=== PATIENT | female | born 1955 | race Caucasian/White ===

== ENCOUNTER 2019-05-30 20:52 | Inpatient (IN) ==
[2019-05-30] MEDS ORDERED: VANCOMYCIN HCL 1,750 MG in SODIUM CHLORIDE 0.9% 500 ML IV STA (21:26)
[2019-05-30] MEDS ORDERED: VANCOMYCIN CONSULT ACTIVE PRN (21:26)
[2019-05-30] MEDS ORDERED: SODIUM CHLORIDE 0.9% 500 ML IV ONE (21:26)
[2019-05-30] MEDS ORDERED: KETOROLAC 30 MG/ML VIAL IV STA (21:26)
--- NOTE | 2019-05-30 21:34 | Emergency Department Note ---
Entered by Wali Paez acting as a scribe for History of Present Illness General Chief complaint: Infection, Wound Stated complaint: SORE ON HEAD Time Seen by Provider: 05/30/19 21:11 Source: patient History of Present Illness Onset (ago): week(s) 1 Location: head (left forehead) Pain Consistency: + constant Maximum Pain Intensity: 9 Quality: + other (sore) Associated symptoms: + other (Positive for drainage, pain, and nausea.) The patient is a 63 year old female who presents to the emergency department with complaints of a constant sore on her left forehead beginning a week ago. The patient states that she also has sores on her torso, arms, and back. She notes that she has pain at these locations. She reports that the sores have been draining. The patient states that she has been taking Aleve and Excedrin with no relief of her symptoms. She also complains of nausea. She notes that she is unsure if her sores are cellulitis or diabetic sores. Home Medications Home Medications Medication Instructions Recorded Confirmed Type No Known Home Medications 05/30/19 05/30/19 History Allergies Allergy/AdvReac Type Severity Reaction Status Date / Time No Known Allergies Allergy Verified 05/30/19 22:29 Past Med/Surg History Medical History (Updated 05/30/19 @ 22:26 by Wali Paez) Diabetes Family History (Updated 05/30/19 @ 21:21 by Wali Paez) Other No significant family history Social History (Updated 05/30/19 @ 21:21 by Wali Paez) marital status: / Current Living Situation: Family Feels Safe at Home: Yes Smoking Status: Never smoker Review of Systems See HPI for pertinent positives & negatives. and A total of 10 systems reviewed and were otherwise negative Physical Exam Vital Signs Vital Signs - 24 hr 05/30/19 20:54 Temperature 36.8 C Temperature Source Oral Pulse Rate 83 Respiratory Rate 18 Respiratory Effort / Characteristics Non-Labored Spontaneous Respiratory Depth Normal Blood Pressure 157/74 H Blood Pressure Mean 101 Pulse Oximetry 98 Oxygen Delivery Method Room Air Sepsis Recent Fever Within 48 Hours No Sepsis Action Taken by Nursing No Action Required CONSTITUTIONAL/VITAL SIGNS: Reviewed / noted above. GENERAL: Non-toxic in appearance. INTEGUMENTARY: Warm, dry, and Sammy Martinez. Large erythematous region on left frontal and temporal area, partially scabbed over wound the size of a nickel, fluctuant with purulent drainage. Multiple papules and pustules on back and other areas of the body. HEAD: Normocephalic. EYES: without scleral icterus or trauma. ENT/OROPHARYNX: clear and moist. LYMPHADENOPATHY/NECK: Is supple without lymphadenopathy or meningismus. RESPIRATORY: Lungs clear and equal. CARDIOVASCULAR: Regular rate and rhythm. GI/ABDOMEN: Soft and nontender. No organomegaly or pulsatile mass. No rebound or guarding. Normal bowel sounds. EXTREMITIES: Warm and well perfused. BACK: No CVA tenderness. NEUROLOGICAL: Intact without focal deficits. PSYCHIATRIC: normal affect. MUSCULOSKELETAL: Normally developed with good muscle tone. Course Course 2114: The patient was evaluated in room A3. A complete history and physical exam was performed. 2219: Upon reevaluation, the patient is stable. I discussed the findings and the treatment plan with the patient. She expresses agreement and understanding. I spoke with Dr. Lam of the [facility]. The patient will be evaluated for further management. Consultations Consultation #1: I reviewed the patient's case with Dr. Lam - Hospitalist, [facility]. He will evaluate the patient for further management. Time: 22:20 Administered Medications Vancomycin HCl 1,750 mg/ (Sodium Chloride) 535 mls @ 200 mls/hr IV NOW STA; Protocol Stop: 05/31/19 00:06 Last Admin: 05/30/19 22:09 Dose: 200 mls/hr Documented by: [id number] Discontinued Medications Sodium Chloride (Nss) 500 mls @ 999 mls/hr IV .Q31M ONE Stop: 05/30/19 21:56 Last Admin: 05/30/19 21:45 Dose: 999 mls/hr Documented by: [id number] Ketorolac Tromethamine (Toradol) 30 mg IV NOW STA Stop: 05/30/19 21:27 Last Admin: 05/30/19 21:46 Dose: 30 mg Documented by: [id number] Medical Decision Making Differential Diagnosis Differential diagnosis includes etiologies such as cellulitis, abscess, MRSA infection, DVT, necrotizing fasciitis, dermatitis, drug eruption, as well as others were entertained. Medical Records Attestation: I reviewed the patient's medical records. Home Medications Current Medication List: was personally reviewed by me Laboratory Data Attestation: I reviewed the patient's lab results. Result diagrams: 05/30/19 21:39 05/30/19 21:39 Lab Results 05/30/19 05/30/19 Range/Units 21:39 21:39 WBC 15.43 H (4.8-10.8) K/uL RBC 4.17 L (4.2-5.4) M/uL Hgb 12.2 (12.0-16.0) g/dL Hct 36.2 L (37-47) % MCV 86.8 (80-100) fL MCH 29.3 (25-34) pg MCHC 33.7 (32-36) g/dL RDW Std Deviation 41.4 (36.4-46.3) fL RDW Coeff of Anitha 12.8 (11.5-14.5) % Plt Count 326 (130-400) K/uL MPV 10.1 (7.4-10.4) fL Immature Gran % (Auto) 0.1 % Neut % (Auto) 84.0 % Lymph % (Auto) 9.6 % [place] % (Auto) 5.4 % Eos % (Auto) 0.8 % Baso % (Auto) 0.1 % Immature Gran # (Auto) 0.02 (0.00-0.02) K/uL Neut # (Auto) 12.96 H (1.4-6.5) K/uL Lymph # (Auto) 1.48 (1.2-3.4) K/uL [place] # (Auto) 0.83 H (0.11-0.59) K/uL Eos # (Auto) 0.12 (0-0.5) K/uL Baso # (Auto) 0.02 (0-0.2) K/uL Sodium 137 (136-145) mmol/L Potassium 3.3 L (3.5-5.1) mmol/L Chloride 106 (98-107) mmol/L Carbon Dioxide 24 (21-32) mmol/L Anion Gap 8.0 (3-11) BUN 15 (7-18) mg/dl Creatinine 0.96 (0.6-1.2) mg/dl Est Cr Clr Drug Dosing 67.8 ml/min Est GFR ( Amer) 72.9 Est GFR (Non-Af Amer) 62.9 BUN/Creatinine Ratio 15.9 (10-20) Glucose 311 H* (70-99) mg/dl Calcium 8.7 (8.5-10.1) mg/dl Beta-Hydroxybutyric Acd 1.53 (0.2-2.81) mg/dl Blood Pressure Blood Pressure Findings: Elevated blood pressure Blood Pressure Disposition: elevated BP felt to be situational MDM Narrative This is a 63-year-old female who presents to the ED with a chief complaint of a wound on her left frontal/temporal region. The patient states that she has a hi story of diabetes but has not been taking medication for because she does not have insurance. She also reports that she has had an area on her forehead that has been infected recently but she has not had it checked. She developed a large abscess and decided to come to the ED tonight because it was getting worse. She states that pus intermittently has been draining out of the wound. She denies any fevers. Her physical exam reveals a partially healing wound about the size of a nickel in the left forehead. There is moderate fluctuance under the wound and a moderate amount of pus was expressed from that area after a 18-gauge needle was used to open up the previously partially healed wound. There is surrounding erythema. The patient also has multiple papules/pustules on her back and other areas of her body. Her vital signs are stable. She is mildly hypertensive. A culture of the pus was taken. The patient was given IV vancomycin and some IV Toradol. She was also given some IV fluids. Her white blood cell count is elevated at 15.43. Her glucose is 311. She will be seen by the hospitalist for further evaluation and care. Impression & Plan Cellulitis, Abscess of head Discharge Plan Visit Data Chief Complaint: Infection, Wound Stated Complaint: SORE ON HEAD ED Provider: Klever Ventura Discharge Problem: Cellulitis, Abscess of head Patient Disposition: Being Evaluated by Hospitalist Forms Stand Alone Forms: [email or web address] Prescriptions Prescriptions: No Action No Known Home Medications RF: 0 Referrals Referrals: PCP,NO [Primary Care Provider] - Discharge Problem: Cellulitis Qualifiers: Site of cellulitis: unspecified site Qualified Code(s): L03.90 - Cellulitis, unspecified The scribe's documentation has been prepared under my direction and personally reviewed by me in its entirety. I confirm that the note above accurately reflects all work, treatment, procedures, and medical decision making performed by me.
[2019-05-30 21:51] LABS: Basophils # (auto) 0.02 K/uL (0-0.2); Basophils % (auto) 0.1 %; Eosinophils # (auto) 0.12 K/uL (0-0.5); Eosinophils % (auto) 0.8 %; Hematocrit (blood only) 36.2 % (37-47); Hemoglobin 12.2 g/dL (12.0-16.0); Immature Granulocytes # (auto) 0.02 K/uL (0.00-0.02); Immature Granulocytes % (auto) 0.1 %; Lymphocytes # (auto) 1.48 K/uL (1.2-3.4); Lymphocytes % (auto) 9.6 %; Mean Corpuscular Hemoglobin 29.3 pg (25-34); Mean Corpuscular Hgb Conc 33.7 g/dL (32-36); Mean Corpuscular Volume 86.8 fL (80-100); Mean Platelet Volume 10.1 fL (7.4-10.4); Monocytes # (auto) 0.83 K/uL (0.11-0.59); Monocytes % (auto) 5.4 %; Neutrophils # (auto) 12.96 K/uL (1.4-6.5); Platelet Count 326 K/uL (130-400); RDW Coefficient of Variation 12.8 % (11.5-14.5); RDW Standard Deviation 41.4 fL (36.4-46.3); Red Blood Count 4.17 M/uL (4.2-5.4); White Blood Count 15.43 K/uL (4.8-10.8)
[2019-05-30 22:07] LABS: BUN Creatinine Ratio 15.9 (10-20); Calcium 8.7 mg/dl (8.5-10.1); Creatinine Clr Calc Pharmacy 67.8 ml/min; Est GFR (African American) 72.9; Est GFR (Non-African American) 62.9; Potassium 3.3 mmol/L (3.5-5.1)
[2019-05-30 22:26] LABS: Beta-Hydroxybutyrate 1.53 mg/dl (0.2-2.81)
[2019-05-31] MEDS ORDERED: ONDANSETRON INJ 2 MG/ML 2 ML VIAL IV PRN (00:56)
[2019-05-31] MEDS ORDERED: VANCOMYCIN HCL 1,000 MG in SODIUM CHLORIDE 0.9% 250 ML IV SCH (00:56)
[2019-05-31] MEDS ORDERED: VANCOMYCIN CONSULT ACTIVE PRN (00:56)
[2019-05-31] MEDS ORDERED: PIPERACILL/TAZOBAC CONSULT ACTIVE PRN (00:56)
[2019-05-31] MEDS ORDERED: POTASSIUM CHLORIDE 20 MEQ TABCR PO STA (00:56)
[2019-05-31] MEDS ORDERED: GLUCOSE 10 TABS/TUBE PO PRN (01:30)
[2019-05-31] MEDS ORDERED: CARBOHYDRATES FOR HYPOGLYCEMIA PO PRN (01:30)
[2019-05-31] MEDS ORDERED: GLUCAGON FOR INJ 1 MG VIAL SQ PRN (01:30)
[2019-05-31] MEDS ORDERED: PIPERACILLIN/TAZOBACTAM 4.5 GM in DEXTROSE 5% 100 ML IV SCH ×2 (01:30→06:00)
[2019-05-31] MEDS ORDERED: DEXTROSE 50% 50 ML SYRINGE IV PRN (01:30)
[2019-05-31] MEDS ORDERED: GLUCOSE 40% GEL 15 GM TUBE PO PRN (01:30)
[2019-05-31] MEDS: INSULIN GLARGINE SOLOSTAR 100 UNITS/ML 3 ML PEN SC SCH ×3 (01:42→21:08)
[2019-05-31] MEDS: SODIUM CHLORIDE 0.9% 1000ML 1,000 ML IV SCH ×3 (01:44→21:06)
--- NOTE | 2019-05-31 02:38 | History and Physical Report ---
DATE OF ADMISSION: 05/30/2019 CHIEF COMPLAINT: Left frontal draining wound and pain. HISTORY OF PRESENT ILLNESS: This is a 63-year-old female diagnosed with diabetes 4 years ago, was on metformin and glipizide, but stopped taking 2 years ago because she has no insurance. She is from [facility], but she works in [place]. Since last few days, she noticed swelling and erythema and wound on the left frontal part of the head and also has pustules in her trunk and extremities. She lives with daughter. As per daughter, since her , she is not taking care of herself. She does not check blood sugars regularly. Once in a while she checks her blood sugars and she does not remember how high they were running. Last few days ago, she fell and she has some bruises on her left lower extremity. Denies any fever, chills, but she has severe throbbing pain in her head at wound site and it was draining and the ER physician has drained the abscess , but no excision was done. Currently, after the pain medication, the pain has improved. Currently, resting comfortably and hemodynamically stable. Denies any dizziness. Once in a while, she gets blurred vision, has earache in the left ear corresponding to her head wound. Has some runny nose, no sore throat, no dysphagia, no odynophagia, no chest pain, no shortness of breath, no cough, no nausea, no vomiting, no abdominal pain, no diarrhea, no constipation, no blood in stool, no black stools. No burning micturition, no hematuria. No swelling in the legs, no rash currently. ALLERGIES: No known drug allergies. PAST MEDICAL HISTORY: As mentioned above. PAST SURGICAL HISTORY: Tonsillectomy. MEDICATIONS: None. FAMILY HISTORY: Father had hypertension and heart disease, but lived up to 104 years. Mother had dementia, but lived up to 94 years. SOCIAL HISTORY: No smoking, no alcohol. Lives with her daughter. REVIEW OF SYSTEMS: As per HPI. Rest of review of systems negative. PHYSICAL EXAMINATION: GENERAL: The patient is of moderate build, not in acute distress. VITAL SIGNS: Temperature 36.8, pulse 83, respiratory rate 18, blood pressure 157/74, oxygen 98% on room air. HEENT: The patient has a draining wound seen on the right frontal region and erythematous changes surrounding it,up to the forehead. No pallor, no icterus. Pupils equal, round, reactive to light. NECK: No carotid bruit, no neck masses. Supple. CARDIOVASCULAR: S1, S2 heard, regular rate and rhythm, no murmur, no gallop. RESPIRATORY SYSTEM: Normal AP diameter. No accessory muscle use. No wheezing, no crackles. ABDOMEN: Soft, bowel sounds present. Nontender. No distention. CENTRAL NERVOUS SYSTEM: Cranial nerves II-XII are grossly intact. Nonfocal. EXTREMITIES: No edema, no erythema. SKIN: Pustular lesions seen on the trunk and extremities. LABORATORY DATA: WBC 15, hemoglobin 12.2, hematocrit 36.2, platelets 326. Sodium 137, potassium 3.3, chloride 106, bicarb 24, BUN 15, creatinine 0.9, serum glucose 311, calcium 8.7. ASSESSMENT AND PLAN: This is a 63-year-old female who presents with left frontal facial abscess and cellulitis. 1. Left frontal facial abscess and cellulitis. The patient is diabetic, but not taking medications since last 2 years, blood sugar is 311 in the ER. It was draining at home and ER physician pressed it and drained it. Vancomycin was given in the ER. We will continue with vancomycin and Zosyn. Follow the cultures. IV fluids at 125 mL per hour. Monitor in the medical floor.ID consult. 2. Diabetes, noncompliant with medications, used to be on metformin and glipizide in the past. Diagnosed 4 years ago. Stopped taking medications 2 years ago. Sugar was 311 in the ER. We will place on Lantus 5 units b.i.d., insulin sliding scale. Follow hemoglobin A1c levels. We will consult social service to help with the medications. 3. Deep venous thrombosis prophylaxis, sequential compression devices. DISPOSITION: Admit to medical floor, observe in medical floor. Expect to discharge home and follow with family doctor. Level 1 full code. MTDD
[2019-05-31 05:23] LABS: Basophils # (auto) 0.03 K/uL (0-0.2); Basophils % (auto) 0.3 %; Eosinophils # (auto) 0.19 K/uL (0-0.5); Eosinophils % (auto) 1.7 %; Hematocrit (blood only) 33.4 % (37-47); Hemoglobin 10.8 g/dL (12.0-16.0); Immature Granulocytes # (auto) 0.02 K/uL (0.00-0.02); Immature Granulocytes % (auto) 0.2 %; Lymphocytes # (auto) 2.07 K/uL (1.2-3.4); Lymphocytes % (auto) 18.6 %; Mean Corpuscular Hemoglobin 28.8 pg (25-34); Mean Corpuscular Hgb Conc 32.3 g/dL (32-36); Mean Corpuscular Volume 89.1 fL (80-100); Mean Platelet Volume 10.6 fL (7.4-10.4); Monocytes # (auto) 0.98 K/uL (0.11-0.59); Monocytes % (auto) 8.8 %; Neutrophils # (auto) 7.85 K/uL (1.4-6.5); Neutrophils % (auto) 70.4 %; Platelet Count 258 K/uL (130-400); RDW Coefficient of Variation 12.9 % (11.5-14.5); RDW Standard Deviation 41.4 fL (36.4-46.3); Red Blood Count 3.75 M/uL (4.2-5.4); White Blood Count 11.14 K/uL (4.8-10.8)
[2019-05-31 05:52] LABS: BUN Creatinine Ratio 20.8 (10-20); Calcium 8.1 mg/dl (8.5-10.1); Creatinine Clr Calc Pharmacy 79.9 ml/min; Est GFR (African American) 88.3; Est GFR (Non-African American) 76.2; Magnesium 1.4 mg/dl (1.8-2.4); Potassium 3.7 mmol/L (3.5-5.1)
[2019-05-31] MEDS: MAGNESIUM SULFATE / D5W 1 GM/100 ML BAG IV SCH ×2 (06:42→07:45)
[2019-05-31] MEDS: VANCOMYCIN HCL 1,000 MG in SODIUM CHLORIDE 0.9% 250 ML IV SCH ×3 (08:46→23:29)
[2019-05-31] MEDS: INSULIN ASPART 100 UNITS/ML 3 ML PEN SC SCH ×4 (08:48→21:08)
--- NOTE | 2019-05-31 08:50 | Pharmacy Report ---
Pharmacy Abx Initial Consult - Date of Service May 31, 2019 - Pharmacy Dosing Scope Date of Consult: 05/30/19 Consultation requested by: Dr. Lam Pharmacy is consulted to initiate vancomycin and Zosyn IV dosing therapy, order appropriate labs and adjust drug dose/frequency. - Subjective The patient is a 63 year old F admitted on 05/30/19 23:41. - Objective Height: 5 ft 5 in Weight: 94.6 kg Vital Signs (Past 12hrs): Vital Signs Temp Pulse Pulse Resp BP BP BP 05/31/19 07:31 36.9 C 66 20 147/82 H 05/31/19 07:13 37.0 C 64 16 112/66 05/31/19 01:44 71 153/69 H 05/31/19 01:02 36.8 C 75 20 166/80 H 05/31/19 00:50 36.8 C 87 15 166/80 H 05/31/19 00:30 73 18 155/82 H 05/30/19 20:54 36.8 C 83 18 157/74 H Pulse Ox 05/31/19 07:31 97 05/31/19 07:13 96 05/31/19 01:44 05/31/19 01:02 97 05/31/19 00:50 96 05/31/19 00:30 97 05/30/19 20:54 98 Lab Results (24hrs): Laboratory Tests (24 Hours) 05/31/19 05/31/19 05/30/19 04:40 04:40 21:39 WBC 11.14 H Neut # (Auto) 7.85 H Creatinine 0.82 0.96 Est Cr Clr Drug Dosing 79.9 67.8 05/30/19 21:39 WBC 15.43 H Neut # (Auto) 12.96 H Creatinine Est Cr Clr Drug Dosing Micro Results: 05/30/19 21:28 Gram Stain - Final Head Wound Culture - Pending - Assessment & Plan Assessment 63 year old F receiving empiric vancomycin and Zosyn for treatment of a draining left frontal head wound. Additionally, patient complains of sores on torso, arms, and back. Patient has currently uncontrolled type 2 diabetes mellitus (not currently taking any medications). Culture of the head wound was obtained and is growing S.aureus. Zosyn discontinued in light of preliminary culture. Plan Vancomycin IV * Estimated PK Parameters: Vd 0.6 L/kg, Abel 0.07 hr-1, t1/2 9.9 hr * Loading dose: 1750 mg (18 mg/kg) * Maintenance dose: 1000 mg IV (10 mg/kg) every 8 hours * Patient meets criteria for vancomycin AUC dosing nomogram * AUC/ABIOLA is the preferred PK/PD target for vancomycin * Target AUC/ABIOLA = 400-600 * AUC guided dosing is effective and associated with decreased risk of nephrotoxicity * Trough levels poorly correlate with AUC/ABIOLA and trough monitoring has been associated with increased risk of nephrotoxicity Pharmacy will continue to follow and will adjust dose/frequency as necessary. Thank you.
[2019-05-31] MEDS: MAGNESIUM OXIDE 400 MG TAB PO SCH ×2 (11:19→21:06)
--- NOTE | 2019-05-31 11:36 | Hospitalist Progress Note ---
Date of Service May 31, 2019 Assessment & Plan (1) Cellulitis: Left frontal area with adjoining ileum telemetry changes involving the left face Ulcers with minimal drainage Has been getting intravenous Vanco and Zosyn Await wound culture prior to changing it to oral Augmentin Clinically better Present on Admission?: Yes (2) Diabetes: History of diabetes for many years Has not been taking medications for the last 4 years Not been following diabetic diet Does not have any insurance We will get hemoglobin A1c Has been getting insulin and sliding scale coverage DVT prophylaxis Lovenox CODE STATUS Full Social service evaluation for discharge planning Subjective 05/31/2019 Patient was seen and examined in medical floor She has diabetes and has been taking any medications Was admitted with a nonhealing wound left frontal area with adjoining inflammatory changes Feeling a lot better since admission Review of Systems Review of Systems: All systems reviewed and are unremarkable except as noted below Constitutional: + fatigue Respiratory: no dyspnea Cardiovascular: no chest pain Gastrointestinal: no bloating, no nausea and no vomiting Physical Exam Physical Exam: Lying in bed comfortably Constitutional: well developed, well nourished and + obese; no acute distress and not ill appearing Eyes: PERRL, conjunctivae normal, anicteric sclerae ENMT: external ear and nose normal, oropharynx normal Neck: trachea midline, no thyromegaly Respiratory: normal respiratory effort; no respiratory distress Auscultation: lungs clear to auscultation bilaterally Cardiovascular: Rate/Rhythm: regular rate and regular rhythm Heart Sounds: no murmur Gastrointestinal (Abdomen): Inspection/Auscultation: abdomen normal to inspection and normal bowel sounds Percussion/Palpation: abdomen soft; abdomen nontender Musculoskeletal: No acute arthritis in any joints Skin: Skin lesion involving the left frontal area with small oozing ulcer and surrounding inflammation and edema involving left side of the face Neurologic: moves all extremities; no focal motor deficits Has peripheral neuropathy from diabetes Results & Data ([facility]) Vital Signs (Past 12 Hours) Vital Signs Temp Pulse Resp BP BP Pulse Ox 05/31/19 07:31 36.9 C 66 20 147/82 H 97 05/31/19 07:13 37.0 C 64 16 112/66 96 05/31/19 01:44 71 153/69 H 05/31/19 01:02 36.8 C 75 20 166/80 H 97 05/31/19 00:50 36.8 C 87 15 166/80 H 96 05/31/19 00:30 73 18 155/82 H 97 Laboratory Results Short CBC 05/30/19 05/31/19 Range/Units 21:39 04:40 WBC 15.43 H 11.14 H (4.8-10.8) K/uL Hgb 12.2 10.8 L (12.0-16.0) g/dL Hct 36.2 L 33.4 L (37-47) % Plt Count 326 258 (130-400) K/uL BMP 05/30/19 05/31/19 21:39 04:40 Sodium 137 138 Potassium 3.3 L 3.7 Chloride 106 110 H Carbon Dioxide 24 22 BUN 15 17 Creatinine 0.96 0.82 Glucose 311 H* 226 H Calcium 8.7 8.1 L Medications Administered Current Inpatient Medications Acetaminophen (Tylenol) 650 mg PO Q4H PRN PRN Reason: pain/fever Stop: 06/30/19 00:55 Dextrose (Dextrose 50%) 25 - 50 ml IV UD PRN; Protocol PRN Reason: Hypoglycemia Protocol Stop: 06/30/19 01:29 Glucagon (Glucagen) 1 mg SQ UD PRN; Protocol PRN Reason: Hypoglycemia Protocol Stop: 06/30/19 01:29 Glucose (Glucose 40%) 15 - 30 gm PO UD PRN; Protocol PRN Reason: Hypoglycemia Protocol Stop: 06/30/19 01:29 Glucose (Dex4 Glucose) 4 - 8 tabs PO UD PRN; Protocol PRN Reason: Hypoglycemia Protocol Stop: 06/30/19 01:29 Sodium Chloride (Nss 1000ml) 1,000 mls @ 125 mls/hr IV .Q8H PAM Stop: 06/30/19 00:55 Last Admin: 05/31/19 11:19 Dose: 125 mls/hr Documented by: Piperacillin Sod/Tazobactam (Sod 4.5 gm/ Dextrose) 120 mls @ 30 mls/hr IV Q8H PAM; Protocol Stop: 06/10/19 05:59 Last Infusion: 05/31/19 09:10 Dose: Infused Documented by: Vancomycin HCl 1,000 mg/ (Sodium Chloride) 270 mls @ 125 mls/hr IV Q8H PAM; Protocol Stop: 06/10/19 07:59 Last Infusion: 05/31/19 11:22 Dose: Infused Documented by: Insulin Aspart (Novolog Flexpen) 0 units SC ACHS [facility] Stop: 06/30/19 07:29 Last Admin: 05/31/19 08:48 Dose: 6 units Documented by: Insulin Glargine (Lantus Solostar Pen) 5 units SC BID [facility] Stop: 06/30/19 00:55 Last Admin: 05/31/19 08:49 Dose: 5 units Documented by: Magnesium Oxide (Mag-Ox) 400 mg PO BID [facility] Stop: 06/30/19 09:29 Last Admin: 05/31/19 11:19 Dose: 400 mg Documented by: Miscellaneous (Carbohydrates For Hypoglycemia) 15 - 30 gm PO UD PRN PRN Reason: Hypoglycemia Treatment Stop: 06/30/19 01:29 Miscellaneous Information (Consult) 1 ea N/A UD PRN PRN Reason: Consult Stop: 06/30/19 00:55 Miscellaneous Information (Consult) 1 ea N/A UD PRN PRN Reason: Consult Stop: 06/30/19 00:55 Ondansetron HCl (Zofran) 4 mg IV Q6H PRN PRN Reason: Nausea Stop: 06/30/19 00:55 Oxycodone HCl (Roxicodone Immediate Rel) 5 mg PO Q6H PRN PRN Reason: Pain Stop: 06/14/19 00:55 (1) Cellulitis Site of cellulitis: unspecified site Qualified Code(s): L03.90 - Cellulitis, unspecified
[2019-05-31] MEDS: ACETAMINOPHEN 325 MG TAB PO PRN ×3 (15:37→23:29)
[2019-06-01] MEDS: SODIUM CHLORIDE 0.9% 1000ML 1,000 ML IV SCH ×4 (01:45→23:21)
[2019-06-01] MEDS: ACETAMINOPHEN 325 MG TAB PO PRN ×2 (04:43→12:04)
[2019-06-01 05:40] LABS: Creatinine Clr Calc Pharmacy 79.9 ml/min; Est GFR (African American) 88.3; Est GFR (Non-African American) 76.2
[2019-06-01 07:02] LABS: Estimated Average Glucose 255 mg/dl; Hemoglobin A1C 10.5 % (4.5-5.6)
[2019-06-01] MEDS ORDERED: VANCOMYCIN TROUGH ONE (07:30)
[2019-06-01] MEDS: INSULIN GLARGINE SOLOSTAR 100 UNITS/ML 3 ML PEN SC SCH ×2 (08:46→21:41)
[2019-06-01] MEDS: INSULIN ASPART 100 UNITS/ML 3 ML PEN SC SCH ×4 (08:46→21:38)
[2019-06-01] MEDS: MAGNESIUM OXIDE 400 MG TAB PO SCH ×2 (08:49→21:43)
--- NOTE | 2019-06-01 10:31 | Infectious Disease Consult ---
Date of Consultation June 01, 2019 Assessment & Plan (1) Abscess of head: can continue IV abx for now. will plan to change to po upon d/c. likely doxy 100mg po bid. will need prolonged course, 3-4 weeks. would benefit from wound care arvind ongoing wound care post d/c. will also be candidate for decolonization post treatment. (2) Cellulitis: History of Present Illness Attending Physician: Tobi Martinez MD pt admitted with facial pain, wound and drainage. also noted multiple small abscesses over back and under breast b/l. no vesicles reported. no h/o shingles. having purulent drainage from wound on head, culture done, growing CA-MRSA. currently on IV vanco, tolerating well. afebrile since admission. wbc 15 in ER, now improved. no abd pain, no n/v/d. no cp, sob, cough, no imaging to review. states pain is improving, still with drainage. also having bleeding and drainage from wounds on neck/back, states they are painful as well. Allergies Allergy/AdvReac Type Severity Reaction Status Date / Time No Known Allergies Allergy Verified 05/30/19 22:29 Home Medications Home Medications Medication Instructions Recorded Confirmed Type No Known Home Medications 05/30/19 05/30/19 History Patient History Medical History Diabetes Family History Other No significant family history Social History Preferred Language: Irish Communication Ability: Effective Beliefs That Will Affect Care: None marital status: / Current Living Situation: Family Feels Safe at Home: Yes Safety Concerns: Feels Safe At This Time Smoking Status: Never smoker Hx Alcohol Use: Yes Alcohol type: wine Hx Substance Use: No Review of Systems Review of Systems: All systems reviewed & are unremarkable except as noted in HPI & below Physical Exam Constitutional: WD/WN, vitals as above Eyes: PERRL, conjunctivae normal, anicteric sclerae ENMT: external ear and nose normal, oropharynx normal Neck: normal visual inspection Respiratory: normal respiratory effort, lungs clear to auscultation Cardiovascular: RRR, no murmur, no edema Gastrointestinal (Abdomen): normal bowel sounds, soft, nontender, no hepatosplenomegaly Musculoskeletal: no cyanosis or clubbing, extremities motor strength 5/5 Skin: + lesion, + ulcer, + wound (erythema, drainage, tender ) and + erythema multiple smaller abscess scattered over trunk, not vesicular, crossed midline, does not follow true dermatome, does not appear to be shingles. Psychiatric: A+Ox3, euthymic affect Results & Data ([facility]) Vital Signs (Past 12 Hours) Vital Signs Temp Pulse Pulse Resp BP Pulse Ox 06/01/19 07:20 36.5 C 61 10 L 152/86 H 95 05/31/19 23:25 36.7 C 64 16 152/80 H 97 Laboratory Results Microbiology 05/30/19 21:28 Head Gram Stain - Final 05/30/19 21:28 Head Wound Culture - Final Staph aureus MRSA PG Care Time/CCT Total # of Minutes Spent Total Time Spent with Patient: Total time spent is greater than 50% in coordination of care (as documented) at patient's floor/unit and/or counseling patient: Coding Level of Care Code 01378 Inpt Consult Level 4 Diagnoses Abscess of head L02.811 Cellulitis L03.90 Site of cellulitis: unspecified site (1) Cellulitis Site of cellulitis: unspecified site Qualified Code(s): L03.90 - Cellulitis, unspecified
[2019-06-01] MEDS ORDERED: CLINDAMYCIN HCL 150 MG CAP PO SCH (12:00)
[2019-06-01] MEDS: OXYCODONE HCL IR 5 MG TAB (IMMEDIATE RELEASE) PO PRN ×2 (13:19→21:34)
[2019-06-01] MEDS ORDERED: VANCOMYCIN CONSULT ACTIVE PRN (14:44)
--- NOTE | 2019-06-01 14:46 | Hospitalist Progress Note ---
Date of Service June 01, 2019 Assessment & Plan (1) Cellulitis: Left frontal area with adjoining ileum telemetry changes involving the left face Ulcers with minimal drainage Has been getting intravenous Vanco and Zosyn Cultures grew MRSA Appreciate ID input and recommendation We will continue intravenous vancomycin for now with likely conversion to oral doxycycline for 3 to 4 weeks in total Wound care follow-up (2) Diabetes: History of diabetes for many years Has not been taking medications for the last 4 years Not been following diabetic diet Does not have any insurance We will get hemoglobin A1c Has been getting insulin and sliding scale coverage DVT prophylaxis Lovenox CODE STATUS Full Social service evaluation for discharge planning Admission and Anticipated Discharge Date Admission Date: June 01, 2019 Anticipated date of discharge: 06/03/19 Subjective 05/31/2019 Patient was seen and examined in medical floor She has diabetes and has been taking any medications Was admitted with a nonhealing wound left frontal area with adjoining inflammatory changes Feeling a lot better since admission 06/01/2019 The patient was seen and examined in medical floor She complains to have multiple boils involving the back and also front of the lower chest Denies any other symptoms Review of Systems Review of Systems: All systems reviewed and are unremarkable except as noted below Constitutional: + fatigue Physical Exam Physical Exam: Lying in bed comfortably Constitutional: well developed, well nourished and + obese; no acute distress and not ill appearing Eyes: PERRL, conjunctivae normal, anicteric sclerae ENMT: external ear and nose normal, oropharynx normal Neck: trachea midline, no thyromegaly Respiratory: normal respiratory effort; no respiratory distress Auscultation: lungs clear to auscultation bilaterally Cardiovascular: Rate/Rhythm: regular rate and regular rhythm Heart Sounds: no murmur Gastrointestinal (Abdomen): Inspection/Auscultation: abdomen normal to inspection and normal bowel sounds Percussion/Palpation: abdomen soft; abdomen nontender Skin: + lesion (Multiple boils involving the back and front under the breast) Neurologic: moves all extremities; no focal motor deficits Lymphatic: no cervical or axillary lymphadenopathy Results & Data ([facility]) Vital Signs (Past 12 Hours) Vital Signs Temp Pulse Resp BP Pulse Ox 06/01/19 07:20 36.5 C 61 10 L 152/86 H 95 Laboratory Results [facility] 06/01/19 04:37 Creatinine 0.82 Medications Administered Current Inpatient Medications Acetaminophen (Tylenol) 650 mg PO Q4H PRN PRN Reason: pain/fever Stop: 06/30/19 00:55 Last Admin: 06/01/19 12:04 Dose: 650 mg Documented by: Dextrose (Dextrose 50%) 25 - 50 ml IV UD PRN; Protocol PRN Reason: Hypoglycemia Protocol Stop: 06/30/19 01:29 Glucagon (Glucagen) 1 mg SQ UD PRN; Protocol PRN Reason: Hypoglycemia Protocol Stop: 06/30/19 01:29 Glucose (Glucose 40%) 15 - 30 gm PO UD PRN; Protocol PRN Reason: Hypoglycemia Protocol Stop: 06/30/19 01:29 Glucose (Dex4 Glucose) 4 - 8 tabs PO UD PRN; Protocol PRN Reason: Hypoglycemia Protocol Stop: 06/30/19 01:29 Sodium Chloride (Nss 1000ml) 1,000 mls @ 125 mls/hr IV .Q8H PAM Stop: 06/30/19 00:55 Last Infusion: 06/01/19 14:10 Dose: 125 mls/hr Documented by: Insulin Aspart (Novolog Flexpen) 0 units SC ACHS PAM Stop: 06/30/19 07:29 Last Admin: 06/01/19 12:32 Dose: 5 units Documented by: Insulin Glargine (Lantus Solostar Pen) 5 units SC BID PAM Stop: 06/30/19 00:55 Last Admin: 06/01/19 08:46 Dose: 5 units Documented by: Magnesium Oxide (Mag-Ox) 400 mg PO BID PAM Stop: 06/30/19 09:29 Last Admin: 06/01/19 08:49 Dose: 400 mg Documented by: Miscellaneous (Carbohydrates For Hypoglycemia) 15 - 30 gm PO UD PRN PRN Reason: Hypoglycemia Treatment Stop: 06/30/19 01:29 Miscellaneous Information (Consult) 1 ea N/A UD PRN PRN Reason: Consult Stop: 07/01/19 14:43 Ondansetron HCl (Zofran) 4 mg IV Q6H PRN PRN Reason: Nausea Stop: 06/30/19 00:55 Oxycodone HCl (Roxicodone Immediate Rel) 5 mg PO Q6H PRN PRN Reason: Pain Stop: 06/14/19 00:55 Last Admin: 06/01/19 13:19 Dose: 5 mg Documented by: (1) Cellulitis Site of cellulitis: unspecified site Qualified Code(s): L03.90 - Cellulitis, unspecified
--- NOTE | 2019-06-01 14:48 | Pharmacy Report ---
Pharmacy Abx Dose Short Note - Date of Service June 01, 2019 - Assessment & Plan Assessment 63 year old F to be restarted on vancomycin for SSTI. Previously on vancomycin 1 gm IV q8H with therapeutic trough. Last dose was midnight of 06/01/2019. Plan Vancomycin * Modified load of 1500 mg IV x 1 (15 mg/kg) since only 15 hours since last dose of vancomycin (~2 half-lives) * Restart vancomycin 1 gm IV q8 hours * Goal trough for MRSA is 15-20 mcg/mL * Trough around 0800 dose on 06/03/2019 Pharmacy will continue to follow and will adjust dose/frequency as necessary. Thank you.
[2019-06-01] MEDS ORDERED: VANCOMYCIN HCL 1,500 MG in SODIUM CHLORIDE 0.9% 500 ML IV ONE (15:00)
[2019-06-01] MEDS: VANCOMYCIN HCL 1,000 MG in SODIUM CHLORIDE 0.9% 250 ML IV SCH ×2 (15:24→23:18)
[2019-06-02 05:53] LABS: Creatinine Clr Calc Pharmacy 87.3 ml/min; Est GFR (African American) 98.3; Est GFR (Non-African American) 84.8
[2019-06-02] MEDS: ACETAMINOPHEN 325 MG TAB PO PRN (07:42)
[2019-06-02] MEDS: VANCOMYCIN HCL 1,000 MG in SODIUM CHLORIDE 0.9% 250 ML IV SCH ×2 (07:43→15:29)
[2019-06-02] MEDS: MAGNESIUM OXIDE 400 MG TAB PO SCH ×2 (08:31→20:35)
[2019-06-02] MEDS: INSULIN GLARGINE SOLOSTAR 100 UNITS/ML 3 ML PEN SC SCH ×2 (08:58→21:23)
[2019-06-02] MEDS: INSULIN ASPART 100 UNITS/ML 3 ML PEN SC SCH ×4 (08:58→21:23)
[2019-06-02] MEDS: SODIUM CHLORIDE 0.9% 1000ML 1,000 ML IV SCH ×2 (11:32→21:23)
--- NOTE | 2019-06-02 14:21 | Hospitalist Progress Note ---
Date of Service June 02, 2019 Assessment & Plan (1) Cellulitis: Left frontal area with adjoining ileum telemetry changes involving the left face Ulcers with minimal drainage Has been getting intravenous Vanco and Zosyn Cultures grew MRSA Appreciate ID input and recommendation IV vancomycin was stopped and oral clindamycin was started as per sensitivity on 06/01/19 but that was changed as per ID recommendation as below We will continue intravenous vancomycin for now with likely conversion to oral doxycycline for 3 to 4 weeks in total Wound care follow-up (2) Diabetes: History of diabetes for many years Has not been taking medications for the last 4 years Not been following diabetic diet Does not have any insurance We will get hemoglobin [id number] than 10 Has been getting insulin and sliding scale coverage DVT prophylaxis Lovenox CODE STATUS Full Social service evaluation for discharge planning Admission and Anticipated Discharge Date Admission Date: June 01, 2019 Anticipated date of discharge: 06/03/19 Subjective 05/31/2019 Patient was seen and examined in medical floor She has diabetes and has been taking any medications Was admitted with a nonhealing wound left frontal area with adjoining inflammatory changes Feeling a lot better since admission 06/01/2019 The patient was seen and examined in medical floor She complains to have multiple boils involving the back and also front of the lower chest Denies any other symptoms 06/02/2019 Patient was seen and examined in medical floor She has been feeling fine and denies any complaints She is going to be seen by Dr. Miarnda from tomorrow Review of Systems Review of Systems: All systems reviewed and are unremarkable except as noted below Constitutional: + fatigue Physical Exam Physical Exam: Sitting on a chair without any acute distress Constitutional: well developed, well nourished and + obese; no acute distress and not ill appearing Eyes: PERRL, conjunctivae normal, anicteric sclerae ENMT: external ear and nose normal, oropharynx normal Neck: trachea midline, no thyromegaly Respiratory: normal respiratory effort; no respiratory distress Auscultation: lungs clear to auscultation bilaterally Cardiovascular: Rate/Rhythm: regular rate and regular rhythm Heart Sounds: no murmur Gastrointestinal (Abdomen): Inspection/Auscultation: abdomen normal to inspection and normal bowel sounds Percussion/Palpation: abdomen soft; abdomen nontender Skin: + lesion (Multiple boils involving the back and front under the breast) Very small ulcerated lesion involving the left frontal area with surrounding inflammation Neurologic: moves all extremities; no focal motor deficits Lymphatic: no cervical or axillary lymphadenopathy Results & Data ([facility]) Vital Signs (Past 12 Hours) Vital Signs Temp Pulse Resp BP Pulse Ox 06/02/19 07:50 36.7 C 67 16 166/81 H 96 (1) Cellulitis Site of cellulitis: unspecified site Qualified Code(s): L03.90 - Cellulitis, unspecified
[2019-06-02] MEDS: OXYCODONE HCL IR 5 MG TAB (IMMEDIATE RELEASE) PO PRN (21:28)
[2019-06-03] MEDS: VANCOMYCIN HCL 1,000 MG in SODIUM CHLORIDE 0.9% 250 ML IV SCH ×3 (00:23→20:13)
[2019-06-03] MEDS: OXYCODONE HCL IR 5 MG TAB (IMMEDIATE RELEASE) PO PRN ×2 (04:18→21:11)
[2019-06-03] MEDS: SODIUM CHLORIDE 0.9% 1000ML 1,000 ML IV SCH ×2 (05:38→15:39)
[2019-06-03] MEDS ORDERED: VANCOMYCIN TROUGH ONE (07:30)
[2019-06-03 08:21] LABS: Creatinine Clr Calc Pharmacy 89.7 ml/min; Est GFR (African American) 101.6; Est GFR (Non-African American) 87.7
[2019-06-03] MEDS: MAGNESIUM OXIDE 400 MG TAB PO SCH ×2 (08:26→21:11)
[2019-06-03] MEDS: INSULIN GLARGINE SOLOSTAR 100 UNITS/ML 3 ML PEN SC SCH ×2 (08:31→21:10)
[2019-06-03] MEDS: INSULIN ASPART 100 UNITS/ML 3 ML PEN SC SCH ×4 (08:31→21:09)
--- NOTE | 2019-06-03 11:32 | Pharmacy Report ---
Pharmacy Abx Dose Short Note - Date of Service June 03, 2019 - Assessment & Plan Assessment 63 year old F receiving vancomycin for ssti Day # 5 of antimicrobial therapy. Plan Vancomycin * Trough level of came back slightly supratherapeutic today at ~21 mcg/ml * Due to elevated BMI >/=35 kg/m2 anticipate accumulation with vancomycin - therefore will decrease dosing to vancomycin 1000 mg iv q 12 hrs to target a slightly lower trough * Scr remains stable - Per ID rec's plan to change to doxycycline on discharge Pharmacy will continue to follow and will adjust dose/frequency as necessary. Thank you.
--- NOTE | 2019-06-03 16:46 | Hospitalist Progress Note ---
Date of Service June 03, 2019 Assessment & Plan (1) Cellulitis: Left frontal forehead area/ boil, still quite erythematous, edematous, and tender Ulcers with minimal drainage on her back and R lateral breast Has been getting intravenous Vanco and Zosyn Cultures grew MRSA Appreciate ID input and recommendation IV vancomycin was stopped and oral clindamycin was started as per sensitivity on 06/01/19 but that was changed as per ID recommendation as below We will continue intravenous vancomycin for now with likely conversion to oral doxycycline for 3 to 4 weeks in total Will consult wound care (as also recommended per ID) Also will need Wound care follow-up as outpt (2) Diabetes: History of diabetes for many years Has not been taking medications for the last 2-4 years Not been following diabetic diet Does not have any insurance Current hemoglobin A1c 10.5% Has been getting insulin and sliding scale coverage Will involve pharmacy, and nurse informatics educator, to come up with least expensive insulin option for her as outpatient DVT prophylaxis Lovenox CODE STATUS Full Social service evaluation for discharge planning Admission and Anticipated Discharge Date Admission Date: June 01, 2019 Anticipated date of discharge: 06/03/19 Subjective 05/31/2019 She has diabetes and has been taking any medications Was admitted with a nonhealing wound left frontal area with adjoining inflammatory changes Feeling a lot better since admission 06/01/2019 She complains to have multiple boils involving the back and also front of the lower chest Denies any other symptoms 06/02/2019 Patient was seen and examined in medical floor She has been feeling fine and denies any complaints 06/03 Met with the patient for the first time, patient sitting up in the chair, in no acute distress. She has a large boil on her left forehead, tender, and erythematous. She also has several few more boils/wounds, on her back and her right lateral breast. Patient does not have a health insurance, and we discussed in detail that she will need to have antibiotics for 3 to 4 weeks, and her diabetes will need to be managed. She will also need PCP which she currently does not have. Patient agrees to involve nurse informatics educator, and pharmacy, and check prices of possible insulin for her. She says that it is all about the diaz for her, unfortunately, she does want to comply with medications. Review of Systems Review of Systems: All systems reviewed & are unremarkable except as noted in HPI & below Constitutional: no fever and no chills Respiratory: no cough, no dyspnea and no pain on inspiration Cardiovascular: no chest pain, no dyspnea on exertion, no palpitations and no edema Gastrointestinal: no abdominal pain, no nausea and no vomiting Physical Exam Physical Exam: Physical Exam: Sitting on a chair without any acute distress Constitutional: well developed, well nourished and + obese; no acute distress and not ill appearing Head: L front - large erythematous edematous wound (appears as pocket/ poss. abscess) Eyes: PERRL, conjunctivae normal, anicteric sclerae ENMT: external ear and nose normal, oropharynx normal Neck: trachea midline, no thyromegaly Respiratory: normal respiratory effort; no respiratory distress Auscultation: lungs clear to auscultation bilaterally Cardiovascular: Rate/Rhythm: regular rate and regular rhythm Heart Sounds: no murmur Gastrointestinal (Abdomen): Inspection/Auscultation: abdomen normal to inspection and normal bowel sounds Percussion/Palpation: abdomen soft; abdomen nontender Skin: + lesion (Multiple boils involving the back and front under the R breast) Very small ulcerated lesion involving the left frontal area with surrounding inflammation Neurologic: moves all extremities; no focal motor deficits Results & Data ([facility]) Vital Signs (Past 12 Hours) Vital Signs Temp Pulse Pulse Resp BP BP Pulse Ox 06/03/19 15:30 36.9 C 71 14 174/76 H 98 06/03/19 07:50 36.6 C 61 10 L 173/91 H 97 Laboratory Results 06/03/19 06/03/19 06/03/19 Range/Units 12:26 08:15 07:24 Creatinine 0.73 (0.6-1.2) mg/dl Est Cr Clr Drug Dosing 89.7 ml/min Est GFR ( Amer) 101.6 Est GFR (Non-Af Amer) 87.7 POC Glucose 192 H 164 H (70-99) mg/dl Vancomycin Trough (See Comment) mcg/ml 06/03/19 06/02/19 06/02/19 Range/Units 07:24 20:55 17:19 Creatinine (0.6-1.2) mg/dl Est Cr Clr Drug Dosing ml/min Est GFR ( Amer) Est GFR (Non-Af Amer) POC Glucose 142 H 85 (70-99) mg/dl Vancomycin Trough 21.1 (See Comment) mcg/ml Medications Administered Current Inpatient Medications Acetaminophen (Tylenol) 650 mg PO Q4H PRN PRN Reason: pain/fever Stop: 06/30/19 00:55 Last Admin: 06/02/19 07:42 Dose: 650 mg Documented by: Dextrose (Dextrose 50%) 25 - 50 ml IV UD PRN; Protocol PRN Reason: Hypoglycemia Protocol Stop: 06/30/19 01:29 Glucagon (Glucagen) 1 mg SQ UD PRN; Protocol PRN Reason: Hypoglycemia Protocol Stop: 06/30/19 01:29 Glucose (Glucose 40%) 15 - 30 gm PO UD PRN; Protocol PRN Reason: Hypoglycemia Protocol Stop: 06/30/19 01:29 Glucose (Dex4 Glucose) 4 - 8 tabs PO UD PRN; Protocol PRN Reason: Hypoglycemia Protocol Stop: 06/30/19 01:29 Vancomycin HCl 1,000 mg/ (Sodium Chloride) 270 mls @ 125 mls/hr IV Q12H PAM Stop: 06/13/19 19:59 Insulin Aspart (Novolog Flexpen) 0 units SC ACHS PAM Stop: 06/30/19 07:29 Last Admin: 06/03/19 12:52 Dose: 5 units Documented by: Insulin Glargine (Lantus Solostar Pen) 5 units SC BID PAM Stop: 06/30/19 00:55 Last Admin: 06/03/19 08:31 Dose: 5 units Documented by: Magnesium Oxide (Mag-Ox) 400 mg PO BID PAM Stop: 06/30/19 09:29 Last Admin: 06/03/19 08:26 Dose: 400 mg Documented by: Miscellaneous (Carbohydrates For Hypoglycemia) 15 - 30 gm PO UD PRN PRN Reason: Hypoglycemia Treatment Stop: 06/30/19 01:29 Miscellaneous Information (Consult) 1 ea N/A UD PRN PRN Reason: Consult Stop: 07/01/19 14:43 Ondansetron HCl (Zofran) 4 mg IV Q6H PRN PRN Reason: Nausea Stop: 06/30/19 00:55 Oxycodone HCl (Roxicodone Immediate Rel) 5 mg PO Q6H PRN PRN Reason: Pain Stop: 06/14/19 00:55 Last Admin: 06/03/19 04:18 Dose: 5 mg Documented by: (1) Cellulitis Site of cellulitis: unspecified site Qualified Code(s): L03.90 - Cellulitis, unspecified
[2019-06-03] MEDS ORDERED: PHARMACY GLYCEMIC MGMT CONSULT PRN (16:52)
--- NOTE | 2019-06-03 17:07 | Pharmacy Report ---
Pharmacy Glycemic Short Note 2 - Date of Service June 03, 2019 - Glycemic Short BSG Results (Last 24 hours): 06/02/19 06/02/19 06/03/19 17:19 20:55 08:15 POC Glucose 85 142 H 164 H 06/03/19 12:26 POC Glucose 192 H Laboratory Tests 05/31/19 04:40 Hemoglobin A1c 10.5 H OUTPATIENT ANTIDIABETIC REGIMEN: * No reported meds listed ASSESSMENT OF INPATIENT GLYCEMIC CONTROL (Pre-glycemic consult): * Basal insulin * Lantus 5 units SQ BID since admission * Bolus insulin * NovoLog per scale ACHS or Q6hrs while NPO * Goal Range: Low 120 mg/dL - High 150 mg/dL * Correction Factor: 30 mg/dL/unit * Nutritional / Prandial insulin per carb ratio of 1 unit per 10 grams CHO consumed Total Insulin 06/01/19: 26 units Total Insulin 06/02/19: 21 units ASSESSMENT OF INPATIENT GLYCEMIC CONTROL: * Basal insulin * Increase Lantus to 6 units SQ BID * Bolus insulin * NovoLog per scale ACHS or Q6hrs while NPO * Changed Goal Range: Low 120 mg/dL - High 160 mg/dL * Tightened Correction Factor: 25 mg/dL/unit * Nutritional / Prandial insulin per carb ratio of 1 unit per 10 grams CHO consumed Pharmacy will continue to follow up and make adjustments as needed.
[2019-06-04] MEDS ORDERED: lisinopriL 5 MG TAB PO ONE (00:59)
--- NOTE | 2019-06-04 01:00 | Communication Note ---
Date of Service: June 04, 2019 Made aware by RN of uncontrolled blood pressure. SBP 140-180s since admission last 05/30. Patient asymptomatic as per RN. AP Hypertensive urgency Initiate lisinopril. TTE rule out chronic BP elevation May need to be discharged on home maintenance Rx for BP pending TTE results Will relay to AM provider.
[2019-06-04 05:43] LABS: Hematocrit (blood only) 31.6 % (37-47); Hemoglobin 10.4 g/dL (12.0-16.0); Mean Corpuscular Hemoglobin 29.1 pg (25-34); Mean Corpuscular Hgb Conc 32.9 g/dL (32-36); Mean Corpuscular Volume 88.3 fL (80-100); Mean Platelet Volume 9.7 fL (7.4-10.4); Platelet Count 272 K/uL (130-400); RDW Coefficient of Variation 12.9 % (11.5-14.5); RDW Standard Deviation 41.5 fL (36.4-46.3); Red Blood Count 3.58 M/uL (4.2-5.4); White Blood Count 6.69 K/uL (4.8-10.8)
[2019-06-04 06:12] LABS: Calcium 8.4 mg/dl (8.5-10.1); Creatinine Clr Calc Pharmacy 87.3 ml/min; Est GFR (African American) 98.3; Est GFR (Non-African American) 84.8; Magnesium 1.8 mg/dl (1.8-2.4); Potassium 3.9 mmol/L (3.5-5.1)
[2019-06-04] MEDS: OXYCODONE HCL IR 5 MG TAB (IMMEDIATE RELEASE) PO PRN (07:41)
[2019-06-04] MEDS: MAGNESIUM OXIDE 400 MG TAB PO SCH ×2 (07:41→21:32)
[2019-06-04] MEDS: VANCOMYCIN HCL 1,000 MG in SODIUM CHLORIDE 0.9% 250 ML IV SCH ×2 (07:50→19:49)
[2019-06-04] MEDS: INSULIN GLARGINE SOLOSTAR 100 UNITS/ML 3 ML PEN SC SCH (08:50)
[2019-06-04] MEDS: INSULIN ASPART 100 UNITS/ML 3 ML PEN SC SCH ×4 (08:52→21:15)
--- NOTE | 2019-06-04 14:19 | Electrocardiogram Report ---
Test Reason : Blood Pressure : / mmHG Vent. Rate : 062 BPM Atrial Rate : 062 BPM P-R Int : 150 ms QRS Dur : 090 ms QT Int : 414 ms P-R-T Axes : 070 038 037 degrees QTc Int : 420 ms Normal sinus rhythm Normal ECG No previous ECGs available Confirmed by Mike Finley ([id number]) on 06/04/2019 2:19:01 PM Referred By: REFERRED SELF Confirmed By:Mike Finley
--- NOTE | 2019-06-04 14:45 | Pharmacy Report ---
Pharmacy Glycemic Short Note 2 - Date of Service June 04, 2019 - Glycemic Short BSG Results (Last 24 hours): 06/03/19 06/03/19 06/04/19 17:02 20:49 05:25 POC Glucose 128 H 169 H Fasting Glucose 229 H 06/04/19 06/04/19 08:25 12:29 POC Glucose 173 H 144 H Fasting Glucose OUTPATIENT ANTIDIABETIC REGIMEN: * No reported meds listed ASSESSMENT * Patient received total of 26 units of insulin yesterday, of which 11 were basal insulin * Fasting BSG elevated at 173 mg/dL - had just increased basal dose last evening/continue same * Spoke with DM educator and plan is for patient to go home on Novolin 70/30 insulin * Plan to transition to new insulin at dinner time today - Patient had 26 units of insulin yesterday and BSGs where still slightly elevated at [id number] - Likely need closer to 30 units of insulin a day * Plan to given Novolin 70/30 - 10 units with dinner this evening. Will keep correctional insulin order on just in case BSGs trend up. Will follow up tomorrow with BSG. Ideally would want to give 2/3 insulin with breakfast and 1/3 with dinner ASSESSMENT OF INPATIENT GLYCEMIC CONTROL: * Basal insulin * Hold Lantus * Change to Novolin 70/30 - 10 units with dinner; will reevaluate for AM dose * Bolus insulin * NovoLog per scale ACHS or Q6hrs while NPO * Changed Goal Range: Low 120 mg/dL - High 180 mg/dL * Tightened Correction Factor: 35 mg/dL/unit * Nutritional / Prandial insulin per carb ratio of 1 unit per -- grams CHO consumed Pharmacy will continue to follow up and make adjustments as needed.
--- NOTE | 2019-06-04 14:53 | Hospitalist Progress Note ---
Date of Service June 04, 2019 Assessment & Plan (1) Cellulitis: Left frontal forehead area/ boil, still quite erythematous, edematous, and tender, now draining pus Ulcers with minimal drainage on her back and R lateral breast Has been getting intravenous Vanco and Zosyn Cultures grew MRSA ID consulted, appreciate their input (IV vancomycin was stopped and oral clindamycin was started as per sensitivity on 06/01/19 but that was changed as per ID recommendation as below) We will continue intravenous vancomycin for now with likely conversion to oral doxycycline for 3 to 4 weeks in total Consulted wound care (as also recommended per ID)- evaluated the pt today (06/04) and recommend general surgery for I&D, discussed w/ Dr. Ambrose that pt will need debridement and then poss. wound vac Also will need Wound care follow-up as outpt Discussed w/ cardiology poss. upcoming surgery given new results of her abnormal echo (2) Diabetes: History of diabetes for many years Has not been taking medications for the last 2-4 years Not been following diabetic diet Does not have any insurance Current hemoglobin A1c 10.5% Has been getting insulin and sliding scale coverage Will involve pharmacy, and paraeducator, to come up with least expensive insulin option for her as outpatient Hypertension - poorly controlled -started on lisinopril -ekg and echo ordered, echo abnormal and therefore cardiology consulted -troponin negative, pt likely has hx of old NC -will cont. to closely monitor and adjust medications as needed DVT prophylaxis Lovenox CODE STATUS Full Social service evaluation for discharge planning Admission and Anticipated Discharge Date Admission Date: June 01, 2019 Anticipated date of discharge: 06/03/19 Subjective Overnight pt's BP elevated, in flight refueling craftsman notified and started pt on lisinopril given persistent hypertension. Echo and EKG also ordered to further evaluate. Pt denies any hx of chest pain, shortness of breath, nausea, diaphoresis, dizziness overnight or today. Currently feels well overall. Wound care consulted. Diabetes education and pharmacy consulted. Notified by wound care nurse that pt will need I&D by general surgery - gen surgery consulted Notified by Dr. Smith of abnormal echocardiogram. Troponin ordered. cardiology consulted. Troponin negative. Plan for surgical debridement tomorrow AM w/ Dr. Ambrose. Review of Systems Review of Systems: All systems reviewed & are unremarkable except as noted in HPI & below Constitutional: no fever and no chills Respiratory: no cough and no dyspnea Cardiovascular: no chest pain and no radiating jaw, neck or arm pain Gastrointestinal: no abdominal pain, no nausea and no vomiting Physical Exam Physical Exam: Physical Exam: Sitting on a chair without any acute distress Constitutional: well developed, well nourished and + obese; no acute distress and not ill appearing Head: Left forehead - large (2-3 inches in diam.) erythematous edematous wound (appears as pocket/ poss. abscess), now draining pus Eyes: PERRL, EOMI, conjunctivae normal, anicteric sclerae ENMT: external ear and nose normal, oropharynx normal Neck: trachea midline, no thyromegaly Respiratory: normal respiratory effort; no respiratory distress Auscultation: lungs clear to auscultation bilaterally, no wheezing, rhonchi, crackles Cardiovascular: Rate/Rhythm: regular rate and regular rhythm Heart Sounds: no murmur Gastrointestinal (Abdomen): Inspection/Auscultation: abdomen normal to inspection and normal bowel sounds Percussion/Palpation: abdomen soft; abdomen nontender Skin: + lesions (Multiple boils involving the back and front under the R breast) , L forehead large wound as above Neurologic: moves all extremities; no focal motor deficits Results & Data ([facility]) Vital Signs (Past 12 Hours) Vital Signs Temp Pulse Resp BP BP Pulse Ox 06/04/19 14:06 147/73 H 06/04/19 07:50 159/82 H 06/04/19 07:27 36.9 C 66 18 170/76 H 96 06/04/19 03:00 67 149/75 H Laboratory Results 06/04/19 06/04/19 06/04/19 Range/Units 14:23 12:29 08:25 WBC (4.8-10.8) K/uL RBC (4.2-5.4) M/uL Hgb (12.0-16.0) g/dL Hct (37-47) % MCV (80-100) fL MCH (25-34) pg MCHC (32-36) g/dL RDW Std Deviation (36.4-46.3) fL RDW Coeff of Anitha (11.5-14.5) % Plt Count (130-400) K/uL MPV (7.4-10.4) fL Sodium (136-145) mmol/L Potassium (3.5-5.1) mmol/L Chloride (98-107) mmol/L Carbon Dioxide (21-32) mmol/L Anion Gap (3-11) BUN (7-18) mg/dl Creatinine (0.6-1.2) mg/dl Est Cr Clr Drug Dosing ml/min Est GFR ( Amer) Est GFR (Non-Af Amer) POC Glucose 144 H 173 H (70-99) mg/dl Fasting Glucose (70-99) mg/dl Calcium (8.5-10.1) mg/dl Magnesium (1.8-2.4) mg/dl Troponin I < 0.015 (0-0.045) ng/ml 06/04/19 06/04/19 06/03/19 Range/Units 05:25 05:25 20:49 WBC 6.69 (4.8-10.8) K/uL RBC 3.58 L (4.2-5.4) M/uL Hgb 10.4 L (12.0-16.0) g/dL Hct 31.6 L (37-47) % MCV 88.3 (80-100) fL MCH 29.1 (25-34) pg MCHC 32.9 (32-36) g/dL RDW Std Deviation 41.5 (36.4-46.3) fL RDW Coeff of Antiha 12.9 (11.5-14.5) % Plt Count 272 (130-400) K/uL MPV 9.7 (7.4-10.4) fL Sodium 139 (136-145) mmol/L Potassium 3.9 (3.5-5.1) mmol/L Chloride 111 H (98-107) mmol/L Carbon Dioxide 24 (21-32) mmol/L Anion Gap 4.0 (3-11) BUN 16 (7-18) mg/dl Creatinine 0.75 (0.6-1.2) mg/dl Est Cr Clr Drug Dosing 87.3 ml/min Est GFR ( Amer) 98.3 Est GFR (Non-Af Amer) 84.8 POC Glucose 169 H (70-99) mg/dl Fasting Glucose 229 H (70-99) mg/dl Calcium 8.4 L (8.5-10.1) mg/dl Magnesium 1.8 (1.8-2.4) mg/dl Troponin I (0-0.045) ng/ml 06/03/19 Range/Units 17:02 WBC (4.8-10.8) K/uL RBC (4.2-5.4) M/uL Hgb (12.0-16.0) g/dL Hct (37-47) % MCV (80-100) fL MCH (25-34) pg MCHC (32-36) g/dL RDW Std Deviation (36.4-46.3) fL RDW Coeff of Anitha (11.5-14.5) % Plt Count (130-400) K/uL MPV (7.4-10.4) fL Sodium (136-145) mmol/L Potassium (3.5-5.1) mmol/L Chloride (98-107) mmol/L Carbon Dioxide (21-32) mmol/L Anion Gap (3-11) BUN (7-18) mg/dl Creatinine (0.6-1.2) mg/dl Est Cr Clr Drug Dosing ml/min Est GFR ( Amer) Est GFR (Non-Af Amer) POC Glucose 128 H (70-99) mg/dl Fasting Glucose (70-99) mg/dl Calcium (8.5-10.1) mg/dl Magnesium (1.8-2.4) mg/dl Troponin I (0-0.045) ng/ml Medications Administered Current Inpatient Medications Acetaminophen (Tylenol) 650 mg PO Q4H PRN PRN Reason: pain/fever Stop: 06/30/19 00:55 Last Admin: 06/02/19 07:42 Dose: 650 mg Documented by: Dextrose (Dextrose 50%) 25 - 50 ml IV UD PRN; Protocol PRN Reason: Hypoglycemia Protocol Stop: 06/30/19 01:29 Glucagon (Glucagen) 1 mg SQ UD PRN; Protocol PRN Reason: Hypoglycemia Protocol Stop: 06/30/19 01:29 Glucose (Glucose 40%) 15 - 30 gm PO UD PRN; Protocol PRN Reason: Hypoglycemia Protocol Stop: 06/30/19 01:29 Glucose (Dex4 Glucose) 4 - 8 tabs PO UD PRN; Protocol PRN Reason: Hypoglycemia Protocol Stop: 06/30/19 01:29 Vancomycin HCl 1,000 mg/ (Sodium Chloride) 270 mls @ 125 mls/hr IV Q12H [facility] Stop: 06/13/19 19:59 Last Infusion: 06/04/19 10:23 Dose: Infused Documented by: Insulin Aspart (Novolog Flexpen) 0 units SC ACHS [facility] Stop: 06/30/19 07:29 Last Admin: 06/04/19 13:32 Dose: 5 units Documented by: Insulin Aspart (Novolog Flexpen) 0 units SC 0000,0400 [facility] Stop: 06/05/19 04:01 Insulin Human Isoph/Insulin Regular (Novolin 70/30 Regular) 10 units SC BIDM [facility] Stop: 06/04/19 23:59 Lisinopril (Zestril) 5 mg PO QAM [facility] Stop: 07/05/19 08:59 Magnesium Oxide (Mag-Ox) 400 mg PO BID [facility] Stop: 06/30/19 09:29 Last Admin: 06/04/19 07:41 Dose: 400 mg Documented by: Miscellaneous (Carbohydrates For Hypoglycemia) 15 - 30 gm PO UD PRN PRN Reason: Hypoglycemia Treatment Stop: 06/30/19 01:29 Miscellaneous Information (Consult) 1 ea N/A UD PRN PRN Reason: Consult Stop: 07/01/19 14:43 Miscellaneous Information (Consult Glycemic Management Pharmacy) 1 ea N/A UD PRN PRN Reason: Consult Stop: 07/03/19 16:51 Ondansetron HCl (Zofran) 4 mg IV Q6H PRN PRN Reason: Nausea Stop: 06/30/19 00:55 Oxycodone HCl (Roxicodone Immediate Rel) 5 mg PO Q6H PRN PRN Reason: Pain Stop: 06/14/19 00:55 Last Admin: 06/04/19 07:41 Dose: 5 mg Documented by: (1) Cellulitis Site of cellulitis: unspecified site Qualified Code(s): L03.90 - Cellulitis, unspecified
--- NOTE | 2019-06-04 15:38 | Surgery Consultation ---
Date of Consultation June 04, 2019 Assessment & Plan (1) Abscess of head: She had lunch around noon today. Will plan for incision and drainage/debridement tomorrow in OR under general anesthesia and plan for eventual wound vac placement. History of Present Illness Attending Physician: Raul Miranda MD History of Present Illness 63 y/o diabetic female admitted 4 days ago for facial/forehead cellulitis and lump. Wound cultured MRSA, has been seen by ID. Wound care today recommended surgical consult. Allergies Allergy/AdvReac Type Severity Reaction Status Date / Time No Known Allergies Allergy Verified 05/30/19 22:29 Home Medications Home Medications Medication Instructions Recorded Confirmed Type No Known Home Medications 05/30/19 05/30/19 History Patient History Medical History Diabetes Family History Other No significant family history Social History Preferred Language: Slovak Communication Ability: Effective Beliefs That Will Affect Care: None marital status: / Current Living Situation: Family Feels Safe at Home: Yes Safety Concerns: Feels Safe At This Time Smoking Status: Never smoker Hx Alcohol Use: Yes Alcohol type: wine Hx Substance Use: No Review of Systems Integumentary: + wounds (neck, back) Physical Exam Constitutional: WD/WN, vitals as above ENMT: left forehead 4.5 cm erythematous boil with central skin necrosis and small amount of pus actively draining from the wound Respiratory: normal respiratory effort, lungs clear to auscultation normal respiratory effort Results & Data Vital Signs (Past 12 Hours) Vital Signs Temp Pulse Resp BP BP Pulse Ox 06/04/19 14:06 147/73 H 06/04/19 07:50 159/82 H 06/04/19 07:27 36.9 C 66 18 170/76 H 96 PG Care Time/CCT Total # of Minutes Spent Total Time Spent with Patient: Total time spent is greater than 50% in coordination of care (as documented) at patient's floor/unit and/or counseling patient: Coding Level of Care Code 86423 Inpt Consult Level 2 Diagnoses Abscess of head L02.811
--- NOTE | 2019-06-04 16:25 | Cardiology Consultation ---
Date of Consultation June 04, 2019 Assessment & Plan (1) History of myocardial infarction: (2) Abscess of head: (3) HTN (hypertension): (4) Preoperative cardiovascular examination: EKG, echocardiogram, and clinical presentation is suggestive of an age undetermined basal inferior/basal inferoseptal infarct, with preserved LVEF. Mild to moderate mitral regurgitation is present, with stable volume status. Blood pressure has been elevated, and lisinopril has been initiated. The patient has no symptoms suggestive of unstable angina, and based on her presentation and her negative troponin today, I would say she has likely had a silent myocardial infarction at some time in the past, time of which is unknown. Her resting heart rate is in the 60s, and therefore I do not think she has room for the addition of a beta-ruth ann. Recommend starting aspirin at some point in the future, but not tonight since she is tentatively scheduled for surgical procedure tomorrow. Wound culture was notable for MRSA, and general surgery plans incision and drainage/debridement tomorrow in OR under general anesthesia. I believe the patient is stable to proceed with this procedure with an estimated low risk of cardiac complication. I have requested a liver function laboratory study to be performed tomorrow as well as a fasting lipid panel, prior to consideration of initiation of statin therapy. History of Present Illness Attending Physician: Raul Miranda MD History of Present Illness Selina Moses is a 63 year old female seen in cardiology consultation per the request of Dr Miranda given findings of a right coronary artery territory wall motion abnormality on resting transthoracic echocardiogram performed earlier today. The patient has a longstanding history of diabetes, and has not been adherent to medications recently. She has never seen cardiology before. She was admitted on 05/31/2019 with a draining wound on her left scalp. She has received local wound care and antibiotic therapy for several days, and surgical debridement is felt to be necessary which is planned by general surgery tomorrow. She has been found to have multiple elevated blood pressure readings with systolic blood pressures in the range of 160-to 180 mmHg, and for assessment of underlying hypertension and echocardiogram have been ordered by the hospitalist team. This study was performed earlier today with findings of mild concentric left ventricular hypertrophy and a wall motion abnormality encompassing the basal portion of the inferior wall which was thin and hypokinetic to akinetic. The basal inferoseptal was also hypokinetic. The overall ejection fraction however remains normal at 55-60%. Mild to moderate mitral regurgitation was noted as well as mild aortic valve sclerosis without stenosis. An EKG was performed on 06/04/2019 at 1:03 AM revealing sinus rhythm at 62 bpm. Q waves were noted in the inferior leads II, III, and aVF, with no significant repolarization changes. On discussion with the patient, she describes no recent chest pain or shortness of breath. Her only complaint was her recent progressive scalp wound. She does have a strong family history of coronary heart disease in both of her parents as well as extended family. Allergies Allergy/AdvReac Type Severity Reaction Status Date / Time No Known Allergies Allergy Verified 05/30/19 22:29 Home Medications Home Medications Medication Instructions Recorded Confirmed Type No Known Home Medications 05/30/19 05/30/19 History Patient History Medical History Diabetes Family History (Updated 06/04/19 @ 16:18 by Jay Smith DO) Mother Coronary heart disease Father Coronary heart disease Other No significant family history Social History Preferred Language: Emirati Communication Ability: Effective Beliefs That Will Affect Care: None marital status: / Current Living Situation: Family Feels Safe at Home: Yes Safety Concerns: Feels Safe At This Time Smoking Status: Never smoker Hx Alcohol Use: Yes Alcohol type: wine Hx Substance Use: No Review of Systems Review of Systems: All systems reviewed & are unremarkable except as noted in HPI & below Physical Exam Physical Exam: Cardiac Enzymes 06/04/19 Range/Units 14:23 Troponin I < 0.015 (0-0.045) ng/ml CBC 06/04/19 Range/Units 05:25 WBC 6.69 (4.8-10.8) K/uL RBC 3.58 L (4.2-5.4) M/uL Hgb 10.4 L (12.0-16.0) g/dL Hct 31.6 L (37-47) % Plt Count 272 (130-400) K/uL Comprehensive Metabolic Panel 06/04/19 Range/Units 05:25 Sodium 139 (136-145) mmol/L Potassium 3.9 (3.5-5.1) mmol/L Chloride 111 H (98-107) mmol/L Carbon Dioxide 24 (21-32) mmol/L BUN 16 (7-18) mg/dl Creatinine 0.75 (0.6-1.2) mg/dl Calcium 8.4 L (8.5-10.1) mg/dl Intake and Output 06/04/19 06/04/19 06/04/19 06:59 14:59 22:59 Intake Total 270 / 270 Balance 270 / 270 Intake: IV 270 / 270 Vancomycin HCl 1,000 mg In Nss 270 / 270 250 ml @ 125 m ls/hr IV Q12H [facility] Rx#:[id number] Other: Weight 94.6 kg Patient Weight 06/05/19 06:59 Weight 94.6 kg Results & Data ([facility]) Vital Signs (Past 12 Hours) Vital Signs Temp Pulse Resp BP BP Pulse Ox 06/04/19 15:45 36.8 C 65 16 168/78 H 98 06/04/19 14:06 147/73 H 06/04/19 07:50 159/82 H 06/04/19 07:27 36.9 C 66 18 170/76 H 96
[2019-06-04] MEDS ORDERED: INSULIN HUMAN 70% NPH/30% REGULAR SC SCH (17:00)
--- NOTE | 2019-06-04 19:06 | Anesthesiology Consultation ---
Date of Service June 04, 2019 The patient was seen by Dr. Smith and is okay to proceed with surgery from a cardiology standpoint. Assessment & Plan (1) Encounter for pre-operative examination: Chart Review Chart Review: Acceptable Risk for Surgery (the patient is okay for surgery as per cardiology) and Patient NOT seen in Pre Admission Testing Consults Requested none cardiology is following the patient History Surgery Operation Date: 06/05/19 07:15 Proposed Procedures p Incision and Drainage Head Abscess - Farhad Ambrose MD, FACS Height/Weight Height: 5 ft 5 in Weight: 94.6 kg Allergies Allergy/AdvReac Type Severity Reaction Status Date / Time No Known Allergies Allergy Verified 05/30/19 22:29 Medications Home Medications Medication Instructions Recorded Confirmed Last Taken No Known Home Medications 05/30/19 05/30/19 Unknown Active Medications Generic Name Dose Route Start Last Admin Trade Name Freq PRN Reason Stop Dose Admin Acetaminophen 650 mg 05/31/19 00:56 06/02/19 07:42 Tylenol PO 06/30/19 00:55 650 mg Q4H PRN Administration pain/fever Vancomycin HCl 1,000 mg/ 270 mls @ 125 mls/hr 06/03/19 20:00 06/04/19 10:23 Sodium Chloride IV 06/13/19 19:59 Infused Q12H [facility] In[facility] Insulin Aspart 0 units 05/31/19 07:30 06/04/19 18:20 Novolog Flexpen SC 06/30/19 07:29 Not Given ACHS [facility] Insulin Human Isoph/Insulin Regular 10 units 06/04/19 17:00 06/04/19 18:22 Novolin 70/30 Regular SC 06/04/19 23:59 10 units BIDM [facility] Administration Magnesium Oxide 400 mg 05/31/19 09:30 06/04/19 07:41 Mag-Ox PO 06/30/19 09:29 400 mg BID [facility] Administration Oxycodone HCl 5 mg 05/31/19 00:56 06/04/19 07:41 Roxicodone Immediate Rel PO 06/14/19 00:55 5 mg Q6H PRN Administration Pain Past Medical History Medical History (Updated 06/04/19 @ 19:12 by Edouard Sharp MD) Anemia Diabetes 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 HTN (hypertension) Past Family History Family History Mother Coronary heart disease Father Coronary heart disease Other No significant family history Social History Smoking Status: Never smoker Hx Alcohol Use: Yes Alcohol type: wine alcohol intake frequency: a few times a month Hx Substance Use: No substance use type: does not use Physical Exam Vital Signs Last Vital Signs Temp 36.8 C 06/04/19 15:45 Pulse 65 06/04/19 15:45 Resp 16 06/04/19 15:45 BP 168/78 H 06/04/19 15:45 Pulse Ox 98 06/04/19 15:45 Testing Laboratory Results 06/04/19 05:25 06/04/19 05:25 Hemoglobin A1c 10.5 % (4.5-5.6) H 05/31/19 04:40 05/30/19 21:28 Gram Stain - Final Head Wound Culture - Final Staph aureus MRSA 06/04/19 06/04/19 06/04/19 17:28 12:29 08:25 POC Glucose 138 H 144 H 173 H Electrocardiogram Date: 06/04/19 Findings: + NSR @ (62) Echocardiogram Date: 06/04/19 EF: 55-60 LV Function: inferior base severely hypokinetic Valvular Disease: + MR (mild to moderate)
[2019-06-04] MEDS ORDERED: LORazepam 0.5 MG/1 ML VIAL IV PRN (20:35)
[2019-06-05] MEDS: INSULIN ASPART 100 UNITS/ML 3 ML PEN SC SCH ×5 (00:11→22:48)
[2019-06-05] MEDS ORDERED: VANCOMYCIN TROUGH ONE (07:30)
[2019-06-05 07:42] LABS: Hematocrit (blood only) 33.7 % (37-47); Mean Corpuscular Hemoglobin 29.3 pg (25-34); Mean Corpuscular Hgb Conc 32.6 g/dL (32-36); Mean Corpuscular Volume 89.9 fL (80-100); Mean Platelet Volume 10.1 fL (7.4-10.4); Platelet Count 279 K/uL (130-400); RDW Coefficient of Variation 13.1 % (11.5-14.5); RDW Standard Deviation 43.1 fL (36.4-46.3); Red Blood Count 3.75 M/uL (4.2-5.4); White Blood Count 5.65 K/uL (4.8-10.8)
[2019-06-05] MEDS: VANCOMYCIN HCL 1,000 MG in SODIUM CHLORIDE 0.9% 250 ML IV SCH ×2 (07:42→20:35)
[2019-06-05] MEDS: MAGNESIUM OXIDE 400 MG TAB PO SCH ×2 (07:43→20:30)
[2019-06-05 07:50] LABS: Prothrombin Time 10.6 Seconds (9.0-12.0)
[2019-06-05] MEDS ORDERED: INSULIN ASPART 100 UNITS/ML 3 ML PEN SC SCH ×2 (08:00→12:00)
[2019-06-05 08:13] LABS: Alanine Aminotransferase 24 U/L (12-78); Albumin Level 2.3 gm/dl (3.4-5.0); Aspartate Aminotransferase 12 U/L (15-37); Bilirubin Direct < 0.1 mg/dl (0-0.2); Cholesterol 119 mg/dl (0-200); Est GFR (African American) 93.8; Est GFR (Non-African American) 80.9; Triglycerides 154 mg/dl (0-150); VLDL Cholesterol 31 mg/dl
[2019-06-05 08:16] LABS: Alkaline Phosphatase 119 U/L (45-117); Bilirubin,Total 0.3 mg/dl (0.2-1); Chol HDL Ratio 4; HDL Cholesterol 33 mg/dl; LDL Cholesterol Calculated 55 mg/dl; Total Protein 6.7 gm/dl (6.4-8.2)
[2019-06-05] MEDS ORDERED: NovoLIN-N (NPH) PER UNIT CHARGE SQ ONE ×2 (08:30→16:30)
[2019-06-05] MEDS ORDERED: ONDANSETRON INJ 2 MG/ML 2 ML VIAL ONE (08:51)
[2019-06-05] MEDS ORDERED: LIDOCAINE HCL 2% 2 ML VIAL/AMP(20MG/ML) INFIL ONE (08:51)
[2019-06-05] MEDS ORDERED: MIDAZOLAM HCL 1 MG/ML 2ML VIAL ONE (08:51)
[2019-06-05] MEDS ORDERED: fentaNYL citrate 100 MCG/2 ML VIAL ONE (08:51)
[2019-06-05] MEDS ORDERED: DEXAMETHASONE SOD INJ 4 MG/ML VIAL ONE (08:51)
[2019-06-05] MEDS ORDERED: PROPOFOL IV EMULSION 10 MG/ML 20 ML VIAL IV ONE (08:51)
[2019-06-05] MEDS ORDERED: lisinopriL 5 MG TAB PO SCH (09:00)
--- NOTE | 2019-06-05 09:04 | History & Physical Bridge Note ---
Date of Service June 05, 2019 History & Physical Bridge Note I have examined the patient, reviewed the History & Physical and in the interval since the performance of the History & Physical I have noted the following changes of clinical significance: no changes noted
[2019-06-05] MEDS ORDERED: ATROPINE SULFATE 0.1 MG/ML 10ML SYR IV PRN (09:09)
[2019-06-05] MEDS ORDERED: LABETALOL HCL IV 5 MG/ML 20ML IV PRN (09:09)
[2019-06-05] MEDS ORDERED: ONDANSETRON INJ 2 MG/ML 2 ML VIAL IV PRN (09:09)
[2019-06-05] MEDS ORDERED: KETOROLAC TROMETHAMINE 15 MG/ML VIAL IV PRN (09:09)
--- NOTE | 2019-06-05 09:10 | Pharmacy Report ---
Pharmacy Abx Dose Short Note - Date of Service June 05, 2019 - Assessment & Plan Assessment 63 year old F receiving vancomycin for treatment of MRSA scalp wound Day # 11/18 of antimicrobial therapy. Plan Vancomycin * Trough level of 15.9 mcg/mL is therapeutic. * Continue dose of 1000 mg IV every 12 hours * Goal trough level for MRSA cellulitis : ~15 mcg/mL * Re-order trough based upon clinical picture - patient going to OR today for I&D Pharmacy will continue to follow and will adjust dose/frequency as necessary. Thank you.
[2019-06-05] MEDS ORDERED: BUPIVACAINE 0.5 % 5 MG/1 ML MPF 30ML VIAL ONE (09:42)
--- NOTE | 2019-06-05 09:59 | Post Operative Brief Note ---
PG Immediate Post Op with CF Date of Surgery June 05, 2019 Pre & Post Diagnosis Operation Date: 06/05/19 08:35 <No data on this case meets the specified criteria> scalp abscess, RUQ abscess I identified the patient and participated in the time-out.: Yes Procedure Operation Date: 06/05/19 08:35 <No data on this case meets the specified criteria> Incis/drainage RUQ abscess, incis/debridement scalp abscess Surgeon Farhad Ambrose MD, FACS [employer] Architect Andrew Romero Estimated Blood Loss 10 Findings Consistent with Post-Op Diagnosis Specimens Specimen Description: Culture #1: Left Scalp Wound Permanent: A. Left scalp wound
[2019-06-05] MEDS ORDERED: ACETAMINOPHEN 1,000 MG/100 ML VIAL IV ONE (10:04)
[2019-06-05] MEDS: fentaNYL citrate 100 MCG/2 ML VIAL IV PRN ×4 (10:25→10:40)
--- NOTE | 2019-06-05 11:00 | Anesthesiology Progress Note ---
Date of Service June 05, 2019 Anesthesia Post Procedure Vital Signs Vital Signs: Temp Pulse Pulse Pulse Resp BP BP 06/05/19 10:55 36.5 C 59 L 14 139/74 06/05/19 10:45 56 L 12 158/77 H 06/05/19 10:35 67 18 153/75 H 06/05/19 10:25 61 16 175/74 H 06/05/19 10:16 36.1 C L 60 18 172/78 H 06/05/19 08:59 37.1 C 62 18 165/87 H 06/05/19 08:08 36.9 C 63 63 17 158/77 H 06/05/19 05:14 36.7 C 73 16 145/77 H 06/04/19 22:59 37.1 C 70 16 158/76 H 06/04/19 20:13 37.2 C 66 16 147/83 H 06/04/19 15:45 36.8 C 65 16 168/78 H 06/04/19 14:06 147/73 H Pulse Ox 06/05/19 10:55 96 06/05/19 10:45 94 06/05/19 10:35 98 06/05/19 10:25 99 06/05/19 10:16 98 06/05/19 08:59 96 06/05/19 08:08 96 06/05/19 05:14 95 06/04/19 22:59 96 06/04/19 20:13 98 06/04/19 15:45 98 06/04/19 14:06 Pain Intensity Left Head: Pain Intensity: 2 Back: Pain Intensity: 2 Right Lower Breast: Pain Intensity: 1 Transfer of Care Handoff Completed per policy Notes Mental Status: alert / awake / arousable Patient Amnestic to Procedure: Yes Nausea / Vomiting: adequately controlled Pain: adequately controlled Airway Patency, RR, SpO2: stable & adequate BP & HR: stable & adequate Hydration State: stable & adequate Anesthetic Complications: no major complications apparent
[2019-06-05] MEDS ORDERED: HYDROCODONE/ACETAMOPHEN 5/325MG TAB PO PRN (11:21)
[2019-06-05] MEDS ORDERED: PROMETHAZINE HCL 12.5 MG in SODIUM CHLORIDE 0.9% 50 ML IV PRN (11:21)
--- NOTE | 2019-06-05 11:39 | Operative Report ---
DATE OF OPERATION: 06/05/2019 NAME OF OPERATION: Incision and debridement of left scalp abscess and I and D of right upper quadrant abscess. PREOPERATIVE DIAGNOSIS: Methicillin-resistant Staphylococcus aureus abscesses. POSTOPERATIVE DIAGNOSIS: Methicillin-resistant Staphylococcus aureus abscesses. STAFF SURGEON: Farhad Ambrose MD. TREE SCOUT: Irma Romero PA-C ANESTHESIA: General. DESCRIPTION OF PROCEDURE: The patient was brought in the operating room and placed on the operating table in supine position. My fast food sales assistant helped with prepping, draping, drainage and debridement of the abscesses and closure. The right upper quadrant was approached, prepped with alcohol and then incised encountering significant purulent fluid with a gauze dressing placed. The scalp was then approached. It was prepped and draped. There was an area of approximately 5-6 cm indurated, thickened, and erythematous skin with central necrosis and drainage. Incision was made, encountering significant purulence and then the necrotic skin and infected tissue debrided and sent for pathology and culture. The base was granulating. It was gently debrided with a sponge. After appropriate hemostasis, a Betadine gauze sponge placed and a Tegaderm dressing. The patient was transferred to recovery room in stable condition. I attest to the content of the Intraoperative Record and any orders documented therein. Any exception s are noted below.
--- NOTE | 2019-06-05 12:40 | Cardiology Progress Note ---
Date of Service June 05, 2019 Assessment & Plan (1) Abscess of head: (2) History of myocardial infarction: Wound of her left scalp, refractory to antibiotic and local wound care, and underwent surgical debridement earlier this morning. Postoperatively she is hypertensive, and received her lisinopril dose this morning. I discussed the patient's case with Dr. Miranda. Blood pressures have been somewhat persistently elevated, certainly above goal for a diabetic this entire hospital stay. Given her history of diabetes, I agree with lisinopril is being her first-line medication, future considerations include adding amlodipine or a thiazide diuretic. She does not have enough room for a beta-ruth ann as her heart rate is relatively slow at baseline. Liver function tests are within septal limits. Calculated LDL cholesterol is 55 mg/dL, and therefore statin therapy is not indicated at present as it is already less than 70 mg/dL. Start aspirin 81 mg daily tomorrow given findings of age-indeterminate right coronary artery territory infarct on echocardiogram. When she recovers from her infectious issues, recommend further assessment to perhaps include a combined low intensity exercise/pharmacologic nuclear stress test as an outpatient to determine her scar burden, and to assess for silent ischemia. Subjective Patient seen postoperatively in room 314. She denies any chest discomfort or shortness of breath. Preoperative blood pressure this morning was 145/77 and 158/76, systolic blood pressures have been elevated to the range of the 170s since returning from the operating room. Physical Exam Physical Exam: Temp Pulse Resp BP Pulse Ox 36.8 C 53 L 16 170/79 H 100 06/05/19 11:53 06/05/19 12:27 06/05/19 12:27 06/05/19 12:27 06/05/19 12:27 Constitutional: WD/WN, vitals as above Respiratory: normal respiratory effort, lungs clear to auscultation Cardiovascular: RRR, no murmur, no edema Gastrointestinal (Abdomen): normal bowel sounds, soft, nontender, no hepatosplenomegaly Skin: Left forehead clean dry and intact, dressed Neurologic: Mildly somnolent postoperatively from sedation, but alert enough to be conversant. No focal deficits Results & Data Vital Signs (Past 12 Hours) Vital Signs Temp Pulse Pulse Pulse Resp BP BP 06/05/19 12:27 53 L 16 170/79 H 06/05/19 11:53 36.8 C 62 16 173/79 H 02/14/20 11:24 162/79 H 06/05/19 11:19 36.5 C 54 L 12 175/77 H 06/05/19 11:05 36.5 C 54 L 14 169/73 H 06/05/19 10:55 36.5 C 59 L 14 139/74 06/05/19 10:45 56 L 12 158/77 H 06/05/19 10:35 67 18 153/75 H 06/05/19 10:25 61 16 175/74 H 06/05/19 10:16 36.1 C L 60 18 172/78 H 06/05/19 08:59 37.1 C 62 18 165/87 H 06/05/19 08:08 36.9 C 63 63 17 158/77 H 06/05/19 05:14 36.7 C 73 16 145/77 H Pulse Ox 06/05/19 12:27 100 06/05/19 11:53 99 06/05/19 11:24 06/05/19 11:19 90 06/05/19 11:05 95 06/05/19 10:55 96 06/05/19 10:45 94 06/05/19 10:35 98 06/05/19 10:25 99 06/05/19 10:16 98 06/05/19 08:59 96 06/05/19 08:08 96 06/05/19 05:14 95
[2019-06-05] MEDS ORDERED: INSULIN ASPART 100 UNITS/ML 3 ML PEN SC ONE (13:45)
--- NOTE | 2019-06-05 15:39 | Pharmacy Report ---
Glycemic Control Progress Note - Date of Service June 05, 2019 - Scope Glycemic Pharmacist consulted for glycemic control to write orders per [facility] inpatient glycemic control protocol. - Objective Accuchecks BSG(last 24 hours):: 06/04/19 06/04/19 06/04/19 17:28 21:11 23:49 POC Glucose 138 H 127 H 118 H 06/05/19 06/05/19 06/05/19 03:54 06:00 08:06 POC Glucose 176 H 222 H 184 H 06/05/19 06/05/19 06/05/19 09:06 10:28 12:32 POC Glucose 166 H 165 H 197 H HbA1c:: Hemoglobin A1c 10.5 % (4.5-5.6) H 05/31/19 04:40 - Recent Pertinent Medications The patient is currently receiving: * Basal insulin: Novolin 70/30 10 units yesterday at dinner * Correctional Insulin: Novolog Correction per scale ACHS Goal Range: Low 120 mg/dL - High 180 mg/dL Correction Factor: 35 mg/dL/unit * Prandial insulin: Per carb ratio of 1 unit per -- grams CHO consumed - Outpatient Anti-Diabetic Meds N/A - Assessment & Plan ASSESSMENT: * See progress note from 06/03/2019 for more background info, in short: * Pt receiving SQ basal bolus insulin regimen for hyperglycemia secondary to baseline DM (outpatient regimen on hold),stress/infection (on vancomycin for head wound), and received dexamethasone 4 mg IV x 1 in OR. Patient is POD 0. * Patient is currently receiving an average of 28 units of insulin per day * 13 units of basal insulin * 15 units of prandial/correctional insulin * BSGs ranging 118 - 173 mg/dl over the past 24hrs * Changes needed to insulin regimen: * AM Fasting BSG = 184 mg/dl. This is above goal range for patient based on inpatient targets and co-morbidities. Patient was switched to Novolin 70/30 yesterday evening. 10 units was not sufficient. HOWEVER, patient was NPO this morning. Novolin 70/30 contains regular insulin which covers meal time insulin requirements. Gave 10 units of NPH to continue NPH trend. Patient received dexamethasone in the OR as well. In order to continue sufficient coverage over steroid induced hyperglycemia will continue with NPH today then pick back up with Novolin 70/30 tomorrow. * Post-prandial BSGs will be higher with dexamethasone in OR. Tighten significantly then continue with Novolin 70/30 tomorrow. * Total daily dose = ~30 units. PLAN FOR INPATIENT GLYCEMIC CONTROL: * NPH 10 units BIDM today then change to Novolin 70/30 20 units in AM and 12 units in PM * TIGHTENING correction factor to 15 mg/dl/unit for today then 25 units tomorrow * TIGHTENING carb ratio to 1 unit per 5 grams CHO consumed for today then removing for tomorrow when Novolin 70/30 starts. * Continuing goal range of Low 110 mg/dL - High 140 mg/dL * Please note that the plan above was derived based on current level of insulin resistance and hospital stress. These recommendations are appropriate for inpatient admission only. Plan of care upon discharge will need to be reassessed to avoid potential outpatient hypo/hyperglycemia. Thank you.
--- NOTE | 2019-06-05 15:57 | Communication Note ---
Date of Service: June 05, 2019 Repeat BP at 15:45 =168/79 Increase lisinopril to 5 mg BID, next dose now, then in am on 06/06. Start HCTZ 25 mg PO daily in am 06/06/19.
[2019-06-05] MEDS ORDERED: lisinopriL 5 MG TAB PO ONE (16:30)
[2019-06-05] MEDS: HYDROCODONE/ACETAMOPHEN 5/325MG TAB PO PRN (18:20)
--- NOTE | 2019-06-05 19:26 | Hospitalist Progress Note ---
Date of Service June 05, 2019 Assessment & Plan (1) Cellulitis: Left forehead area/ boil, erythematous, edematous, and tender draining pus Ulcers with minimal drainage on her back and RUQ Has been getting intravenous Vanco and Zosyn Cultures grew MRSA ID consulted, appreciate their input (IV vancomycin was stopped and oral clindamycin was started as per sensitivity on 06/01/19 but that was changed as per ID recommendation as below) We will continue IV vancomycin for now wand plan conversion to oral doxycycline for 3 to 4 weeks on discharge Consulted wound care - evaluated the pt yesterday (06/04) and recommend general surgery for I&D, discussed w/ Dr. Ambrose that pt will need debridement and then poss. wound vac Also will need Wound care follow-up as outpt Pt is now s/p I&D of RUQ wound and s/p debridement of L scalp abscess (06/05/2019) by Dr. Ambrose,pt tolerated procedure well, wound vac being applied to L scalp area Discussed w/ ID today (06/05), plan for oral Abx (doxycycline) on discharge unchanged (2) Diabetes: History of diabetes for many years Has not been taking medications for the last 2-4 years Not been following diabetic diet Does not have any insurance Current hemoglobin A1c 10.5% Has been getting insulin and sliding scale coverage Will involve pharmacy, and ems educator, to come up with least expensive insulin option for her as outpatient Hypertension - poorly controlled -started on lisinopril -ekg and echo ordered, echo abnormal and therefore cardiology consulted -troponin negative, 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 to closely monitor and adjust medications as needed - given abnormal echo, and likely CAD, pt will be started on ASA - cont. lisinopril, add hctz - pt will need further cardiology eval as outpt DVT prophylaxis Lovenox CODE STATUS Full Social service evaluation for discharge planning Admission and Anticipated Discharge Date Admission Date: June 01, 2019 Anticipated date of discharge: 06/03/19 Subjective Pt seen post op today, she is sitting up in bed, in NAD. Wound vac being applied. Pt tolerated procedure well. Currently denies any fever, chills, chest pain, shortness of breath, abd. pain, nausea or vomiting. Review of Systems Review of Systems: All systems reviewed & are unremarkable except as noted in HPI & below Constitutional: no fever and no chills Respiratory: no cough and no dyspnea Cardiovascular: no chest pain, no palpitations and no edema Gastrointestinal: no abdominal pain, no nausea and no vomiting Physical Exam Physical Exam: Physical Exam: elderly female sitting up in bed, in no acute distress Constitutional: well developed, well nourished and + obese; no acute distress and not ill appearing Head: Left forehead - large (2-3 inches in diam.) wound s/p surg. debridement (wound vac being applied) Eyes: PERRL, EOMI, conjunctivae normal, anicteric sclerae ENMT: external ear and nose normal, oropharynx normal Neck: trachea midline, no thyromegaly Respiratory: normal respiratory effort; no respiratory distress Auscultation: lungs clear to auscultation bilaterally, no wheezing, rhonchi, crackles Cardiovascular: Rate/Rhythm: regular rate and regular rhythm Heart Sounds: no murmur Gastrointestinal (Abdomen): Inspection/Auscultation: abdomen normal to inspection and normal bowel sounds Percussion/Palpation: abdomen soft; abdomen nontender Skin: + lesions (Multiple small boils involving the back and one larger RUQ wound s/p I&D) , L forehead large wound as above Neurologic: moves all extremities; no focal motor deficits Results & Data ([facility]) Vital Signs (Past 12 Hours) Vital Signs Temp Pulse Pulse Pulse Resp BP BP 06/05/19 15:45 36.6 C 58 L 18 168/79 H 06/05/19 13:17 58 L 18 174/80 H 06/05/19 12:27 53 L 16 170/79 H 06/05/19 11:53 36.8 C 62 16 173/79 H 06/05/19 11:24 162/79 H 06/05/19 11:19 36.5 C 54 L 12 175/77 H 06/05/19 11:05 36.5 C 54 L 14 169/73 H 06/05/19 10:55 36.5 C 59 L 14 139/74 06/05/19 10:45 56 L 12 158/77 H 06/05/19 10:35 67 18 153/75 H 06/05/19 10:25 61 16 175/74 H 06/05/19 10:16 36.1 C L 60 18 172/78 H 06/05/19 08:59 37.1 C 62 18 165/87 H 06/05/19 08:08 36.9 C 63 63 17 158/77 H Pulse Ox 06/05/19 15:45 98 06/05/19 13:17 98 06/05/19 12:27 100 06/05/19 11:53 99 06/05/19 11:24 06/05/19 11:19 90 06/05/19 11:05 95 06/05/19 10:55 96 06/05/19 10:45 94 06/05/19 10:35 98 06/05/19 10:25 99 06/05/19 10:16 98 06/05/19 08:59 96 06/05/19 08:08 96 Laboratory Results 06/05/19 06/05/19 06/05/19 Range/Units 17:30 12:32 10:28 WBC (4.8-10.8) K/uL RBC (4.2-5.4) M/uL Hgb (12.0-16.0) g/dL Hct (37-47) % MCV (80-100) fL MCH (25-34) pg MCHC (32-36) g/dL RDW Std Deviation (36.4-46.3) fL RDW Coeff of Anitha (11.5-14.5) % Plt Count (130-400) K/uL MPV (7.4-10.4) fL PT (9.0-12.0) Seconds INR (0.9-1.1) Creatinine (0.6-1.2) mg/dl Est Cr Clr Drug Dosing ml/min Est GFR ( Amer) Est GFR (Non-Af Amer) POC Glucose 164 H 197 H 165 H (70-99) mg/dl Total Bilirubin (0.2-1) mg/dl Direct Bilirubin (0-0.2) mg/dl AST (15-37) U/L ALT (12-78) U/L Alkaline Phosphatase (45-117) U/L Total Protein (6.4-8.2) gm/dl Albumin (3.4-5.0) gm/dl Triglycerides (0-150) mg/dl Cholesterol (0-200) mg/dl LDL Cholesterol, Calc mg/dl VLDL Cholesterol, Calc mg/dl HDL Cholesterol mg/dl Cholesterol/HDL Ratio Vancomycin Trough (See Comment) mcg/ml 06/05/19 06/05/19 06/05/19 Range/Units 09:06 08:06 07:29 WBC (4.8-10.8) K/uL RBC (4.2-5.4) M/uL Hgb (12.0-16.0) g/dL Hct (37-47) % MCV (80-100) fL MCH (25-34) pg MCHC (32-36) g/dL RDW Std Deviation (36.4-46.3) fL RDW Coeff of Anitha (11.5-14.5) % Plt Count (130-400) K/uL MPV (7.4-10.4) fL PT 10.6 (9.0-12.0) Seconds INR 1.0 (0.9-1.1) Creatinine (0.6-1.2) mg/dl Est Cr Clr Drug Dosing ml/min Est GFR ( Amer) Est GFR (Non-Af Amer) POC Glucose 166 H 184 H (70-99) mg/dl Total Bilirubin (0.2-1) mg/dl Direct Bilirubin (0-0.2) mg/dl AST (15-37) U/L ALT (12-78) U/L Alkaline Phosphatase (45-117) U/L Total Protein (6.4-8.2) gm/dl Albumin (3.4-5.0) gm/dl Triglycerides (0-150) mg/dl Cholesterol (0-200) mg/dl LDL Cholesterol, Calc mg/dl VLDL Cholesterol, Calc mg/dl HDL Cholesterol mg/dl Cholesterol/HDL Ratio Vancomycin Trough (See Comment) mcg/ml 06/05/19 06/05/19 06/05/19 Range/Units 07:29 07:29 07:29 WBC 5.65 (4.8-10.8) K/uL RBC 3.75 L (4.2-5.4) M/uL Hgb 11.0 L (12.0-16.0) g/dL Hct 33.7 L (37-47) % MCV 89.9 (80-100) fL MCH 29.3 (25-34) pg MCHC 32.6 (32-36) g/dL RDW Std Deviation 43.1 (36.4-46.3) fL RDW Coeff of Anitha 13.1 (11.5-14.5) % Plt Count 279 (130-400) K/uL MPV 10.1 (7.4-10.4) fL PT (9.0-12.0) Seconds INR (0.9-1.1) Creatinine 0.78 (0.6-1.2) mg/dl Est Cr Clr Drug Dosing 84.0 ml/min Est GFR ( Amer) 93.8 Est GFR (Non-Af Amer) 80.9 POC Glucose (70-99) mg/dl Total Bilirubin 0.3 (0.2-1) mg/dl Direct Bilirubin < 0.1 (0-0.2) mg/dl AST 12 L (15-37) U/L ALT 24 (12-78) U/L Alkaline Phosphatase 119 H (45-117) U/L Total Protein 6.7 (6.4-8.2) gm/dl Albumin 2.3 L (3.4-5.0) gm/dl Triglycerides 154 H (0-150) mg/dl Cholesterol 119 (0-200) mg/dl LDL Cholesterol, Calc 55 mg/dl VLDL Cholesterol, Calc 31 mg/dl HDL Cholesterol 33 mg/dl Cholesterol/HDL Ratio 4 Vancomycin Trough 15.9 (See Comment) mcg/ml 06/05/19 06/05/19 06/04/19 Range/Units 06:00 03:54 23:49 WBC (4.8-10.8) K/uL RBC (4.2-5.4) M/uL Hgb (12.0-16.0) g/dL Hct (37-47) % MCV (80-100) fL MCH (25-34) pg MCHC (32-36) g/dL RDW Std Deviation (36.4-46.3) fL RDW Coeff of Anitha (11.5-14.5) % Plt Count (130-400) K/uL MPV (7.4-10.4) fL PT (9.0-12.0) Seconds INR (0.9-1.1) Creatinine (0.6-1.2) mg/dl Est Cr Clr Drug Dosing ml/min Est GFR ( Amer) Est GFR (Non-Af Amer) POC Glucose 222 H 176 H 118 H (70-99) mg/dl Total Bilirubin (0.2-1) mg/dl Direct Bilirubin (0-0.2) mg/dl AST (15-37) U/L ALT (12-78) U/L Alkaline Phosphatase (45-117) U/L Total Protein (6.4-8.2) gm/dl Albumin (3.4-5.0) gm/dl Triglycerides (0-150) mg/dl Cholesterol (0-200) mg/dl LDL Cholesterol, Calc mg/dl VLDL Cholesterol, Calc mg/dl HDL Cholesterol mg/dl Cholesterol/HDL Ratio Vancomycin Trough (See Comment) mcg/ml 06/04/19 Range/Units 21:11 WBC (4.8-10.8) K/uL RBC (4.2-5.4) M/uL Hgb (12.0-16.0) g/dL Hct (37-47) % MCV (80-100) fL MCH (25-34) pg MCHC (32-36) g/dL RDW Std Deviation (36.4-46.3) fL RDW Coeff of Anitha (11.5-14.5) % Plt Count (130-400) K/uL MPV (7.4-10.4) fL PT (9.0-12.0) Seconds INR (0.9-1.1) Creatinine (0.6-1.2) mg/dl Est Cr Clr Drug Dosing ml/min Est GFR ( Amer) Est GFR (Non-Af Amer) POC Glucose 127 H (70-99) mg/dl Total Bilirubin (0.2-1) mg/dl Direct Bilirubin (0-0.2) mg/dl AST (15-37) U/L ALT (12-78) U/L Alkaline Phosphatase (45-117) U/L Total Protein (6.4-8.2) gm/dl Albumin (3.4-5.0) gm/dl Triglycerides (0-150) mg/dl Cholesterol (0-200) mg/dl LDL Cholesterol, Calc mg/dl VLDL Cholesterol, Calc mg/dl HDL Cholesterol mg/dl Cholesterol/HDL Ratio Vancomycin Trough (See Comment) mcg/ml Medications Administered Current Inpatient Medications Acetaminophen (Tylenol) 650 mg PO Q4H PRN PRN Reason: pain/fever Stop: 06/30/19 00:55 Last Admin: 06/02/19 07:42 Dose: 650 mg Documented by: Hydrocodone Bitart/Acetaminophen (Viola 5/325) 1 tab PO Q4HWA PRN PRN Reason: Pain Stop: 06/19/19 11:20 Hydrocodone Bitart/Acetaminophen (Viola 5/325) 2 tab PO Q4HWA PRN PRN Reason: Pain Stop: 06/19/19 11:20 Last Admin: 06/05/19 18:20 Dose: 2 tab Documented by: Aspirin (Ecotrin Ectab) [facility] [place]: 07/06/19 08:59 Dextrose (Dextrose 50%) 25 - 50 ml IV UD PRN; Protocol PRN Reason: Hypoglycemia Protocol Stop: 06/30/19 01:29 Glucagon (Glucagen) 1 mg SQ UD PRN; Protocol PRN Reason: Hypoglycemia Protocol Stop: 06/30/19 01:29 Glucose (Glucose 40%) 15 - 30 gm PO UD PRN; Protocol PRN Reason: Hypoglycemia Protocol Stop: 06/30/19 01:29 Glucose (Dex4 Glucose) 4 - 8 tabs PO UD PRN; Protocol PRN Reason: Hypoglycemia Protocol Stop: 06/30/19 01:29 Hydrochlorothiazide (Hctz) 25 mg PO [facility] Stop: 07/06/19 08:59 Vancomycin HCl 1,000 mg/ (Sodium Chloride) 270 mls @ 125 mls/hr IV Q12H [facility] Stop: 06/13/19 19:59 Last Infusion: 06/05/19 11:26 Dose: Infused Documented by: Lorazepam (Ativan) 0.5 mg in 1 mls @ 1 mls/min IV Q4H PRN PRN Reason: Anxiety/Agitation Stop: 07/04/19 20:34 Last Admin: 06/04/19 21:32 Dose: 1 mls/min Documented by: Promethazine HCl 12.5 mg/ (Sodium Chloride) 50.5 mls @ 204 mls/hr IV Q6H PRN PRN Reason: Nausea And Vomiting Stop: 07/05/19 11:20 Insulin Aspart (Novolog Flexpen) 0 units SC ACHS [facility] Stop: 06/05/19 23:59 Last Admin: 06/05/19 18:43 Dose: 12 units Documented by: Insulin Aspart (Novolog Flexpen) 0 units SC ACHS [facility] Stop: 07/06/19 07:29 Insulin Human Isoph/Insulin Regular (Novolin 70/30 Regular) 20 units SC QDB [facility] Stop: 07/06/19 07:29 Insulin Human Isoph/Insulin Regular (Novolin 70/30 Regular) 12 units SC QDD [facility] Stop: 07/05/19 16:29 Lisinopril (Zestril) 5 mg PO BID [facility] Stop: 07/06/19 08:59 Magnesium Oxide (Mag-Ox) 400 mg PO BID [facility] Stop: 06/30/19 09:29 Last Admin: 06/05/19 07:43 Dose: 400 mg Documented by: Miscellaneous (Carbohydrates For Hypoglycemia) 15 - 30 gm PO UD PRN PRN Reason: Hypoglycemia Treatment Stop: 06/30/19 01:29 Miscellaneous Information (Consult) 1 ea N/A UD PRN PRN Reason: Consult Stop: 07/01/19 14:43 Miscellaneous Information (Consult Glycemic Management Pharmacy) 1 ea N/A UD PRN PRN Reason: Consult Stop: 07/03/19 16:51 Ondansetron HCl (Zofran) 4 mg IV Q6H PRN PRN Reason: Nausea Stop: 06/30/19 00:55 Oxycodone HCl (Roxicodone Immediate Rel) 5 mg PO Q6H PRN PRN Reason: Pain Stop: 06/14/19 00:55 Last Admin: 06/04/19 07:41 Dose: 5 mg Documented by: (1) Cellulitis Site of cellulitis: unspecified site Qualified Code(s): L03.90 - Cellulitis, unspecified
[2019-06-06] MEDS: HYDROCODONE/ACETAMOPHEN 5/325MG TAB PO PRN (00:20)
[2019-06-06] MEDS ORDERED: INSULIN ASPART 100 UNITS/ML 3 ML PEN SC SCH (02:00)
[2019-06-06 06:40] LABS: Hemoglobin 10.2 g/dL (12.0-16.0); Mean Corpuscular Hemoglobin 29.1 pg (25-34); Mean Corpuscular Hgb Conc 32.9 g/dL (32-36); Mean Corpuscular Volume 88.3 fL (80-100); Mean Platelet Volume 9.9 fL (7.4-10.4); Platelet Count 280 K/uL (130-400); RDW Coefficient of Variation 13.2 % (11.5-14.5); RDW Standard Deviation 42.4 fL (36.4-46.3); Red Blood Count 3.51 M/uL (4.2-5.4); White Blood Count 6.62 K/uL (4.8-10.8)
[2019-06-06 07:14] LABS: BUN Creatinine Ratio 25.3 (10-20); Calcium 8.6 mg/dl (8.5-10.1); Creatinine Clr Calc Pharmacy 86.2 ml/min; Est GFR (African American) 96.8; Est GFR (Non-African American) 83.5; Magnesium 1.8 mg/dl (1.8-2.4); Potassium 4.2 mmol/L (3.5-5.1)
[2019-06-06] MEDS: VANCOMYCIN HCL 1,000 MG in SODIUM CHLORIDE 0.9% 250 ML IV SCH ×2 (08:04→21:08)
--- NOTE | 2019-06-06 08:55 | Surgery Progress Note ---
Date of Service June 06, 2019 Assessment & Plan (1) Abscess of head: Doing well after I&D of abscesses Healing and wound management as per wound care team Continue antibiotics Subjective Status post I&D of abscess on scalp and right lateral inferior chest wall Wound VAC in place Pain is minimal and under control Afebrile Physical Exam Physical Exam: Wound VAC in place on scalp and dressing with minimal drainage in right lateral chest wall Results & Data Vital Signs (Past 12 Hours) Vital Signs Temp Pulse Resp BP Pulse Ox 06/06/19 07:44 36.5 C 61 16 169/80 H 97 06/06/19 04:30 36.7 C 61 14 151/76 H 96 06/05/19 22:57 36.7 C 61 16 143/74 H 97 06/05/19 21:09 36.7 C 61 18 139/67 95
[2019-06-06] MEDS: MAGNESIUM OXIDE 400 MG TAB PO SCH ×2 (08:59→21:09)
[2019-06-06] MEDS: ASPIRIN 81 MG ECTAB PO SCH (08:59)
[2019-06-06] MEDS: lisinopriL 5 MG TAB PO SCH ×2 (08:59→21:09)
[2019-06-06] MEDS: hydroCHLOROthiazide 25 MG TAB PO SCH (09:00)
[2019-06-06] MEDS: INSULIN ASPART 100 UNITS/ML 3 ML PEN SC SCH ×4 (09:01→21:44)
[2019-06-06] MEDS: INSULIN HUMAN 70% NPH/30% REGULAR SC SCH ×2 (09:02→17:45)
--- NOTE | 2019-06-06 09:22 | Hospitalist Progress Note ---
Date of Service June 06, 2019 Assessment & Plan (1) Cellulitis: Left forehead area/ boil, erythematous, edematous, and tender draining pus Ulcers with minimal drainage on her back and RUQ Has been getting intravenous Vanco and Zosyn Cultures grew MRSA ID consulted, appreciate their input (IV vancomycin was stopped and oral clindamycin was started as per sensitivity on 06/01/19 but that was changed as per ID recommendation as below) We will continue IV vancomycin for now wand plan conversion to oral doxycycline for 3 to 4 weeks on discharge Consulted wound care - evaluated the pt (06/04) and recommend general surgery for I&D, discussed w/ Dr. Ambrose that pt will need debridement and then poss. wound vac Also will need Wound care follow-up as outpt Pt is now s/p I&D of RUQ wound and s/p debridement of L scalp abscess ( 06/05/2019) by Dr. Ambrose,pt tolerated procedure well, wound vac being applied to L scalp area Discussed w/ ID (06/05), plan for oral Abx (doxycycline) on discharge unchanged (2) Diabetes: History of diabetes for many years Has not been taking medications for the last 2-4 years Not been following diabetic diet Does not have any insurance Current hemoglobin A1c 10.5% Has been getting insulin and sliding scale coverage Will involve pharmacy, and resaw tailer, to come up with least expensive insulin option for her as outpatient Hypertension - poorly controlled -started on lisinopril -ekg and echo ordered, echo abnormal and therefore cardiology consulted -troponin negative, pt likely has hx of old [place] -will cont. to closely monitor and adjust medications as needed - given abnormal echo, and likely CAD, pt will be started on ASA - cont. lisinopril, hctz - pt will need further cardiology eval as outpt (stress test) DVT prophylaxis Lovenox CODE STATUS Full Social service evaluation for discharge planning Admission and Anticipated Discharge Date Admission Date: June 01, 2019 Anticipated date of discharge: 06/03/19 Subjective Pt is sitting up in bed in NAD, Denies fever, chills, chest pain, shortness of breath, abd. pain, nausea or vomiting. Review of Systems Review of Systems: All systems reviewed & are unremarkable except as noted in HPI & below Constitutional: no fever and no chills Respiratory: no cough and no dyspnea Cardiovascular: no chest pain and no palpitations Gastrointestinal: no abdominal pain, no nausea and no vomiting Physical Exam Physical Exam: Physical Exam: elderly female sitting up in bed, in no acute distress Constitutional: well developed, well nourished and + obese; no acute distress and not ill appearing Head: Left forehead - large (2-3 inches in diam.) wound s/p surg. debridement (wound vac being applied) Eyes: PERRL, EOMI, conjunctivae normal, anicteric sclerae ENMT: external ear and nose normal, oropharynx normal Neck: trachea midline, no thyromegaly Respiratory: normal respiratory effort; no respiratory distress Auscultation: lungs clear to auscultation bilaterally, no wheezing, rhonchi, crackles Cardiovascular: Rate/Rhythm: regular rate and regular rhythm Heart Sounds: no murmur Gastrointestinal (Abdomen): Inspection/Auscultation: abdomen normal to inspection and normal bowel sounds Percussion/Palpation: abdomen soft; abdomen nontender Skin: + lesions (Multiple small boils involving the back and one larger RUQ wound s/p I&D) , L forehead large wound as above Neurologic: moves all extremities; no focal motor deficits Results & Data ([facility]) Vital Signs (Past 12 Hours) Vital Signs Temp Pulse Resp BP Pulse Ox 06/06/19 07:44 36.5 C 61 16 169/80 H 97 06/06/19 04:30 36.7 C 61 14 151/76 H 96 06/05/19 22:57 36.7 C 61 16 143/74 H 97 Laboratory Results 06/06/19 06/06/19 06/06/19 Range/Units 08:27 06:18 06:18 WBC 6.62 (4.8-10.8) K/uL RBC 3.51 L (4.2-5.4) M/uL Hgb 10.2 L (12.0-16.0) g/dL Hct 31.0 L (37-47) % MCV 88.3 (80-100) fL MCH 29.1 (25-34) pg MCHC 32.9 (32-36) g/dL RDW Std Deviation 42.4 (36.4-46.3) fL RDW Coeff of Anitha 13.2 (11.5-14.5) % Plt Count 280 (130-400) K/uL MPV 9.9 (7.4-10.4) fL Sodium 140 (136-145) mmol/L Potassium 4.2 (3.5-5.1) mmol/L Chloride 109 H (98-107) mmol/L Carbon Dioxide 27 (21-32) mmol/L Anion Gap 4.0 (3-11) BUN 19 H (7-18) mg/dl Creatinine 0.76 (0.6-1.2) mg/dl Est Cr Clr Drug Dosing 86.2 ml/min Est GFR ( Amer) 96.8 Est GFR (Non-Af Amer) 83.5 BUN/Creatinine Ratio 25.3 H (10-20) Glucose 146 H (70-99) mg/dl POC Glucose 139 H (70-99) mg/dl Calcium 8.6 (8.5-10.1) mg/dl Magnesium 1.8 (1.8-2.4) mg/dl 06/06/19 06/05/19 06/05/19 Range/Units 01:59 21:37 20:48 WBC (4.8-10.8) K/uL RBC (4.2-5.4) M/uL Hgb (12.0-16.0) g/dL Hct (37-47) % MCV (80-100) fL MCH (25-34) pg MCHC (32-36) g/dL RDW Std Deviation (36.4-46.3) fL RDW Coeff of Anitha (11.5-14.5) % Plt Count (130-400) K/uL MPV (7.4-10.4) fL Sodium (136-145) mmol/L Potassium (3.5-5.1) mmol/L Chloride (98-107) mmol/L Carbon Dioxide (21-32) mmol/L Anion Gap (3-11) BUN (7-18) mg/dl Creatinine (0.6-1.2) mg/dl Est Cr Clr Drug Dosing ml/min Est GFR ( Amer) Est GFR (Non-Af Amer) BUN/Creatinine Ratio (10-20) Glucose (70-99) mg/dl POC Glucose 98 83 68 L* (70-99) mg/dl Calcium (8.5-10.1) mg/dl Magnesium (1.8-2.4) mg/dl 06/05/19 06/05/19 06/05/19 Range/Units 20:46 17:30 12:32 WBC (4.8-10.8) K/uL RBC (4.2-5.4) M/uL Hgb (12.0-16.0) g/dL Hct (37-47) % MCV (80-100) fL MCH (25-34) pg MCHC (32-36) g/dL RDW Std Deviation (36.4-46.3) fL RDW Coeff of Anitha (11.5-14.5) % Plt Count (130-400) K/uL MPV (7.4-10.4) fL Sodium (136-145) mmol/L Potassium (3.5-5.1) mmol/L Chloride (98-107) mmol/L Carbon Dioxide (21-32) mmol/L Anion Gap (3-11) BUN (7-18) mg/dl Creatinine (0.6-1.2) mg/dl Est Cr Clr Drug Dosing ml/min Est GFR ( Amer) Est GFR (Non-Af Amer) BUN/Creatinine Ratio (10-20) Glucose (70-99) mg/dl POC Glucose 66 L* 164 H 197 H (70-99) mg/dl Calcium (8.5-10.1) mg/dl Magnesium (1.8-2.4) mg/dl 06/05/19 Range/Units 10:28 WBC (4.8-10.8) K/uL RBC (4.2-5.4) M/uL Hgb (12.0-16.0) g/dL Hct (37-47) % MCV (80-100) fL MCH (25-34) pg MCHC (32-36) g/dL RDW Std Deviation (36.4-46.3) fL RDW Coeff of Anitha (11.5-14.5) % Plt Count (130-400) K/uL MPV (7.4-10.4) fL Sodium (136-145) mmol/L Potassium (3.5-5.1) mmol/L Chloride (98-107) mmol/L Carbon Dioxide (21-32) mmol/L Anion Gap (3-11) BUN (7-18) mg/dl Creatinine (0.6-1.2) mg/dl Est Cr Clr Drug Dosing ml/min Est GFR ( Amer) Est GFR (Non-Af Amer) BUN/Creatinine Ratio (10-20) Glucose (70-99) mg/dl POC Glucose 165 H (70-99) mg/dl Calcium (8.5-10.1) mg/dl Magnesium (1.8-2.4) mg/dl Medications Administered Current Inpatient Medications Acetaminophen (Tylenol) 650 mg PO Q4H PRN PRN Reason: pain/fever Stop: 06/30/19 00:55 Last Admin: 06/02/19 07:42 Dose: 650 mg Documented by: Hydrocodone Bitart/Acetaminophen ([place] 5/325) 1 tab PO Q4HWA PRN PRN Reason: Pain Stop: 06/19/19 11:20 Hydrocodone Bitart/Acetaminophen ([place] 5/325) 2 tab PO Q4HWA PRN PRN Reason: Pain Stop: 06/19/19 11:20 Last Admin: 06/06/19 00:20 Dose: 2 tab Documented by: Aspirin (Ecotrin Ectab) [facility] [place] Stop: 07/06/19 08:59 Last Admin: 06/06/19 08:59 Dose: 81 mg Documented by: Dextrose (Dextrose 50%) 25 - 50 ml IV UD PRN; Protocol PRN Reason: Hypoglycemia Protocol Stop: 06/30/19 01:29 Glucagon (Glucagen) 1 mg SQ UD PRN; Protocol PRN Reason: Hypoglycemia Protocol Stop: 06/30/19 01:29 Glucose (Glucose 40%) 15 - 30 gm PO UD PRN; Protocol PRN Reason: Hypoglycemia Protocol Stop: 06/30/19 01:29 Glucose (Dex4 Glucose) 4 - 8 tabs PO UD PRN; Protocol PRN Reason: Hypoglycemia Protocol Stop: 06/30/19 01:29 Hydrochlorothiazide (Hctz) 25 [facility] [place] Stop: 07/06/19 08:59 Last Admin: 06/06/19 09:00 Dose: 25 mg Documented by: Vancomycin HCl 1,000 mg/ (Sodium Chloride) 270 mls @ 125 mls/hr IV Q12H [facility] Stop: 06/13/19 19:59 Last Admin: 06/06/19 08:04 Dose: 125 mls/hr Documented by: Lorazepam (Ativan) 0.5 mg in 1 mls @ 1 mls/min IV Q4H PRN PRN Reason: Anxiety/Agitation Stop: 07/04/19 20:34 Last Admin: 06/04/19 21:32 Dose: 1 mls/min Documented by: Promethazine HCl 12.5 mg/ (Sodium Chloride) 50.5 mls @ 204 mls/hr IV Q6H PRN PRN Reason: Nausea And Vomiting Stop: 07/05/19 11:20 Magnesium Sulfate/Dextrose (Magnesium Sulfate / D5w) 1 gm in 100 mls @ 100 mls/hr IV ONE ONE Stop: 06/06/19 10:19 Insulin Aspart (Novolog Flexpen) 0 units SC ACHS [facility] Stop: 07/06/19 07:29 Last Admin: 06/06/19 09:01 Dose: Not Given Documented by: Insulin Human Isoph/Insulin Regular (Novolin 70/30 Regular) 20 units SC QDB [facility] Stop: 07/06/19 07:29 Last Admin: 06/06/19 09:02 Dose: 20 units Documented by: Insulin Human Isoph/Insulin Regular (Novolin 70/30 Regular) 12 units SC QDD [facility] Stop: 07/05/19 16:29 Lisinopril (Zestril) 5 mg PO BID [facility] Stop: 07/06/19 08:59 Last Admin: 06/06/19 08:59 Dose: 5 mg Documented by: Magnesium Oxide (Mag-Ox) 400 mg PO BID [facility] Stop: 06/30/19 09:29 Last Admin: 06/06/19 08:59 Dose: 400 mg Documented by: Miscellaneous (Carbohydrates For Hypoglycemia) 15 - 30 gm PO UD PRN PRN Reason: Hypoglycemia Treatment Stop: 06/30/19 01:29 Last Admin: 06/05/19 21:13 Dose: 15 gm Documented by: Miscellaneous Information (Consult) 1 ea N/A UD PRN PRN Reason: Consult Stop: 07/01/19 14:43 Miscellaneous Information (Consult Glycemic Management Pharmacy) 1 ea N/A UD [place] N PRN Reason: Consult Stop: 07/03/19 16:51 Ondansetron HCl (Zofran) 4 mg IV Q6H PRN PRN Reason: Nausea Stop: 03/10/20 00:55 Oxycodone HCl (Roxicodone Immediate Rel) 5 mg PO Q6H PRN PRN Reason: Pain Stop: 06/14/19 00:55 Last Admin: 06/04/19 07:41 Dose: 5 mg Documented by: (1) Cellulitis Site of cellulitis: unspecified site Qualified Code(s): L03.90 - Cellulitis, unspecified
[2019-06-06] MEDS ORDERED: MAGNESIUM SULFATE / D5W 1 GM/100 ML BAG IV ONE (09:45)
--- NOTE | 2019-06-06 14:16 | Pharmacy Report ---
Pharmacy Glycemic Short Note 2 - Date of Service June 06, 2019 - Glycemic Short BSG Results (Last 24 hours): 06/05/19 06/05/19 06/05/19 17:30 20:46 20:48 Glucose POC Glucose 164 H 66 L* 68 L* 06/05/19 06/06/19 06/06/19 21:37 01:59 06:18 Glucose 146 H POC Glucose 83 98 06/06/19 06/06/19 08:27 12:20 Glucose POC Glucose 139 H 151 H OUTPATIENT ANTIDIABETIC REGIMEN: * No reported meds listed ASSESSMENT * Some hypoglycemia last night d/t NPO status and too much insulin. * Patient transitioned to 70/30 Novolin insulin today, blood sugars at goal today. ASSESSMENT OF INPATIENT GLYCEMIC CONTROL: * Basal & Bolus insulin - continue * Novolin 70/30 20 units before breakfast and 12 units before dinner DISCHARGE RECOMMENDATIONS: * Novolin 70/30 ([employer] - [facility] brand)) - 20 units before breakfast and 12 units before PM meal Pharmacy will continue to follow up and make adjustments as needed.
--- NOTE | 2019-06-06 14:53 | Cardiology Progress Note ---
Date of Service June 06, 2019 Assessment & Plan (1) History of myocardial infarction: (2) Abscess of head: Continue lisinopril and hydrochlorothiazide for blood pressure management. Sodium restriction advised. Continue low-dose aspirin, 81 mg daily. Outpatient stress testing is indicated when acute infectious issues have resolved. Subjective Patient seen and examined at the bedside. Denies chest pain or unusual shortness of breath. Wound VAC in place secondary to scalp infection status post debridement. Denies known history of myocardial infarction. Resting 2D transthoracic echocardiogram performed during hospitalization demonstrates age- indeterminate inferior infarct. Blood pressure elevated since admission. Lisinopril and hydrochlorothiazide added. Review of Systems Review of Systems: All systems reviewed & are unremarkable except as noted in HPI & below Physical Exam Constitutional: well developed and well nourished Respiratory: normal respiratory effort, lungs clear to auscultation Cardiovascular: Rate/Rhythm: regular rate and regular rhythm Heart Sounds: normal S1 and normal S2; no gallop, no murmur and no cardiac rub Gastrointestinal (Abdomen): normal bowel sounds, soft, nontender, no hepatosplenomegaly Musculoskeletal: no cyanosis or clubbing, extremities motor strength 5/5 Skin: + wound (Left frontal scalp wound with vacuum dressing in place) Neurologic: moves all extremities; no focal motor deficits Psychiatric: A+Ox3, euthymic affect Results & Data Vital Signs (Past 12 Hours) Vital Signs Temp Pulse Resp BP Pulse Ox 06/06/19 07:44 36.5 C 61 16 169/80 H 97 06/06/19 04:30 36.7 C 61 14 151/76 H 96
[2019-06-06] MEDS: ACETAMINOPHEN 325 MG TAB PO PRN (17:43)
[2019-06-06] MEDS: OXYCODONE HCL IR 5 MG TAB (IMMEDIATE RELEASE) PO PRN (21:58)
[2019-06-07] MEDS: ACETAMINOPHEN 325 MG TAB PO PRN (00:13)
[2019-06-07] MEDS: OXYCODONE HCL IR 5 MG TAB (IMMEDIATE RELEASE) PO PRN ×2 (04:40→21:19)
[2019-06-07 05:54] LABS: Hematocrit (blood only) 32.8 % (37-47); Hemoglobin 10.5 g/dL (12.0-16.0); Mean Corpuscular Hemoglobin 28.5 pg (25-34); Mean Corpuscular Volume 89.1 fL (80-100); Platelet Count 310 K/uL (130-400); RDW Coefficient of Variation 13.1 % (11.5-14.5); RDW Standard Deviation 42.7 fL (36.4-46.3); Red Blood Count 3.68 M/uL (4.2-5.4); White Blood Count 6.24 K/uL (4.8-10.8)
[2019-06-07 06:21] LABS: Calcium 8.8 mg/dl (8.5-10.1); Creatinine Clr Calc Pharmacy 89.7 ml/min; Est GFR (African American) 101.6; Est GFR (Non-African American) 87.7; Potassium 4.3 mmol/L (3.5-5.1)
[2019-06-07] MEDS: VANCOMYCIN HCL 1,000 MG in SODIUM CHLORIDE 0.9% 250 ML IV SCH ×2 (07:25→20:29)
--- NOTE | 2019-06-07 09:02 | Surgery Progress Note ---
Date of Service June 07, 2019 Assessment & Plan (1) Abscess of head: Doing well status post I&D of scalp wound Wound care as per wound care team Tolerating regular diet Continue antibiotics for MRSA Subjective Postoperative day #2 status post I&D of scalp wound with placement of wound VAC Had pain last night but has returned back to baseline now Denies nausea and vomiting Very little drainage from right chest wall I&D site Physical Exam Physical Exam: Wound VAC is intact on the scalp. Surrounding skin without erythema. Chest (Breasts): Additional Comments: Incision clean dry and intact Results & Data Vital Signs (Past 12 Hours) Vital Signs Temp Pulse Resp BP Pulse Ox 06/07/19 07:35 36.7 C 57 L 16 143/82 H 97 06/06/19 23:39 36.7 C 59 L 16 160/77 H 96
[2019-06-07] MEDS: MAGNESIUM OXIDE 400 MG TAB PO SCH ×2 (09:14→20:32)
[2019-06-07] MEDS: lisinopriL 5 MG TAB PO SCH ×2 (09:15→20:32)
[2019-06-07] MEDS: hydroCHLOROthiazide 25 MG TAB PO SCH (09:15)
[2019-06-07] MEDS: INSULIN ASPART 100 UNITS/ML 3 ML PEN SC SCH ×4 (09:16→20:36)
[2019-06-07] MEDS: INSULIN HUMAN 70% NPH/30% REGULAR SC SCH ×2 (09:16→18:06)
[2019-06-07] MEDS: ASPIRIN 81 MG ECTAB PO SCH (10:23)
[2019-06-07] MEDS: ACETAMINOPHEN 325 MG TAB PO SCH (18:07)
--- NOTE | 2019-06-07 23:09 | Hospitalist Progress Note ---
Date of Service June 07, 2019 Assessment & Plan (1) Cellulitis: Left forehead area/ boil, erythematous, edematous, and tender draining pus Ulcers with minimal drainage on her back and RUQ Has been getting intravenous Vanco and Zosyn Cultures grew MRSA ID consulted, appreciate their input We will continue IV vancomycin for now wand plan conversion to oral doxycycline for 3 to 4 weeks on discharge Consulted wound care - evaluated the pt (06/04) and recommend general surgery for I&D, discussed w/ Dr. Ambrose that pt will need debridement and then poss. wound vac Also will need Wound care follow-up as outpt Pt is now s/p I&D of RUQ wound and s/p debridement of L scalp abscess (06/05/2019) by Dr. Ambrose,pt tolerated procedure well, wound vac being applied to L scalp area Discussed w/ ID (06/05), plan for oral Abx (doxycycline) on discharge unchanged (2) Diabetes: History of diabetes for many years Has not been taking medications for the last 2-4 years Not been following diabetic diet Does not have any insurance Current hemoglobin A1c 10.5% Has been getting insulin and sliding scale coverage Consulted pharmacy, and nursing educator, to come up with least expensive insulin option for her as outpatient, recommendations provided Hypertension - poorly controlled -started on lisinopril -ekg and echo ordered, echo abnormal and therefore cardiology consulted -troponin negative, pt likely has hx of old [place] -will cont. to closely monitor and adjust medications as needed - given abnormal echo, and likely CAD, pt will be started on ASA - cont. lisinopril, hctz - pt will need further cardiology eval as outpt (stress test) DVT prophylaxis Lovenox CODE STATUS Full Social service evaluation for discharge planning Admission and Anticipated Discharge Date Admission Date: June 01, 2019 Anticipated date of discharge: 06/03/19 Subjective Patient sitting up in bed, in no acute distress, says that she has more pain at her wound vac site. Mentions that there was a clot and it was not functioning properly but it has been fixed since then. Discussed in detail possible discharge tomorrow. Currently denies any fevers, chills, chest pain, shortness of breath, dental pain, nausea or vomiting. Review of Systems Review of Systems: All systems reviewed & are unremarkable except as noted in HPI & below Constitutional: no fever and no chills Respiratory: no cough and no dyspnea Cardiovascular: no chest pain, no palpitations and no edema Gastrointestinal: no abdominal pain, no nausea and no vomiting Physical Exam Physical Exam: Physical Exam: elderly female sitting up in bed, in no acute distress Constitutional: well developed, well nourished and + obese; no acute distress and not ill appearing Head: Left forehead - large (2-3 inches in diam.) wound s/p surg. debridement (wound vac being applied) Eyes: PERRL, EOMI, conjunctivae normal, anicteric sclerae ENMT: external ear and nose normal, oropharynx normal Neck: trachea midline, no thyromegaly Respiratory: normal respiratory effort; no respiratory distress Auscultation: lungs clear to auscultation bilaterally, no wheezing, rhonchi, crackles Cardiovascular: Rate/Rhythm: regular rate and regular rhythm Heart Sounds: no murmur Gastrointestinal (Abdomen): Inspection/Auscultation: abdomen normal to inspection and normal bowel sounds Percussion/Palpation: abdomen soft; abdomen nontender Skin: + lesions (Multiple small boils involving the back and one larger RUQ wound s/p I&D) , L forehead large wound as above Neurologic: moves all extremities; no focal motor deficits Results & Data ([facility]) Vital Signs (Past 12 Hours) Vital Signs Temp Pulse Resp BP Pulse Ox 06/07/19 21:45 36.9 C 62 18 161/72 H 96 06/07/19 21:11 36.9 C 64 18 176/94 H 97 06/07/19 19:06 158/74 H 06/07/19 16:32 59 L 179/77 H 06/07/19 15:32 37.0 C 61 18 180/80 H 98 06/07/19 15:11 36.8 C 66 18 188/69 H 97 Laboratory Results 06/07/19 06/07/19 06/07/19 Range/Units 20:35 17:17 12:10 WBC (4.8-10.8) K/uL RBC (4.2-5.4) M/uL Hgb (12.0-16.0) g/dL Hct (37-47) % MCV (80-100) fL MCH (25-34) pg MCHC (32-36) g/dL RDW Std Deviation (36.4-46.3) fL RDW Coeff of Anitha (11.5-14.5) % Plt Count (130-400) K/uL MPV (7.4-10.4) fL Sodium (136-145) mmol/L Potassium (3.5-5.1) mmol/L Chloride (98-107) mmol/L Carbon Dioxide (21-32) mmol/L Anion Gap (3-11) BUN (7-18) mg/dl Creatinine (0.6-1.2) mg/dl Est Cr Clr Drug Dosing ml/min Est GFR ( Amer) Est GFR (Non-Af Amer) POC Glucose 110 H 150 H 135 H (70-99) mg/dl Fasting Glucose (70-99) mg/dl Calcium (8.5-10.1) mg/dl 06/07/19 06/07/19 06/07/19 Range/Units 08:22 05:24 05:24 WBC 6.24 (4.8-10.8) K/uL RBC 3.68 L (4.2-5.4) M/uL Hgb 10.5 L (12.0-16.0) g/dL Hct 32.8 L (37-47) % MCV 89.1 (80-100) fL MCH 28.5 (25-34) pg MCHC 32.0 (32-36) g/dL RDW Std Deviation 42.7 (36.4-46.3) fL RDW Coeff of Anitha 13.1 (11.5-14.5) % Plt Count 310 (130-400) K/uL MPV 10.0 (7.4-10.4) fL Sodium 138 (136-145) mmol/L Potassium 4.3 (3.5-5.1) mmol/L Chloride 106 (98-107) mmol/L Carbon Dioxide 27 (21-32) mmol/L Anion Gap 5.0 (3-11) BUN 19 H (7-18) mg/dl Creatinine 0.73 (0.6-1.2) mg/dl Est Cr Clr Drug Dosing 89.7 ml/min Est GFR ( Amer) 101.6 Est GFR (Non-Af Amer) 87.7 POC Glucose 117 H (70-99) mg/dl Fasting Glucose 117 H (70-99) mg/dl Calcium 8.8 (8.5-10.1) mg/dl Medications Administered Current Inpatient Medications Acetaminophen (Tylenol) 650 mg PO Q6 [facility] Stop: 07/07/19 17:59 Last Admin: 06/07/19 18:07 Dose: 650 mg Documented by: Hydrocodone Bitart/Acetaminophen ([place] 5/325) 1 tab PO Q4HWA PRN PRN Reason: Pain Stop: 06/19/19 11:20 Hydrocodone Bitart/Acetaminophen ([place] 5/325) 2 tab PO Q4HWA PRN PRN Reason: Pain Stop: 06/19/19 11:20 Last Admin: 06/06/19 00:20 Dose: 2 tab Documented by: Aspirin (Ecotrin Ectab) [facility] [place] Stop: 07/06/19 08:59 Last Admin: 06/07/19 10:23 Dose: 81 mg Documented by: Dextrose (Dextrose 50%) 25 - 50 ml IV UD PRN; Protocol PRN Reason: Hypoglycemia Protocol Stop: 06/30/19 01:29 Glucagon (Glucagen) 1 mg SQ UD PRN; Protocol PRN Reason: Hypoglycemia Protocol Stop: 06/30/19 01:29 Glucose (Glucose 40%) 15 - 30 gm PO UD PRN; Protocol PRN Reason: Hypoglycemia Protocol Stop: 06/30/19 01:29 Glucose (Dex4 Glucose) 4 - 8 tabs PO UD PRN; Protocol PRN Reason: Hypoglycemia Protocol Stop: 06/30/19 01:29 Hydrochlorothiazide (Hctz) 25 mg PO [facility] Stop: 07/06/19 08:59 Last Admin: 06/07/19 09:15 Dose: 25 mg Documented by: Vancomycin HCl 1,000 mg/ (Sodium Chloride) 270 mls @ 125 mls/hr IV Q12H [facility] Stop: 06/13/19 19:59 Last Infusion: 06/07/19 22:43 Dose: Infused Documented by: Lorazepam (Ativan) 0.5 mg in 1 mls @ 1 mls/min IV Q4H PRN PRN Reason: Anxiety/Agitation Stop: 07/04/19 20:34 Last Admin: 06/04/19 21:32 Dose: 1 mls/min Documented by: Promethazine HCl 12.5 mg/ (Sodium Chloride) 50.5 mls @ 204 mls/hr IV Q6H PRN PRN Reason: Nausea And Vomiting Stop: 07/05/19 11:20 Insulin Aspart (Novolog Flexpen) 0 units SC ACHS [facility] Stop: 07/06/19 07:29 Last Admin: 06/07/19 20:36 Dose: Not Given Documented by: Insulin Human Isoph/Insulin Regular (Novolin 70/30 Regular) 20 units SC QDB [facility] Stop: 07/06/19 07:29 Last Admin: 06/07/19 09:16 Dose: 20 units Documented by: Insulin Human Isoph/Insulin Regular (Novolin 70/30 Regular) 12 units SC QDD [facility] Stop: 07/05/19 16:29 Last Admin: 06/07/19 18:06 Dose: 12 units Documented by: Lisinopril (Zestril) 5 mg PO BID [facility] Stop: 07/06/19 08:59 Last Admin: 06/07/19 20:32 Dose: 5 mg Documented by: Magnesium Oxide (Mag-Ox) 400 mg PO BID [facility] Stop: 06/30/19 09:29 Last Admin: 06/07/19 20:32 Dose: 400 mg Documented by: Miscellaneous (Carbohydrates For Hypoglycemia) 15 - 30 gm PO UD PRN PRN Reason: Hypoglycemia Treatment Stop: 06/30/19 01:29 Last Admin: 06/05/19 21:13 Dose: 15 gm Documented by: Miscellaneous Information (Consult) 1 ea N/A UD PRN PRN Reason: Consult Stop: 07/01/19 14:43 Miscellaneous Information (Consult Glycemic Management Pharmacy) 1 ea N/A UD PRN PRN Reason: Consult Stop: 07/03/19 16:51 Ondansetron HCl (Zofran) 4 mg IV Q6H PRN PRN Reason: Nausea Stop: 06/30/19 00:55 Oxycodone HCl (Roxicodone Immediate Rel) 5 mg PO Q6H PRN PRN Reason: Pain Stop: 06/14/19 00:55 Last Admin: 06/07/19 21:19 Dose: 5 mg Documented by: (1) Cellulitis Site of cellulitis: unspecified site Qualified Code(s): L03.90 - Cellulitis, unspecified
[2019-06-08] MEDS: ACETAMINOPHEN 325 MG TAB PO SCH ×4 (00:23→17:40)
[2019-06-08] MEDS: OXYCODONE HCL IR 5 MG TAB (IMMEDIATE RELEASE) PO PRN ×2 (03:55→11:23)
[2019-06-08] MEDS ORDERED: VANCOMYCIN TROUGH ONE (07:30)
[2019-06-08 07:34] LABS: Hemoglobin 11.3 g/dL (12.0-16.0); Mean Corpuscular Hgb Conc 32.3 g/dL (32-36); Mean Corpuscular Volume 89.7 fL (80-100); Mean Platelet Volume 9.9 fL (7.4-10.4); Platelet Count 313 K/uL (130-400); RDW Coefficient of Variation 13.3 % (11.5-14.5); RDW Standard Deviation 43.4 fL (36.4-46.3); White Blood Count 6.03 K/uL (4.8-10.8)
[2019-06-08 08:07] LABS: BUN Creatinine Ratio 25.5 (10-20); Calcium 9.5 mg/dl (8.5-10.1); Creatinine Clr Calc Pharmacy 73.6 ml/min; Est GFR (African American) 79.9; Magnesium 1.9 mg/dl (1.8-2.4); Potassium 4.7 mmol/L (3.5-5.1)
--- NOTE | 2019-06-08 08:26 | Anesthesiology Progress Note ---
Date of Service June 08, 2019 Anesthesia Post Procedure Vital Signs Vital Signs: Temp Pulse Pulse Resp BP BP Pulse Ox 06/08/19 07:33 36.6 C 61 20 164/82 H 98 06/07/19 23:37 36.7 C 61 16 160/76 H 96 06/07/19 21:45 36.9 C 62 18 161/72 H 96 06/07/19 21:11 36.9 C 64 18 176/94 H 97 06/07/19 19:06 158/74 H 06/07/19 16:32 59 L 179/77 H 06/07/19 15:32 37.0 C 61 18 180/80 H 98 06/07/19 15:11 36.8 C 66 18 188/69 H 97 Pain Intensity Left Head: Pain Intensity: 0 Back: Pain Intensity: 0 Right Lower Breast: Pain Intensity: 0 Notes Mental Status: alert / awake / arousable and participated in evaluation Patient Amnestic to Procedure: Yes Nausea / Vomiting: adequately controlled Pain: adequately controlled Airway Patency, RR, SpO2: stable & adequate BP & HR: stable & adequate Hydration State: stable & adequate Anesthetic Complications: no major complications apparent and Pt Satisfied with anesthetic care
[2019-06-08] MEDS: INSULIN HUMAN 70% NPH/30% REGULAR SC SCH ×2 (08:27→17:39)
[2019-06-08] MEDS: INSULIN ASPART 100 UNITS/ML 3 ML PEN SC SCH ×4 (08:28→21:35)
[2019-06-08] MEDS: VANCOMYCIN HCL 1,000 MG in SODIUM CHLORIDE 0.9% 250 ML IV SCH (08:30)
[2019-06-08] MEDS: ASPIRIN 81 MG ECTAB PO SCH (08:34)
[2019-06-08] MEDS: hydroCHLOROthiazide 25 MG TAB PO SCH (08:34)
[2019-06-08] MEDS: lisinopriL 10 MG TAB PO SCH ×2 (08:35→21:55)
[2019-06-08] MEDS: MAGNESIUM OXIDE 400 MG TAB PO SCH ×2 (08:35→21:54)
--- NOTE | 2019-06-08 09:45 | Surgery Progress Note ---
Date of Service June 08, 2019 Assessment & Plan (1) Abscess of head: wound vac off- "clogging" will defer to wound nurses and clinic for care d/c when ok with med team Results & Data Vital Signs (Past 12 Hours) Vital Signs Temp Pulse Pulse Resp BP BP Pulse Ox 06/08/19 08:26 153/78 H 06/08/19 07:33 36.6 C 61 20 164/82 H 98 06/07/19 23:37 36.7 C 61 16 160/76 H 96 06/07/19 21:45 36.9 C 62 18 161/72 H 96 PG Care Time/CCT Total # of Minutes Spent Total Time Spent with Patient: Total time spent is greater than 50% in coordination of care (as documented) at patient's floor/unit and/or counseling patient: Coding Level of Care Code None Diagnoses Abscess of head L02.811
--- NOTE | 2019-06-08 10:20 | Pharmacy Report ---
Pharmacy Glycemic Short Note 2 - Date of Service June 08, 2019 - Glycemic Short BSG Results (Last 24 hours): 06/07/19 06/07/19 06/07/19 12:10 17:17 20:35 Glucose POC Glucose 135 H 150 H 110 H 06/08/19 06/08/19 07:21 08:06 Glucose 115 H POC Glucose 111 H OUTPATIENT ANTIDIABETIC REGIMEN: * No reported meds listed ASSESSMENT * BSGs very well-controlled yesterday - ranging 110-150 mg/dL * Fasting BSG this AM of 111 mg/dL * Will continue current regimen ASSESSMENT OF INPATIENT GLYCEMIC CONTROL: * Basal & Bolus insulin - continue * Novolin 70/30 20 units before breakfast and 12 units before dinner * Correctional Insulin: Novolog Correction per scale ACHS Goal Range: Low 110 mg/dL - High 140 mg/dL Correction Factor: 25 mg/dL/unit DISCHARGE RECOMMENDATIONS: * Novolin 70/30 (ReliOn - [employer] brand)) - 20 units before breakfast and 12 units before PM meal Pharmacy will continue to follow up and make adjustments as needed.
[2019-06-08] MEDS: HYDROCODONE/ACETAMOPHEN 5/325MG TAB PO PRN (15:22)
[2019-06-08] MEDS: DOXYCYCLINE HYCLATE 100 MG CAP PO SCH (17:40)
[2019-06-09] MEDS: ACETAMINOPHEN 325 MG TAB PO SCH ×3 (00:51→13:45)
[2019-06-09] MEDS: DOXYCYCLINE HYCLATE 100 MG CAP PO SCH (05:54)
[2019-06-09] MEDS: MAGNESIUM OXIDE 400 MG TAB PO SCH (08:39)
[2019-06-09] MEDS: ASPIRIN 81 MG ECTAB PO SCH (08:40)
[2019-06-09] MEDS: lisinopriL 10 MG TAB PO SCH (08:40)
[2019-06-09] MEDS: hydroCHLOROthiazide 25 MG TAB PO SCH (08:40)
[2019-06-09] MEDS: INSULIN ASPART 100 UNITS/ML 3 ML PEN SC SCH ×2 (08:42→13:35)
[2019-06-09] MEDS: INSULIN HUMAN 70% NPH/30% REGULAR SC SCH (08:42)
--- NOTE | 2019-06-09 09:44 | Hospitalist Progress Note ---
Date of Service June 08, 2019 Assessment & Plan (1) Cellulitis: Left forehead area/ boil, erythematous, edematous, and tender draining pus Ulcers with minimal drainage on her back and RUQ Has been getting intravenous Vanco and Zosyn Cultures grew MRSA ID consulted, appreciate their input We will continue IV vancomycin for now wand plan conversion to oral doxycycline for 3 to 4 weeks on discharge Consulted wound care - evaluated the pt (06/04) and recommend general surgery for I&D, discussed w/ Dr. Ambrose that pt will need debridement and then poss. wound vac Also will need Wound care follow-up as outpt, she has an appointment scheduled for this Saturday, in 2 days Pt is now s/p I&D of RUQ wound and s/p debridement of L scalp abscess (06/05/2019) by Dr. Ambrose,pt tolerated procedure well, wound vac being applied to L scalp area Discussed w/ ID (06/05), plan for oral Abx (doxycycline) on discharge unchanged -Notified by comp field case manager that [facility] approval is pending for patient's wound VAC, plan to D/C after approval obtained (2) Diabetes: History of diabetes for many years Has not been taking medications for the last 2-4 years Not been following diabetic diet Does not have any insurance Current hemoglobin A1c 10.5% Has been getting insulin and sliding scale coverage Consulted pharmacy, and cathead worker, to come up with least expensive insulin option for her as outpatient, recommendations provided Hypertension - poorly controlled -started on lisinopril -ekg and echo ordered, echo abnormal and therefore cardiology consulted -troponin negative, pt likely has hx of old CT -will cont. to closely monitor and adjust medications as needed - given abnormal echo, and likely CAD, pt will be started on ASA - cont. lisinopril, hctz - pt will need further cardiology eval as outpt (stress test) DVT prophylaxis Lovenox CODE STATUS Full Social service evaluation for discharge planning Admission and Anticipated Discharge Date Admission Date: June 01, 2019 Anticipated date of discharge: 06/09/19 Subjective Patient sitting up in bed, in no acute distress, says that she has more pain at her wound vac site. Mentions that there was a clot and it was not functioning properly but it has been fixed since then. Says that she has headache from the wound VAC, however she also wants to try and continue using it. Discussed in detail possible discharge tomorrow. She has wound care clinic appointment scheduled for Saturday. Currently denies any fevers, chills, chest pain, shortness of breath, dental p ain, nausea or vomiting. Review of Systems Review of Systems: All systems reviewed & are unremarkable except as noted in HPI & below All systems reviewed and are unremarkable except as noted below Constitutional: no fever and no chills Respiratory: no cough and no dyspnea Cardiovascular: no chest pain and no palpitations Gastrointestinal: no abdominal pain, no nausea and no vomiting Physical Exam Physical Exam: Physical Exam: elderly female sitting up in bed, in no acute distress Constitutional: well developed, well nourished and + obese; no acute distress and not ill appearing Head: Left forehead - large (2-3 inches in diam.) wound s/p surg. debridement (wound vac being applied) Eyes: PERRL, EOMI, conjunctivae normal, anicteric sclerae ENMT: external ear and nose normal, oropharynx normal Neck: trachea midline, no thyromegaly Respiratory: normal respiratory effort; no respiratory distress Auscultation: lungs clear to auscultation bilaterally, no wheezing, rhonchi, crackles Cardiovascular: Rate/Rhythm: regular rate and regular rhythm Heart Sounds: no murmur Gastrointestinal (Abdomen): Inspection/Auscultation: abdomen normal to inspection and normal bowel sounds Percussion/Palpation: abdomen soft; abdomen nontender Skin: + lesions (Multiple small boils involving the back and one larger RUQ wound s/p I&D) , L forehead large wound as above Neurologic: moves all extremities; no focal motor deficits Results & Data ([facility]) Vital Signs (Past 12 Hours) Vital Signs Temp Pulse Pulse Resp BP BP Pulse Ox 06/09/19 08:37 164/76 H 06/09/19 07:05 36.7 C 66 16 136/80 97 06/08/19 23:05 36.8 C 62 16 135/75 97 06/08/19 21:53 61 134/73 (1) Cellulitis Site of cellulitis: unspecified site Qualified Code(s): L03.90 - Cellulitis, unspecified
--- NOTE | 2019-06-09 12:15 | Pharmacy Report ---
Pharmacy Glycemic Short Note 2 - Date of Service June 09, 2019 - Glycemic Short BSG Results (Last 24 hours): 06/08/19 06/08/19 06/09/19 16:58 19:59 08:22 POC Glucose 102 H 86 119 H 06/09/19 12:04 POC Glucose 70 OUTPATIENT ANTIDIABETIC REGIMEN: * No reported meds listed ASSESSMENT * Two BSG's noted <90 mg/dL in last 24 hours, but no hypoglycemic events occuring at bedtime yesterday and lunch today. Patient however reported *feeling* hypoglycemic yesterday evening when BSG was 86 mg/dL * Will decrease both breakfast and dinner Novolin 70/30 ASSESSMENT OF INPATIENT GLYCEMIC CONTROL: * Basal & Bolus insulin * Novolin 70/30 16 units before breakfast and 8 units before dinner * Correctional Insulin: Novolog Correction per scale ACHS Goal Range: Low 110 mg/dL - High 140 mg/dL Correction Factor: 25 mg/dL/unit DISCHARGE RECOMMENDATIONS: * Novolin 70/30 (ReliOn - [facility] [facility] brand)) - 16 units before breakfast and 8 units before dinner. Encourage patient to also consume snack prior to bedtime. Pharmacy will continue to follow up and make adjustments as needed.
--- NOTE | 2019-06-09 13:51 | Discharge Summary ---
Date of Service June 09, 2019 Discharge Data Allergies Allergy/AdvReac Type Severity Reaction Status Date / Time No Known Allergies Allergy Verified 05/30/19 22:29 Consultations 05/30/19 22:23 ED Decision to Admit Stat 05/31/19 00:56 Consult Case Management - Discharge Planning Routine Consult Infectious Diseases Routine 06/04/19 14:09 Consult Cardiology Routine 06/04/19 14:47 Consult General Surgery Routine Procedures Performed Operation Date: 06/05/19 08:35 Actual Procedures p Incision and Drainage Head Abscess and Incision and Drainage of Right Upper Quadrant - Farhad Ambrose MD, FACS Discharge Plan Discharge Items Patient Disposition: Home - Self-Care Reason For Visit: FACIAL DRAINING WOUND Discharge Diagnosis: Diabetes mellitus type 2, uncontrolled, left scalp MRSA abscess s/p surgical debridement Activity: Resume your previous activity Activity Comment: as tolerated and as per wound care Non-emergency contact: Primary Care Provider and Surgeon Call non-emergency contact if: you have any medication questions and your symptoms worsen Follow-up/Referrals: Farhad Ambrose MD, FACS [Physician] - Diet: Carb Consistent or DM2 and Heart Healthy Addtl Attending Provider Instructions: We have arranged for you a follow-up appointment with [facility] primary care doctor on 06/12/2019 11:20 (with Juan Gold MD), at [facility]. Make sure to follow-up with primary care doctor and also wound care, the appointment with wound care is scheduled for June 10. You will need to be on antibiotics (doxycycline), for next 3 weeks and follow-up with infectious disease doctor, Dr. Carrasco. You will also have to use insulin, to control your diabetes, please make sure to follow instructions from our clinical systems educator and pharmacist. You will also need to take blood pressure medications (lisinopril and hydrochlorothiazide), this will be sent to your pharmacy. It is recommended that you check your blood pressure at home, and keep a log of these numbers. You should bring this log to your primary care doctor, so medications could be adjusted further. Also make sure to take aspirin daily. While in the hospital, you were also evaluated by cardiology, they recommended that you have further testing done as outpatient, likely a stress test. Pending Studies at Discharge: No Stand-Alone Forms: My [employer], Smoking Cessation Medications and DC Order Prescriptions: New aspirin [Ecotrin Low Strength] 81 mg Tablet,Delayed Release (Dr/Ec) 81 mg PO QAM 30 Days Qty: 30 RF: 0 lisinopril 10 mg Tablet 10 mg PO BID 30 Days Qty: 60 RF: 0 hydrochlorothiazide 25 mg Tablet 25 mg PO QAM 30 Days Qty: 30 RF: 0 magnesium oxide 400 mg (241.3 mg magnesium) Tablet 400 mg PO BID 30 Days Qty: 60 RF: 0 doxycycline hyclate 100 mg Capsule 100 mg PO BID@0630,1830 21 Days Qty: 42 RF: 0 Novolin 70/30 U-100 Insulin 100 unit/mL (70-30) Suspension 16 unit SC QDB 30 Days Qty: 4.8 RF: 0 Novolin 70/30 U-100 Insulin 100 unit/mL (70-30) Suspension 8 unit SC QDD 30 Days Qty: 2.4 RF: 0 No Action No Known Home Medications RF: 0 Discharge Orders: Discharge Order (Routine); Ordered 06/09/19 Ordered By: Raul Ramos/Other Patient Handouts: Diabetes Clinician Oncology Complications, Diabetes Type 2 Coping, Diabetes Healthy Meals, Understanding Carbohydrates, Diabetes Exercise Benefits, Diabetes Manage A1C Test Admission Data Admit Date/Time: 06/01/19 10:53 Attending Provider: Raul Miranda Admit Provider: Eduin Lam Primary Care Provider: PCP,NO Other Providers: Bing Clement ; Tobi Martinez ; Eduin Lam ; Jaymie Carrasco ; Axel Hyatt ; Jay Smith ; Robb Adam ; Devon Kingsley ; Corey Ray ; Ramon Quiroz ; Nisa Villa ; Dorothy Amador ; Pierce Julio ; Farhad Ambrose
[2019-06-09] MEDS ORDERED: INSULIN HUMAN 70% NPH/30% REGULAR SC SCH ×2 (16:30)
[2019-06-10] MEDS ORDERED: INSULIN HUMAN 70% NPH/30% REGULAR SC SCH (07:30)
== END 2019-06-09 16:32 | disposition home or self-care (01) | DRG 580 ==
LOC: ED 20:52 → 3E 20:52 → SUATTDRO 23:41 → 3E 05-31 00:30 → SUATTDRO 06-01 10:53

== ENCOUNTER 2021-04-25 18:15 | Inpatient (IN) ==
[2021-04-25] MEDS ORDERED: SODI CHLOR 2.5MEQ/ML 14.6% 77 MEQ in DEXTROSE 10% 1,000 ML IV STA (18:38)
[2021-04-25 18:53] LABS: Basophils # (auto) 0.02 K/uL (0-0.2); Basophils % (auto) 0.2 %; Eosinophils # (auto) 0.08 K/uL (0-0.5); Hematocrit (blood only) 37.8 % (37-47); Immature Granulocytes # (auto) 0.02 K/uL (0.00-0.02); Immature Granulocytes % (auto) 0.2 %; Lymphocytes # (auto) 1.46 K/uL (1.2-3.4); Lymphocytes % (auto) 18.2 %; Mean Corpuscular Hemoglobin 31.1 pg (25-34); Mean Corpuscular Hgb Conc 31.7 g/dL (32-36); Mean Corpuscular Volume 97.9 fL (80-100); Mean Platelet Volume 10.6 fL (7.4-10.4); Monocytes # (auto) 0.57 K/uL (0.11-0.59); Monocytes % (auto) 7.1 %; Neutrophils # (auto) 5.88 K/uL (1.4-6.5); Neutrophils % (auto) 73.3 %; Platelet Count 264 K/uL (130-400); RDW Coefficient of Variation 12.7 % (11.5-14.5); RDW Standard Deviation 45.3 fL (36.4-46.3); Red Blood Count 3.86 M/uL (4.2-5.4); White Blood Count 8.03 K/uL (4.8-10.8)
--- NOTE | 2021-04-25 19:01 | Emergency Department Note ---
Impression & Plan Hypoglycemia, Hypothermia, Acute alteration in mental status ED Provider Note NAME: LA PHILLIPS AGE: 65 SEX: F : 1955 ARRIVES VIA: Ambulance INFORMANT: Patient, EMS ED PROVIDER(S): Edin Bedolla DO CHIEF COMPLAINT: Altered mental status HPI: The patient is a 65-year-old insulin-dependent diabetic who presented to emergency department from work for an evaluation of altered mental status. The patient has similar episode yesterday where her blood sugar dropped and the patient fell to the floor. She was able to treat this while at work and was able to stay at work. The patient arrived via ALS because the patient could not bring her blood sugar up. She was obtunded. She received multiple doses of parenteral as well as oral glucose prior to arrival. When she got to the emergency department she was diaphoretic and still somewhat confused but she denied having any changes to her insulin dose. The patient takes insulin at morning and at night. She states that she did not eat dinner this evening and only had lunch. The patient denies having any fever. She has no headache. She denies having any neck pain. She said no recent chest pain or traveling. She denies having any exposure to COVID-19. The symptoms are moderately improved at this time. The patient has not seen her family doctor recently. ROS: See above HPI for pertinent positives & negatives. A total of 10 systems reviewed and were otherwise negative. PAST MEDICAL HISTORY: See Below PAST SURGICAL HISTORY: See Below FAMILY HISTORY: See Below SOCIAL HISTORY: See Below HOME MEDICATIONS: See Below ALLERGIES: See Below VITALS: See Below PHYSICAL EXAMINATION: GENERAL: The patient is awake and alert. She is somewhat anxious appearing. EYES: The conjunctivae are clear. The pupils are round and reactive. EARS, NOSE, MOUTH AND THROAT: The nose is without any evidence of any deformity. NECK: The neck is nontender and supple. RESPIRATORY: Normal respiratory effort is noted there is no evidence of wheezing rhonchi or rales CARDIOVASCULAR: Regular rate and rhythm noted there no murmurs rubs or gallops normal S1 normal S2. GASTROINTESTINAL: The abdomen is soft. Abdomen is nontender. MUSCULOSKELETAL/EXTREMITIES: There is no evidence of gross deformity full range of motion is noted in the hips and shoulders. SKIN: Skin was cold and diaphoretic. There was no significant pedal edema. Pulses are symmetric in both feet. NEUROLOGIC: The patient is awake and looking around the room. She appears to be oriented to person place and situation. Strength was symmetric. MEDICAL DECISION MAKING: The patient is a 65-year-old female who presented to emergency department for an evaluation of low blood sugar. The patient was found have an altered mental status at work. The patient's history was somewhat confusing because initially when she arrived at the emergency department she appeared to be awake alert and oriented x3 but still did not know all the details about her recent medications. When her daughter arrived she was able to provide more of the history and apparently the patient has had a recent change in her insulin doses. 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 She has been having trouble trying to find time to eat. I discussed the patient's laboratory and radiographic studies with her. She was initially treated with dextrose boluses but then had a dextrose infusion hung. Because of her continued episodes of hypoglycemia and hypothermia I discussed her case with the on-call [facility]. They have agreed to evaluate the patient in the emergency department for further management and disposition. Triage Nursing notes reviewed. Prior medical records reviewed Vital Signs: reviewed and remarkable for elevated blood pressure and hypothermia. Differential diagnosis: Infection, hypoglycemia, electrolyte abnormalities, overdose, toxicologic, cardiac sources, intracerebral event, neurologic, trauma, as well as other pathologies. ER treatment provided: See below Diagnostics interpreted by me: ECG: EKG was obtained in the emergency department. My interpretation is normal sinus rhythm at 60 bpm. There is no ectopy. Inferior Q waves were noted. LVH was suggested by voltage criteria. This was compared to a tracing from June 042019. No significant changes were noted. Cardiac Monitoring: An order was placed for continuous cardiac monitoring. The monitor shows a rate of 65 bpm with sinus rhythm. Laboratory studies: As stated above and show below. Imaging studies: See below Consultation(s): I discussed this case with Dr. Stewart who is on-call for the [facility] group. He will evaluate the patient in the emergency department. ED COURSE: Procedures: none Critical Care: I have personally spent greater than 60 minutes of critical care time in the direct management of this patient. This includes bedside care, interpretation of diagnostic studies, and testing, discussion with consultants, patient, and family members, and other required patient management activities. This 60 minutes is in excess of all separately billable procedures. 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 HTN (hypertension) Family History Mother Coronary heart disease Father Coronary heart disease Other No significant family history Social History Smoking Status: Never smoker Hx Alcohol Use: Yes Alcohol type: wine Hx Substance Use: No Preferred Language: Georgian Communication Ability: Effective Beliefs That Will Affect Care: None marital status: / Current Living Situation: Family Feels Safe at Home: Yes Assistive Devices: None Allergies Allergies Allergy/AdvReac Type Severity Reaction Status Date / Time Penicillins Allergy Unknown HAPPENED Verified 04/25/21 18:47 A SMALL CHILD--CAN'T REMEMBER Home Meds Home Medications Medication Instructions Recorded Confirmed acetaminophen 650 mg 1,300 mg PO DIRECTED PRN 04/25/21 04/25/21 tablet,extended release insulin aspart U-100 100 unit/mL 0 unit SUBCUT DIRECTED 04/25/21 04/25/21 subcutaneous solution (Novolog U-100 Insulin aspart) Results & Data (ED) Vital Signs Vital Signs - 24 hr 04/25/21 18:20 04/25/21 19:13 04/25/21 19:36 Temperature 34 C L 36 C L Temperature Source Rectal Oral Pulse Rate 68 Pulse Rate [Bilateral Apical] 54 L 58 L Pulse Rhythm Regular Pulse Strength Normal Respiratory Rate 22 20 20 Respiratory Effort / Characteristics Non-Labored Respiratory Depth Normal Respiratory Pattern Regular Blood Pressure 182/87 H Blood Pressure [Right Arm] 142/89 H 159/80 H Blood Pressure Mean 118 Blood Pressure Mean [Right Arm] 106 106 Blood Pressure Position Lying Pulse Oximetry 97 97 96 Oxygen Delivery Method Room Air Room Air Room Air Sepsis Recent Fever Within 48 Hours No Sepsis New/Unexplained Change in Mental Status No Sepsis Action Taken by Nursing Physician Notified 04/25/21 19:46 04/25/21 20:32 Temperature 36.2 C L Temperature Source Oral Pulse Rate Pulse Rate [Bilateral Apical] 56 L 65 Pulse Rhythm Pulse Strength Respiratory Rate 20 20 Respiratory Effort / Characteristics Respiratory Depth Respiratory Pattern Blood Pressure Blood Pressure [Right Arm] 147/70 H 180/87 H Blood Pressure Mean Blood Pressure Mean [Right Arm] 95 118 Blood Pressure Position Pulse Oximetry 98 99 Oxygen Delivery Method Room Air Room Air Sepsis Recent Fever Within 48 Hours Sepsis New/Unexplained Change in Mental Status Sepsis Action Taken by Skilled Nursing Medications Current Medication List: was personally reviewed by me Laboratory Data Attestation: I reviewed the patient's lab results. Result diagrams: 04/25/21 18:24 04/25/21 18:24 Lab Results 04/25/21 04/25/21 04/25/21 Range/Units 18:21 18:24 18:24 WBC 8.03 (4.8-10.8) K/uL RBC 3.86 L (4.2-5.4) M/uL Hgb 12.0 (12.0-16.0) g/dL Hct 37.8 (37-47) % MCV 97.9 (80-100) fL MCH 31.1 (25-34) pg MCHC 31.7 L (32-36) g/dL RDW Std Deviation 45.3 (36.4-46.3) fL RDW Coeff of Anitha 12.7 (11.5-14.5) % Plt Count 264 (130-400) K/uL MPV 10.6 H (7.4-10.4) fL Immature Gran % (Auto) 0.2 % Neut % (Auto) 73.3 % Lymph % (Auto) 18.2 % Rincon % (Auto) 7.1 % Eos % (Auto) 1.0 % Baso % (Auto) 0.2 % Neut # (Auto) 5.88 (1.4-6.5) K/uL Lymph # (Auto) 1.46 (1.2-3.4) K/uL Rincon # (Auto) 0.57 (0.11-0.59) K/uL Eos # (Auto) 0.08 (0-0.5) K/uL Baso # (Auto) 0.02 (0-0.2) K/uL Immature Gran # (Auto) 0.02 (0.00-0.02) K/uL PT 9.8 (9.0-12.0) Seconds INR 1.0 (0.9-1.1) APTT 25.9 (21.0-31.0) Seconds PTT Ratio 1.0 Sodium (136-145) mmol/L Potassium (3.5-5.1) mmol/L Chloride (98-107) mmol/L Carbon Dioxide (21-32) mmol/L Anion Gap (3-11) BUN (7-18) mg/dl Creatinine (0.6-1.2) mg/dl Est Cr Clr Drug Dosing ml/min Est GFR ( Amer) ml/min Est GFR (Non-Af Amer) ml/min BUN/Creatinine Ratio (10-20) Glucose (70-99) mg/dl POC Glucose 101 H (70-99) mg/dl Calcium (8.5-10.1) mg/dl Magnesium (1.8-2.4) mg/dl Total Bilirubin (0.2-1) mg/dl AST (15-37) U/L ALT (12-78) Alkaline Phosphatase (45-117) U/L Troponin I (0-0.045) ng/ml Total Protein (6.4-8.2) gm/dl Albumin (3.4-5.0) gm/dl Globulin (2.5-4.0) gm/dl Albumin/Globulin Ratio (0.9-2) TSH (0.300-4.500) uIu/ml 04/25/21 04/25/21 04/25/21 Range/Units 18:24 18:34 18:55 WBC (4.8-10.8) K/uL RBC (4.2-5.4) M/uL Hgb (12.0-16.0) g/dL Hct (37-47) % MCV (80-100) fL MCH (25-34) pg MCHC (32-36) g/dL RDW Std Deviation (36.4-46.3) fL RDW Coeff of Anitha (11.5-14.5) % Plt Count (130-400) K/uL MPV (7.4-10.4) fL Immature Gran % (Auto) % Neut % (Auto) % Lymph % (Auto) % Rincon % (Auto) % Eos % (Auto) % Baso % (Auto) % Neut # (Auto) (1.4-6.5) K/uL Lymph # (Auto) (1.2-3.4) K/uL Rincon # (Auto) (0.11-0.59) K/uL Eos # (Auto) (0-0.5) K/uL Baso # (Auto) (0-0.2) K/uL Immature Gran # (Auto) (0.00-0.02) K/uL PT (9.0-12.0) Seconds INR (0.9-1.1) APTT (21.0-31.0) Seconds PTT Ratio Sodium 139 (136-145) mmol/L Potassium 4.0 (3.5-5.1) mmol/L Chloride 111 H (98-107) mmol/L Carbon Dioxide 23 (21-32) mmol/L Anion Gap 5.0 (3-11) BUN 33 H (7-18) mg/dl Creatinine 1.10 (0.6-1.2) mg/dl Est Cr Clr Drug Dosing 62.6 ml/min Est GFR ( Amer) 61.0 ml/min Est GFR (Non-Af Amer) 52.6 ml/min BUN/Creatinine Ratio 29.7 H (10-20) Glucose 95 (70-99) mg/dl POC Glucose 60 L* 66 L* (70-99) mg/dl Calcium 9.3 (8.5-10.1) mg/dl Magnesium 1.9 (1.8-2.4) mg/dl Total Bilirubin 0.2 (0.2-1) mg/dl AST 22 (15-37) U/L ALT 30 (12-78) Alkaline Phosphatase 90 (45-117) U/L Troponin I < 0.015 (0-0.045) ng/ml Total Protein 7.1 (6.4-8.2) gm/dl Albumin 3.2 L (3.4-5.0) gm/dl Globulin 3.9 (2.5-4.0) gm/dl Albumin/Globulin Ratio 0.8 L (0.9-2) TSH 2.100 (0.300-4.500) uIu/ml 04/25/21 04/25/21 Range/Units 19:11 20:10 WBC (4.8-10.8) K/uL RBC (4.2-5.4) M/uL Hgb (12.0-16.0) g/dL Hct (37-47) % MCV (80-100) fL MCH (25-34) pg MCHC (32-36) g/dL RDW Std Deviation (36.4-46.3) fL RDW Coeff of Anitha (11.5-14.5) % Plt Count (130-400) K/uL MPV (7.4-10.4) fL Immature Gran % (Auto) % Neut % (Auto) % Lymph % (Auto) % Rincon % (Auto) % Eos % (Auto) % Baso % (Auto) % Neut # (Auto) (1.4-6.5) K/uL Lymph # (Auto) (1.2-3.4) K/uL Rincon # (Auto) (0.11-0.59) K/uL Eos # (Auto) (0-0.5) K/uL Baso # (Auto) (0-0.2) K/uL Immature Gran # (Auto) (0.00-0.02) K/uL PT (9.0-12.0) Seconds INR (0.9-1.1) APTT (21.0-31.0) Seconds PTT Ratio Sodium (136-145) mmol/L Potassium (3.5-5.1) mmol/L Chloride (98-107) mmol/L Carbon Dioxide (21-32) mmol/L Anion Gap (3-11) BUN (7-18) mg/dl Creatinine (0.6-1.2) mg/dl Est Cr Clr Drug Dosing ml/min Est GFR ( Amer) ml/min Est GFR (Non-Af Amer) ml/min BUN/Creatinine Ratio (10-20) Glucose (70-99) mg/dl POC Glucose 66 L* 63 L* (70-99) mg/dl Calcium (8.5-10.1) mg/dl Magnesium (1.8-2.4) mg/dl Total Bilirubin (0.2-1) mg/dl AST (15-37) U/L ALT (12-78) Alkaline Phosphatase (45-117) U/L Troponin I (0-0.045) ng/ml Total Protein (6.4-8.2) gm/dl Albumin (3.4-5.0) gm/dl Globulin (2.5-4.0) gm/dl Albumin/Globulin Ratio (0.9-2) TSH (0.300-4.500) uIu/ml Administered Medications Discontinued Medications Dextrose (Dextrose 50% 50 Ml Syringe) 25 ml IV NOW STA Stop: 04/25/21 19:19 Last Admin: 04/25/21 18:38 Dose: 25 ml Documented by: [id number] Dextrose (Dextrose 50% 50 Ml Syringe) 25 ml IV NOW ONE Stop: 04/25/21 19:20 Last Admin: 04/25/21 18:57 Dose: 25 ml Documented by: [id number] Sodium Chloride 77 meq/ (Dextrose) 1,030.8 mls @ 0 mls/hr IV .Q0M STA Stop: 04/25/21 18:39 Last Admin: 04/25/21 19:36 Dose: Not Given Documented by: [id number] Sodium Chloride 77 meq/ (Dextrose) 1,030.8 mls @ 0 mls/hr IV .Q0M ONE Stop: 04/25/21 19:16 Last Admin: 04/25/21 19:34 Dose: 100 mls/hr Documented by: [id number] Imaging Data Radiologist's Impression: Cervical Spine CT 04/25/21 18:20 CT cervical spine wo con CLINICAL HISTORY: 65 years-old Female with fall. Acute head and neck injury status post fall COMPARISON: Head CT of same day. TECHNIQUE: Multiple axial CT images of the cervical spine were obtained without contrast. A dose lowering technique was utilized adhering to the principles of ALARA. FINDINGS: Straightening of the normal cervical lordosis. Multilevel intervertebr al disc space narrowing, severe at C5-C6. A moderate sized posterior disc osteophyte complex is also noted at this interspace. 2 mm anterolisthesis C3 on C4 is likely secondary to chronic facet arthrosis. Moderate to severe facet arthropathy with partial bony fusion of the left C2-C3 facets. Moderate multilevel spondylitic spurring. No acute fracture or subluxation. Multilevel central canal and neural foraminal narrowing. No prevertebral edema. Calcified plaque of the carotid arteries. Lung apices are clear. IMPRESSION: No acute cervical spine fracture or subluxation. ACT 112: Negative or not required by law. The above report was generated using voice recognition software. It may contain grammatical, syntax or spelling errors. Electronically signed by: Rod Rogers M.D. 04/25/2021 7:19 PM Chest X-Ray 04/25/21 18:20 XR chest 1V portable HISTORY: 65 years-old Female weakness acute weakness COMPARISON: None TECHNIQUE: Portable AP view of the chest FINDINGS: Cardiac silhouette is enlarged. Calcification the thoracic aortic arch. No pneumothorax, large pleural effusion or overt pulmonary edema. Mild interstitial coarsening of the lung bases. Degenerative changes of the shoulders and spine. Sigmoidal scoliosis of the spine. IMPRESSION: 1. Cardiomegaly without pulmonary edema. 2. Mild interstitial coarsening of the lung bases is suggestive of atelectasis. ACT 112: Negative or not required by law. The above report was generated using voice recognition software. It may contain grammatical, syntax or spelling errors. Electronically signed by: Rod Rogers M.D. 04/25/2021 8:[address] 04/25/21 18:20 CT head/brain wo con CLINICAL HISTORY: 65 years-old Female with ams. Acutely altered mental status TECHNIQUE: Multiple axial CT images of the head were obtained without contrast. A dose lowering technique was utilized adhering to the principles of ALARA. CT DOSE: 1050.31 mGy.cm COMPARISON: CT cervical spine of same day FINDINGS: No acute intracranial hemorrhage, midline shift, intracranial mass, hydrocephalus, territorial ischemia or abnormal extra-axial collection. The calvarium is intact. Tiny bilateral optic nerve drusen. The paranasal sin uses, mastoid air cells, and middle ear cavities are clear. A cluster of punctate dense foci measuring up to 4 mm project of the left parietal scalp. IMPRESSION: 1. No acute intracranial abnormality or calvarial fracture. 2. Clustered radiodense foci are noted within the subcutaneous left parietal scalp near the vertex. Soft tissue calcifications versus foreign bodies considered. ACT 112: Negative or not required by law. The above report was generated using voice recognition software. It may contain grammatical, syntax or spelling errors. Electronically signed by: Rod Rogers M.D. 04/25/2021 7:15 PM Discharge Plan Visit Data Chief Complaint: Hypoglycemia Stated Complaint: HYPOGLYCEMIA ED Provider: Edin Bedolla Discharge Problem: Hypoglycemia, Hypothermia, Acute alteration in mental status Patient Disposition: Being Evaluated by Hospitalist Forms Stand Alone Forms: [employer] [facility] Prescriptions Prescriptions: No Action acetaminophen [Tylenol Arthritis] 650 mg Tablet Extended Release 1,300 mg PO DIRECTED PRN (Reason: Pain) RF: 0 insulin aspart U-100 [Novolog U-100 Insulin aspart] 100 unit/mL Solution 0 unit SUBCUT DIRECTED RF: 0 Referrals Referrals: PCP,NO [Primary Care Provider] -
[2021-04-25 19:04] LABS: Partial Thromboplastin Time 25.9 Seconds (21.0-31.0); Prothrombin Time 9.8 Seconds (9.0-12.0)
[2021-04-25] MEDS ORDERED: SODI CHLOR 2.5MEQ/ML 14.6% 77 MEQ in DEXTROSE 10% 1,000 ML IV ONE (19:15)
--- NOTE | 2021-04-25 19:16 | CT Scan Report ---
CT head/brain wo con CLINICAL HISTORY: 65 years-old Female with ams. Acutely altered mental status TECHNIQUE: Multiple axial CT images of the head were obtained without contrast. A dose lowering tech nique was utilized adhering to the principles of ALARA. CT DOSE: 1050.31 mGy.cm COMPARISON: CT cervical spine of same day FINDINGS: No acute intracranial hemorrhage, midline shift, intracranial mass, hydrocephalus, territorial ischem ia or abnormal extra-axial collection. The calvarium is intact. Tiny bilateral optic nerve drusen. The paranasal sinuses, mastoid air cells, and middle ear cavities are clear. A cluster of punctate dense foci measuring up to 4 mm project of the left parietal scalp. IMPRESSION: 1. No acute intracranial abnormality or calvarial fracture. 2. Clustered radiodense foci are noted within the subcutaneous left parietal scalp near the vertex. S oft tissue calcifications versus foreign bodies considered. ACT 112: Negative or not required by law. The above report was generated using voice recognition software. It may contain grammatical, syntax o r spelling errors. Electronically signed by: Rod Rogers M.D. 04/25/2021 7:15 PM
[2021-04-25 19:17] LABS: Alanine Aminotransferase 30 (12-78); Albumin Level 3.2 gm/dl (3.4-5.0); BUN Creatinine Ratio 29.7 (10-20); Blood Urea Nitrogen 33 mg/dl (7-18); Calcium 9.3 mg/dl (8.5-10.1); Carbon Dioxide 23 mmol/L (21-32); Chloride 111 mmol/L (98-107); Creatinine Clr Calc Pharmacy 62.6 ml/min; Est GFR (Non-African American) 52.6 ml/min; Glucose 95 mg/dl (70-99); Sodium 139 mmol/L (136-145)
[2021-04-25] MEDS ORDERED: DEXTROSE 50% 50 ML SYRINGE IV STA (19:18)
[2021-04-25] MEDS ORDERED: DEXTROSE 50% 50 ML SYRINGE IV ONE (19:19)
--- NOTE | 2021-04-25 19:21 | CT Scan Report ---
CT cervical spine wo con CLINICAL HISTORY: 65 years-old Female with fall. Acute head and neck injury status post fall COMPARISON: Head CT of same day. TECHNIQUE: Multiple axial CT images of the cervical spine were obtained without contrast. A dose low ering technique was utilized adhering to the principles of ALARA. FINDINGS: Straightening of the normal cervical lordosis. Multilevel intervertebral disc space narrowi ng, severe at C5-C6. A moderate sized posterior disc osteophyte complex is also noted at this intersp nataliia. 2 mm anterolisthesis C3 on C4 is likely secondary to chronic facet arthrosis. Moderate to severe facet arthropathy with partial bony fusion of the left C2-C3 facets. Moderate multilevel spondylitic spurring. No acute fracture or subluxation. Multilevel central canal and neural foraminal narrowing. No prevertebral edema. Calcified plaque of the carotid arteries. Lung apices are clear. IMPRESSION: No acute cervical spine fracture or subluxation. ACT 112: Negative or not required by law. The above report was generated using voice recognition software. It may contain grammatical, syntax o r spelling errors. Electronically signed by: Rod Rogers M.D. 04/25/2021 7:19 PM
[2021-04-25 19:28] LABS: Albumin Globulin Ratio 0.8 (0.9-2); Alkaline Phosphatase 90 U/L (45-117); Aspartate Aminotransferase 22 U/L (15-37); Bilirubin,Total 0.2 mg/dl (0.2-1); Globulin 3.9 gm/dl (2.5-4.0); Total Protein 7.1 gm/dl (6.4-8.2); Troponin I < 0.015 ng/ml (0-0.045)
--- NOTE | 2021-04-25 20:08 | XRay Report ---
XR chest 1V portable HISTORY: 65 years-old Female weakness acute weakness COMPARISON: None TECHNIQUE: Portable AP view of the chest FINDINGS: Cardiac silhouette is enlarged. Calcification the thoracic aortic arch. No pneumothorax, large pleura l effusion or overt pulmonary edema. Mild interstitial coarsening of the lung bases. Degenerative rodolfo nges of the shoulders and spine. Sigmoidal scoliosis of the spine. IMPRESSION: 1. Cardiomegaly without pulmonary edema. 2. Mild interstitial coarsening of the lung bases is suggestive of atelectasis. ACT 112: Negative or not required by law. The above report was generated using voice recognition software. It may contain grammatical, syntax o r spelling errors. Electronically signed by: Rod Rogers M.D. 04/25/2021 8:07 PM
[2021-04-25] MEDS ORDERED: D5W AND NSS 1,000 ML IV ONE (20:13)
[2021-04-25 20:30] LABS: Magnesium 1.9 mg/dl (1.8-2.4)
--- NOTE | 2021-04-25 20:30 | History & Physical Report ---
Date of Service April 25, 2021 Assessment & Plan (1) Acute metabolic encephalopathy: (2) Hypoglycemia: (3) Diabetes mellitus, type II: (4) HTN (hypertension): Plan: This is a 65yo F with a PMH of DM II and HTN who presents with AMS in setting of hypoglycemia in setting of noncompliance with insulin administration. PCP: Alla Please see Dr. Martínez's addendum for plan details. History of Present Illness Chief Complaint: AMS Primary Care Provider: NO PCP This is a 65yo F with a PMH of DM II and HTN who presents with AMS in setting of hypoglycemia. Has had daily episodes of altered mental status and near syncope over the last week in settings of low blood sugar. Per review of outpatient records, was last seen by PCP in 2019 and last prescribed insulin over 9 months ago. Due to lack of insurance, has been taking leftover insulin from friends and family without direction on dose from a provider. Currently has vials of NovoLog and lispro in her purse that she takes morning and night. Does not know how many units she is taking but daughter saw her inject 50 units yesterday. Is busy at work and often skips meals. Earlier today she became lightheaded during work and next thing she remembers is being on the ground surrounded by paramedics. Unsure of head trauma with fall. Was initially obtun ded and has improved significantly since arrival when started on dextrose infusion. Denies fever, chills, headache, chest pain, SOB, nausea, vomiting, abdominal pain, dysuria, diarrhea or constipation. Previously took lisinopril and hctz for high blood pressure per clinic notes but not taking these any longer. Allergies Allergy/AdvReac Type Severity Reaction Status Date / Time lisinopril Allergy Mild cough Verified 04/25/21 21:22 Penicillins Allergy Unknown HAPPENED Verified 04/25/21 18:47 A SMALL CHILD--CAN'T REMEMBER Home Medications Medication Instructions Recorded Confirmed Type acetaminophen 650 mg 1,300 mg PO DIRECTED PRN 04/25/21 04/25/21 History tablet,extended release insulin aspar prt-insulin aspart 0 unit SUBCUT DIRECTED 04/25/21 04/25/21 History 100 unit/mL (70-30) subcutaneous soln (Novolog Mix 70-30 U-100 Insuln) insulin aspart U-100 100 unit/mL 50 unit SUBCUT ONCE 04/25/21 04/25/21 History subcutaneous solution 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 Physical Exam Physical Exam: General Appearance: WD/WN, vitals as above, NAD, sitting up in bed, pleasant, conversing easily, obese Head: normocephalic, atraumatic Eyes: normal inspection, PERRL, conjunctivae normal, anicteric sclerae ENT: external ear and nose normal, dry mucous membranes of oropharynx Neck: normal visual inspection, trachea midline, no thyromegaly Respiratory: normal respiratory effort, lungs clear to auscultation, no wheeze, rales, rhonchi. No accessory muscle use Cardiovascular: regular rate, rhythm, no murmur, normal peripheral pulses, no BLE edema. Vessels: no JVD Chest: normal inspection of chest Abdomen/GI: normal bowel sounds, soft, nontender, no hepatosplenomegaly Extremities/Musculoskeletal: no cyanosis or clubbing, extremities motor strength 5/5 Neurologic: PERRL, EOMI, accommodation nl, no face palsy, no dysarthria, CN's II-XI intact bilaterally and moves all extremities Psychiatric: A+Ox3, euthymic affect, + poor insight/judgement Skin: no rashes, normal color, warm/dry Results & Data Results & Data ([facility]) Vital Signs (Past 12 Hours) Vital Signs Temp Pulse Pulse Resp BP BP Pulse Ox 04/25/21 19:46 56 L 20 147/70 H 98 04/25/21 19:36 58 L 20 159/80 H 96 04/25/21 19:13 36 C L 54 L 20 142/89 H 97 04/25/21 18:20 34 C L 68 22 182/87 H 97 Laboratory Results Short CBC 04/25/21 Range/Units 18:24 WBC 8.03 (4.8-10.8) K/uL Hgb 12.0 (12.0-16.0) g/dL Hct 37.8 (37-47) % Plt Count 264 (130-400) K/uL [facility] 04/25/21 18:24 Sodium 139 Potassium 4.0 Chloride 111 H Carbon Dioxide 23 BUN 33 H Creatinine 1.10 Glucose 95 Calcium 9.3 Cardiac Enzymes 04/25/21 Range/Units 18:24 Troponin I < 0.015 (0-0.045) ng/ml Liver Function 04/25/21 Range/Units 18:24 Total Bilirubin 0.2 (0.2-1) mg/dl AST 22 (15-37) U/L ALT 30 (12-78) Alkaline Phosphatase 90 (45-117) U/L Albumin 3.2 L (3.4-5.0) gm/dl Diagnostic Findings Short CBC 04/25/21 Range/Units 18:24 WBC 8.03 (4.8-10.8) K/uL Hgb 12.0 (12.0-16.0) g/dL Hct 37.8 (37-47) % Plt Count 264 (130-400) K/uL [facility] 04/25/21 18:24 Sodium 139 Potassium 4.0 Chloride 111 H Carbon Dioxide 23 BUN 33 H Creatinine 1.10 Glucose 95 Calcium 9.3 Cardiac Enzymes 04/25/21 Range/Units 18:24 Troponin I < 0.015 (0-0.045) ng/ml Liver Function 04/25/21 Range/Units 18:24 Total Bilirubin 0.2 (0.2-1) mg/dl AST 22 (15-37) U/L ALT 30 (12-78) Alkaline Phosphatase 90 (45-117) U/L Albumin 3.2 L (3.4-5.0) gm/dl Supervising Physician Co-Signing Physician Notes IM ATTENDING : Patient seen and examined. History obtained from patient, daughter, and records. Preceding documentation by Ms. Bette Jude, PA-C reviewed. FINAL ASSESSMENT AND PLAN as follows : Episodic encephalopathy likely secondary to hypoglycemia Insulin misuse (Patient unable to follow-up at PCP's office since last visit dated June 2019 due to insurance concerns Patient also taking left over insulin medications of family and friends.) Last hemoglobin A1c of 10.27 May 2019 Hypertensive urgency secondary to medication noncompliance (Patient stopped home lisinopril last year due to cough ADR.) History of MRSA as per records OBS Medical telemetry Initiate losartan D5 IVF for now Appropriate to hold basal insulin for now given hypoglycemic episodes and pending updated hemoglobin A1c result ISS BG 1 10-1 40, carb count coverage Accu-Cheks every 4 hours until BSG above 140 May benefit from pharmacy glycemic control consultation. Diabetic education. DVT prophylaxis per Lovenox subcu Full code Patient daughter requesting updates from providers. Ms. Nancy Garza, contact #[phone]. Text document was generated using [employer] voice recognition software. It may contain grammatical or spelling errors. Kindly contact undersigned for clarification of any documentation item in question.
[2021-04-25 20:45] LABS: Appearance Urine Clear (Clear); Bacteria Urine Automated Negative (Negative); Bilirubin Urine Negative (Negative); Blood Urine Negative (Negative); Color Urine Yellow; Epithelial Cell Urine Auto >30 /lpf (0-5); Glucose Urine UA Negative (Negative); Ketones Urine Negative (Negative); Leukocyte Esterase Urine Trace (Negative); Nitrite Urine Negative (Negative); Protein Urine Negative (Negative); RBC Urine Automated 0-4 /hpf (0-4); Specific Gravity Urine 1.017 (1.000-1.030); Urobilinogen Urine Negative (Negative); pH Urine 6.5 (4.5-7.5)
[2021-04-25] MEDS ORDERED: LOSARTAN POTASSIUM 25 MG TAB PO STA (21:24)
[2021-04-25] MEDS ORDERED: ACETAMINOPHEN 325 MG TAB PO PRN (23:49)
[2021-04-25] MEDS ORDERED: GLUCOSE 10 TABS/TUBE PO PRN (23:49)
[2021-04-25] MEDS ORDERED: PROMETHAZINE HCL 12.5 MG in SODIUM CHLORIDE 0.9% 50 ML IV PRN (23:49)
[2021-04-25] MEDS ORDERED: DEXTROSE 50% 50 ML SYRINGE IV PRN (23:49)
[2021-04-25] MEDS ORDERED: CARBOHYDRATES FOR HYPOGLYCEMIA PO PRN (23:49)
[2021-04-25] MEDS ORDERED: GLUCOSE 40% GEL 15 GM TUBE PO PRN (23:49)
[2021-04-25] MEDS ORDERED: GLUCAGON FOR INJ 1 MG VIAL SQ PRN (23:49)
[2021-04-26] MEDS ORDERED: INSULIN ASPART PER UNIT SC SCH
[2021-04-26] MEDS ORDERED: LOSARTAN POTASSIUM 25 MG TAB PO STA (05:14)
[2021-04-26 05:23] LABS: Basophils # (auto) 0.02 K/uL (0-0.2); Basophils % (auto) 0.3 %; Eosinophils # (auto) 0.07 K/uL (0-0.5); Eosinophils % (auto) 0.9 %; Hematocrit (blood only) 38.2 % (37-47); Immature Granulocytes # (auto) 0.01 K/uL (0.00-0.02); Immature Granulocytes % (auto) 0.1 %; Lymphocytes # (auto) 1.85 K/uL (1.2-3.4); Mean Corpuscular Hemoglobin 30.7 pg (25-34); Mean Corpuscular Hgb Conc 31.4 g/dL (32-36); Mean Corpuscular Volume 97.7 fL (80-100); Mean Platelet Volume 10.3 fL (7.4-10.4); Monocytes % (auto) 7.8 %; Neutrophils # (auto) 5.15 K/uL (1.4-6.5); Neutrophils % (auto) 66.9 %; Platelet Count 279 K/uL (130-400); RDW Coefficient of Variation 12.8 % (11.5-14.5); RDW Standard Deviation 45.4 fL (36.4-46.3); Red Blood Count 3.91 M/uL (4.2-5.4)
[2021-04-26 05:44] LABS: BUN Creatinine Ratio 33.6 (10-20); Creatinine Clr Calc Pharmacy 80.1 ml/min; Est GFR (African American) 82.2 ml/min; Est GFR (Non-African American) 70.9 ml/min; Potassium 5.1 mmol/L (3.5-5.1)
[2021-04-26] MEDS ORDERED: PHARMACY GLYCEMIC MGMT CONSULT PRN (08:12)
[2021-04-26] MEDS ORDERED: hydrALAZINE HCL 20 MG/ML VIAL IV PRN (08:16)
[2021-04-26 08:22] LABS: Estimated Average Glucose 140 mg/dl; Hemoglobin A1C 6.5 % (4.5-5.6)
[2021-04-26] MEDS: INSULIN ASPART PER UNIT SC SCH ×4 (10:20→21:35)
[2021-04-26] MEDS: ENOXAPARIN INJ 40 MG/0.4 ML SYR SQ SCH (10:20)
--- NOTE | 2021-04-26 10:50 | Pharmacy Report ---
Pharmacy Glycemic Short Note 2 - Date of Service April 26, 2021 - Glycemic Short BSG Results (Last 24 hours): 04/25/21 04/25/21 04/25/21 18:21 18:24 18:34 Glucose 95 POC Glucose 101 H 60 L* 04/25/21 04/25/21 04/25/21 18:55 19:11 20:10 Glucose POC Glucose 66 L* 66 L* 63 L* 04/25/21 04/25/21 04/25/21 21:12 22:18 23:29 Glucose POC Glucose 82 125 H 206 H 04/25/21 04/26/21 04/26/21 23:33 04:22 05:09 Glucose 99 POC Glucose 184 H 97 04/26/21 10:02 Glucose POC Glucose 227 H OUTPATIENT ANTIDIABETIC REGIMEN: * Novolog/Lispro - unknown dosing * A1c 6.5% ASSESSMENT: * 65 year old with DM2, admitted with AMS due to hypoglycemia. Per notes, last seen by PCP in 2019 and prescribed insulin, however due to lack of insurance has been taking leftover insulin from friends/family without a dose from provider. Known to glycemic service, had followed patient during 06/09/19 hospital stay and at that time had been discharged on Novolin 16 units with breakfast, 8 units with dinner * BSGs low on admission and started on dextrose infusion, now stopped * BSG this AM 97 mg/dL - will utilize only correctional insulin for now and trend blood sugars. May consider adding basal insulin if BSGs trending upward PLAN FOR INPATIENT GLYCEMIC CONTROL: * Hold outpatient oral diabetes medications * Basal insulin * Lantus - hold for now * Bolus insulin * NovoLog per scale ACHS or Q6hrs while NPO * Goal Range: Low 110 mg/dL - High 140 mg/dL * Correction Factor: 25 mg/dL/unit * Nutritional / Prandial insulin per carb ratio of 1 unit per 15 grams CHO consumed PLAN FOR DISCHARGE: * A1c 6.5% - Will need to determine affordable option for patient at discharge, possibly consider oral agent such as metformin. * Would encourage routine followup with PCP once discharged
--- NOTE | 2021-04-26 12:46 | Electrocardiogram Report ---
Test Reason : Blood Pressure : / mmHG Vent. Rate : 068 BPM Atrial Rate : 068 BPM P-R Int : 166 ms QRS Dur : 094 ms QT Int : 442 ms P-R-T Axes : 061 019 067 degrees QTc Int : 469 ms Normal sinus rhythm Possible Inferior infarct , age undetermined Abnormal ECG When compared with ECG of 04-JUN-2019 01:03, Borderline criteria for Inferior infarct are now Present Confirmed by Edin Urbano ([id number]) on 04/26/2021 12:46:19 PM Referred By: REFERRED SELF Confirmed By:Edin Urbano
[2021-04-26] MEDS ORDERED: Flu Vaccine-High Dose (Fluzone-HD) PF 65+ 0.7mL SYR IM ONE (14:00)
[2021-04-26] MEDS ORDERED: amLODIPine BESYLATE 5 MG TAB PO ONE (16:37)
--- NOTE | 2021-04-26 18:40 | Hospitalist Progress Note ---
Date of Service April 26, 2021 Assessment & Plan (1) Acute metabolic encephalopathy: Plan: secondary to hypoglycemia resolved (2) Hypoglycemia: Plan: resolved (3) Diabetes mellitus, type II: Plan: on Insulin Sliding Scale a1c 6.5 possible Glipizide or Glyburide on discharge (4) HTN (hypertension): Plan: Losartan and Amlodipine started monitor BP Plan: plan of care discussed with patient in detail and at length all questions answered she is understanding, agreeable, comfortable with the plan of care PCP: Alla Disposition: anticipate d/c home tomorrow Admission and Anticipated Discharge Date Admission Date: April 25, 2021 Results & Data Results & Data ([facility]) Vital Signs (Past 12 Hours) Vital Signs Temp Pulse Pulse Resp BP Pulse Ox 04/26/21 16:51 68 19 163/80 H 97 04/26/21 16:30 36.8 C 78 75 18 179/99 H 98 04/26/21 12:13 37.0 C 74 20 163/90 H 99 04/26/21 10:57 37.1 C 78 20 174/93 H 98 04/26/21 08:00 37 C 77 18 174/93 H 96
[2021-04-26] MEDS ORDERED: LOSARTAN POTASSIUM 25 MG TAB PO SCH (21:00)
[2021-04-26] MEDS ORDERED: LOSARTAN POTASSIUM 50 MG TAB PO SCH (21:00)
[2021-04-27] MEDS: INSULIN ASPART PER UNIT SC SCH ×2 (08:00→11:59)
[2021-04-27] MEDS ORDERED: amLODIPine BESYLATE 5 MG TAB PO SCH (09:00)
[2021-04-27] MEDS: ENOXAPARIN INJ 40 MG/0.4 ML SYR SQ SCH (09:15)
[2021-04-27 10:46] LABS: BUN Creatinine Ratio 27.3 (10-20); Creatinine Clr Calc Pharmacy 54.4 ml/min; Est GFR (African American) 57.8 ml/min; Est GFR (Non-African American) 49.9 ml/min
--- NOTE | 2021-04-27 11:29 | Hospitalist Progress Note ---
Date of Service April 27, 2021 Assessment & Plan (1) Acute metabolic encephalopathy: Plan: secondary to hypoglycemia resolved (2) Hypoglycemia: Plan: resolved (3) Diabetes mellitus, type II: Plan: on Insulin Sliding Scale a1c 6.5 Jardiance PO on discharge ff up with PCP in 1 week (4) HTN (hypertension): Plan: Losartan and Amlodipine BP improving ff up with PCP in 1 week Plan: plan of care discussed with patient in detail and at length all questions answered she is understanding, agreeable, comfortable with the plan of care PCP: Alla Disposition: anticipate d/c home tomorrow Admission and Anticipated Discharge Date Admission Date: April 26, 2021 Subjective ff up for hypoglycemia, hypertension, etc seen resting in bed, comfortable in good spirits states she feels much better overall no chest pain, dyspnea, palpitations, dizziness no headache, nausea/vomiting no other symptoms Review of Systems Review of Systems: all noted and negative except for above Physical Exam Physical Exam: General- oriented x 3, not in distress, speaks in sentences with no effort or accessory muscle use Eyes- anicteric Neck- no JVD Lungs- clear BS BL Heart- normal rate, regular rhythm; no murmurs Abdomen- normal bowel sounds, nondistended, soft, nontender Extremities- no pretibial edema, no calf tenderness Neuro- alert, oriented x 3; no gross focal neurologic deficits Skin- warm & dry Results & Data Results & Data ([facility]) Vital Signs (Past 12 Hours) Vital Signs Temp Pulse Pulse Resp BP Pulse Ox 04/27/21 07:30 36.7 C 70 18 133/68 96 04/27/21 07:14 64 04/27/21 03:00 36.8 C 69 18 132/75 95 all noted and reviewed including below
--- NOTE | 2021-04-27 12:37 | Pharmacy Report ---
Pharmacy Glycemic Short Note 2 - Date of Service April 27, 2021 - Glycemic Short BSG Results (Last 24 hours): 04/26/21 04/26/21 04/26/21 13:18 18:15 21:32 Glucose POC Glucose 107 H 109 H 120 H 04/27/21 04/27/21 04/27/21 07:28 09:31 11:51 Glucose 205 H POC Glucose 117 H 143 H OUTPATIENT ANTIDIABETIC REGIMEN: * Novolog/Lispro - unknown dosing * A1c 6.5% ASSESSMENT: 04/27/21 * BSGs yesterday were [phone]. Today's BSGs are 117-143 mg/dL. * Patient received 12 units of Novolog yesterday. * Continue to hold basal as fasting below goal. * Tighten CR slightly. BACKGROUND * 65 year old with DM2, admitted with AMS due to hypoglycemia. Per notes, last seen by PCP in 2019 and prescribed insulin, however due to lack of insurance has been taking leftover insulin from friends/family without a dose from provider. Known to glycemic service, had followed patient during 06/09/19 hospital stay and at that time had been discharged on Novolin 16 units with breakfast, 8 units with dinner * BSGs low on admission and started on dextrose infusion, now stopped * BSG this AM 97 mg/dL - will utilize only correctional insulin for now and trend blood sugars. May consider adding basal insulin if BSGs trending upward PLAN FOR INPATIENT GLYCEMIC CONTROL: * Hold outpatient oral diabetes medications * Basal insulin * Lantus - hold for now * Bolus insulin * NovoLog per scale ACHS or Q6hrs while NPO * Goal Range: Low 110 mg/dL - High 140 mg/dL * Correction Factor: 25 mg/dL/unit * Nutritional / Prandial insulin per carb ratio of 1 unit per 10 grams CHO consumed PLAN FOR DISCHARGE: * Patient's HbA1C is below goal. She has had significant hypoglycemia at home with current insulin regimen. * Reasonable to start Jardiance 10 mg daily. * Additional agents may be necessary but recommend close follow-up with PCP.
--- NOTE | 2021-05-03 16:52 | Discharge Summary ---
Date of Service May 03, 2021 Admission HPI Per Admitting Provider This is a 65yo F with a PMH of DM II and HTN who presents with AMS in setting of hypoglycemia. Has had daily episodes of altered mental status and near syncope over the last week in settings of low blood sugar. Per review of outpatient records, was last seen by PCP in 2019 and last prescribed insulin over 9 months ago. Due to lack of insurance, has been taking leftover insulin from friends and family without direction on dose from a provider. Currently has vials of NovoLog and lispro in her purse that she takes morning and night. Does not know how many units she is taking but daughter saw her inject 50 units yesterday. Is busy at work and often skips meals. Earlier today she became lightheaded during work and next thing she remembers is being on the ground surrounded by paramedics. Unsure of head trauma with fall. Was initially obtunded and has improved significantly since arrival when started on dextrose infusion. Denies fever, chills, headache, chest pain, SOB, nausea, vomiting, abdominal pain, dysuria, diarrhea or constipation. Previously took lisinopril and hctz for high blood pressure per clinic notes but not taking these any longer. Admission Exam (Per Admitting) Constitutional Physical Exam Physical Exam: General Appearance:WD/WN, vitals as above, NAD, sitting up in bed, pleasant, conversing easily, obese Head: normocephalic, atraumatic Eyes:normal inspection, PERRL, conjunctivae normal, anicteric sclerae ENT: external ear and nose normal, dry mucous membranes of oropharynx Neck: normal visual inspection, trachea midline, no thyromegaly Respiratory:normal respiratory effort, lungs clear to auscultation, no wheeze, rales, rhonchi. No accessory muscle use Cardiovascular: regular rate, rhythm, no murmur, normal peripheral pulses, no BLE edema. Vessels: no JVD Chest: normal inspection of chest Abdomen/GI: normal bowel sounds, soft, nontender, no hepatosplenomegaly Extremities/Musculoskeletal: no cyanosis or clubbing, extremities motor strength 5/5 Neurologic: PERRL, EOMI, accommodation nl, no face palsy, no dysarthria, CN's II-XI intact bilaterally and moves all extremities Psychiatric:A+Ox3, euthymic affect, + poor insight/judgement Skin: no rashes, normal color, warm/dry Discharge Data Consultations 04/25/21 20:12 ED Decision to Admit Stat Procedures Performed CT cervical spine wo con CLINICAL HISTORY: 65 years-old Female with fall. Acute head and neck injury status post fall COMPARISON: Head CT of same day. TECHNIQUE: Multiple axial CT images of the cervical spine were obtained without contrast. A dose lowering technique was utilized adhering to the principles of ALARA. FINDINGS: Straightening of the normal cervical lordosis. Multilevel intervertebral disc space narrowing, severe at C5-C6. A moderate sized posterior disc osteophyte complex is also noted at this interspace. 2 mm anterolisthesis C3 on C4 is likely secondary to chronic facet arthrosis. Moderate to severe facet arthropathy with partial bony fusion of the left C2-C3 facets. Moderate multilevel spondylitic spurring. No acute fracture or subluxation. Multilevel central canal and neural foraminal narrowing. No prevertebral edema. Calcified plaque of the carotid arteries. Lung apices are clear. IMPRESSION: No acute cervical spine fracture or subluxation. ACT 112: Negative or not required by law. The above report was generated using voice recognition software. It may contain grammatical, syntax or spelling errors. XR chest 1V portable HISTORY: 65 years-old Female weakness acute weakness COMPARISON: None TECHNIQUE: Portable AP view of the chest FINDINGS: Cardiac silhouette is enlarged. Calcification the thoracic aortic arch. No pneumothorax, large pleural effusion or overt pulmonary edema. Mild interstitial coarsening of the lung bases. Degenerative changes of the shoulders and spine. Sigmoidal scoliosis of the spine. IMPRESSION: 1. Cardiomegaly without pulmonary edema. 2. Mild interstitial coarsening of the lung bases is suggestive of atelectasis. ACT 112: Negative or not required by law. The above report was generated using voice recognition software. It may contain grammatical, syntax or spelling errors. CT head/brain wo con CLINICAL HISTORY: 65 years-old Female with ams. Acutely altered mental status TECHNIQUE: Multiple axial CT images of the head were obtained without contrast. A dose lowering technique was utilized adhering to the principles of ALARA. CT DOSE: 1050.31 mGy.cm COMPARISON: CT cervical spine of same day FINDINGS: No acute intracranial hemorrhage, midline shift, intracranial mass, hydrocephalus, territorial ischemia or abnormal extra-axial collection. The calvarium is intact. Tiny bilateral optic nerve drusen. The paranasal sinuses, mastoid air cells, and middle ear cavities are clear. A cluster of punctate dense foci measuring up to 4 mm project of the left parietal scalp. IMPRESSION: 1. No acute intracranial abnormality or calvarial fracture. 2. Clustered radiodense foci are noted within the subcutaneous left parietal scalp near the vertex. Soft tissue calcifications versus foreign bodies considered. ACT 112: Negative or not required by law. The above report was generated using voice recognition software. It may contain grammatical, syntax or spelling errors. Hospital Course (1) Acute metabolic encephalopathy: secondary to hypoglycemia resolved (2) Hypoglycemia: resolved (3) Diabetes mellitus, type II: secondary to using excessive, nonprescriebd Insulin given Insulin Sliding Scale a1c 6.5 Jardiance PO on discharge ff up with PCP in 1 week patient given education regarding using medications under proper guidance of medical providers (4) HTN (hypertension): Losartan and Amlodipine BP improving ff up with PCP in 1 week plan of care discussed with patient in detail and at length all questions answered she is understanding, agreeable, comfortable with the plan of care PCP: Alla Disposition: anticipate d/c home tomorrow
== END 2021-04-27 15:19 | disposition home or self-care (01) | DRG 917 ==
LOC: EDINP 18:15 → ED 18:15 → EDINP 23:56 → 2N 04-26 21:31

== ENCOUNTER 2021-07-05 12:29 | Inpatient (IN) ==
[2021-07-05] MEDS ORDERED: SODIUM CHLORIDE 0.9% 1000ML 1,000 ML IV SCH (13:15)
[2021-07-05] MEDS ORDERED: CEFEPIME 2,000 MG/20 ML VIAL IV STA (13:16)
[2021-07-05 13:39] LABS: Basophils # (auto) 0.03 K/uL (0-0.2); Basophils % (auto) 0.4 %; Eosinophils # (auto) 0.06 K/uL (0-0.5); Eosinophils % (auto) 0.7 %; Hematocrit (blood only) 34.6 % (37-47); Hemoglobin 11.4 g/dL (12.0-16.0); Immature Granulocytes # (auto) 0.04 K/uL (0.00-0.02); Immature Granulocytes % (auto) 0.5 %; Lymphocytes # (auto) 1.48 K/uL (1.2-3.4); Lymphocytes % (auto) 18.5 %; Mean Corpuscular Hemoglobin 30.2 pg (25-34); Mean Corpuscular Hgb Conc 32.9 g/dL (32-36); Mean Corpuscular Volume 91.5 fL (80-100); Mean Platelet Volume 11.1 fL (7.4-10.4); Monocytes # (auto) 0.86 K/uL (0.11-0.59); Monocytes % (auto) 10.7 %; Neutrophils # (auto) 5.55 K/uL (1.4-6.5); Neutrophils % (auto) 69.2 %; Platelet Count 255 K/uL (130-400); RDW Coefficient of Variation 12.7 % (11.5-14.5); RDW Standard Deviation 42.6 fL (36.4-46.3); Red Blood Count 3.78 M/uL (4.2-5.4); White Blood Count 8.02 K/uL (4.8-10.8)
[2021-07-05 13:47] LABS: Appearance Urine Clear (Clear); Bacteria Urine Automated Negative (Negative); Bilirubin Urine Negative (Negative); Blood Urine 1+ (Negative); Color Urine Yellow; Epithelial Cell Urine Auto >30 /lpf (0-5); Glucose Urine UA 3+ (Negative); Ketones Urine Negative (Negative); Leukocyte Esterase Urine 1+ (Negative); Nitrite Urine Negative (Negative); Protein Urine Negative (Negative); RBC Urine Automated 0-4 /hpf (0-4); Specific Gravity Urine 1.045 (1.000-1.030); Urobilinogen Urine Negative (Negative); WBC Urine Automated >30 /hpf (0-5); pH Urine 5.5 (4.5-7.5)
[2021-07-05 13:51] LABS: INR 1.1 (0.9-1.1); Partial Thromboplastin Ratio 1.1; Partial Thromboplastin Time 31.3 Seconds (21.0-31.0); Prothrombin Time 11.8 Seconds (9.0-12.0)
--- NOTE | 2021-07-05 14:10 | XRay Report ---
XR toe(s) LT min 2V HISTORY: 65 years-old Female great toe, diabetic wound infection patient presents with chronic soft tissue wound of the left great toe COMPARISON: None TECHNIQUE: 3 views of the left great toe FINDINGS: Demineralized appearance the bones. Multifocal osteoarthritis, moderate within the first MTP joint an d midfoot. Arterial calcifications. Diffuse soft tissue swelling. There is a small soft tissue ulcer noted involving the plantar medial of the distal great toe superficial to the first proximal phalanx measuring up to 1.6 cm. Small amount of associated deep tissue air without opaque foreign body. No ac yuhaaviatam fracture, dislocation or osseous erosion. IMPRESSION: Soft tissue ulcer of the great toe. No radiographic evidence of acute osteomyelitis. ACT 112: Negative or not required by law. The above report was generated using voice recognition software. It may contain grammatical, syntax o r spelling errors. Electronically signed by: Rod Rogers M.D. 07/05/2021 2:09 PM
[2021-07-05 14:19] LABS: Albumin Level 3.2 gm/dl (3.4-5.0); BUN Creatinine Ratio 22.5 (10-20); Bilirubin,Total 0.6 mg/dl (0.2-1.0); C Reactive Protein 4.75 mg/dl (0-0.5); Calcium 8.9 mg/dl (8.5-10.1); Creatinine Clr Calc Pharmacy 65.2 ml/min; Est GFR (African American) 66.8 ml/min; Est GFR (Non-African American) 57.7 ml/min; Globulin 3.1 gm/dl (2.5-4.0); Total Protein 6.3 gm/dl (6.0-8.3); Troponin I 0.09 ng/ml (0-0.04)
--- NOTE | 2021-07-05 14:51 | History & Physical Report ---
Date of Service July 05, 2021 Assessment & Plan (1) Pulmonary emboli: Plan: Patient is 65-year-old female with PMH DM II, HTN presented to ER for abnormal outpatient CTA chest today with findings of PE. Outpatient venous duplex left lower extremity on 07/04/2021 that showed "partially occluding thrombus within the paired left posterior tibial veins as well as partially occlusive thrombus within the left greater saphenous vein". 07/05/21 outpatient CTA chest: "Pulmonary emboli visualized in the right middle lobe lingula. 1.6 x 2.3 cm subcutaneous nodule in the right paramidline anterior chest wall. Correlation with direct visualization is recommended for possible sebaceous cyst. Bilateral adrenal nodules measuring up to 1.4 cm. Lacking any personal history of malignancy, follow-up imaging can be obtained in 12 months with [address]." Today in ER patient vitals stable, no hypoxia. Troponin: 0.09. EKG Q waves in lead III (seen on prior EKG 04/2021), T wave inversion anterior and lateral leads. Patient was started on 10 mg Eliquis twice daily 07/04/2021. Took first dose evening of 07/04/2021, had dose a.m. of 07/05/2021 Continue Eliquis 10 mg twice daily x7 days, then plan to transition to 5 mg twice daily Trend troponin Resting echo EKG in a.m. (2) Diabetic ulcer of left great toe: Plan: Reported edema, erythema to left great toe x 1 week, and popped area on left great toe 4 days ago with reported foul smelling discharge Today no leukocytosis. CRP: 4.7, ESR: 47. Toe x-ray: No osteomyelitis noted. In ER was given cefepime Blood cultures, obtained after initial IV antibiotics given Wound culture pending Continue cefepime, add Flagyl, doxycycline Wound consult Ortho consult (3) Abnormal CT scan: Plan: Outpatient report of CTA Chest: 1.6 x 2.3 cm subcutaneous nodule in the right paramidline anterior chest wall. Correlation with direct visualization is recommended for possible sebaceous cyst. Bilateral adrenal nodules measuring up to 1.4 cm. Lacking any personal history of malignancy, follow-up imaging can be obtained in 12 months with [address]. Noted subcutaneous palpable cyst to anterior chest wall without significant tenderness or erythema at this time. Will need outpatient follow up Will need outpatient follow up CT for adrenal nodules (4) Diabetes mellitus, type II: Plan: A1c: 6.5 on 04/25/2021. Patient with history of episodes of hypoglycemia when she was self administering nonprescribed insulin in 04/2021 Random BS Currently on Jardiance. Will hold during hospitalization NovoLog sliding scale per protocol A1c in a.m. (5) HTN (hypertension): Plan: Continue amlodipine, losartan DVT Prophylaxis Has DVT and PE upon admission. Continue Eliquis Full Code as per discussion with pt Follows with Dr Gold for routine care Pt was seen and care coordinated with Dr Urbina. See addendum History of Present Illness Chief Complaint: Abnormal CT scan Primary Care Provider: Juan Gold MD Patient is 65-year-old female with PMH DM II, HTN presented to ER for abnormal outpatient CTA chest today with findings of PE. Outpatient records, labs, and imaging reviewed and found the following. Patient presented to PCPs office yesterday 07/04/2021 for reported chills, nausea, left toe infection, left leg swelling. She reports past week not been feeling well, feeling nauseated and having chills. States 2 days ago fever 103F. She reports 4 days ago popped area with tweezers on left great toe and had foul-smelling drainage. Patient reports left great toe has been red and swollen for past week. Several days having aching to left leg and noticed left leg swollen. She reports that has been having SOB and chest discomfort with exertion and deep breathing intermittently over the past week. She reports she has been sitting around most the week as she has not been feeling well. Also reports dry cough. Denies any hemoptysis. She reports has noticed lump to anterior chest wall for weeks that is sometimes tender. Denies diaphoresis, V/D/C, CRUZ, dizziness, syncope, vision changes, neck pain, orthopnea, palpitations, cough, sore throat, choking, otalgia, rhinorrhea, abdominal pain, paresthesias, weakness, extremity weakness, other extremity edema, rashes, urinary symptoms. Denies history DVT or PE in past. She had outpatient venous duplex left lower extremity on 07/04/2021 that showed "partially occluding thrombus within the paired left posterior tibial veins as well as partially occlusive thrombus within the left greater saphenous vein". Patient was started on Eliquis. She reports had dose Eliquis this morning. Today she had outpatient CTA chest that showed "Pulmonary emboli visualized in the right middle lobe lingula. 1.6 x 2.3 cm subcutaneous nodule in the right paramidline anterior chest wall. Correlation with direct visualization is recommended for possible sebaceous cyst. Bilateral adrenal nodules measuring up to 1.4 cm. Lacking any personal history of malignancy, follow-up imaging can be obtained in 12 months with [address]. Today in ER patient vitals stable, no hypoxia. No leukocytosis. Troponin: 0.09. EKG Q waves in lead III (seen on prior EKG 04/2021), T wave inversion anterior and lateral leads. CRP: 4.7, ESR: 47. Toe x-ray: No osteomyelitis noted. Allergies Allergy/AdvReac Type Severity Reaction Status Date / Time lisinopril Allergy Intermediate cough Verified 07/05/21 13:41 Penicillins Allergy Unknown HAPPENED Verified 07/05/21 13:41 A SMALL CHILD--CAN'T REMEMBER Home Medications Medication Instructions Recorded Confirmed Type acetaminophen 650 mg 650 mg PO DIRECTED PRN #0 tab 04/27/21 07/05/21 Rx tablet,extended release amlodipine 5 mg tablet (Norvasc) 5 mg PO QAM 30 Days #30 tab 04/27/21 07/05/21 Rx empagliflozin 10 mg tablet 10 mg PO QAM 30 Days #30 tab 04/27/21 07/05/21 Rx (Jardiance) losartan 50 mg tablet 50 mg PO HS 30 Days #30 tab 04/27/21 07/05/21 Rx apixaban 5 mg tablet (Eliquis) 5 mg PO DAILY 07/05/21 07/05/21 History apixaban 5 mg tablet (Eliquis) 10 mg PO BID 07/05/21 07/05/21 History doxycycline hyclate 100 mg capsule 100 mg PO BID 07/05/21 07/05/21 History 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 HTN (hypertension) Surgical History H/O section Family History (Updated 07/05/21 @ 15:58 by Pooja Reed PA-C) Mother Coronary heart disease Father Coronary heart disease Deep vein thrombosis Sister Colorectal cancer Social History Smoking Status: Never smoker Second Hand Exposure: No; Do You Dip or Chew Tobacco: No; Tobacco Cessation Education Requested by Patient: No Hx Alcohol Use: No Hx Substance Use: No Preferred Language: Welsh Communication Ability: Effective Health Care Liaison Required: No Beliefs That Will Affect Care: None marital status: / Current Living Situation: Family Current Living Situation Comment: with daughter and grandchild Other Information That Helps Us Care for You: No Feels Safe at Home: Yes Safety Concerns: Feels Safe At This Time Assistive Devices: None Review of Systems Review of Systems: All systems reviewed & are unremarkable except as noted in HPI & below Physical Exam Physical Exam: General: no distress, obese Head: normocephalic, atraumatic Eyes: conjunctiva non-injected, anicteric ENT: normal inspection external ears, nose, mucous membranes moist Neck: supple, trachea midline Lungs: clear, no respiratory distress, no wheezing/rhonchi/rales, sats 98% on RA CV: RRR, no murmur, no JVD Abd: protuberant, normal BS, soft, non-tender Ext: no cyanosis. LLE: +edema leg. left great toe with edema and erythema extending to MCP, +ulcer noted to medial aspect left great toe and +ulcer noted to plantar aspect left great toe Neuro: A&O x 3, no focal deficits noted, normal affect Skin: warm, dry Results & Data Results & Data ([facility]) Vital Signs (Past 12 Hours) Vital Signs Temp Pulse Pulse Resp BP BP Pulse Ox 07/05/21 13:22 65 20 133/73 98 07/05/21 13:19 78 20 98 07/05/21 12:31 36.2 C L 77 20 144/47 H 98 Laboratory Results Short CBC 07/05/21 Range/Units 13:24 WBC 8.02 (4.8-10.8) K/uL Hgb 11.4 L (12.0-16.0) g/dL Hct 34.6 L (37-47) % Plt Count 255 (130-400) K/uL BMP 07/05/21 07/05/21 13:24 14:28 Sodium 136 Potassium 3.9 Chloride 106 Carbon Dioxide 21 BUN 23 Creatinine 1.02 Glucose 238 H Calcium 8.9 Cardiac Enzymes 07/05/21 Range/Units 13:24 Troponin I 0.09 H* (0-0.04) ng/ml Liver Function 07/05/21 07/05/21 Range/Units 13:24 14:28 Total Bilirubin 0.6 (0.2-1.0) mg/dl AST 13 (13-39) U/L ALT 17 (7-52) U/L Alkaline Phosphatase 76 (34-104) U/L Albumin 3.2 L (3.4-5.0) gm/dl Urine 07/05/21 Range/Units 13:24 Urine Color Yellow Urine Appearance Clear (Clear) Urine pH 5.5 (4.5-7.5) Ur Specific Johnston 1.045 H (1.000-1.030) Urine Protein Negative (Negative) Urine Glucose (UA) 3+ H (Negative) Diagnostic Findings Toe X-Ray 07/05/21 13:13 XR toe(s) LT min 2V HISTORY: 65 years-old Female great toe, diabetic wound infection patient presents with chronic soft tissue wound of the left great toe COMPARISON: None TECHNIQUE: 3 views of the left great toe FINDINGS: Demineralized appearance the bones. Multifocal osteoarthritis, moderate within the first MTP joint and midfoot. Arterial calcifications. Diffuse soft tissue swelling. There is a small soft tissue ulcer noted involving the plantar medial of the distal great toe superficial to the first proximal phalanx measuring up to 1.6 cm. Small amount of associated deep tissue air without opaque foreign body. No acute fracture, dislocation or osseous erosion. IMPRESSION: Soft tissue ulcer of the great toe. No radiographic evidence of acute osteomyelitis. ACT 112: Negative or not required by law. The above report was generated using voice recognition software. It may contain grammatical, syntax or spelling errors. Electronically signed by: Rod Rogers M.D. 07/05/2021 2:09 PM Supervising Physician Co-Signing Physician Notes Patient is a 65-year-old female with history of hypertension, diabetes and other medical problems who was diagnosed to have PE, DVT as outpatient presents with history of left toe infection, swelling, discharge associated with nausea, fever and chills. Patient noticed to have left great toe foul-smelling discharge. She also states having dyspnea on exertion, Pleuritic pain. Patient is started on Eliquis as outpatient. Please review HPI for complete details of presentation. Blood work suggestive of chronic anemia hemoglobin 11.4, glucose 238, troponin 0.09, CRP 4.75. Abnormal urine analysis noted. Toe x-ray showed soft tissue ulcer of the great toe, no signs of acute osteomyelitis. EKG showed normal sinus rhythm, nonspecific T wave abnormality in anterolateral leads. QTc 423. On exam patient is morbidly obese, no apparent distress, normocephalic atraumatic, EOMI, normal breath sounds, clear to auscultation, S1-S2, no murmur,+ lower extremity edema, abdomen soft, nontender, normal bowel sounds, alert, awake, oriented, grossly no focal deficits, left great toe ulceration noted. Patient is admitted for management of diabetic ulcer of the left great toe. Empirically started on broad-spectrum antibiotics. Blood cultures obtained. May need debridement. Continue Eliquis for PE, DVT. Trend cardiac enzymes and check resting echo and repeat EKG in the morning. Incidentally noted bilateral adrenal nodules measuring up to 1.4 cm. Advised patient to follow-up with urology as outpatient for further evaluation. Agree with insulin therapy while hospitalized for diabetes management. I personally reviewed the record. Patient is interviewed and examined at bedside. Patient's care is coordinated with Pooja Reed PA-C. Please refer to the documentation above for details of patient's presentation and for discussion of other issues.
[2021-07-05 15:00] LABS: Potassium 3.9 mmol/L (3.5-5.1)
[2021-07-05] MEDS ORDERED: POLYETHYLENE (MIRALAX) 17 GM PACK PO PRN (16:04)
[2021-07-05] MEDS ORDERED: ONDANSETRON INJ 2 MG/ML 2 ML VIAL IV PRN (16:04)
[2021-07-05] MEDS ORDERED: GLUCOSE 40% GEL 15 GM TUBE PO PRN (16:04)
[2021-07-05] MEDS ORDERED: GLUCAGON FOR INJ 1 MG VIAL SQ PRN (16:04)
[2021-07-05] MEDS ORDERED: DEXTROSE 50% 50 ML SYRINGE IV PRN (16:04)
[2021-07-05] MEDS ORDERED: GLUCOSE 10 TABS/TUBE PO PRN (16:04)
[2021-07-05] MEDS ORDERED: ACETAMINOPHEN 325 MG TAB PO PRN (16:04)
[2021-07-05] MEDS ORDERED: CARBOHYDRATES FOR HYPOGLYCEMIA PO PRN (16:04)
--- NOTE | 2021-07-05 16:17 | Emergency Department Note ---
Impression & Plan Acute pulmonary embolus, Acute deep vein thrombosis (DVT), Cellulitis of great toe, left, Elevated troponin ED Provider Note INFORMANT: Patient ED PROVIDER(S): Yoel Bergeron MD CHIEF COMPLAINT: Pulmonary emboli PLAN: Disposition: Admitted Condition: Good Outpatient prescription management: none Referral: None MEDICAL DECISION MAKING: Patient presented with complaints of abnormal chest CT. I did obtain records. She had pulmonary blood noted in the right upper lobe as well as the lingula. Patient also had an outpatient ultrasound that was concerning for DVT and SVT. She had taken her first dose of Eliquis. Patient's blood work was unremarkable except her troponin was elevated. In light of pulmonary emboli this is concerning. CT did not report any signs of right heart strain. Patient was hemodynamically stable. Her inflammatory markers were elevated. After imaging of the left toe did not reveal any evidence of osteomyelitis. Given the drainage and redness of the toe this is concerning for cellulitis. She was given IV cefepime after a wound culture was performed. Further management in the hospital will be necessary. [facility]. Patient was evaluated in the ER and admitted for further management. Triage Nursing notes reviewed and agree them. Vital Signs: reviewed and remarkable for no significant abnormalities Differential diagnosis: Parameters and, DVT, cellulitis, abscess, osteomyelitis, reactive airway disease, pneumonia, pneumothorax, COPD, CHF, infections, cardiac ischemia, musculoskeletal, gastrointestinal, as well as other pathologies. Diagnostics interpreted by me: ECG: Twelve-lead ECG reveals a normal sinus rhythm at 68 bpm. Inferior Q waves are present. Nonspecific ST. No ST elevation. No ST depression. No PACs or PVCs. Cardiac Monitoring: Cardiac monitoring ordered by me: The patient was placed on continuous cardiac monitoring and observed. It revealed a normal sinus rhythm at 65 beats per minute without ectopy or evidence of dysrhythmia. Imaging studies: Reports as noted above. HPI: The patient is a 65year old female who presents to the Emergency Room with complaints of abnormal chest CT and DVT. Patient had a developing infection in her left great toe. She started on oral antibiotics. She was complaining of pain in the left upper thigh. PCP was concerned about blood clot and an ultrasound was performed. This did confirm the presence of blood clot. Patient was thought to be experiencing some increased respiratory effort and she did note some shortness of breath. CT PE study was performed this morning and did reveal pulmonary emboli in the right upper lobe as well as lingula. Patient was started on Eliquis and took her first dose this morning. In light of the CT findings patient was directed to the ER. Pt denies LOC, headache, fevers, chills, diaphoresis, visual changes, neck pain, nausea, vomiting, abdominal pain, back pain, melena, hematochezia, urinary symptoms, numbness, weakness, lymphadenopathy, rash, or other complaints. ROS: See above HPI for pertinent positives & negatives. A total of 10 systems reviewed and were otherwise negative. PAST MEDICAL HISTORY:See Below , diabetes PAST SURGICAL HISTORY:See Below, FAMILY HISTORY:See Below SOCIAL HISTORY:See Below, employed HOME MEDICATIONS:See Below ALLERGIES:See Below VITALS:See Below PHYSICAL EXAMINATION: GENERAL: Awake, alert, well-appearing, in no distress HENT: Normocephalic, atraumatic. Oropharynx unremarkable. EYES: Normal conjunctiva. Sclera non-icteric. NECK: Inspection normal. Non-tender. Supple. No nuchal rigidity. FROM. No masses. RESPIRATORY: Clear to auscultation. No wheezes. No rales. Normal respiratory effort. CARDIAC: Normal rate. Normal rhythm. No murmurs. No rubs. Extremities warm and well perfused. Pulses equal. No JVD. GI: Soft, non-distended. No tenderness to palpation. No rebound or guarding. No masses. RECTAL: Deferred. MUSCULOSKELETAL: Atraumatic. Chest examination reveals no tenderness. The back is symmetrical on inspection without obvious abnormality. There is no CVA tenderness to palpation. No joint edema. LOWER EXTREMITIES: Calves are equal size bilaterally and non-tender. 1+ bilateral but slightly worse on the left. There is tenderness to the mid thigh with a palpable cord present. There is some mild erythema and tenderness of the left great toe. There is an ulceration with some clearish discharge present. No crepitus. NEURO: Normal sensorium. No sensory or motor deficits noted. SKIN: No rash or jaundice noted. 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 Beliefs That Will Affect Care: None marital status: / Current Living Situation: Family Current Living Situation Comment: daughter and grandson Feels Safe at Home: Yes Assistive Devices: None Allergies Allergies Allergy/AdvReac Type Severity Reaction Status Date / Time lisinopril Allergy Intermediate cough Verified 07/05/21 13:41 Penicillins Allergy Unknown HAPPENED Verified 07/05/21 13:41 A SMALL CHILD--CAN'T REMEMBER Home Meds Home Medications Medication Instructions Recorded Confirmed apixaban 5 mg tablet (Eliquis) 5 mg PO DAILY 07/05/21 07/05/21 apixaban 5 mg tablet (Eliquis) 10 mg PO BID 07/05/21 07/05/21 doxycycline hyclate 100 mg capsule 100 mg PO BID 07/05/21 07/05/21 Previous Rx's Medication Instructions Recorded acetaminophen 650 mg 650 mg PO DIRECTED PRN #0 tab 04/27/21 tablet,extended release amlodipine 5 mg tablet (Norvasc) 5 mg PO QAM 30 Days #30 tab 04/27/21 empagliflozin 10 mg tablet 10 mg PO QAM 30 Days #30 tab 04/27/21 (Jardiance) losartan 50 mg tablet 50 mg PO HS 30 Days #30 tab 04/27/21 Results & Data (ED) Vital Signs Vital Signs - 24 hr 07/05/21 12:31 07/05/21 13:19 07/05/21 13:22 Temperature 36.2 C L Temperature Source Skin Pulse Rate 77 78 Pulse Rate [Apical] 65 Pulse Rhythm Regular Pulse Strength Normal Respiratory Rate 20 20 20 Respiratory Effort / Characteristics Non-Labored Spontaneous Non-Labored Spontaneous Respiratory Depth Normal Normal Respiratory Pattern Regular Blood Pressure 144/47 H Blood Pressure [Right Arm] 133/73 Blood Pressure Mean 79 Blood Pressure Mean [Right Arm] 93 Blood Pressure Position [Right Arm] Sitting Pulse Oximetry 98 98 98 Oxygen Delivery Method Room Air Room Air Room Air Sepsis Recent Fever Within 48 Hours No Sepsis New/Unexplained Change in Mental Status N/A Sepsis Action Taken by Nursing No Action Required Laboratory Data Result diagrams: 07/05/21 13:24 07/05/21 14:28 Lab Results 07/05/21 07/05/21 07/05/21 Range/Units 13:24 13:24 13:24 WBC 8.02 (4.8-10.8) K/uL RBC 3.78 L (4.2-5.4) M/uL Hgb 11.4 L (12.0-16.0) g/dL Hct 34.6 L (37-47) % MCV 91.5 (80-100) fL MCH 30.2 (25-34) pg MCHC 32.9 (32-36) g/dL RDW Std Deviation 42.6 (36.4-46.3) fL RDW Coeff of Anitha 12.7 (11.5-14.5) % Plt Count 255 (130-400) K/uL MPV 11.1 H (7.4-10.4) fL Immature Gran % (Auto) 0.5 % Neut % (Auto) 69.2 % Lymph % (Auto) 18.5 % [place] % (Auto) 10.7 % Eos % (Auto) 0.7 % Baso % (Auto) 0.4 % Neut # (Auto) 5.55 (1.4-6.5) K/uL Lymph # (Auto) 1.48 (1.2-3.4) K/uL [place] # (Auto) 0.86 H (0.11-0.59) K/uL Eos # (Auto) 0.06 (0-0.5) K/uL Baso # (Auto) 0.03 (0-0.2) K/uL Immature Gran # (Auto) 0.04 H (0.00-0.02) K/uL ESR (0-30) mm/hr PT 11.8 (9.0-12.0) Seconds INR 1.1 (0.9-1.1) APTT 31.3 H (21.0-31.0) Seconds PTT Ratio 1.1 Sodium 136 (136-145) mmol/L Potassium (3.5-5.1) mmol/L Chloride 106 (98-107) mmol/L Carbon Dioxide 21 (21-32) mmol/L Anion Gap 9 (3-11) BUN 23 (6-23) mg/dl Creatinine 1.02 (0.6-1.2) mg/dl Est Cr Clr Drug Dosing 65.2 ml/min Est GFR ( Amer) 66.8 ml/min Est GFR (Non-Af Amer) 57.7 ml/min BUN/Creatinine Ratio 22.5 H (10-20) Glucose 238 H (70-99(Fasting)) mg/dl Calcium 8.9 (8.5-10.1) mg/dl Total Bilirubin 0.6 (0.2-1.0) mg/dl AST (13-39) U/L ALT 17 (7-52) U/L Alkaline Phosphatase 76 (34-104) U/L Troponin I 0.09 H* (0-0.04) ng/ml C-Reactive Protein 4.75 H (0-0.5) mg/dl Total Protein 6.3 (6.0-8.3) gm/dl Albumin 3.2 L (3.4-5.0) gm/dl Globulin 3.1 (2.5-4.0) gm/dl Albumin/Globulin Ratio 1.0 (0.9-2) TSH (0.300-4.500) uIu/ml Urine Color Urine Appearance (Clear) Urine pH (4.5-7.5) Ur Specific [place] (1.000-1.030) Urine Protein (Negative) Urine Glucose (UA) (Negative) Urine Ketones (Negative) Urine Blood (Negative) Urine Nitrite (Negative) Urine Bilirubin (Negative) Urine Urobilinogen (Negative) Ur Leukocyte Esterase (Negative) Urine WBC (Auto) (0-5) /hpf Urine RBC (Auto) (0-4) /hpf U Hyaline Cast (Auto) (0-5) /lpf U Epithel Cells (Auto) (0-5) /lpf Urine Bacteria (Auto) (Negative) SARS-CoV-2, RNA, NAAT (NEGATIVE) 07/05/21 07/05/21 07/05/21 Range/Units 13:24 13:24 13:24 WBC (4.8-10.8) K/uL RBC (4.2-5.4) M/uL Hgb (12.0-16.0) g/dL Hct (37-47) % MCV (80-100) fL MCH (25-34) pg MCHC (32-36) g/dL RDW Std Deviation (36.4-46.3) fL RDW Coeff of Anitha (11.5-14.5) % Plt Count (130-400) K/uL MPV (7.4-10.4) fL Immature Gran % (Auto) % Neut % (Auto) % Lymph % (Auto) % [place] % (Auto) % Eos % (Auto) % Baso % (Auto) % Neut # (Auto) (1.4-6.5) K/uL Lymph # (Auto) (1.2-3.4) K/uL [place] # (Auto) (0.11-0.59) K/uL Eos # (Auto) (0-0.5) K/uL Baso # (Auto) (0-0.2) K/uL Immature Gran # (Auto) (0.00-0.02) K/uL ESR 47 H (0-30) mm/hr PT (9.0-12.0) Seconds INR (0.9-1.1) APTT (21.0-31.0) Seconds PTT Ratio Sodium (136-145) mmol/L Potassium (3.5-5.1) mmol/L Chloride (98-107) mmol/L Carbon Dioxide (21-32) mmol/L Anion Gap (3-11) BUN (6-23) mg/dl Creatinine (0.6-1.2) mg/dl Est Cr Clr Drug Dosing ml/min Est GFR ( Amer) ml/min Est GFR (Non-Af Amer) ml/min BUN/Creatinine Ratio (10-20) Glucose (70-99(Fasting)) mg/dl Calcium (8.5-10.1) mg/dl Total Bilirubin (0.2-1.0) mg/dl AST (13-39) U/L ALT (7-52) U/L Alkaline Phosphatase (34-104) U/L Troponin I (0-0.04) ng/ml C-Reactive Protein (0-0.5) mg/dl Total Protein (6.0-8.3) gm/dl Albumin (3.4-5.0) gm/dl Globulin (2.5-4.0) gm/dl Albumin/Globulin Ratio (0.9-2) TSH 1.443 (0.300-4.500) uIu/ml Urine Color Yellow Urine Appearance Clear (Clear) Urine pH 5.5 (4.5-7.5) Ur Specific [place] 1.045 H (1.000-1.030) Urine Protein Negative (Negative) Urine Glucose (UA) 3+ H (Negative) Urine Ketones Negative (Negative) Urine Blood 1+ H (Negative) Urine Nitrite Negative (Negative) Urine Bilirubin Negative (Negative) Urine Urobilinogen Negative (Negative) Ur Leukocyte Esterase 1+ H (Negative) Urine WBC (Auto) >30 H (0-5) /hpf Urine RBC (Auto) 0-4 (0-4) /hpf U Hyaline Cast (Auto) 1-5 (0-5) /lpf U Epithel Cells (Auto) >30 H (0-5) /lpf Urine Bacteria (Auto) Negative (Negative) SARS-CoV-2, RNA, NAAT (NEGATIVE) 07/05/21 07/05/21 Range/Units 14:00 14:28 WBC (4.8-10.8) K/uL RBC (4.2-5.4) M/uL Hgb (12.0-16.0) g/dL Hct (37-47) % MCV (80-100) fL MCH (25-34) pg MCHC (32-36) g/dL RDW Std Deviation (36.4-46.3) fL RDW Coeff of Anitha (11.5-14.5) % Plt Count (130-400) K/uL MPV (7.4-10.4) fL Immature Gran % (Auto) % Neut % (Auto) % Lymph % (Auto) % [place] % (Auto) % Eos % (Auto) % Baso % (Auto) % Neut # (Auto) (1.4-6.5) K/uL Lymph # (Auto) (1.2-3.4) K/uL [place] # (Auto) (0.11-0.59) K/uL Eos # (Auto) (0-0.5) K/uL Baso # (Auto) (0-0.2) K/uL Immature Gran # (Auto) (0.00-0.02) K/uL ESR (0-30) mm/hr PT (9.0-12.0) Seconds INR (0.9-1.1) APTT (21.0-31.0) Seconds PTT Ratio Sodium (136-145) mmol/L Potassium 3.9 (3.5-5.1) mmol/L Chloride (98-107) mmol/L Carbon Dioxide (21-32) mmol/L Anion Gap (3-11) BUN (6-23) mg/dl Creatinine (0.6-1.2) mg/dl Est Cr Clr Drug Dosing ml/min Est GFR ( Amer) ml/min Est GFR (Non-Af Amer) ml/min BUN/Creatinine Ratio (10-20) Glucose (70-99(Fasting)) mg/dl Calcium (8.5-10.1) mg/dl Total Bilirubin (0.2-1.0) mg/dl AST 13 (13-39) U/L ALT (7-52) U/L Alkaline Phosphatase (34-104) U/L Troponin I (0-0.04) ng/ml C-Reactive Protein (0-0.5) mg/dl Total Protein (6.0-8.3) gm/dl Albumin (3.4-5.0) gm/dl Globulin (2.5-4.0) gm/dl Albumin/Globulin Ratio (0.9-2) TSH (0.300-4.500) uIu/ml Urine Color Urine Appearance (Clear) Urine pH (4.5-7.5) Ur Specific [place] (1.000-1.030) Urine Protein (Negative) Urine Glucose (UA) (Negative) Urine Ketones (Negative) Urine Blood (Negative) Urine Nitrite (Negative) Urine Bilirubin (Negative) Urine Urobilinogen (Negative) Ur Leukocyte Esterase (Negative) Urine WBC (Auto) (0-5) /hpf Urine RBC (Auto) (0-4) /hpf U Hyaline Cast (Auto) (0-5) /lpf U Epithel Cells (Auto) (0-5) /lpf Urine Bacteria (Auto) (Negative) SARS-CoV-2, RNA, NAAT NEGATIVE (NEGATIVE) Administered Medications Sodium Chloride (Nss 1000ml) 1,000 mls @ 125 mls/hr IV .Q8H PAM Stop: 07/05/21 21:14 Last Admin: 07/05/21 13:52 Dose: 125 mls/hr Documented by: [id number] Discontinued Medications Cefepime HCl (Maxipime) 2,000 mg in 20 mls @ 5 mls/min IV NOW STA; Protocol Stop: 07/05/21 13:19 Last Admin: 07/05/21 13:49 Dose: 5 mls/min Documented by: [id number] Imaging Data Radiologist's Impression: Toe X-Ray 07/05/21 13:13 XR toe(s) LT min 2V HISTORY: 65 years-old Female great toe, diabetic wound infection patient presents with chronic soft tissue wound of the left great toe COMPARISON: None TECHNIQUE: 3 views of the left great toe FINDINGS: Demineralized appearance the bones. Multifocal osteoarthritis, moderate within the first MTP joint and midfoot. Arterial calcifications. Diffuse soft tissue swelling. There is a small soft tissue ulcer noted involving the plantar medial of the distal great toe superficial to the first proximal phalanx measuring up to 1.6 cm. Small amount of associated deep tissue air without opaque foreign body. No acute fracture, dislocation or osseous erosion. IMPRESSION: Soft tissue ulcer of the great toe. No radiographic evidence of acute osteomyelitis. ACT 112: Negative or not required by law. The above report was generated using voice recognition software. It may contain grammatical, syntax or spelling errors. Electronically signed by: Rod Rogers M.D. 07/05/2021 2:09 PM Discharge Plan Visit Data Chief Complaint: Abnormal Labs/Diagnostic Testing Stated Complaint: CT SCAN SHOWED BLOOD CLOTS IN LUNGS SENT BY PCP ED Provider: Yoel Bergeron Discharge Problem: Acute pulmonary embolus, Acute deep vein thrombosis (DVT), Cellulitis of great toe, left, Elevated troponin Patient Disposition: Admitted As Inpatient Discharge Instructions Interventions: ED Discharge Assessment Last Done: 07/05/21 16:03
[2021-07-05] MEDS ORDERED: PNEUMOCOCCAL POLYSACCHARIDES 25 MCG/0.5 ML VIAL/SYR IM ONE (17:47)
[2021-07-05] MEDS: INSULIN ASPART PER UNIT SC SCH ×2 (18:18→20:34)
[2021-07-05] MEDS: DOXYCYCLINE HYCLATE 100 MG CAP PO SCH (18:45)
[2021-07-05] MEDS: metroNIDAZOLE 500 MG TAB PO SCH (18:45)
[2021-07-05] MEDS: APIXABAN 5 MG TABLET PO SCH (20:45)
[2021-07-05] MEDS: LOSARTAN POTASSIUM 50 MG TAB PO SCH (20:45)
[2021-07-05] MEDS: CEFEPIME 2,000 MG in SYRINGE 0 ML IV SCH (22:19)
[2021-07-06] MEDS: CEFEPIME 2,000 MG in SYRINGE 0 ML IV SCH ×3 (05:33→21:15)
[2021-07-06 07:28] LABS: Hemoglobin 10.3 g/dL (12.0-16.0); Mean Corpuscular Hemoglobin 29.4 pg (25-34); Mean Corpuscular Hgb Conc 32.2 g/dL (32-36); Mean Corpuscular Volume 91.4 fL (80-100); Mean Platelet Volume 10.6 fL (7.4-10.4); Platelet Count 270 K/uL (130-400); RDW Coefficient of Variation 12.8 % (11.5-14.5); RDW Standard Deviation 42.9 fL (36.4-46.3)
[2021-07-06 07:40] LABS: Estimated Average Glucose 200 mg/dl; Hemoglobin A1C 8.6 % (4.5-5.6)
--- NOTE | 2021-07-06 07:58 | Orthopedic Consultation ---
Date of Service July 06, 2021 Assessment & Plan (1) Diabetic ulcer of left great toe: She has a diabetic foot ulcer and some surrounding cellulitis. I did debride this today. I did take the skin off the plantar aspect of the foot and the underlying tissue looked quite healthy and without the pus or necrosis. There is a little bit of purulence dorsally and I did unroofed this. Cleaned this with some Betadine and put a dry dressing on it. As far as plans from here I do think it is possible she might be to save her toe. There is no obvious signs of osteomyelitis. I recommend IV antibiotics for now and routine wound care. I recommended wound care consult. It would be good for them to soak this twice a day and a combination of Betadine, hydrogen peroxide, normal saline for about 15 minutes twice a day. I would leave wound care up to the housing specialist. I think it is highly likely at some point she may need this toe amputated but I think at this point there is a chance that can be saved. Any orthopedic questions can be directly [phone] History of Present Illness Reason for Consultation: . Left toe infection Requesting Physician: . Attending Physician: Iván Batista MD . Patient is a 65-year-old female long-term diabetic who presents in mid to the hospital for a DVT/PE. She has a 1 week history of which she describes as a left toe infection. No known injury. She did notice noticed that it started to producing a foul odor. No trauma. She was admitted for this DVT/PE. Were consulted for evaluation of her left great toe ulcer. Particular pain. Allergies Allergy/AdvReac Type Severity Reaction Status Date / Time lisinopril Allergy Intermediate cough Verified 07/05/21 13:41 Penicillins Allergy Unknown HAPPENED Verified 07/05/21 13:41 A SMALL CHILD--CAN'T REMEMBER Home Medications Medication Instructions Recorded Confirmed Type acetaminophen 650 mg 650 mg PO DIRECTED PRN #0 tab 04/27/21 07/05/21 Rx tablet,extended release amlodipine 5 mg tablet (Norvasc) 5 mg PO QAM 30 Days #30 tab 04/27/21 07/05/21 Rx empagliflozin 10 mg tablet 10 mg PO QAM 30 Days #30 tab 04/27/21 07/05/21 Rx (Jardiance) losartan 50 mg tablet 50 mg PO HS 30 Days #30 tab 04/27/21 07/05/21 Rx apixaban 5 mg tablet (Eliquis) 5 mg PO DAILY 07/05/21 07/05/21 History apixaban 5 mg tablet (Eliquis) 10 mg PO BID 07/05/21 07/05/21 History doxycycline hyclate 100 mg capsule 100 mg PO BID 07/05/21 07/05/21 History 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 HTN (hypertension) Surgical History H/O section Family History Mother Coronary heart disease Father Coronary heart disease Deep vein thrombosis Sister Colorectal cancer Social History Smoking Status: Never smoker Second Hand Exposure: No; Do You Dip or Chew Tobacco: No; Tobacco Cessation Education Requested by Patient: No Hx Alcohol Use: No Hx Substance Use: No Preferred Language: Khmer Communication Ability: Effective Relations Specialist Required: No Beliefs That Will Affect Care: None marital status: / Current Living Situation: Family Current Living Situation Comment: with daughter and grandchild Other Information That Helps Us Care for You: No Feels Safe at Home: Yes Safety Concerns: Feels Safe At This Time Assistive Devices: None Review of Systems All systems reviewed & are unremarkable except as noted in HPI & below. Physical Exam . Emanation of left foot reveals some mild diffuse swelling. Some mild cellulitis of the toe. She does have a small dorsal wound just proximal to the nail and a larger plantar wound which had the epidermis which was peeling off. There is no obvious pus. She can flex extend her toe appropriately. She has very little sensation in this toe. She got brisk refill. Results & Data Results & Data Laboratory Results . Laboratory results reveal elevated sed rate and C-reactive protein. Diagnostic Findings . X-rays of the left toe were reviewed. Shows a soft tissue defect. She got degenerative changes in the joint. No obvious bone destruction. PG Care Time/CCT Total # of Minutes Spent Total Time Spent with Patient: Total time spent is greater than 50% in coordination of care (as documented) at patient's floor/unit and/or counseling patient: Coding Level of Care Code 91741 Inpt Consult Level 4 Diagnoses Diabetic ulcer of left great toe E11.621; L97.529
[2021-07-06 08:00] LABS: Calcium 8.5 mg/dl (8.5-10.1); Creatinine Clr Calc Pharmacy 66.7 ml/min; Est GFR (African American) 68.5 ml/min; Est GFR (Non-African American) 59.1 ml/min; Potassium 3.9 mmol/L (3.5-5.1)
[2021-07-06] MEDS: APIXABAN 5 MG TABLET PO SCH ×2 (08:43→21:14)
[2021-07-06] MEDS: amLODIPine BESYLATE 5 MG TAB PO SCH (08:43)
[2021-07-06] MEDS: DOXYCYCLINE HYCLATE 100 MG CAP PO SCH ×2 (08:43→21:14)
[2021-07-06] MEDS: metroNIDAZOLE 500 MG TAB PO SCH ×2 (08:43→21:15)
[2021-07-06] MEDS: INSULIN ASPART PER UNIT SC SCH ×4 (08:49→20:08)
--- NOTE | 2021-07-06 15:15 | Hospitalist Progress Note ---
Date of Service July 06, 2021 Assessment & Plan (1) Diabetic ulcer of left great toe: (2) Pulmonary emboli: (3) Abnormal CT scan: (4) Diabetes mellitus, type II: (5) HTN (hypertension): Plan: 65-year-old female with history of diabetes and hypertension, recently diagnosed DVT and PE as outpatient and on Eliquis, presented to ED 07/05/21 with left great toe infection with swelling, discharge, fever and chills. Left great toe diabetic ulcer with cellulitis - x-ray toe with no evidence of osteomyelitis. CRP 4.7, ESR 47, no leukocytosis. -Seen by orthopedics-underwent bedside debridement, cultures pending. Per orthopedics, it is possible to save her toe right now, there is no signs of osteomyelitis and recommended IV antibiotics and wound care for now. - Continue wound care -Continue empiric antibiotics pending culture results Acute DVT/PE- PE likely from DVT. PE/DVT diagnosed recently as outpatient and on Eliquis since 07/04/21. Continue Eliquis 10 mg twice daily until 07/11 followed by 5 mg twice daily - first episode, unprovoked, hemodynamically stable, saturating well in room air - No personal history of malignancy but she is not up to date with screening tests- mammo, pap smear and colonoscopy. Recommended to follow up with PCP upon discharge to get completed - Echo with no right heart strain- EF 60-65%, RV size and function normal, no evidence of pulmonary hypertension - OP venous duplex 07/04 with partially occluding thrombus within paired left posterior tibial veins as well as partially occlusive thrombus within left greater saphenous vein. Subsequent OP CTA chest showed pulmonary embolism in right middle lobe lingula. Diabetes mellitus type 2-A1c 8.6. Hold home Jardiance. Continue insulin, will adjust as indicated. She has history of of hypoglycemia while self-administered insulin in 04/2021. Essential hypertension-stable, continue home amlodipine, losartan Adrenal nodule-incidental finding on CT scan. Outpatient CT chest showed bilateral adrenal nodules measuring up to 1.4 cm-recommended follow-up imaging in 12 months with adrenal protocol CT. Informed patient of the same. DVT prophylaxis-on Eliquis Disposition- MedSurg. Empiric antibiotics for diabetic toe ulcer-we will wait final culture results for antibiotic tailoring Admission and Anticipated Discharge Date Admission Date: July 05, 2021 Subjective Feels fine currently. Denies any fever, chills, chest pain, shortness of breath, nausea, vomiting. Her great toe was debrided at bedside today by ortho. Also seen by wound care. Pain controlled. Physical Exam Physical Exam: General: Sitting comfortably in bed, not in distress, on room air HEENT: EOMI, CM, MMM Chest: Clear breath sounds bilaterally, no wheezes or crackles CVS: Regular rate and rhythm, normal heart sounds, no murmur Abdomen: Soft, non tender, not distended, normal bowel sounds Neuro: Awake, alert, oriented, conversing well, non focal Extremities: No cyanosis, clubbing. left great toe debrided today and dressing intact. Reviewed wound pictures from the chart. Results & Data Results & Data ([facility]) Vital Signs (Past 12 Hours) Vital Signs Temp Pulse Pulse Resp BP Pulse Ox 07/06/21 14:47 62 07/06/21 08:30 60 07/06/21 07:25 36.8 C 66 16 124/72 95 07/06/21 04:23 60 07/06/21 03:53 36.7 C 72 20 154/72 H 99 Laboratory Results Short CBC 07/06/21 Range/Units 06:48 WBC 6.30 (4.8-10.8) K/uL Hgb 10.3 L (12.0-16.0) g/dL Hct 32.0 L (37-47) % Plt Count 270 (130-400) K/uL BMP 07/06/21 06:48 Sodium 138 Potassium 3.9 Chloride 111 H Carbon Dioxide 20 L BUN 22 Creatinine 1.00 Glucose 128 H Calcium 8.5 Cardiac Enzymes 07/05/21 Range/Units 19:07 Troponin I 0.09 H* (0-0.04) ng/ml Medications Administered Current Inpatient Medications Acetaminophen (Acetaminophen 325 Mg Tab) 650 mg PO Q4H PRN PRN Reason: Pain or Fever Stop: 08/04/21 16:03 Last Admin: 07/06/21 03:57 Dose: 650 mg Documented by: Amlodipine Besylate (Amlodipine Besylate 5 Mg Tab) 5 mg PO QAM [facility] Stop: 08/05/21 08:59 Last Admin: 07/06/21 08:43 Dose: 5 mg Documented by: Apixaban (Apixaban 5 Mg Tablet) 10 mg PO BID [facility] Stop: 07/11/21 09:01 Last Admin: 07/06/21 08:43 Dose: 10 mg Documented by: Dextrose (Dextrose 50% 50 Ml Syringe) 25 - 50 ml IV UD PRN; Protocol PRN Reason: Hypoglycemia Protocol Stop: 08/04/21 16:03 Doxycycline Hyclate (Doxycycline Hyclate 100 Mg Cap) 100 mg PO BID [facility] Stop: 07/12/21 17:59 Last Admin: 07/06/21 08:43 Dose: 100 mg Documented by: Glucagon (Glucagon For Inj 1 Mg Vial) 1 mg SQ UD PRN; Protocol PRN Reason: Hypoglycemia Protocol Stop: 08/04/21 16:03 Glucose (Glucose 10 Tabs/Tube) 4 - 8 tabs PO UD PRN; Protocol PRN Reason: Hypoglycemia Protocol Stop: 08/04/21 16:03 Glucose (Glucose 40% Gel 15 Gm Tube) 15 - 30 gm PO UD PRN; Protocol PRN Reason: Hypoglycemia Protocol Stop: 08/04/21 16:03 Cefepime HCl 2,000 mg/ Syringe 20 mls @ 5 mls/min IV Q8H [facility]; Protocol Stop: 07/12/21 16:03 Last Admin: 07/06/21 13:00 Dose: 5 mls/min Documented by: Insulin Aspart (Insulin Aspart Per Unit) 0 units SC ACHS [facility] Stop: 08/04/21 16:29 Last Admin: 07/06/21 11:51 Dose: 7 units Documented by: Losartan Potassium (Losartan Potassium 50 Mg Tab) 50 mg PO HS [facility] Stop: 08/04/21 20:59 Last Admin: 07/05/21 20:45 Dose: 50 mg Documented by: Metronidazole (Metronidazole 500 Mg Tab) 500 mg PO BID [facility] Stop: 07/12/21 17:59 Last Admin: 07/06/21 08:43 Dose: 500 mg Documented by: Miscellaneous (Carbohydrates For Hypoglycemia ) 15 - 30 gm PO UD PRN PRN Reason: Hypoglycemia Protocol Stop: 08/04/21 16:03 Ondansetron HCl (Ondansetron Inj 2 Mg/Ml 2 Ml Vial) 4 mg IV Q6H PRN PRN Reason: Nausea Stop: 08/04/21 16:03 Polyethylene Glycol (Polyethylene (Miralax) 17 Gm Pack) 17 gm PO DAILY PRN PRN Reason: Constipation Stop: 08/04/21 16:03
[2021-07-06] MEDS: LOSARTAN POTASSIUM 50 MG TAB PO SCH (21:15)
--- NOTE | 2021-07-07 05:55 | Electrocardiogram Report ---
Test Reason : Blood Pressure : / mmHG Vent. Rate : 068 BPM Atrial Rate : 068 BPM P-R Int : 118 ms QRS Dur : 098 ms QT Int : 398 ms P-R-T Axes : 026 019 019 degrees QTc Int : 423 ms Poor data quality, interpretation may be adversely affected Normal sinus rhythm Inferior infarct (cited on or before 25-APR-2021) Nonspecific T wave abnormality Abnormal ECG When compared with ECG of 25-APR-2021 18:23, Nonspecific T wave abnormality, worse in Anterolateral leads Confirmed by Maynor Balbuena ([id number]) on 07/07/2021 5:55:11 AM Referred By: Oriana Garcia Confirmed By:Maynor Balbuena
[2021-07-07 06:43] LABS: Basophils # (auto) 0.02 K/uL (0-0.2); Basophils % (auto) 0.3 %; Eosinophils # (auto) 0.07 K/uL (0-0.5); Eosinophils % (auto) 1.1 %; Hematocrit (blood only) 33.4 % (37-47); Hemoglobin 11.7 g/dL (12.0-16.0); Immature Granulocytes # (auto) 0.02 K/uL (0.00-0.02); Immature Granulocytes % (auto) 0.3 %; Lymphocytes # (auto) 1.27 K/uL (1.2-3.4); Lymphocytes % (auto) 20.3 %; Mean Corpuscular Hemoglobin 32.1 pg (25-34); Mean Corpuscular Volume 91.8 fL (80-100); Mean Platelet Volume 10.5 fL (7.4-10.4); Monocytes % (auto) 12.8 %; Neutrophils # (auto) 4.07 K/uL (1.4-6.5); Neutrophils % (auto) 65.2 %; Platelet Count 299 K/uL (130-400); RDW Coefficient of Variation 12.7 % (11.5-14.5); RDW Standard Deviation 42.8 fL (36.4-46.3); Red Blood Count 3.64 M/uL (4.2-5.4); White Blood Count 6.25 K/uL (4.8-10.8)
[2021-07-07 07:30] LABS: C Reactive Protein 3.24 mg/dl (0-0.5); Calcium 8.6 mg/dl (8.5-10.1); Creatinine Clr Calc Pharmacy 69.5 ml/min; Est GFR (African American) 71.9 ml/min; Est GFR (Non-African American) 62.1 ml/min
[2021-07-07] MEDS: DOXYCYCLINE HYCLATE 100 MG CAP PO SCH ×2 (08:18→21:05)
[2021-07-07] MEDS: CEFEPIME 2,000 MG in SYRINGE 0 ML IV SCH ×3 (08:18→21:03)
[2021-07-07] MEDS: metroNIDAZOLE 500 MG TAB PO SCH ×2 (08:18→21:06)
[2021-07-07] MEDS: amLODIPine BESYLATE 5 MG TAB PO SCH (08:18)
[2021-07-07] MEDS: APIXABAN 5 MG TABLET PO SCH ×2 (08:18→21:04)
[2021-07-07] MEDS: INSULIN ASPART PER UNIT SC SCH ×4 (08:20→21:16)
--- NOTE | 2021-07-07 15:11 | Electrocardiogram Report ---
Test Reason : Blood Pressure : / mmHG Vent. Rate : 063 BPM Atrial Rate : 063 BPM P-R Int : 130 ms QRS Dur : 094 ms QT Int : 346 ms P-R-T Axes : -16 115 009 degrees QTc Int : 354 ms Normal sinus rhythm Left posterior fascicular block Inferior infarct (cited on or before 25-APR-2021) Abnormal ECG When compared with ECG of 05-JUL-2021 13:30, QT has shortened Confirmed by Maynor Balbuena ([id number]) on 07/07/2021 3:11:50 PM Referred By: Oriana Garcia Confirmed By:Maynor Balbuena
--- NOTE | 2021-07-07 17:56 | Hospitalist Progress Note ---
Date of Service July 07, 2021 Assessment & Plan (1) Diabetic ulcer of left great toe: (2) Pulmonary emboli: (3) Abnormal CT scan: (4) Diabetes mellitus, type II: (5) HTN (hypertension): Plan: 65-year-old female with history of diabetes and hypertension, recently diagnosed DVT and PE as outpatient and on Eliquis, presented to ED 07/05/21 with left great toe infection with swelling, discharge, fever and chills. Left great toe diabetic ulcer with cellulitis - x-ray toe with no evidence of osteomyelitis. CRP 4.7, ESR 47, no leukocytosis. CRP improving -Seen by orthopedics-underwent bedside debridement 07/06, cultures pending. Per orthopedics, it is possible to save her toe right now, there is no signs of osteomyelitis and recommended IV antibiotics and wound care for now. - Continue wound care -Continue empiric antibiotics pending culture results- showing staphylococcus so far Acute DVT/PE- PE likely from DVT. PE/DVT diagnosed recently as outpatient and on Eliquis since 07/04/21. Continue Eliquis 10 mg twice daily until 07/11 followed by 5 mg twice daily - first episode, unprovoked, hemodynamically stable, saturating well in room air - No personal history of malignancy but she is not up to date with screening tests- mammo, pap smear and colonoscopy. Recommended to follow up with PCP upon discharge to get completed - Echo with no right heart strain- EF 60-65%, RV size and function normal, no evidence of pulmonary hypertension - OP venous duplex 07/04 with partially occluding thrombus within paired left posterior tibial veins as well as partially occlusive thrombus within left greater saphenous vein. Subsequent OP CTA chest showed pulmonary embolism in right middle lobe lingula. Diabetes mellitus type 2-A1c 8.6. Hold home Jardiance. Continue insulin, will adjust as indicated. She has history of of hypoglycemia while self-administered insulin in 04/2021. Essential hypertension-stable, continue home amlodipine, losartan Adrenal nodule-incidental finding on CT scan. Outpatient CT chest showed bilateral adrenal nodules measuring up to 1.4 cm-recommended follow-up imaging in 12 months with adrenal protocol CT. Informed patient of the same. DVT prophylaxis-on Eliquis Disposition- MedSurg. Empiric antibiotics for diabetic toe ulcer-we will wait final culture results for antibiotic tailoring Admission and Anticipated Discharge Date Admission Date: July 05, 2021 Subjective No new issues. Still has some shortness of breath with exertion but saturating well in room air. No fever, chills, chest pain, nausea, vomiting. Physical Exam Physical Exam: General: Sitting comfortably in bed, not in distress, on room air HEENT: EOMI, CM, MMM Chest: Clear breath sounds bilaterally, no wheezes or crackles CVS: Regular rate and rhythm, normal heart sounds, no murmur Abdomen: Soft, non tender, not distended, normal bowel sounds Neuro: Awake, alert, oriented, conversing well, non focal Extremities: No cyanosis, clubbing. left great toe wound with dressing Results & Data Results & Data ([facility]) Vital Signs (Past 12 Hours) Vital Signs Temp Pulse Pulse Resp BP Pulse Ox 07/07/21 16:00 66 07/07/21 15:09 36.8 C 64 18 118/71 96 07/07/21 11:31 36.8 C 62 18 134/73 98 07/07/21 08:00 67 07/07/21 07:40 36.7 C 71 18 149/62 H 96 Laboratory Results Short CBC 07/07/21 Range/Units 06:13 WBC 6.25 (4.8-10.8) K/uL Hgb 11.7 L (12.0-16.0) g/dL Hct 33.4 L (37-47) % Plt Count 299 (130-400) K/uL BMP 07/07/21 06:13 Sodium 136 Potassium 4.0 Chloride 110 H Carbon Dioxide 20 L BUN 23 Creatinine 0.96 Glucose 125 H Calcium 8.6 Medications Administered Current Inpatient Medications Acetaminophen (Acetaminophen 325 Mg Tab) 650 mg PO Q4H PRN PRN Reason: Pain or Fever Stop: 08/04/21 16:03 Last Admin: 07/06/21 03:57 Dose: 650 mg Documented by: Amlodipine Besylate (Amlodipine Besylate 5 Mg Tab) 5 mg PO QAM [facility] Stop: 08/05/21 08:59 Last Admin: 07/07/21 08:18 Dose: 5 mg Documented by: Apixaban (Apixaban 5 Mg Tablet) 10 mg PO BID [facility] Stop: 07/11/21 09:01 Last Admin: 07/07/21 08:18 Dose: 10 mg Documented by: Dextrose (Dextrose 50% 50 Ml Syringe) 25 - 50 ml IV UD PRN; Protocol PRN Reason: Hypoglycemia Protocol Stop: 08/04/21 16:03 Doxycycline Hyclate (Doxycycline Hyclate 100 Mg Cap) 100 mg PO BID [facility] Stop: 07/12/21 17:59 Last Admin: 07/07/21 08:18 Dose: 100 mg Documented by: Glucagon (Glucagon For Inj 1 Mg Vial) 1 mg SQ UD PRN; Protocol PRN Reason: Hypoglycemia Protocol Stop: 08/04/21 16:03 Glucose (Glucose 10 Tabs/Tube) 4 - 8 tabs PO UD PRN; Protocol PRN Reason: Hypoglycemia Protocol Stop: 08/04/21 16:03 Glucose (Glucose 40% Gel 15 Gm Tube) 15 - 30 gm PO UD PRN; Protocol PRN Reason: Hypoglycemia Protocol Stop: 08/04/21 16:03 Cefepime HCl 2,000 mg/ Syringe 20 mls @ 5 mls/min IV Q8H [facility]; Protocol Stop: 07/12/21 16:03 Last Admin: 07/07/21 14:19 Dose: 5 mls/min Documented by: Insulin Aspart (Insulin Aspart Per Unit) 0 units SC ACHS [facility] Stop: 08/04/21 16:29 Last Admin: 07/07/21 17:30 Dose: Not Given Documented by: Losartan Potassium (Losartan Potassium 50 Mg Tab) 50 mg PO HS [facility] Stop: 08/04/21 20:59 Last Admin: 07/06/21 21:15 Dose: 50 mg Documented by: Metronidazole (Metronidazole 500 Mg Tab) 500 mg PO BID [facility] Stop: 07/12/21 17:59 Last Admin: 07/07/21 08:18 Dose: 500 mg Documented by: Miscellaneous (Carbohydrates For Hypoglycemia ) 15 - 30 gm PO UD PRN PRN Reason: Hypoglycemia Protocol Stop: 08/04/21 16:03 Ondansetron HCl (Ondansetron Inj 2 Mg/Ml 2 Ml Vial) 4 mg IV Q6H PRN PRN Reason: Nausea Stop: 08/04/21 16:03 Last Admin: 07/07/21 16:53 Dose: 4 mg Documented by: Polyethylene Glycol (Polyethylene (Miralax) 17 Gm Pack) 17 gm PO DAILY PRN PRN Reason: Constipation Stop: 08/04/21 16:03
[2021-07-07] MEDS: LOSARTAN POTASSIUM 50 MG TAB PO SCH (21:05)
[2021-07-08] MEDS: CEFEPIME 2,000 MG in SYRINGE 0 ML IV SCH (06:16)
[2021-07-08] MEDS: INSULIN ASPART PER UNIT SC SCH ×4 (08:22→21:07)
[2021-07-08] MEDS: DOXYCYCLINE HYCLATE 100 MG CAP PO SCH ×2 (08:25→21:10)
[2021-07-08] MEDS: APIXABAN 5 MG TABLET PO SCH ×2 (08:25→21:10)
[2021-07-08] MEDS: amLODIPine BESYLATE 5 MG TAB PO SCH (08:25)
[2021-07-08] MEDS: metroNIDAZOLE 500 MG TAB PO SCH (08:26)
--- NOTE | 2021-07-08 11:02 | Progress Notes ---
DATE OF NOTE: 07/08/2021 SUBJECTIVE: A 65-year-old female admitted with a DVT and PE with a diabetic great toe ulcer. There h as been no major interval change. The cellulitis seems to be improving. She once again has no signi ficant pain. OBJECTIVE: Physical examination of the foot reveals the cellulitis to be resolved. She does have th is plantar ulcer, which looks clean. It does look like it has potential to heal. She has got diffus e decreased sensation. ASSESSMENT: A 65-year-old female, diabetic, admitted with a deep venous thrombosis and pulmonary emb olism with a great toe ulcer. The wound in the roof has been debrided. It looks clean. It does loo k like it has potential to heal. I do not think there is any obvious underlying bone infection. The re is no pus or purulence. No surgical indication at this time. PLAN: At this point, I would recommend she try and limit weightbearing on this foot as much as possi ble. She should have routine wound care as per the wound clinic. She can follow up in the wound cli heather. There is no need for further orthopedic followup at this point. If things get worse or change, let me know. We are going to sign off for now. Job ID: [id number]
--- NOTE | 2021-07-08 15:51 | Hospitalist Progress Note ---
Date of Service July 08, 2021 Assessment & Plan (1) Diabetic ulcer of left great toe: (2) Pulmonary emboli: (3) Abnormal CT scan: (4) Diabetes mellitus, type II: (5) HTN (hypertension): Plan: 65-year-old female with history of diabetes and hypertension, recently diagnosed DVT and PE as outpatient and on Eliquis, presented to ED 07/05/21 with left great toe infection with swelling, discharge, fever and chills. Left great toe diabetic ulcer - x-ray toe with no evidence of osteomyelitis. CRP 4.7, ESR 47, no leukocytosis. CRP improving -Seen by orthopedics-underwent bedside debridement 07/06, cultures show Staph aureus sensitive to doxy, blood clx negative. - Ortho signed off. Discussed with ortho- recommended local wound care, low tide CAM boot and limiting weight bearing with Left foot to allow for wound healing otherwise patient might need toe amputation. Ok for po antibiotics. - Will discontinue cefepime/flagyl as cellulitis seems resolved, wound is well healing and only staph identified in cultures. Will monitor - Continue local wound care per RN - PT/OT eval Acute DVT/PE- PE likely from DVT. PE/DVT diagnosed recently as outpatient and on Eliquis since 07/04/21. Continue Eliquis 10 mg twice daily until 07/11 followed by 5 mg twice daily - first episode, unprovoked, hemodynamically stable, saturating well in room air - No personal history of malignancy but she is not up to date with screening tests- mammo, pap smear and colonoscopy. Recommended to follow up with PCP upon discharge to get completed - Echo with no right heart strain- EF 60-65%, RV size and function normal, no evidence of pulmonary hypertension - OP venous duplex 07/04 with partially occluding thrombus within paired left posterior tibial veins as well as partially occlusive thrombus within left greater saphenous vein. Subsequent OP CTA chest showed pulmonary embolism in right middle lobe lingula. Diabetes mellitus type 2-A1c 8.6. Hold home Jardiance. Continue insulin, will adjust as indicated. She has history of of hypoglycemia while self-administered insulin in 04/2021. Essential hypertension-stable, continue home amlodipine, losartan Adrenal nodule-incidental finding on CT scan. Outpatient CT chest showed bilateral adrenal nodules measuring up to 1.4 cm-recommended follow-up imaging in 12 [address] with [address]. Informed patient of the same. [facility] Pending PT/OT evaluation. Admission and Anticipated Discharge Date Admission Date: July 05, 2021 Subjective No new issues. No fever, chills, chest pain, shortness of breath, nausea, vomiting. Wound healing and does not look infected. Physical Exam Physical Exam: General: Sitting comfortably in bed, not in distress, on room air HEENT: EOMI, CM, MMM Chest: Clear breath sounds bilaterally, no wheezes or crackles CVS: Regular rate and rhythm, normal heart sounds, no murmur Abdomen: Soft, non tender, not distended, normal bowel sounds Neuro: Awake, alert, oriented, conversing well, non focal Extremities: No cyanosis, clubbing. left great toe wound healing- does not look infected Results & Data Results & Data ([facility]) Vital Signs (Past 12 Hours) Vital Signs Temp Pulse Resp BP Pulse Ox 07/08/21 15:21 36.9 C 64 17 110/69 97 07/08/21 11:45 36.7 C 60 17 133/71 97 07/08/21 07:52 36.6 C 66 19 127/73 95 Medications Administered Current Inpatient Medications Acetaminophen (Acetaminophen 325 Mg Tab) 650 mg PO Q4H PRN PRN Reason: Pain or Fever Stop: 08/04/21 16:03 Last Admin: 07/06/21 03:57 Dose: 650 mg Documented by: Amlodipine Besylate (Amlodipine Besylate 5 Mg Tab) 5 mg PO QAM [facility] Stop: 08/05/21 08:59 Last Admin: 07/08/21 08:25 Dose: 5 mg Documented by: Apixaban (Apixaban 5 Mg Tablet) 10 mg PO BID [facility] Stop: 07/11/21 09:01 Last Admin: 07/08/21 08:25 Dose: 10 mg Documented by: Dextrose (Dextrose 50% 50 Ml Syringe) 25 - 50 ml IV UD PRN; Protocol PRN Reason: Hypoglycemia Protocol Stop: 08/04/21 16:03 Doxycycline Hyclate (Doxycycline Hyclate 100 Mg Cap) 100 mg PO BID [facility] Stop: 07/12/21 17:59 Last Admin: 07/08/21 08:25 Dose: 100 mg Documented by: Glucagon (Glucagon For Inj 1 Mg Vial) 1 mg SQ UD PRN; Protocol PRN Reason: Hypoglycemia Protocol Stop: 08/04/21 16:03 Glucose (Glucose 10 Tabs/Tube) 4 - 8 tabs PO UD PRN; Protocol PRN Reason: Hypoglycemia Protocol Stop: 08/04/21 16:03 Glucose (Glucose 40% Gel 15 Gm Tube) 15 - 30 gm PO UD PRN; Protocol PRN Reason: Hypoglycemia Protocol Stop: 08/04/21 16:03 Insulin Aspart (Insulin Aspart Per Unit) 0 units SC ACHS [facility] Stop: 08/04/21 16:29 Last Admin: 07/08/21 12:27 Dose: 6 units Documented by: Losartan Potassium (Losartan Potassium 50 Mg Tab) 50 mg PO HS [facility] Stop: 08/04/21 20:59 Last Admin: 07/07/21 21:05 Dose: 50 mg Documented by: Miscellaneous (Carbohydrates For Hypoglycemia ) 15 - 30 gm PO UD PRN PRN Reason: Hypoglycemia Protocol Stop: 08/04/21 16:03 Ondansetron HCl (Ondansetron Inj 2 Mg/Ml 2 Ml Vial) 4 mg IV Q6H PRN PRN Reason: Nausea Stop: 08/04/21 16:03 Last Admin: 07/07/21 16:53 Dose: 4 mg Documented by: Polyethylene Glycol (Polyethylene (Miralax) 17 Gm Pack) 17 gm PO DAILY PRN PRN Reason: Constipation Stop: 08/04/21 16:03
[2021-07-08] MEDS: LOSARTAN POTASSIUM 50 MG TAB PO SCH (21:10)
[2021-07-09 06:21] LABS: Basophils # (auto) 0.02 K/uL (0-0.2); Basophils % (auto) 0.3 %; Eosinophils # (auto) 0.16 K/uL (0-0.5); Eosinophils % (auto) 2.6 %; Hematocrit (blood only) 33.3 % (37-47); Hemoglobin 10.9 g/dL (12.0-16.0); Immature Granulocytes # (auto) 0.02 K/uL (0.00-0.02); Immature Granulocytes % (auto) 0.3 %; Lymphocytes # (auto) 1.53 K/uL (1.2-3.4); Lymphocytes % (auto) 24.4 %; Mean Corpuscular Hemoglobin 30.4 pg (25-34); Mean Corpuscular Hgb Conc 32.7 g/dL (32-36); Mean Corpuscular Volume 92.8 fL (80-100); Mean Platelet Volume 9.8 fL (7.4-10.4); Monocytes % (auto) 14.4 %; Neutrophils # (auto) 3.64 K/uL (1.4-6.5); Platelet Count 316 K/uL (130-400); RDW Coefficient of Variation 12.8 % (11.5-14.5); RDW Standard Deviation 43.7 fL (36.4-46.3); Red Blood Count 3.59 M/uL (4.2-5.4); White Blood Count 6.27 K/uL (4.8-10.8)
[2021-07-09 06:41] LABS: BUN Creatinine Ratio 30.7 (10-20); C Reactive Protein 1.42 mg/dl (0-0.5); Calcium 8.9 mg/dl (8.5-10.1); Creatinine Clr Calc Pharmacy 75.6 ml/min; Est GFR (African American) 79.9 ml/min; Est GFR (Non-African American) 68.9 ml/min; Potassium 4.5 mmol/L (3.5-5.1)
[2021-07-09] MEDS: INSULIN ASPART PER UNIT SC SCH ×2 (08:00→12:17)
[2021-07-09] MEDS: APIXABAN 5 MG TABLET PO SCH (08:02)
[2021-07-09] MEDS: amLODIPine BESYLATE 5 MG TAB PO SCH (08:02)
[2021-07-09] MEDS: DOXYCYCLINE HYCLATE 100 MG CAP PO SCH (08:02)
--- NOTE | 2021-07-09 17:48 | Discharge Summary ---
Date of Service July 09, 2021 Admission HPI Per Admitting Provider Chief Complaint: Abnormal CT scan Primary Care Provider: Juan Gold MD Patient is 65-year-old female with PMH DM II, HTN presented to ER for abnormal outpatient CTA chest today with findings of PE. Outpatient records, labs, and imaging reviewed and found the following. Patient presented to PCPs office yesterday 07/04/2021 for reported chills, nausea, left toe infection, left leg swelling. She reports past week not been feeling well, feeling nauseated and having chills. States 2 days ago fever 103F. She reports 4 days ago popped area with tweezers on left great toe and had foul-smelling drainage. Patient reports left great toe has been red and swollen for past week. Several days having aching to left leg and noticed left leg swollen. She reports that has been having SOB and chest discomfort with exertion and deep breathing intermittently over the past week. She reports she has been sitting around most the week as she has not been feeling well. Also reports dry cough. Denies any hemoptysis. She reports has noticed lump to anterior chest wall for weeks that is sometimes tender. Denies diaphoresis, V/D/C, CRUZ, dizziness, syncope, vision changes, neck pain, orthopnea, palpitations, cough, sore throat, choking, otalgia, rhinorrhea, abdominal pain, paresthesias, weakness, extremity weakness, other extremity edema, rashes, urinary symptoms. Denies history DVT or PE in past. She had outpatient venous duplex left lower extremity on 07/04/2021 that showed "partially occluding thrombus within the paired left posterior tibial veins as well as partially occlusive thrombus within the left greater saphenous vein". Patient was started on Eliquis. She reports had dose Eliquis this morning. Today she had outpatient CTA chest that showed "Pulmonary emboli visualized in the right middle lobe lingula. 1.6 x 2.3 cm subcutaneous nodule in the right paramidline anterior chest wall. Correlation with direct visualization is recommended for possible sebaceous cyst. Bilateral adrenal nodules measuring up to 1.4 cm. Lacking any personal history of malignancy, follow-up imaging can be obtained in 12 months with [address] Today in ER patient vitals stable, no hypoxia. No leukocytosis. Troponin: 0.09. EKG Q waves in lead III (seen on prior EKG 04/2021), T wave inversion anterior and lateral leads. CRP: 4.7, ESR: 47. Toe x-ray: No osteomyelitis noted. Principal Diagnosis General: no distress, obese Head: normocephalic, atraumatic Eyes: conjunctiva non-injected, anicteric ENT: normal inspection external ears, nose, mucous membranes moist Neck: supple, trachea midline Lungs: clear, no respiratory distress, no wheezing/rhonchi/rales, sats 98% on RA CV: RRR, no murmur, no JVD Abd: protuberant, normal BS, soft, non-tender Ext: no cyanosis. LLE: +edema leg. left great toe with edema and erythema extending to MCP, +ulcer noted to medial aspect left great toe and +ulcer noted to plantar aspect left great toe Neuro: A&O x 3, no focal deficits noted, normal affect Skin: warm, dry Discharge Exam General: Lying comfortably in bed, not in distress, on room air HEENT: EOMI, CM, MMM Chest: Clear breath sounds bilaterally, no wheezes or crackles CVS: Regular rate and rhythm, normal heart sounds, no murmur Abdomen: Soft, non tender, not distended, normal bowel sounds Neuro: Awake, alert, oriented, conversing well, non focal Extremities: No cyanosis, clubbing or edema. Left toe ulcer covered with dressing, LLE with CAM boot. Discharge Data Allergies Allergy/AdvReac Type Severity Reaction Status Date / Time lisinopril Allergy Intermediate cough Verified 07/05/21 13:41 Penicillins Allergy Unknown HAPPENED Verified 07/05/21 13:41 A SMALL CHILD--CAN'T REMEMBER Consultations 07/05/21 14:35 ED Decision to Admit Stat 07/05/21 15:44 Consult Orthopedic Surgery Routine Hospital Course (1) Diabetic ulcer of left great toe: (2) Pulmonary emboli: (3) Abnormal CT scan: (4) Diabetes mellitus, type II: (5) HTN (hypertension): 65-year-old female with history of diabetes and hypertension, recently diagnosed DVT and PE as outpatient and on Eliquis, presented to ED 07/05/21 with left great toe infection with swelling, discharge, fever and chills. Left great toe diabetic ulcer - x-ray toe with no evidence of osteomyelitis. no leukocytosis. CRP improving -Seen by orthopedics-underwent bedside debridement 07/06, cultures show Staph aureus sensitive to doxy, blood clx negative. Initially on cefepime/flagyl which were discontinued. - Ortho signed off. Discussed with ortho- recommended local wound care, low tide CAM boot and limiting weight bearing with Left foot to allow for wound healing otherwise patient might need toe amputation. - Continue doxy to complete antibiotic course. At this point, mild cellulitis is resolved and wound looks superficial,dry and healing. Continue wound care and follow up with PCP/wound care. - CAM boot and mtz provided to help offload pressure on Left foot. States she is going to take time off of work so her wound can heal. Follow up with orthopedics. Acute DVT/PE- PE likely from DVT. PE/DVT diagnosed recently as outpatient and on Eliquis since 07/04/21. Continue Eliquis 10 mg twice daily until 07/11 followed by 5 mg twice daily - first episode, unprovoked, hemodynamically stable, saturating well in room air - No personal history of malignancy but she is not up to date with screening tests- mammo, pap smear and colonoscopy. Recommended to follow up with PCP upon discharge to get completed - Echo with no right heart strain- EF 60-65%, RV size and function normal, no evidence of pulmonary hypertension - OP venous duplex 07/04 with partially occluding thrombus within paired left posterior tibial veins as well as partially occlusive thrombus within left greater saphenous vein. Subsequent OP CTA chest showed pulmonary embolism in right middle lobe lingula. Diabetes mellitus type 2-A1c 8.6. Continue Jardiance. F/u with PCP for further management. Essential hypertension-stable, continue home amlodipine, losartan Adrenal nodule-incidental finding on CT scan. Outpatient CT chest showed bilateral adrenal nodules measuring up to 1.4 cm-recommended follow-up imaging in 12 [address] Informed patient of the same. Total Time Total Time Spent Total Time Spent (In Minutes): 40 Discharge Plan Discharge Items Patient Disposition: Home - Self-Care Reason For Visit: CT SCAN SHOWED BLOOD CLOTS IN LUNGS SENT BY PCP Discharge Diagnosis: Left great toe ulcer Activity: As commented below Activity Comment: Offload weight on your left toe to allow wound healing Non-emergency contact: Primary Care Provider Call non-emergency contact if: you have any medication questions, your symptoms worsen, your pain is concerning for you, you have a fever, your wound has increased redness, your wound has increased drainage and your wound pain has increased Follow-up/Referrals: Juan Gold MD [Primary Care Provider] - Diet: Carb Consistent or DM2 Addtl Attending Provider Instructions: Recommend offloading weight on your left foot for about 3 weeks to allow wound healing. Recommend staying off of work until then. If your wound worsen, you might need amputation. Continue the antibiotic. Continue the wound care as per instructions Follow up with family doctor in a week to ensure wound is healing well. See the wound care nurses. Continue eliquis two pills twice daily until 07/11 and then one pill twice daily Pending Studies at Discharge: No Stand-Alone Forms: My [facility] [employer] Smoking Cessation Medications and DC Order Prescriptions: New doxycycline hyclate 100 mg Capsule 100 mg PO BID 14 Days Qty: 20 RF: 0 Continued amlodipine [Norvasc] 5 mg Tablet 5 mg PO QAM 30 Days Qty: 30 RF: 2 losartan 50 mg Tablet 50 mg PO HS 30 Days Qty: 30 RF: 2 Jardiance 10 mg tablet 10 mg PO QAM 30 Days Qty: 30 RF: 2 acetaminophen 650 mg Tablet Extended Release 650 mg PO DIRECTED PRN (Reason: Pain) Qty: 0 RF: 0 Eliquis 5 mg tablet 5 mg PO DAILY RF: 0 Eliquis 5 mg tablet 10 mg PO BID RF: 0 Discontinued doxycycline hyclate 100 mg capsule 100 mg PO BID RF: 0 Discharge Orders: Discharge Order (Routine); Ordered 07/09/21 Ordered By: Iván Ramos/Other Patient Handouts: Managing Type 2 Diabetes, Embolism Pulmonary Dc Admission Data Admit Date/Time: 07/05/21 14:57 Attending Provider: Iván Batista Admit Provider: Benito Urbina Primary Care Provider: Juan Gold Other Providers: Benito Urbina ; Jay Roque Other Interventions: Discharge Summary Assessment (RN) Last Done: 07/09/21 13:48
== END 2021-07-09 15:57 | disposition home or self-care (01) | DRG 637 ==
LOC: ED 12:29 → SUATTDRO 14:57 → EDINP 14:57 → 2S 16:03

== ENCOUNTER 2022-01-23 06:49 | Observation (INO) ==
[2022-01-23] MEDS ORDERED: MIDAZOLAM HCL 1 MG/ML 2ML VIAL ONE (07:43)
[2022-01-23] MEDS ORDERED: fentaNYL citrate 100 MCG/2 ML VIAL ONE (07:43)
[2022-01-23] MEDS ORDERED: HEPARIN (PORCINE) 1000 UNIT/ML 10 ML (CATH LAB USE ONLY) ONE ×2 (07:43→09:48)
[2022-01-23] MEDS ORDERED: niCARdipine HCL INJ 2.5 MG/ML 10 ML AMP ONE (07:43)
[2022-01-23] MEDS ORDERED: NITROGLYCERIN/D5W 100MCG/ML 20ML SYR ONE (07:44)
--- NOTE | 2022-01-23 08:15 | History & Physical Bridge Note ---
Date of Service January 23, 2022 History & Physical Bridge Note I have examined the patient, reviewed the History & Physical and in the interval since the performance of the History & Physical I have noted the following changes of clinical significance: no changes noted I have explained the risk, benefit and intent of the procedure to the patient and she is willing to proceed.
--- NOTE | 2022-01-23 08:16 | Pre Anesthesia Assessment ---
Date of Service January 23, 2022 Pre Sedation Assessment Vital Signs Temp Pulse Resp BP Pulse Ox 01/23/22 06:51 36.7 C 68 20 196/92 H 97 Pre-Sedation Airway Assessment Smoking Status: Never smoker Hx Sleep Apnea: No Short, Thick Neck: No Thyromental Distance: > or= 3.5 Finger Breadths Oral Cavity: + WNL Mallampati Class: III ASA: ASA3 NPO Status Date of Last Intake of Fluids: 01/23/22 Time of Last Intake of Fluids: 05:30 Date of Last Intake of Solid Food: 01/22/22 Time of Last Intake of Solid Foods: 21:30 Notes The planned sedation has been discussed with the patient. Informed Consent was obtained. I have identified the patient, determined the appropriateness of sedation and have assessed the patient immediately prior to the procedure. All medicine(s) and interventions are by my order.
--- NOTE | 2022-01-23 09:03 | Cardiac Catheterization ---
Date of Service January 23, 2022 Cardiac Cath Report Cardiac Cath Report Procedure: 1. Coronary angiography History: This is a 66-year-old female diabetic with no prior history of heart disease. Earlier this year she did have a DVT with a pulmonary emboli and was treated for several months with anticoagulation which was stopped about a month ago. She has had no reoccurrence. She has been having some atypical chest pain and shortness of breath with activity. She underwent a pharmacologic nuclear stress test that was positive suggesting ischemia in the inferior myocardium. The patient was referred for cardiac catheterization. Procedure summary: After informed consent was obtained the patient was taken the cardiac catheterization lab where access was obtained using a retrograde Salinger technique from the right radial artery. Preformed 5 Sami diagnostic catheters were utilized for the coronary angiograms. Following the procedure the patient underwent coronary intervention. ACC data: Start time 8:31 AM End time 8:48 AM Opening aortic pressure 132/71 Closing aortic pressure 132/69 LV pressurevalve not crossed Sedation 1 mg intravenous Versed IV fluid 53 cc normal saline Contrast Optiray 74 cc Fluoroscopy time 10 minutes Radiation 781 mGy DAP 68.86 Russell per centimeter squared Right dominant system AUC score 9 Coronary angiography: Selective injections of the left coronary artery revealed the left main trunk to be widely patent. The left circumflex artery consist of a single large marginal branch which bifurcates and supplies most of the lateral myocardium. The left circumflex system reveals luminal regularities consistent with diffuse coronary artery disease which reaches a maximum in the midportion of the artery of 50 to 60%. The LAD is diffusely diseased. There is a 50 to 60% narrowing just after the takeoff of the first septal interventional physician. Distally the artery becomes atretic after bifurcating into 2 equal portions. There is a 90% distal stenosis of 1 of these branches. Selective injections of the right coronary artery reveal it to be diffusely diseased throughout its proximal and mid portion. Several areas of the right coronary artery reach an area of stenosis of 80 to 90%. The right coronary artery is dominant. Summary: The patient has diffuse coronary artery disease as expected in the diabetic. There are several areas of nonobstructive disease in the left coronary artery reaching 50 to 60% however, distally in a small caliber portion of the LAD there is a 90 to 95% stenoses. The right coronary artery is diffusely diseased in its proximal mid segment but several areas reaching 80 to 90% stenoses. Recommendations: The index artery based on the pharmacologic nuclear stress test would be the right coronary artery. The films will be reviewed by interventional cardiology for possible stent placement in the right coronary artery as feasible.
[2022-01-23] MEDS ORDERED: TICAGRELOR 90 MG TAB ONE (09:52)
[2022-01-23] MEDS ORDERED: hydrALAZINE HCL 20 MG/ML VIAL ONE (09:54)
[2022-01-23] MEDS ORDERED: LIDOCAINE 1% LOCAL 20 ML VIAL ONE (11:09)
--- NOTE | 2022-01-23 11:32 | Cardiac Catheterization ---
[facility] Data: Branch Lending Manager Cardiac Status Clinical evaluation leading to the procedure CAD Presenation: Positive Stress Test and Stable angina Stress Studies Past 6 Months: Yes Diagnostic Physicians Name: Jay Colón MD, PhD Closure Device Recommendations: PCI without planned CABG and Management Recommendatons (Dual antiplatelet therapy with Brilinta 90 mg p.o. twice daily and aspirin 81 mg daily. Guideline directed medical therapy per primary head refrigerating engineer.) Lesion Segment Name: Proximal to early distal RCA Culprit Artery: Yes Stenosis Prior to Rx (%): 80 to 90% Chronic Total Occlusion: No Pre-Procedure LUIS Flow: 2 Previously Treated Lesion: No Lesion Complexity: High/C Lesion Length (mm): 75 Thrombus Present: No Bifurcation Lesion: Yes Guidewire Across Lesion: Yes Cardiac Cath Procedure Full Procedure Date January 23, 2022 Pre-Procedure Diagnosis Pre-Procedure Diagnosis: Angina and Positive Stress Test AUC Score AUC Score: 7 Post-Procedure Diagnosis Post-Procedure Diagnosis: Severe CAD Procedure(s) Performed Procedure(s) Performed: Drug Eluting Stent (RCA) Third Mate Jay Colón MD, PhD Estimated Blood Loss Estimated Blood Loss: 10 ml Medication(s) Medication(s): Fentanyl, Heparin and Versed Summary of Findings Brief description: Patient was already shaved and prepped in a sterile fashion. Sedated with radial artery access status post diagnostic coronary angiography performed by Dr. Corey Ray. Please see Dr. Ray note. Patient was provided IV heparin after the ACT was checked and intermittently additional heparin provided as needed to maintain therapeutic ACT. Right coronary artery was engaged with a 6 Azeri JR4 guide catheter. We attempted to advance a [employer] universal guidewire catheter but were unsuccessful in passing it beyond the most distal portion of the lesion. This was therefore exchanged for a [employer] coronary guidewire and we were able to successfully cross the lesion and position the wire distally in the RCA. The proximal mid and early distal RCA were then predilated using a 2.0 x 12 mm PTCA balloon inflated multiple times. The balloon was then removed. A 2.25 x 23 mm Xience drug-eluting stent was then advanced and positioned across the lesion in the distal RCA with the proximal edge of the stent in the mid RCA. This was deployed at 9 mir of pressure. Stent balloon was removed and a 2.25 x 28 mm Xience drug-eluting stent was then advanced and positioned in the mid RCA with the distal edge just within the proximal portion of the first stent. This was then deployed at 9 mir. A second inflation was performed up to 10 mir. The stent balloon was then positioned across the overlap segment and inflated to 10 mir. Stent balloon was removed. A 2.25 x 8 mm Xience drug-eluting stent was then advanced through the 2 stents and positioned in an overlapped fashion in the distal RCA with its proximal portion just within the distal portion of the original stent. This was deployed at 9 mir. Stent balloon was then removed. Finally, a 2.5 x 18 mm Xience drug-eluting stent was advanced over the guidewire and positioned in the proximal RCA with its distal edge just within the proximal portion of the mid RCA stent. This was then deployed in an overlapping fashion at 14 mir. Stent balloon was removed and final angiography was performed in orthogonal views. The guidewire and guide catheter were removed. Radial artery sheath was removed. Patient received additional IV heparin and was provided Brilinta 180 mg p.o. Patient remained hemodynamically stable and asymptomatic. She was returned to the recovery area. This ended the case. PCI findings: Diffuse severe RCA stenosis of up to 80 to 90% is reduced to 0% residual stenosis post PCI with a long stent train tapering from 2.7 mm proximally to 2.25 mm distally. No evidence of dissection or perforation post PCI LUIS-3 flow post PCI Hemodynamics Rest Ao:: 152/80 mmHg, mean 106 mmHg Final Ao: 149/68 mmHg, mean 101 mmHg LV: Not performed Recommendations Recommendations: PCI without planned CABG and Management Recommendatons (Dual antiplatelet therapy with Brilinta 90 mg p.o. twice daily and aspirin 81 mg daily. Guideline directed medical therapy per primary head refrigerating engineer.) Radiation Exposure (mGy) 3964 mGy, fluoroscopy time 27 minutes Contrast (mls) 235 mL Anesthesia 1 mg IV Versed, 25 mcg IV fentanyl Procedural Complication(s) None Disposition Recovery Room\PACU I attest to the content of the Intraoperative Record and any orders documented therein. Any exceptions are noted below. [facility] Card Cath Procedure Codes Stenting Procedure 1: Cardiovascular Stent Procedures: 99640 Perc transcatheter placement of intracoronary stent(s), with ang PG Care Time/CCT Total # of Minutes Spent Total Time Spent with Patient: Total time spent is greater than 50% in coordination of care (as documented) at patient's floor/unit and/or counseling patient:
--- NOTE | 2022-01-23 11:52 | Post Anesthesia Assessment ---
Date of Service January 23, 2022 Post Sedation Assessment Vital Signs Temp Pulse Resp BP Pulse Ox O2 Del Method 01/23/22 11:35 36.5 C 66 18 128/57 L 99 Room Air 01/23/22 11:00 72 18 126/64 99 Room Air 01/23/22 10:45 68 18 136/78 100 Room Air 01/23/22 10:30 70 18 140/68 100 Room Air 01/23/22 10:15 75 18 136/73 100 Room Air 01/23/22 10:00 76 18 152/72 H 100 Room Air 01/23/22 06:51 36.7 C 68 20 196/92 H 97 Recovery Score Activity: Moves 4 extremities Respiration: Deep Breath/Cough Circulation: +/-20% PreAnes Value Consciousness: Fully Awake Oxygen Saturation: > 92% On Room Air Post Anesthesia Score: 10 Discharge Sedation Level of Care: Phase I Post Sedation Plan On clinical assessment, the patient appears to have tolerated the sedation without complications. Patient is recovering as anticipated. Patient will continue to be monitored by nursing and may be discharged when sedation discharge criteria are met per below protocol. Upon Completions of procedure up to 15 minutes continue every 5 minute vital signs and the P.A.R. score; then discharge to a Phase I or Fast Track to Phase II per the following guidelines: * Discharge Patient to appropriate Phase II area if PAR is 8 or greater or return to pre- procedure baseline. The post - procedure orders will be as directed. * If PAR score is less than 8 or not return to pre-procedure baseline then patient will follow Phase I monitoring till PAR is reached for Phase II. The Phase I may be done in procedure room or may call to secure a Phase I area. * If naloxone or flumazenil are used for reversal, hold in Phase I for continued monitoring from when last reversal dose was given for a minimum of 60 minutes or longer pending the nurse and/or physician discretion of patient condition before discharge to Phase II. Please call the Sedation Physician to re-evaluate and complete post-note for discharge to Phase II area. Do NOT discharge from procedure sedation or Phase 1 until post- sedation evaluation note is complete by procedure /sedation MD Sedation Discharge Instructions to be given to the patient at discharge to home. [facility] Procedure Codes (Charges) Sedation/Anesthesia Procedure 1: Total Sedation Time (minutes): 15
--- NOTE | 2022-01-23 12:50 | History & Physical Report ---
Date of Service January 23, 2022 Assessment & Plan (1) CAD (coronary artery disease): (2) H/O heart artery stent: (3) HTN (hypertension): Plan: - Admitted to PCU overnight - Continue Brilinta 90 mg BID, aspirin 81 mg daily as directed by cardiology - Cardiology consulted for further management - Follow troponins s/p cath - May continue HCTZ and losartan as directed by Cardiology - Check lipid panel, does not appear that she is on statin therapy prior to cath (4) History of pulmonary embolus (PE): Plan: - Hx of such, she has been off anticoagulation for about 1 month now - No respiratory symptoms, O2 sats at 96% on RA (5) Obesity, morbid, BMI 40.0-49.9: Plan: - Diet and exercise to be encouraged throughout hospital stay and upon discharge (6) Diabetes mellitus, type II: Plan: - Check A1C with am labs - Holding glimepiride and metformin - HH/DM diet - Will continue on ISS with accuchecks achs (7) Diabetic peripheral neuropathy associated with type 2 diabetes mellitus: Plan: - Hx of such DVT ppx: - teds, scds, brillinta and asa as above CODE: Full code Dispo: From home, likely to remain in the hospital x 1-2 days Admission and Anticipated Discharge Date Admission Date: January 23, 2022 History of Present Illness Chief Complaint: Angina Primary Care Provider: Juan Gold MD This is a 66 yo F with PMHx of DM without prior history of heart disease. Earlier this year she did have a DVT with a pulmonary emboli and was treated for several months with anticoagulation which was stopped about a month ago. She has had no reoccurrence. She has been having some atypical chest pain and shortness of breath with activity. She underwent a pharmacologic nuclear stress test that was positive suggesting ischemia in the inferior myocardium. The patient was referred for cardiac catheterization.There are several areas of nonobstructive disease in the left coronary artery reaching 50 to 60% however, distally in a small caliber portion of the LAD there is a 90 to 95% stenoses. The right coronary artery is diffusely diseased in its proximal mid segment but several areas reaching 80 to 90% stenoses. RCA was stented with ARTI x 3 in overlapping fashion by interventional cardiology today. Pt is doing well overall. She feels some heaviness in her chest which is mild, denies shortness of breath, chest pain or palpitations/flutter. She tolerated a gingerale without difficulty at bedside. Allergies Allergy/AdvReac Type Severity Reaction Status Date / Time lisinopril AdvReac Intermediate cough Verified 01/23/22 07:19 Home Medications Medication Instructions Recorded Confirmed Type losartan 50 mg tablet 50 mg PO HS 30 days #30 tabs 04/27/21 01/23/22 Rx gabapentin 100 mg capsule 300 mg PO TID 11/29/21 01/23/22 History glimepiride 4 mg tablet 4 mg PO QAM 11/29/21 01/23/22 History metformin 500 mg tablet,extended 1,000 mg PO BIDM 11/29/21 01/23/22 History release 24 hr hydrochlorothiazide 25 mg tablet 25 mg PO DAILY 01/23/22 01/23/22 History Past Med/Surg History Medical History (Updated 01/23/22 @ 13:45 by Bre Jurado PA-C) Diabetes mellitus, type II Diabetic peripheral neuropathy associated with type 2 diabetes mellitus History of DVT (deep vein thrombosis) 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 History of pulmonary embolus (PE) HTN (hypertension) Personal history of diabetic foot ulcer Surgical History (Updated 01/23/22 @ 12:54 by Bre Jurado PA-C) H/O section History of incision and drainage Abscess on Head Hx of tonsillectomy Family History Mother Coronary heart disease Father Coronary heart disease Deep vein thrombosis Sister Colorectal cancer Social History Smoking Status: Never smoker Second Hand Exposure: No; Hx Alcohol Use: Yes Alcohol type: wine Hx Substance Use: No Preferred Language: Ivorian Communication Ability: Effective Sewer Inspector Required: No Beliefs That Will Affect Care: None marital status: / Current Living Situation: Family Current Living Situation Comment: with daughter and grandchild current occupational status: employed current occupation: [employer] Feels Safe at Home: Yes caffeine: No during the past year weight has: remained stable Assistive Devices: None Review of Systems Review of Systems: Constitutional: No fever, sweats or chills Eyes: No diplopia, no worsening or blurred vision ENT: normal hearing, no trouble swallowing Respiratory: No cough, sputum, dyspnea at rest or on exertion Cardiovascular: No chest pain, tightness or palpitations Abdomen: No pain, nausea, vomiting, diarrhea or constipation Musculoskeletal: No joint pain, calf pain, swelling Neurologic: No weakness, numbness/tingling, or balance problems Psychiatric: No anxiety or depression Skin: No rash or itch Physical Exam Physical Exam: General: awake, alert, no apparent distress, obese with BMI of 40 Head: Normocephalic, atraumatic ENT: PERRL, EOMI, no pharyngeal exudate, mucous membranes moist Chest: Clear to auscultation, on room air, no adventitious breath sounds Cardiac: Regular rate and rhythm, no murmur, no JVD, normal peripheral pulses, good capillary refill Abdominal: NABS x 4 quadrants, soft, nondistended, nontender to palpation, no rebound or guarding Extremities: TR band on R wrist, otherwise normal inspection, + peripheral edema nonpitting slightly increased on the left compared to right, no erythema, calfs nontender to palpation Psych: Normal mood and affect Neuro: AAO x 3, strength intact bilaterally and rated 5/5, no motor deficits, speech is clear, no peripheral sensory deficits Results & Data Results & Data ([facility]) Vital Signs (Past 12 Hours) Vital Signs Temp Pulse Resp BP Pulse Ox O2 Del Method 01/23/22 12:15 64 18 131/80 96 Room Air 01/23/22 11:52 61 18 123/80 98 Room Air 01/23/22 11:35 36.5 C 66 18 128/57 L 99 Room Air 01/23/22 11:00 72 18 126/64 99 Room Air 01/23/22 10:45 68 18 136/78 100 Room Air 01/23/22 10:30 70 18 140/68 100 Room Air 01/23/22 10:15 75 18 136/73 100 Room Air 01/23/22 10:00 76 18 152/72 H 100 Room Air 01/23/22 06:51 36.7 C 68 20 196/92 H 97 Laboratory Results 01/23/22 01/23/22 01/23/22 09:45 09:25 08:59 Activ Coag Time Umair 219 H 219 H 196 H Code Status & VTE Plan Code Status Full code VTE Prophylaxis Plan VTE Prophylaxis will be ordered: Yes Supervising Physician Co-Signing Physician Notes Patient was seen and examined independently at bedside. Chart reviewed. Case discussed with Bre DELGADILLO and agree with the documentation above with regards to HPI, PE and A/P. In summary, this is a 66 year old female who presented for cardiac cath after OP positive stress test for stable angina. Found to have diffuse severe RCA stenosis of upto 80-90% which was stented x2. Also had non obstructive LCA with 50-60 % stenosis. Hospitalist service consulted for admission post cath. Has some pressure in chest but otherwise feels fine with no issues. Continue DAPT, serial trop, tele. Other medical conditions stable. Anticipate discharge tomorrow after cardio reeval. Rest as per the note above.
[2022-01-23] MEDS ORDERED: GLUCOSE 40% GEL 15 GM TUBE PO PRN (13:01)
[2022-01-23] MEDS ORDERED: GLUCOSE 10 TAB/TUBE PO PRN (13:01)
[2022-01-23] MEDS ORDERED: GLUCAGON FOR INJ 1 MG VIAL SQ PRN (13:01)
[2022-01-23] MEDS ORDERED: DEXTROSE 50% 50 ML SYRINGE IV PRN (13:01)
[2022-01-23] MEDS ORDERED: ACETAMINOPHEN 325 MG TAB PO PRN (13:01)
[2022-01-23] MEDS ORDERED: CARBOHYDRATES FOR HYPOGLYCEMIA PO PRN (13:01)
[2022-01-23] MEDS: GABAPENTIN 300 MG CAP PO SCH ×2 (14:20→20:18)
[2022-01-23] MEDS: INSULIN ASPART PER UNIT SC SCH ×2 (18:01→20:26)
[2022-01-23] MEDS: TICAGRELOR 90 MG TAB PO SCH (20:18)
[2022-01-23] MEDS ORDERED: LOSARTAN POTASSIUM 50 MG TAB PO SCH (21:00)
[2022-01-24 06:10] LABS: Hematocrit (blood only) 33.3 % (34.1-44.9); Hemoglobin 10.7 g/dl (12.0-16.0); Mean Corpuscular Hemoglobin 29.6 pg (25.0-34.0); Mean Corpuscular Hgb Conc 32.1 g/dL (32.0-36.0); Mean Platelet Volume 10.3 fL (9.4-12.3); Platelet Count 236 K/uL (130-400); RDW Coefficient of Variation 13.6 % (11.5-14.5); Red Blood Count 3.62 M/uL (3.93-5.22); White Blood Count 5.57 K/ul (4.8-10.8)
[2022-01-24 06:35] LABS: Albumin Globulin Ratio 1.3 (0.9-2); Albumin Level 3.3 gm/dl (3.4-5.0); BUN Creatinine Ratio 26.4 (10-20); Bilirubin,Total 0.5 mg/dl (0.2-1.0); Calcium 8.5 mg/dl (8.5-10.1); Chol HDL Ratio 3.9 (0-5); Creatinine Clr Calc Pharmacy 62.1 ml/min; Est GFR (African American) 63.4 ml/min; Est GFR (Non-African American) 54.7 ml/min; Globulin 2.5 gm/dl (2.5-4.0); Magnesium 1.6 mg/dl (1.7-2.4); Potassium 4.3 mmol/L (3.5-5.1); Total Protein 5.8 gm/dl (6.0-8.3)
[2022-01-24 07:26] LABS: Estimated Average Glucose 171 mg/dl; Hemoglobin A1C 7.6 % (4.5-5.6)
[2022-01-24] MEDS ORDERED: MAGNESIUM SULFATE / D5W 1 GM/100 ML BAG IV ONE (07:53)
--- NOTE | 2022-01-24 08:56 | Cardiology Consultation ---
Date of Consultation January 24, 2022 Assessment & Plan (1) CAD (coronary artery disease): (2) H/O heart artery stent: (3) Dyslipidemia: (4) HTN (hypertension): (5) Diabetes mellitus, type II: Plan 66-year-old female with no prior history of coronary artery disease initially presented with atypical chest pain and shortness of breath. Pharmacologic nuclear stress test was positive suggesting ischemia of the inferior myocardium. Cardiac catheterization showing diffuse disease, expected in a diabetic. There were several areas of nonobstructive disease in the left coronary artery reaching 50 to 60% however, distally in a small caliber portion of the LAD there is a 90 to 95% stenoses. The right coronary artery is diffusely diseased in its proximal mid segment but several areas reaching 80 to 90% stenoses. Status post PCI to the RCA with x4 ARTI in overlapping fashion by Dr. Aviles (2.25 x 23 mm, 2.25 x 28 mm 2.25 x 8 mm, 2.5 x 18 mm Xience). From a cardiac standpoint she is feeling well. No further episodes of angina or shortness of breath. -Patient should continue dual antiplatelet therapy with aspirin 81 mg daily and Brilinta 90 mg twice daily for minimum of 1 year. Due to her extensive stenting patient may benefit from long-term DAPT. -There was concern regarding cost when it comes to Brilinta. Case management referral placed to evaluate cost with insurance company. If patient is unable to afford can consider transitioning to Plavix. -Cholesterol: Triglycerides 165, total cholesterol 187, LDL 106, HDL 48. Goal LDL to be below 70. Recommend starting rosuvastatin 20 mg daily. -Blood pressure borderline controlled throughout current and past admissions. Future considerations of adding beta-ruth ann versus up titration of losartan. Will address as an outpatient. -Recommend aggressive diabetic management, hemoglobin A1c 7.6%. Case discussed with Dr. Hyatt. No further cardiac testing/intervention necessary at this time. Recommend following up as an outpatient in our cardiology office in 4 to 6 weeks. Supervising Physician Co-Signing Physician Notes Patient seen and examined with LEANDRA Butterfield. Agree with findings and assessment as above. Okay to DC to home. If Brilinta would be cost prohibitive can transition to Plavix. Follow-up as an outpatient with cardiology in 3 to 4 weeks. Patient declining cardiac rehab. History of Present Illness Reason for Consultation: Coronary artery disease Requesting Physician: Julio hospitalist Attending Physician: Becky Helm MD History of Present Illness This is a 66-year-old female diabetic with no prior history of heart disease. Earlier this year she did have a DVT with a pulmonary emboli and was treated for several months with anticoagulation (Coumadin) which was stopped about a month ago. No known recurrence. She was having some atypical chest pain and shortness of breath with activity. She underwent a pharmacologic nuclear stress test that was positive suggesting ischemia in the inferior myocardium. The patient was referred for cardiac catheterization with Dr. Ray on 01/23. Patient has diffuse coronary artery disease as expected in the diabetic. There were several areas of nonobstructive disease in the left coronary artery reaching 50 to 60% however, distally in a small caliber portion of the LAD there is a 90 to 95% stenoses. The right coronary artery is diffusely diseased in its proximal mid segment but several areas reaching 80 to 90% stenoses. Status post PCI to the RCA with x4 ARTI in overlapping fashion by Dr. Aviles (2.25 x 23 mm, 2.25 x 28 mm 2.25 x 8 mm, 2.5 x 18 mm Xience). Patient was loaded with Brilinta 01/24: Labs: Renal function stable, mag low (1.6)-replace Telemetry: Sinus rhythm 60s to 80s Upon entrance into the room patient resting in bed without acute concerns. States she is eager for discharge. Denies any further episodes of exertional chest discomfort. No shortness of breath. No palpitations, dizziness or syncope. No lower extremity edema. No orthopnea or PND. Patient voicing concerns regarding Brilinta cost, notes that she is in the donut hole and is concerned that she will not be able to afford it. Allergies Allergy/AdvReac Type Severity Reaction Status Date / Time lisinopril AdvReac Intermediate cough Verified 01/23/22 07:19 Home Medications Medication Instructions Recorded Confirmed Type losartan 50 mg tablet 50 mg PO HS 30 days #30 tabs 04/27/21 01/23/22 Rx gabapentin 100 mg capsule 300 mg PO TID 11/29/21 01/23/22 History glimepiride 4 mg tablet 4 mg PO QAM 11/29/21 01/23/22 History metformin 500 mg tablet,extended 1,000 mg PO BIDM 11/29/21 01/23/22 History release 24 hr hydrochlorothiazide 25 mg tablet 25 mg PO DAILY 01/23/22 01/23/22 History Patient History Medical History (Updated 01/24/22 @ 08:53 by ELANDRA Oron[place]) Diabetes mellitus, type II Diabetic peripheral neuropathy associated with type 2 diabetes mellitus History of DVT (deep vein thrombosis) 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 History of pulmonary embolus (PE) HTN (hypertension) Personal history of diabetic foot ulcer Surgical History (Updated 01/23/22 @ 12:54 by Bre Jurado PA-C) H/O section History of incision and drainage Abscess on Head Hx of tonsillectomy Family History Mother Coronary heart disease Father Coronary heart disease Deep vein thrombosis Sister Colorectal cancer Social History Smoking Status: Never smoker Second Hand Exposure: No; Hx Alcohol Use: Yes Alcohol type: wine Hx Substance Use: No Preferred Language: Pashto Communication Ability: Effective Manager Of Clinical Required: No Beliefs That Will Affect Care: None marital status: / Current Living Situation: Family Current Living Situation Comment: with daughter and grandchild current occupational status: employed current occupation: [employer] Feels Safe at Home: Yes caffeine: No during the past year weight has: remained stable Assistive Devices: None Review of Systems Review of Systems: All systems reviewed & are unremarkable except as noted in HPI & below Physical Exam Constitutional: WD/WN, vitals as above Eyes: PERRL, conjunctivae normal, anicteric sclerae Neck: normal visual inspection and trachea midline Respiratory: normal respiratory effort, lungs clear to auscultation Cardiovascular: RRR, no murmur, no edema Rate/Rhythm: regular rate and regular rhythm Heart Sounds: normal S1; no murmur Vessels: normal peripheral pulses and radial pulses present; no JVD Right radial cath access site dressing clean dry and intact. Good pulses. No numbness or tingling. Gastrointestinal (Abdomen): normal bowel sounds, soft, nontender, no hepatosplenomegaly Musculoskeletal: no cyanosis or clubbing, extremities motor strength 5/5 Skin: no rashes, warm and dry Psychiatric: A+Ox3, euthymic affect Results & Data ([facility]) Vital Signs (Past 12 Hours) Vital Signs Temp Pulse Pulse Resp BP Pulse Ox O2 Del Method 01/24/22 08:35 37.0 C 73 18 143/75 H 95 Room Air 01/24/22 03:37 36.8 C 68 18 127/72 96 Room Air 01/24/22 02:35 77 01/23/22 23:38 36.6 C 71 17 138/70 95 Room Air Laboratory Results Cardiac Enzymes 01/23/22 01/23/22 01/24/22 Range/Units 14:25 20:52 05:11 AST 15 (13-39) U/L Troponin I High Sens 20.8 H 56.3 H* D (0-14) pg/ml Lipids 01/24/22 Range/Units 05:11 Triglycerides 165 H (0-150) mg/dl Cholesterol 187 (0-200) mg/dl HDL Cholesterol 48 mg/dl Cholesterol/HDL Ratio 3.9 (0-5) CBC 01/24/22 Range/Units 05:11 WBC 5.57 (4.8-10.8) K/ul RBC 3.62 L (3.93-5.22) M/uL Hgb 10.7 L (12.0-16.0) g/dl Hct 33.3 L (34.1-44.9) % Plt Count 236 (130-400) K/uL Comprehensive Metabolic Panel 01/24/22 Range/Units 05:11 Sodium 138 (136-145) mmol/L Potassium 4.3 (3.5-5.1) mmol/L Chloride 108 H (98-107) mmol/L Carbon Dioxide 23 (21-32) mmol/L BUN 28 H (6-23) mg/dl Creatinine 1.06 (0.6-1.2) mg/dl Glucose 129 H (70-99(Fasting)) mg/dl Calcium 8.5 (8.5-10.1) mg/dl AST 15 (13-39) U/L ALT 12 (7-52) U/L Alkaline Phosphatase 76 (34-104) U/L Total Protein 5.8 L (6.0-8.3) gm/dl Albumin 3.3 L (3.4-5.0) gm/dl Intake and Output 01/23/22 01/24/22 01/24/22 22:59 06:59 14:59 Intake Total 990 / 990 0 / 990 Output Total Balance 989 / 989 0 / 989 Intake: Oral 990 / 990 0 / 990 Output: # Bowel Movements Other: # Unmeasured Voids 2
[2022-01-24] MEDS ORDERED: hydroCHLOROthiazide 25 MG TAB PO SCH (09:00)
[2022-01-24] MEDS ORDERED: ASPIRIN 81 MG ECTAB PO SCH (09:00)
[2022-01-24] MEDS: TICAGRELOR 90 MG TAB PO SCH (09:15)
[2022-01-24] MEDS: GABAPENTIN 300 MG CAP PO SCH (09:15)
[2022-01-24] MEDS: INSULIN ASPART PER UNIT SC SCH ×2 (09:17→12:03)
[2022-01-24] MEDS ORDERED: ROSUVASTATIN CALCIUM 20 MG TAB PO SCH (10:30)
--- NOTE | 2022-01-24 11:07 | Electrocardiogram Report ---
Test Reason : Blood Pressure : / mmHG Vent. Rate : 067 BPM Atrial Rate : 067 BPM P-R Int : 158 ms QRS Dur : 086 ms QT Int : 414 ms P-R-T Axes : 041 014 059 degrees QTc Int : 437 ms Normal sinus rhythm Possible Inferior infarct (cited on or before 25-APR-2021) Abnormal ECG When compared with ECG of 28-NOV-2021 22:41, T wave inversion now evident in Lateral leads Confirmed by Samir Pardo ([id number]) on 01/24/2022 11:06:38 AM Referred By: Axel Hyatt Confirmed By:Tanvir Pardo
--- NOTE | 2022-01-24 12:55 | Discharge Summary ---
Discharge Summary Date of Service January 24, 2022 Notes For Next Care Provider Patient is follow-up with cardiology. Continue management of chronic medical problems Medication Changes From Visit Discharged on aspirin 81 mg daily, Plavix 75 mg daily and rosuvastatin 20 mg daily Admission HPI Per Admitting Provider This is a 66 yo F with PMHx of DM without prior history of heart disease. Earlier this year she did have a DVT with a pulmonary emboli and was treated for several months with anticoagulation which was stopped about a month ago. She has had no reoccurrence. She has been having some atypical chest pain and shortness of breath with activity. She underwent a pharmacologic nuclear stress test that was positive suggesting ischemia in the inferior myocardium. The patient was referred for cardiac catheterization.There are several areas of nonobstructive disease in the left coronary artery reaching 50 to 60% however, distally in a small caliber portion of the LAD there is a 90 to 95% stenoses. The right coronary artery is diffusely diseased in its proximal mid segment but several areas reaching 80 to 90% stenoses. RCA was stented with ARTI x 3 in overlapping fashion by interventional cardiology today. Pt is doing well overall. She feels some heaviness in her chest which is mild, denies shortness of breath, chest pain or palpitations/flutter. She tolerated a gingerale without difficulty at bedside. Admission Exam Per Admitting Provider General: awake, alert, no apparent distress, obese with BMI of 40 Head: Normocephalic, atraumatic ENT: PERRL, EOMI, no pharyngeal exudate, mucous membranes moist Chest: Clear to auscultation, on room air, no adventitious breath sounds Cardiac: Regular rate and rhythm, no murmur, no JVD, normal peripheral pulses, good capillary refill Abdominal: NABS x 4 quadrants, soft, nondistended, nontender to palpation, no rebound or guarding Extremities: TR band on R wrist, otherwise normal inspection, + peripheral edema nonpitting slightly increased on the left compared to right, no erythema, calfs nontender to palpation Psych: Normal mood and affect Neuro: AAO x 3, strength intact bilaterally and rated 5/5, no motor deficits, speech is clear, no peripheral sensory deficits Principal Dx & Hospital Course #1 = Principal Diagnosis (1) CAD (coronary artery disease): (2) H/O heart artery stent: Patient was admitted for cardiac catheterization after abnormal stress test outpatient. Cardiac catheterization was notable for diffuse severe RCA stenosis up to 80 to 90% status post PCI Patient was started on aspirin and Brilinta as well as rosuvastatin. Initial plan was to discharge on Brilinta 90 mg twice daily. However, due to cost which is prohibitive for patient, this was changed to clopidogrel 75 mg daily. Patient was discharged on aspirin 81 mg daily, clopidogrel 75 mg daily [patient was advised to when to start this] and rosuvastatin 20 mg daily Patient is to follow-up with cardiology outpatient (3) HTN (hypertension): Continue losartan (4) History of pulmonary embolus (PE): History of PE She has been off anticoagulation for about 1 month now No respiratory symptoms, O2 sats at 96% on RA (5) Obesity, morbid, BMI 40.0-49.9: Lifestyle modification counseling provided (6) Diabetes mellitus, type II: (7) Diabetic peripheral neuropathy associated with type 2 diabetes mellitus: Hemoglobin A1c today 7.6. Patient to continue home glimepiride and metformin Discharge Exam Constitutional + well hydrated and + obese; no acute distress Eyes PERRL, conjunctivae normal, anicteric sclerae ENMT external ear and nose normal, oropharynx normal Respiratory normal respiratory effort, lungs clear to auscultation Cardiovascular Rate/Rhythm: regular rate and regular rhythm S1 S2 Gastrointestinal (Abdomen) normal bowel sounds, soft, nontender, no hepatosplenomegaly Musculoskeletal no cyanosis or clubbing, extremities motor strength 5/5 Neurologic PERRL, EOMI, accommodation nl, no face palsy, no dysarthria Psychiatric A+Ox3, euthymic affect Updated Medication List Medication Instructions Recorded Confirmed Type losartan 50 mg tablet 50 mg PO HS 30 days #30 tabs 04/27/21 01/23/22 Rx gabapentin 100 mg capsule 300 mg PO TID 11/29/21 01/23/22 History glimepiride 4 mg tablet 4 mg PO QAM 11/29/21 01/23/22 History metformin 500 mg tablet,extended 1,000 mg PO BIDM 11/29/21 01/23/22 History release 24 hr hydrochlorothiazide 25 mg tablet 25 mg PO DAILY 01/23/22 01/23/22 History aspirin 81 mg tablet,delayed 81 mg PO QAM #90 tabs 01/24/22 Rx release clopidogrel 75 mg tablet 75 mg PO DAILY #90 tabs 01/24/22 Rx rosuvastatin 20 mg tablet (Crestor) 20 mg PO QAM #90 tabs 01/24/22 Rx Hospital Stay Data Consultations 01/23/22 10:05 Consult Cardiac Rehabilitation Routine Procedures Performed Operation Date: 01/23/22 08:00 Actual Procedures s Cineradiography w/Routine Exam - Corey Ray, DO p Cath, Coronaries ONLY (no LV) - Corey Ray, DO p Drug Eluting Stent SGl Vessel - Jay Colón MD, PhD Diagnostic Imagining Performed 01/23/22 07:06 CL Cath Imgs for PACS use only Urgent Pending Results Patient Have Any Pending Studies at Discharge: No Discharge Instructions Given to Patient (Per Discharging Provider) Mrs Moses You came to the hospital after an abnormal stress test. You had cardiac catheterization and was found to have coronary artery disease. You got stents put in by Interior Design Professional. You are being discharged on new medicationss: - Aspirin 81mg daily - Clopidogrel 75mg daily - Rosuvastatin 20mg daily Please continue taking your diabetes medications Please ensure follow up with [employer] and Primary Doctor. It was a pleasure taking care of you. Total Time Total Time Spent Total Time Spent (In Minutes): 45 Total Time Includes: Examination of the Patient, Discharge Planning, Medication Reconciliation and Communication With Other Providers
== END 2022-01-24 14:33 | disposition home or self-care (01) ==
LOC: CC 06:49 → 4W 06:49 → SUATTDRO 09:59
PROC: CLB.CCO (2022-01-23 08:00)
DX: I10 Essential (primary) hypertension; Z79.899 Other long term (current) drug therapy; E11.9 Type 2 diabetes mellitus without complications; I25.10 Atherosclerotic heart disease of native coronary artery without angina pectoris; R94.39 Abnormal result of other cardiovascular function study; E78.5 Hyperlipidemia, unspecified; Z88.8 Allergy status to other drugs, medicaments and biological substances; Z79.84 Long term (current) use of oral hypoglycemic drugs; R06.09 Other forms of dyspnea

== ENCOUNTER 2022-10-03 19:15 | Inpatient (IN) ==
[2022-10-03 20:31] LABS: Basophils # (auto) 0.05 K/uL (0-0.2); Basophils % (auto) 0.7 %; Eosinophils # (auto) 0.25 K/uL (0-0.50); Eosinophils % (auto) 3.4 %; Hematocrit (blood only) 39.3 % (37.0-47.0); Hemoglobin 12.9 g/dl (12.0-16.0); Immature Granulocytes # (auto) 0.01 K/uL (0.01-0.20); Immature Granulocytes % (auto) 0.1 %; Lymphocytes # (auto) 1.32 K/uL (1.2-3.4); Lymphocytes % (auto) 17.8 %; Mean Corpuscular Hemoglobin 28.7 pg (25.0-34.0); Mean Corpuscular Hgb Conc 32.8 g/dL (32.0-36.0); Mean Corpuscular Volume 87.3 fL (80.0-100.0); Monocytes # (auto) 0.74 K/uL (0.11-0.59); Neutrophils # (auto) 5.03 K/uL (1.40-6.50); Platelet Count 339 K/uL (130-400); RDW Coefficient of Variation 13.3 % (11.5-14.5); RDW Standard Deviation 42.3 fL (36.4-46.3)
[2022-10-03] MEDS ORDERED: SODIUM CHLORIDE 0.9% 1000ML 500 ML IV ONE (20:40)
[2022-10-03] MEDS ORDERED: PIPERACILLIN/TAZOBACTAM 4.5 GM/120 ML BAG IV ONE (20:43)
[2022-10-03] MEDS ORDERED: VANCOMYCIN HCL 1,000 MG in SODIUM CHLORIDE 0.9% 250 ML IV STA (20:43)
[2022-10-03] MEDS ORDERED: VANCOMYCIN CONSULT ACTIVE PRN (20:43)
[2022-10-03 20:45] LABS: Albumin Level 3.7 gm/dl (3.4-5.0); BUN Creatinine Ratio 32.1 (10-20); Bilirubin,Total 0.4 mg/dl (0.2-1.0); Calcium 9.2 mg/dl (8.6-10.3); Creatinine Clr Calc Pharmacy 59.9 ml/min; Est GFR (African American) 63.4 ml/min; Est GFR (Non-African American) 54.7 ml/min; Globulin 3.7 gm/dl (2.5-4.0); Potassium 5.5 mmol/L (3.5-5.1); Total Protein 7.4 gm/dl (6.0-8.3)
--- NOTE | 2022-10-03 20:45 | Emergency Department Note ---
History of Present Illness General Chief complaint: Toe Injury/Pain Stated complaint: REF BY DOC, LEFT TOE INFECTION Time Seen by Provider: 10/03/22 20:24 History of Present Illness Maximum Pain Intensity: 10 66-year-old female with past medical history significant for type 2 diabetes, pe ripheral neuropathy, hypertension, hyperlipidemia, CAD s/p stenting, h/o PE presents to emergency department following referral by her battery container tester for left third toe gangrene. Patient was seen in this ED on 09/19/2022 for similar complaints. She had x-rays of the toe performed which did not show any obvious signs of osteomyelitis. She was placed on Bactrim and Keflex and referred to podiatry. She saw , battery container tester, in office this morning and was told her toe needs amputated. They are planning surgery on Saturday. Patient states she took all of her antibiotics as prescribed. She notes intermittent chills and nausea. No fevers or vomiting. Mild pain in the toe otherwise no other complaints including no chest pain, shortness of breath, abdominal pain. Home Medications Medication Instructions Recorded Confirmed Type losartan 50 mg tablet 50 mg PO HS 30 days #30 tabs 04/27/21 10/03/22 Rx gabapentin 100 mg capsule 300 mg PO TID 11/29/21 10/03/22 History glimepiride 4 mg tablet 4 mg PO QAM 11/29/21 10/03/22 History metformin 500 mg tablet,extended 1,000 mg PO BIDM 11/29/21 10/03/22 History release 24 hr hydrochlorothiazide 25 mg tablet 25 mg PO DAILY 01/23/22 10/03/22 History clopidogrel 75 mg tablet 75 mg PO DAILY #90 tabs 01/24/22 10/03/22 Rx rosuvastatin 20 mg tablet (Crestor) 20 mg PO QAM #90 tabs 01/24/22 10/03/22 Rx Allergies Allergy/AdvReac Type Severity Reaction Status Date / Time lisinopril AdvReac Intermediate cough Verified 10/03/22 21:59 Past Med/Surg History Medical History Diabetes mellitus, type II Diabetic peripheral neuropathy associated with type 2 diabetes mellitus History of DVT (deep vein thrombosis) 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 History of pulmonary embolus (PE) HTN (hypertension) Personal history of diabetic foot ulcer Surgical History H/O section History of incision and drainage Abscess on Head Hx of tonsillectomy Family History Mother Coronary heart disease Father Coronary heart disease Deep vein thrombosis Sister Colorectal cancer Social History Smoking Status: Never smoker Second Hand Exposure: No; Do You Dip or Chew Tobacco: No; Hx Alcohol Use: Yes Alcohol type: wine Hx Substance Use: No Preferred Language: Kyrgyz Communication Ability: Effective Mortgage Processing Manager Required: No Beliefs That Will Affect Care: None marital status: / Current Living Situation: Family Current Living Situation Comment: with daughter and grandchild current occupational status: employed current occupation: [id number] Feels Safe at Home: Yes Diet: diabetic and low carbohydrate caffeine: No during the past year weight has: remained stable Assistive Devices: None Physical Exam Vital Signs Vital Signs - 24 hr 10/03/22 19:24 10/03/22 21:05 10/03/22 21:16 Temperature 36.7 C Temperature Source Temporal Artery Scan Pulse Rate 81 76 Respiratory Rate 18 Respiratory Effort / Characteristics Non-Labored Spontaneous Non-Labored Respiratory Depth Normal Normal Blood Pressure 177/77 H Blood Pressure Mean 110 Pulse Oximetry 97 Oxygen Delivery Method Room Air Sepsis Recent Fever Within 48 Hours No Sepsis New/Unexplained Change in Mental Status No Sepsis Action Taken by Nursing No Action Required Constitutional: alert and oriented x3. no acute distress. Nontoxic HEENT: normocephalic, atraumatic. normal conjunctiva.PERRLA. EOM's grossly intact. Respiratory: lungs are clear to auscultation without wheezes, rhonchi, or rales bilaterally. equal chest rise. normal respiratory effort, no accessory muscle use. Cardiovascular: normal heart sounds without murmur. regular rate and rhythm. GI: abdomen is soft, nontender. out. No palpable masses. No rebound tenderness or guarding. MSK: Left third toe with dry gangrene and associated surrounding erythema, warmth. No streaking. No active drainage noted. No foul odor. Peripheral vascular: Lower extremities warm and well perfused Psych:appropriate mood and affect. Course Administered Medications Discontinued Medications Sodium Chloride (Nss 1000ml) 500 mls @ 999 mls/hr IV .Q31M ONE Stop: 10/03/22 21:10 Last Infusion: 10/03/22 22:15 Dose: 0 mls/hr Documented By: Admin: 10/03/22 21:15 Dose: 999 mls/hr Documented By: ISRAEL(2) Vancomycin HCl 1,000 mg/ (Sodium Chloride) 270 mls @ 200 mls/hr IV NOW STA; Protocol Stop: 10/03/22 22:03 Last Admin: 10/03/22 22:13 Dose: 200 mls/hr Documented By: ISRAEL Piperacillin Sod/Tazobactam Sod (Zosyn) 4.5 gm in 120 mls @ 240 mls/hr IV NOW ONE Stop: 10/03/22 21:12 Last Infusion: 10/03/22 22:00 Dose: 0 mls/hr Documented By: Admin: 10/03/22 21:15 Dose: 240 mls/hr Documented By: ISRAEL(2) Medical Decision Making Differential Diagnosis Gangrene, cellulitis, osteomyelitis, sepsis as well as other pathologies Laboratory Data Attestation: I reviewed the patient's lab results. 10/03/22 19:45 10/03/22 19:45 Lab Results 10/03/22 10/03/22 10/03/22 Range/Units 19:30 19:45 19:45 WBC 7.40 (4.8-10.8) K/ul RBC 4.50 (4.20-5.40) M/uL Hgb 12.9 (12.0-16.0) g/dl Hct 39.3 (37.0-47.0) % MCV 87.3 (80.0-100.0) fL MCH 28.7 (25.0-34.0) pg MCHC 32.8 (32.0-36.0) g/dL RDW Std Deviation 42.3 (36.4-46.3) fL RDW Coeff of Anitha 13.3 (11.5-14.5) % Plt Count 339 (130-400) K/uL MPV 10.0 (9.4-12.4) fL Immature Gran % (Auto) 0.1 % Neut % (Auto) 68.0 % Lymph % (Auto) 17.8 % Bowie % (Auto) 10.0 % Eos % (Auto) 3.4 % Baso % (Auto) 0.7 % Neut # (Auto) 5.03 (1.40-6.50) K/uL Lymph # (Auto) 1.32 (1.2-3.4) K/uL Bowie # (Auto) 0.74 H (0.11-0.59) K/uL Eos # (Auto) 0.25 (0-0.50) K/uL Baso # (Auto) 0.05 (0-0.2) K/uL Immature Gran # (Auto) 0.01 (0.01-0.20) K/uL Sodium 137 (136-145) mmol/L Potassium 5.5 H (3.5-5.1) mmol/L Chloride 111 H (98-107) mmol/L Carbon Dioxide 19 L (21-32) mmol/L Anion Gap 7 (3-11) BUN 34 H (6-23) mg/dl Creatinine 1.06 (0.6-1.2) mg/dl Est Cr Clr Drug Dosing 59.9 ml/min Est GFR ( Amer) 63.4 ml/min Est GFR (Non-Af Amer) 54.7 ml/min BUN/Creatinine Ratio 32.1 H (10-20) Glucose 212 H (70-99(Fasting)) mg/dl Lactate (0.4-2.0) mmol/L Calcium 9.2 (8.6-10.3) mg/dl Total Bilirubin 0.4 (0.2-1.0) mg/dl AST 14 (13-39) U/L ALT 16 (7-52) U/L Alkaline Phosphatase 113 H (34-104) U/L Total Protein 7.4 (6.0-8.3) gm/dl Albumin 3.7 (3.4-5.0) gm/dl Globulin 3.7 (2.5-4.0) gm/dl Albumin/Globulin Ratio 1.0 (0.9-2) SARS-CoV-2, RNA, NAAT NEGATIVE (NEGATIVE) 10/03/22 Range/Units 20:56 WBC (4.8-10.8) K/ul RBC (4.20-5.40) M/uL Hgb (12.0-16.0) g/dl Hct (37.0-47.0) % MCV (80.0-100.0) fL MCH (25.0-34.0) pg MCHC (32.0-36.0) g/dL RDW Std Deviation (36.4-46.3) fL RDW Coeff of Anitha (11.5-14.5) % Plt Count (130-400) K/uL MPV (9.4-12.4) fL Immature Gran % (Auto) % Neut % (Auto) % Lymph % (Auto) % Bowie % (Auto) % Eos % (Auto) % Baso % (Auto) % Neut # (Auto) (1.40-6.50) K/uL Lymph # (Auto) (1.2-3.4) K/uL Bowie # (Auto) (0.11-0.59) K/uL Eos # (Auto) (0-0.50) K/uL Baso # (Auto) (0-0.2) K/uL Immature Gran # (Auto) (0.01-0.20) K/uL Sodium (136-145) mmol/L Potassium (3.5-5.1) mmol/L Chloride (98-107) mmol/L Carbon Dioxide (21-32) mmol/L Anion Gap (3-11) BUN (6-23) mg/dl Creatinine (0.6-1.2) mg/dl Est Cr Clr Drug Dosing ml/min Est GFR ( Amer) ml/min Est GFR (Non-Af Amer) ml/min BUN/Creatinine Ratio (10-20) Glucose (70-99(Fasting)) mg/dl Lactate 0.7 (0.4-2.0) mmol/L Calcium (8.6-10.3) mg/dl Total Bilirubin (0.2-1.0) mg/dl AST (13-39) U/L ALT (7-52) U/L Alkaline Phosphatase (34-104) U/L Total Protein (6.0-8.3) gm/dl Albumin (3.4-5.0) gm/dl Globulin (2.5-4.0) gm/dl Albumin/Globulin Ratio (0.9-2) SARS-CoV-2, RNA, NAAT (NEGATIVE) MDM Narrative 66-year-old female who presents emergency department following referral by her battery container tester for evaluation of left third toe gangrene. Review of pertinent visits and past medical history performed. Vital signs in ED demonstrate hypertension otherwise within normal limits, and afebrile. Patient was referred to ED by battery container tester and planning amputation of her left third toe on Saturday. She has failed outpatient therapy. IV access was established and labs were obtained. CBC without leukocytosis or acute anemia. CMP demonstrates hyperkalemia of 5.5. No other significant electrolyte abnormalities. Lactate 0.7. Glucose 212. LFTs unremarkable. Blood culture sent. EKG demonstrates normal sinus rhythm with occasional PVC at rate of 86 bpm with no acute ischemic changes. Patient had x-ray of her left toe obtained on 09/19/2022 and did not demonstrate any significant findings consistent with osteomyelitis. I do not feel repeat x-rays are warranted at this time. On exam, patient is nontoxic-appearing in no acute distress. Lungs CTA. Abdomen is benign. Left third toe with gangrenous changes and surrounding cellulitis. No evidence of gas gangrene. No lymphangitic streaking. Remainder of physical exam unremarkable. Patient declined need for pain medications while here in the ED. Case was discussed with hospitalist, Dr. Roque, who reviewed case and graciously accepted patient to her service for further management. Patient was given first dose of vancomycin and Zosyn as well as 1 L of fluids here in the ED. She was admitted in stable condition. Impression & Plan Gangrene of toe of left foot, Diabetes mellitus, type II, Nausea Discharge Plan Visit Data Chief Complaint: Toe Injury/Pain Stated Complaint: REF BY DOC, LEFT TOE INFECTION ED Provider: Ramon Jones ED Midlevel Provider: Jeannie Craft Discharge Problem: Gangrene of toe of left foot, Diabetes mellitus, type II, Nausea Patient Disposition: Admitted As Inpatient Prescriptions Prescriptions: No Action losartan 50 mg Tablet 50 mg PO HS 30 Days Qty: 30 2RF hydrochlorothiazide 25 mg Tablet 25 mg PO DAILY rosuvastatin [Crestor] 20 mg Tablet 20 mg PO QAM Qty: 90 0RF clopidogrel 75 mg tablet 75 mg PO DAILY Qty: 90 0RF metformin 500 mg tablet extended release 24 hr 1,000 mg PO BIDM glimepiride 4 mg tablet 4 mg PO QAM Rx Instructions: take with first meal of day gabapentin 100 mg capsule 300 mg PO TID Referrals Referrals: Carlita Jones DO [Primary Care Provider] -
--- NOTE | 2022-10-03 22:05 | History & Physical Report ---
Date of Service October 03, 2022 Assessment & Plan (1) Gangrene of toe of left foot: Plan: Diabetic ulceration, gangrene of left 3rd toe. Patient is presently afebrile, non-toxic -Vancomycin and Cefepime -Pain control with Morphine PRN -Follow cultures -Podiatry consultation appreciated (2) Dyslipidemia: Plan: Chronic. Stable -Continue Crestor (3) CAD (coronary artery disease): Plan: Patient with atypical stress test in 2021. She had a catheterization performed which revealed diffuse disease. She had PCI to RCA with 4 ARTI in overlapping fashion. Recommended to continue DAPT with ASA and Brillinta for 1 year. Of note, patient reported to Account Manager that she has not taken her medications for at least 6 months. -Continue Crestor -Continue Losartan - note, K was mildly elevated at 5.5 - possibly secondary to recent Bactrim use. Renal function is intact. If K remains elevated on repeat BMP will hold Losartan -Resume Plavix for now. Would resume ASA after surgery (4) Diabetes mellitus, type II: Plan: Chronic. Patient is to be on Glimepiride and Metformin outpatient. Reports she has not been taking her medications at home. -Lantus 7u BID -ISS -Goal blood sugar 110 - 140 -Continue Gabapentin for neuropathy -Check A1c (5) HTN (hypertension): Plan: Blood pressure elevated at present -Continue HCTZ -Continue to monitor History of Present Illness Chief Complaint: Left 3rd toe infection Primary Care Provider: Carlita Jones DO Selina Moses is a pleasant 66yo female with history of DM with neuropathy, HTN, HLP, CAD and prior PE presenting with infection of left 3rd toe. Patient was seen in the ER on 09/19/22 with complaint of left toe pain and ulcer. She had an x-ray of the toe which revealed soft tissue swelling without findings to suggest osteomyelitis. Patient was discharged home on Bactrim and Keflex x 7 day course. Patient completed her antibiotics without difficulty. She reports ongoing pain and swelling as well as darkening and drainage from her left 3rd toe. She has had some intermittent chills and nausea as well. She was seen by Dr. Bolden of Podiatry today and was subsequently sent to the ER to be admitted. Tentatively planning for surgery on 10/05/22. Patient also complaining of significant pain in the right leg that starts in the top of her foot and shoots into her leg and groin. Allergies Allergy/AdvReac Type Severity Reaction Status Date / Time lisinopril AdvReac Intermediate cough Verified 10/03/22 21:59 Home Medications Medication Instructions Recorded Confirmed Type losartan 50 mg tablet 50 mg PO HS 30 days #30 tabs 04/27/21 10/03/22 Rx gabapentin 100 mg capsule 300 mg PO TID 11/29/21 10/03/22 History glimepiride 4 mg tablet 4 mg PO QAM 11/29/21 10/03/22 History metformin 500 mg tablet,extended 1,000 mg PO BIDM 11/29/21 10/03/22 History release 24 hr hydrochlorothiazide 25 mg tablet 25 mg PO DAILY 01/23/22 10/03/22 History clopidogrel 75 mg tablet 75 mg PO DAILY #90 tabs 01/24/22 10/03/22 Rx rosuvastatin 20 mg tablet (Crestor) 20 mg PO QAM #90 tabs 01/24/22 10/03/22 Rx Past Med/Surg History Medical History Diabetes mellitus, type II Diabetic peripheral neuropathy associated with type 2 diabetes mellitus History of DVT (deep vein thrombosis) 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 History of pulmonary embolus (PE) HTN (hypertension) Personal history of diabetic foot ulcer Surgical History H/O section History of incision and drainage Abscess on Head Hx of tonsillectomy Family History Mother Coronary heart disease Father Coronary heart disease Deep vein thrombosis Sister Colorectal cancer Social History Smoking Status: Never smoker Second Hand Exposure: No; Do You Dip or Chew Tobacco: No; Hx Alcohol Use: No Hx Substance Use: No Preferred Language: Nauruan Communication Ability: Effective Complementary Health Therapists Required: No Beliefs That Will Affect Care: None marital status: / Current Living Situation: Other Current Living Situation Comment: daughter lives with current occupational status: employed current occupation: [employer] Feels Safe at Home: Yes Diet: diabetic and low carbohydrate caffeine: No during the past year weight has: remained stable Assistive Devices: Walker Review of Systems Review of Systems: General: Patient denies fevers, chills, malaise, weight loss or weight gain Skin: Patient denies bruising, bleeding or rash HEENT: Patient denies headache, visual changes, sore throat, difficulty swallowing, stiff neck Cardio: Patient denies chest pain, palpitations, shortness of breath, lightheadedness Pulmonary: Patient denies cough, wheeze GI: Patient denies abdominal pain, nausea, vomiting, diarrhea, constipation : Patient denies dysuria, frequency, urgency or hematuria Musculoskeletal: Patient denies swelling or pain of the joints, edema Neuro: Patient denies numbness, tingling, weakness or falls Psych: Patient denies depression, anxiety Physical Exam Physical Exam: General: patient in mild distress secondary to pain, non-toxic in appearance, AA&O x 4 HEENT: NC/AT, PERRL, EOMI, anicteric sclera, conjunctiva without injection, external ear normal to inspection and nontender, nares patent, moist mucus membranes, dentition intact, no oropharyngeal lesions, neck supple, trachea midline, no LAD, no thyromegaly, no JVD Heart: +S1/S2, regular, no m/r/g Lungs: equal air entry bilaterally, no rales/rhonchi/wheezes Abd: +BS, soft, NT/ND, no masses/organomegaly/ascites Ext: warm, 2+ pulses in UE/LE bilaterally, no clubbing/cyanosis or edema Left third toe dusky and necrotic in appearance with ulceration. No drainage. No cellulitis, crepitus or bullae. Neuro: nonfocal, patient AA&O x 4, speech intact, no facial droop, moving all extremities on command with equal strength 5/5 Results & Data Results & Data Vital Signs (Past 12 Hours) Vital Signs Temp Pulse Resp BP Pulse Ox O2 Del Method 10/03/22 21:05 76 10/03/22 19:24 36.7 C 81 18 177/77 H 97 Room Air Laboratory Results Laboratory Results WBC 7.40 K/ul (4.8-10.8) 10/03/22 19:45 RBC 4.50 M/uL (4.20-5.40) 10/03/22 19:45 Hgb 12.9 g/dl (12.0-16.0) 10/03/22 19:45 Hct 39.3 % (37.0-47.0) 10/03/22 19:45 MCV 87.3 fL (80.0-100.0) 10/03/22 19:45 MCH 28.7 pg (25.0-34.0) 10/03/22 19:45 MCHC 32.8 g/dL (32.0-36.0) 10/03/22 19:45 RDW Std Deviation 42.3 fL (36.4-46.3) 10/03/22 19:45 RDW Coeff of Anitha 13.3 % (11.5-14.5) 10/03/22 19:45 Plt Count 339 K/uL (130-400) 10/03/22 19:45 MPV 10.0 fL (9.4-12.4) 10/03/22 19:45 Immature Gran % (Auto) 0.1 % 10/03/22 19:45 Neut % (Auto) 68.0 % 10/03/22 19:45 Lymph % (Auto) 17.8 % 10/03/22 19:45 Marin % (Auto) 10.0 % 10/03/22 19:45 Eos % (Auto) 3.4 % 10/03/22 19:45 Baso % (Auto) 0.7 % 10/03/22 19:45 Neut # (Auto) 5.03 K/uL (1.40-6.50) 10/03/22 19:45 Lymph # (Auto) 1.32 K/uL (1.2-3.4) 10/03/22 19:45 Marin # (Auto) 0.74 K/uL (0.11-0.59) H 10/03/22 19:45 Eos # (Auto) 0.25 K/uL (0-0.50) 10/03/22 19:45 Baso # (Auto) 0.05 K/uL (0-0.2) 10/03/22 19:45 Immature Gran # (Auto) 0.01 K/uL (0.01-0.20) 10/03/22 19:45 Sodium 137 mmol/L (136-145) 06/14/23 19:45 Potassium 5.5 mmol/L (3.5-5.1) H 10/03/22 19:45 Chloride 111 mmol/L (98-107) H 10/03/22 19:45 Carbon Dioxide 19 mmol/L (21-32) L 10/03/22 19:45 Anion Gap 7 (3-11) 10/03/22 19:45 BUN 34 mg/dl (6-23) H 10/03/22 19:45 Creatinine 1.06 mg/dl (0.6-1.2) 10/03/22 19:45 Est Cr Clr Drug Dosing 59.9 ml/min 10/03/22 19:45 Est GFR ( Amer) 63.4 ml/min 10/03/22 19:45 Est GFR (Non-Af Amer) 54.7 ml/min 10/03/22 19:45 BUN/Creatinine Ratio 32.1 (10-20) H 10/03/22 19:45 Glucose 212 mg/dl (70-99(Fasting)) H 10/03/22 19:45 POC Glucose 138 mg/dl (70-99) H 10/03/22 23:58 Lactate 0.7 mmol/L (0.4-2.0) 10/03/22 20:56 Calcium 9.2 mg/dl (8.6-10.3) 10/03/22 19:45 Total Bilirubin 0.4 mg/dl (0.2-1.0) 10/03/22 19:45 AST 14 U/L (13-39) 10/03/22 19:45 ALT 16 U/L (7-52) 10/03/22 19:45 Alkaline Phosphatase 113 U/L (34-104) H 10/03/22 19:45 Total Protein 7.4 gm/dl (6.0-8.3) 10/03/22 19:45 Albumin 3.7 gm/dl (3.4-5.0) 10/03/22 19:45 Globulin 3.7 gm/dl (2.5-4.0) 10/03/22 19:45 Albumin/Globulin Ratio 1.0 (0.9-2) 10/03/22 19:45 SARS-CoV-2, RNA, NAAT NEGATIVE (NEGATIVE) 10/03/22 19:30 PG Care Time/CCT Total # of Minutes Spent Total Time Spent with Patient: Total time spent is greater than 50% in coordination of care (as documented) at patient's floor/unit and/or counseling patient: Coding Level of Care Code 95544 INT INP/OBS CARE 3/75MIN Diagnoses Gangrene of toe of left foot I96 Dyslipidemia E78.5 CAD (coronary artery disease) I25.10 Diabetes mellitus, type II E11.9 HTN (hypertension) I10
[2022-10-04] MEDS ORDERED: ONDANSETRON INJ 2 MG/ML 2 ML VIAL IV PRN (00:29)
[2022-10-04] MEDS ORDERED: GLUCAGON FOR INJ 1 MG VIAL SQ PRN (00:29)
[2022-10-04] MEDS ORDERED: POLYETHYLENE (MIRALAX) 17 GM PACK PO PRN (00:29)
[2022-10-04] MEDS ORDERED: CARBOHYDRATES FOR HYPOGLYCEMIA PO PRN (00:29)
[2022-10-04] MEDS ORDERED: MoRPHine SULFATE 2 MG/ML CARP IV PRN (00:29)
[2022-10-04] MEDS ORDERED: GLUCOSE 40% GEL 15 GM TUBE PO PRN (00:29)
[2022-10-04] MEDS ORDERED: ACETAMINOPHEN 500 MG TAB PO PRN (00:29)
[2022-10-04] MEDS ORDERED: GLUCOSE 10 TAB/TUBE PO PRN (00:29)
[2022-10-04] MEDS ORDERED: DEXTROSE 50% 50 ML SYRINGE IV PRN (00:29)
[2022-10-04] MEDS ORDERED: DOCUSATE SODIUM 100 MG CAP PO PRN (00:29)
[2022-10-04] MEDS ORDERED: VANCOMYCIN HCL 1,000 MG in SODIUM CHLORIDE 0.9% 250 ML IV SCH (00:29)
[2022-10-04] MEDS ORDERED: VANCOMYCIN CONSULT ACTIVE PRN (00:29)
[2022-10-04] MEDS ORDERED: VANCOMYCIN HCL 1,000 MG in SODIUM CHLORIDE 0.9% 250 ML IV ONE (00:45)
[2022-10-04] MEDS: MoRPHine SULFATE 4 MG/ML 1 ML CARP\\VIAL IV PRN ×3 (00:53→21:23)
[2022-10-04] MEDS: CEFEPIME 2,000 MG in SYRINGE 0 ML IV SCH ×3 (02:05→17:38)
[2022-10-04] MEDS ORDERED: VANCOMYCIN HCL 750 MG in SODIUM CHLORIDE 0.9% 250 ML IV SCH (08:00)
--- NOTE | 2022-10-04 08:16 | Hospitalist Progress Note ---
Date of Service October 04, 2022 Assessment & Plan (1) Gangrene of toe of left foot: Plan: Diabetic ulceration, gangrene of left 3rd toe. Denied any trauma. Suspect poor DM control given non-compliance/no PCP follow up since her stenting/cath last January in our system Sent over at direction of podiatry after eval in office for gangrenous LEFT 3rd toe/amputation. Not enough drainage at office per discussion w/ Ms Dr Bolden who saw her in office. They did obtain xrays at office and per her report, no gas or evidence for osteomyelitis. IV Abx: Vancomycin, Cefepime Blood cultures pending Podiatry consulted Obtaining ECHO for clearance given prior CATH Jan 2022 w/ 4 ARTI overlapping to RCA and has not been on aspirin/plavix for at least past six months. She reports NOT having any CP/SOB prior to her stress testing but presented w/ "leg pain" and was told to come back for emergent/urgent cath the following day which showed diffuse disease Continued Plavix for today, holding aspirin Cardiology consulted Consideration for monitoring on telemetry post-op pending cards eval/echo ?consideration for arterial studies -- pulses palpable but diminished . rec outpt wound f/u vs podiatry outpt Pain control/antiemetics prn Repeating labs this afternoon for hyperkalemia to 5.5 on labs, 5.4 this morning - was given HCTZ. Holding losartan. ?from recent bactrim use NPO at midnight for amputation in morning CXR for pre-op clearance ordered as well Monitor labs in AM CM working on getting PCP f/u appt - patient reports switching insurance and to get in with Dr Jones. Will ensure close f/u (2) CAD (coronary artery disease): Plan: Patient with atypical stress test in 2021. She had a catheterization performed which revealed diffuse disease. She had PCI to RCA with 4 ARTI in overlapping fa shion. Recommended to continue DAPT with ASA and Brilinta for 1 year. Of note, patient reported to [employer] that she has not taken her medications for at least 6 months with either aspirin/plavix (she was to be on Brilinta/aspirin but appears Brilinta was too $$$) ECHO pending for pre-op clearance She is WITHOUT CP or SOB, however did not have apparently any symptoms prior to her cath in January 2022 Check A1c/lipid panel in AM and continue current dose crestor for now Does not appear to be on a beta-ruth ann either Continue plavix for now, holding aspirin for upcoming surgery as above but resume following as able K 5.5 on admit, repeat 5.4. ?recent bactrim use. Was given HCTZ this morning and repeat labs this afternoon pending. No JUANCHO on AM labs EKG on admit w/ NSR, inferior infarct noted -- compared to EKG in ER end of August does appear improved. May concerning for acute event w/ nonspecific ST/T wave abn EKG w/ CP ordered Consider monitoring on tele post-op Cardiology consulted as above -- appreciate assistance (3) Dyslipidemia: Plan: Chronic Will check lipid panel w/ AM labs, continue crestor at current dose for now (4) Diabetes mellitus, type II: Plan: Chronic. Patient is to be on Glimepiride and Metformin outpatient but reports she has not been taking her medications at home for several months A1c prior 7.6 in January Placed on lantus 7u BID BSGs acceptable and can tightened SSI slightly for better control in setting of infection A1c added to AM labs for eval, consult w/ DM educator pending Will need outpt f/u PCP as being arranged by CM Monitor BSGs Continue gabapentin for neuropathy, check B12 w/ AM labs (5) HTN (hypertension): Plan: Blood pressure elevated on admission Continued HCTZ for this morning Holding losartan given hyperkalemia, given elevated K and repeating BMP this afternoon BP currently 146/71 and monitor Ideally should be on BB given hx CAD w/ diffuse disease/ARTI Cards consulted as above Plan cards consult/ECHO pending NPO at midnight for amputation w/ podiatry in AM Admission and Anticipated Discharge Date Admission Date: October 03, 2022 Supervising Physician Co-Signing Physician Notes The patient was not seen by me. The chart was reviewed. Case discussed with JORDANA Viera. Agree with assessment and plan Subjective eval this morning, doing well. medicated w/ morphine for pain baseline neuropathy to light touch w/ her DM ongoing pain for about week-week and a half. denies any known trauma but reports must have cut herself. 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 never had arterial studies and discussed if any narrowing would avoid compresison in meantime. She does have palpable pulses on exam. Anterior bilateral feet w/ spur. Denies hx charcot foot. Does have some R lower back pain/radiation from buttocks. Hx sciatica. Wanting to avoid steroids w/ infection (she also hates these). Trial lidocaine patch however issues in past as well. discussed prior cath "atypical CP" . she reports seeing cards/wanting a dobutamine testing for leg pain and was called w/ abnormal and set up for cath next day. stenting x 4 and to be on aspirin/plavix but reports only took for about a month or two. recent switch insurance, to have appt w/ Dr Jones but not yet seen. Has been off her medications. Discussed cardiology consultation likely for clearance, echo pending. Not yet seen by podiatry today but patient reports they were thinking surgery tomorrow. Physical Exam Physical Exam: General: WD/WN pleasant female sitting up in bed, medicated for pain, NAD HEENT: head normocephalic, atraumatic, mm slightly dry, trachea midline Resp: CTA, slightly diminished in the bases, no w/c, on room air, no tachypnea/cough CV: regular rhythm/rate, ?faint systolic murmur, no rub/gallop, S1/S2, no pitting edema/calf tenderness, pulses palpable but slightly diminished, cap refill ~3sec GI: +BS, soft/NT no mora MSK/Neuro/Ext: no focal deficit/slurred speech, CN intact grossly LLE with arched appearance/deformity anterior bilateral dorsal feet (patient reports "spur"), sensation to pressure intact, diminished/absent to light touch, diminished but palpable pulses, decreased ROM at the ankle LEFT foot -- 3rd toe with gangrenous changes dorsally, ulceration dystrophic nails noted Psych: AOx3, cooperative and pleasant with examination Results & Data Results & Data Vital Signs (Past 12 Hours) Vital Signs Temp Pulse Pulse Resp BP BP Pulse Ox 10/04/22 08:06 36.8 C 68 18 146/71 H 96 10/04/22 00:29 36.8 C 18 176/75 H 98 10/03/22 23:42 76 18 162/85 H 99 10/03/22 21:05 76 O2 Del Method 10/04/22 08:06 Room Air 10/04/22 00:29 Room Air 10/03/22 23:42 Room Air 10/03/22 21:05 Laboratory Results 10/03/22 10/03/22 10/03/22 Range/Units 23:58 20:56 19:45 WBC (4.8-10.8) K/ul RBC (4.20-5.40) M/uL Hgb (12.0-16.0) g/dl Hct (37.0-47.0) % MCV (80.0-100.0) fL MCH (25.0-34.0) pg MCHC (32.0-36.0) g/dL RDW Std Deviation (36.4-46.3) fL RDW Coeff of Anitha (11.5-14.5) % Plt Count (130-400) K/uL MPV (9.4-12.4) fL Immature Gran % (Auto) % Neut % (Auto) % Lymph % (Auto) % [place] % (Auto) % Eos % (Auto) % Baso % (Auto) % Neut # (Auto) (1.40-6.50) K/uL Lymph # (Auto) (1.2-3.4) K/uL [place] # (Auto) (0.11-0.59) K/uL Eos # (Auto) (0-0.50) K/uL Baso # (Auto) (0-0.2) K/uL Immature Gran # (Auto) (0.01-0.20) K/uL Sodium 137 (136-145) mmol/L Potassium 5.5 H (3.5-5.1) mmol/L Chloride 111 H (98-107) mmol/L Carbon Dioxide 19 L (21-32) mmol/L Anion Gap 7 (3-11) BUN 34 H (6-23) mg/dl Creatinine 1.06 (0.6-1.2) mg/dl Est Cr Clr Drug Dosing 59.9 ml/min Est GFR ( Amer) 63.4 ml/min Est GFR (Non-Af Amer) 54.7 ml/min BUN/Creatinine Ratio 32.1 H (10-20) Glucose 212 H (70-99(Fasting)) mg/dl POC Glucose 138 H (70-99) mg/dl Lactate 0.7 (0.4-2.0) mmol/L Calcium 9.2 (8.6-10.3) mg/dl Total Bilirubin 0.4 (0.2-1.0) mg/dl AST 14 (13-39) U/L ALT 16 (7-52) U/L Alkaline Phosphatase 113 H (34-104) U/L Total Protein 7.4 (6.0-8.3) gm/dl Albumin 3.7 (3.4-5.0) gm/dl Globulin 3.7 (2.5-4.0) gm/dl Albumin/Globulin Ratio 1.0 (0.9-2) SARS-CoV-2, RNA, NAAT (NEGATIVE) 10/03/22 10/03/22 Range/Units 19:45 19:30 WBC 7.40 (4.8-10.8) K/ul RBC 4.50 (4.20-5.40) M/uL Hgb 12.9 (12.0-16.0) g/dl Hct 39.3 (37.0-47.0) % MCV 87.3 (80.0-100.0) fL MCH 28.7 (25.0-34.0) pg MCHC 32.8 (32.0-36.0) g/dL RDW Std Deviation 42.3 (36.4-46.3) fL RDW Coeff of Anitha 13.3 (11.5-14.5) % Plt Count 339 (130-400) K/uL MPV 10.0 (9.4-12.4) fL Immature Gran % (Auto) 0.1 % Neut % (Auto) 68.0 % Lymph % (Auto) 17.8 % [place] % (Auto) 10.0 % Eos % (Auto) 3.4 % Baso % (Auto) 0.7 % Neut # (Auto) 5.03 (1.40-6.50) K/uL Lymph # (Auto) 1.32 (1.2-3.4) K/uL [place] # (Auto) 0.74 H (0.11-0.59) K/uL Eos # (Auto) 0.25 (0-0.50) K/uL Baso # (Auto) 0.05 (0-0.2) K/uL Immature Gran # (Auto) 0.01 (0.01-0.20) K/uL Sodium (136-145) mmol/L Potassium (3.5-5.1) mmol/L Chloride (98-107) mmol/L Carbon Dioxide (21-32) mmol/L Anion Gap (3-11) BUN (6-23) mg/dl Creatinine (0.6-1.2) mg/dl Est Cr Clr Drug Dosing ml/min Est GFR ( Amer) ml/min Est GFR (Non-Af Amer) ml/min BUN/Creatinine Ratio (10-20) Glucose (70-99(Fasting)) mg/dl POC Glucose (70-99) mg/dl Lactate (0.4-2.0) mmol/L Calcium (8.6-10.3) mg/dl Total Bilirubin (0.2-1.0) mg/dl AST (13-39) U/L ALT (7-52) U/L Alkaline Phosphatase (34-104) U/L Total Protein (6.0-8.3) gm/dl Albumin (3.4-5.0) gm/dl Globulin (2.5-4.0) gm/dl Albumin/Globulin Ratio (0.9-2) SARS-CoV-2, RNA, NAAT NEGATIVE (NEGATIVE) PG Care Time/CCT Total # of Minutes Spent Total Time Spent with Patient: Total time spent is greater than 50% in coordination of care (as documented) at patient's floor/unit and/or counseling patient: Coding Level of Care Code 84318 SUB INP/OBS CARE 3/50MIN Diagnoses Gangrene of toe of left foot I96 CAD (coronary artery disease) I25.10 Dyslipidemia E78.5 Diabetes mellitus, type II E11.9 HTN (hypertension) I10
[2022-10-04 09:13] LABS: Calcium 8.8 mg/dl (8.6-10.3); Creatinine Clr Calc Pharmacy 68.1 ml/min; Est GFR (African American) 74.2 ml/min; Potassium 5.4 mmol/L (3.5-5.1)
[2022-10-04 09:22] LABS: Hematocrit (blood only) 35.4 % (37.0-47.0); Hemoglobin 11.5 g/dl (12.0-16.0); Mean Corpuscular Hemoglobin 28.7 pg (25.0-34.0); Mean Corpuscular Hgb Conc 32.5 g/dL (32.0-36.0); Mean Corpuscular Volume 88.3 fL (80.0-100.0); Mean Platelet Volume 9.9 fL (9.4-12.4); Platelet Count 286 K/uL (130-400); RDW Coefficient of Variation 13.3 % (11.5-14.5); Red Blood Count 4.01 M/uL (4.20-5.40); White Blood Count 7.01 K/ul (4.8-10.8)
[2022-10-04] MEDS: CLOPIDOGREL BISULFATE 75 MG TAB PO SCH (09:37)
[2022-10-04] MEDS: GABAPENTIN 300 MG CAP PO SCH ×3 (09:39→21:02)
[2022-10-04] MEDS: hydroCHLOROthiazide 25 MG TAB PO SCH (09:42)
[2022-10-04] MEDS: ROSUVASTATIN CALCIUM 20 MG TAB PO SCH (09:42)
[2022-10-04] MEDS: LANTUS PER UNIT CHARGE SQ SCH ×2 (09:52→21:04)
[2022-10-04] MEDS: INSULIN ASPART PER UNIT CHARGE SC SCH ×4 (09:53→21:06)
--- NOTE | 2022-10-04 09:59 | Pharmacy Report ---
Pharmacy PK ABX Note - Date of Service October 04, 2022 - Assessment and Plan Assessment 66 year old F with history of DM, HTN, HLP, CAD and prior PE who presented with ongoing pain, swelling and drainage from left third toe. Referred to ER by Podiatry. She recently completed a 7 day course of Bactrim + cephalexin. Started on vancomycin + cefepime IV. Pertinent microbiologic data includes: BC pending Day # 1 of antimicrobial therapy. Plan Vancomycin * Loading dose: 1000 mg IV x 2 (given 10/03 @ 2213 and 10/04 @ 0053) * Maintenance dose: 1000 mg IV every 12 hours. Patient received a single dose of 750 mg ~0800 today. Will increase subsequent dosing to 1000 mg IV q12h. * Regimen is predicted to achieve target AUC/ABIOLA of 400-600 mg/L.hr * Trough level ordered for: 10/05/22 AM Pharmacy will continue to follow and will adjust dose/frequency as necessary. Thank you. Pharmacy has transitioned to AUC monitoring for vancomycin. AUC/ABIOLA is the preferred PK/PD target and is associated with decreased risk of nephrotoxicity compared to traditional trough targets.
--- NOTE | 2022-10-04 12:18 | Podiatry Consultation ---
Date of Consultation October 04, 2022 Assessment & Plan (1) Gangrene of toe of left foot: (2) Diabetic peripheral neuropathy associated with type 2 diabetes mellitus: Plan Patient was examined and evaluated. We discussed at length etiology and treatment of her left toe infection/necrosis. - Will work on scheduling for surgery tomorrow morning - Surgical intervention will be left third toe amputation - Preoperative orders to be placed. Continue with abx per IM. - Can likely d/c home shortly after surgery if otherwise stable medically. - Thanks for the consult. We appreciate being able to help provide patient care. History of Present Illness Reason for Consultation: Left third toe ulceration Attending Physician: Farhad Dubose MD History of Present Illness Patient was seen recently at our office for this third toe ulceration. She states that she developed this ulceration of her third toe over the last few months, with presentation to the ED at the end of August. She was put on oral antibiotics but did not follow-up with anyone for wound care until she saw us yesterday. On clinical exam, she was noted to have necrosis of the bone with acute purulent drainage. We discussed that she would benefit from an amputation of the toe, given the significant changes noted. She was told to present to [facility] ED for admission, so we could more urgently amputate the toe. Now, she states that she is feeling well but has noticed no new changes to the toe since yesterday. She denies any N/V/C/F/SOB. Allergies Allergy/AdvReac Type Severity Reaction Status Date / Time lisinopril AdvReac Intermediate cough Verified 10/03/22 21:59 Home Medications Medication Instructions Recorded Confirmed Type losartan 50 mg tablet 50 mg PO HS 30 days #30 tabs 04/27/21 10/03/22 Rx gabapentin 100 mg capsule 300 mg PO TID 11/29/21 10/03/22 History glimepiride 4 mg tablet 4 mg PO QAM 11/29/21 10/03/22 History metformin 500 mg tablet,extended 1,000 mg PO BIDM 11/29/21 10/03/22 History release 24 hr hydrochlorothiazide 25 mg tablet 25 mg PO DAILY 01/23/22 10/03/22 History clopidogrel 75 mg tablet 75 mg PO DAILY #90 tabs 01/24/22 10/03/22 Rx rosuvastatin 20 mg tablet (Crestor) 20 mg PO QAM #90 tabs 01/24/22 10/03/22 Rx Patient History Medical History Diabetes mellitus, type II Diabetic peripheral neuropathy associated with type 2 diabetes mellitus History of DVT (deep vein thrombosis) 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 History of pulmonary embolus (PE) HTN (hypertension) Personal history of diabetic foot ulcer Surgical History H/O section History of incision and drainage Abscess on Head Hx of tonsillectomy Family History Mother Coronary heart disease Father Coronary heart disease Deep vein thrombosis Sister Colorectal cancer Social History Smoking Status: Never smoker Second Hand Exposure: No; Do You Dip or Chew Tobacco: No; Hx Alcohol Use: No Hx Substance Use: No Preferred Language: Eritrean Communication Ability: Effective Supervisor Rework Required: No Beliefs That Will Affect Care: None marital status: / Current Living Situation: Other Current Living Situation Comment: daughter lives with current occupational status: employed current occupation: [employer] Feels Safe at Home: Yes Diet: diabetic and low carbohydrate caffeine: No during the past year weight has: remained stable Assistive Devices: Walker Review of Systems Review of Systems: All systems reviewed & are unremarkable except as noted in HPI & below Constitutional: no fever, no chills and no sweats Eyes: no discharge and no eye pain Ear, Nose, Mouth, Throat: no dizziness, no nasal congestion and no nasal discharge Respiratory: no cough and no chest congestion Cardiovascular: no chest pain and no edema Gastrointestinal: no abdominal pain Musculoskeletal: + limited range of motion; no joint pain, no myalgia and no body aches Integumentary: + non-healing lesions, + skin ulcer and + erythema Neurologic: + numbness; no gait abnormality, no unsteadiness and no generalized weakness Psychiatric: no behavioral changes Endocrine: no fatigue Physical Exam Constitutional: WD/WN, vitals as above well developed and well nourished; no acute distress Eyes: PERRL, conjunctivae normal, anicteric sclerae ENMT: external ear and nose normal, oropharynx normal Neck: trachea midline, no thyromegaly Respiratory: normal respiratory effort, lungs clear to auscultation Cardiovascular: RRR, no murmur, no edema Vessels: + posterior tibial pulses abnormal and + dorsalis pedis pulses abnormal Gastrointestinal (Abdomen): normal bowel sounds, soft, nontender, no hepatosplenomegaly Musculoskeletal: no cyanosis or clubbing, extremities motor strength 5/5 Extremities: + limited ROM of lower extremity (Ankle equinus b/l) and + foot abnormality (Left third toe gangrenous changes) Left Gait: + limp Skin: + ulcer (To third toe PIPJ with local gangrenous changes), + dry skin and + nails dystrophic Neurologic: moves all extremities; + abnormal touch/pain/proprioception Psychiatric: A+Ox3, euthymic affect Results & Data Vital Signs (Past 12 Hours) Vital Signs Temp Pulse Resp BP Pulse Ox O2 Del Method 10/04/22 08:06 36.8 C 68 18 146/71 H 96 Room Air 10/04/22 00:29 36.8 C 18 176/75 H 98 Room Air
[2022-10-04 15:36] LABS: Calcium 8.8 mg/dl (8.6-10.3); Magnesium 1.4 mg/dl (1.7-2.4); Potassium 5.5 mmol/L (3.5-5.1)
[2022-10-04 15:41] LABS: BUN Creatinine Ratio 25.5 (10-20); Creatinine Clr Calc Pharmacy 62.1 ml/min; Est GFR (African American) 66.4 ml/min; Est GFR (Non-African American) 57.3 ml/min
[2022-10-04] MEDS: LIDOCAINE 5% 1 PATCH TD SCH (15:53)
[2022-10-04] MEDS ORDERED: PHARMACY GLYCEMIC MGMT CONSULT PRN (15:56)
[2022-10-04] MEDS ORDERED: SODIUM CHLORIDE 0.9% 1000ML 1,000 ML IV SCH ×2 (16:00→23:59)
--- NOTE | 2022-10-04 16:13 | Communication Note ---
Date of Service: October 04, 2022 Repeat BMP continued K 5.5. Patiromer x 1, changed diet to low K. Continue to hold losartan IVF overnight while npo/repeat labs/ekg in AM Cards consult/ECHO pending Of note, patient w/ prior hx DVT/PE unprovoked in beginning of 2021, completed 6 months eliquis (completed in December 2021) prior to cath/stenting in January for MOODY (?from her PE/DVTs) Again, had not been taking her aspirin or plavix for about 6 months at this time Will check venous doppler to ensure no residual thrombus given nonhealing ulcer/decreased pulses, however saturating 96% on RA/no hypotension/SOB reported at present to warrant CT Will need to inquire if ever had hypercoag work up in the past/ref to heme/onc in follow up otherwise
[2022-10-04] MEDS ORDERED: PATIROMER CALCIUM SORBITEX 8.4 GM PACK PO ONE (16:15)
--- NOTE | 2022-10-04 17:15 | Ultrasound Report ---
BILATERAL LOWER EXTREMITY VENOUS DOPPLER HISTORY: Acute pain and swelling of the lower legs hx dvt/pe, nonhealing ulcer, decreased pulses COMPARISON STUDY: None. FINDINGS: Subcutaneous edema. There is normal compressibility, flow, and augmentation within the bila teral lower extremity deep venous systems. IMPRESSION: No DVT within the right or left lower extremity. ACT 112: Negative or not required by law. Electronically signed by: Rod Rogers M.D. 10/04/2022 5:13 PM
[2022-10-04] MEDS: MAGNESIUM SULFATE / D5W 1 GM/100 ML BAG IV SCH ×3 (17:38→23:25)
--- NOTE | 2022-10-04 17:43 | XRay Report ---
XR chest 1V portable CLINICAL HISTORY: pre-op clearance TECHNIQUE: Single frontal radiograph of the chest was obtained. Comparison: Comparison is made to chest radiograph 11/29/2021 FINDINGS: No lines and tubes are seen. Calcified aortic knob is seen. Trace bilateral atelectasis is seen. No e vidence of pleural effusion or pneumothorax. IMPRESSION: No acute chest disease. ACT 112: Negative or not required by law. Electronically signed by: Dave Velazquez M.D. 10/04/2022 5:41 PM
--- NOTE | 2022-10-04 17:53 | XCELERA ---
[id number]
--- NOTE | 2022-10-04 18:39 | Cardiology Consultation ---
Date of Consultation October 04, 2022 Assessment & Plan (1) CAD (coronary artery disease): Plan 1. Coronary disease: No current symptoms suggestive of coronary insufficiency or angina. She did not have much in the way of symptoms leading up to her intervention in January of 2022. We discussed the efficacy of medications and the need to promote secondary prevention. Unfortunately, she did stop her medications subsequent to her intervention. Will reinitiate aspirin, metoprolol , losartan and rosuvastatin. 2. Mitral regurgitation: Moderate. No current symptoms. Can follow over time. 3. Preoperative: I do not think she requires any additional preoperative testing. Standard precautions in the perioperative. Would apply. This includes limiting hypoxia, blood loss, hypotension, hypertension and tachycardia. History of Present Illness Reason for Consultation: Preoperative evaluation Requesting Physician: Daljit Attending Physician: Farhad Dubose MD History of Present Illness The patient is a 66-year-old woman with a history of coronary disease having undergone percutaneous intervention to the right coronary artery in January of 2022. It seems that leading up to her intervention the patient was noted to have an abnormal EKG and eventually underwent stress testing. Stress testing was abnormal and she was referred for coronary angiography which revealed the right coronary lesion. She did not recall specific symptoms leading up to her procedure. She states that she does have occasional symptoms of dyspnea on exertion, but this is non limiting. She did not recall symptoms of chest discomfort. She did not endorse symptoms of palpitations. She is currently admitted for a left 3rd toe infection. This appears to be gangrenous and she will require operative intervention. She has had some difficulty ambulating as result in the recent past. She denies constitutional symptoms such as fevers or chills. Again, she did not report limiting dyspnea or any symptoms of exertional chest pain. She is able to perform routine activi ties such as shopping and pushing a shopping cart as well as at ascending stairs without symptoms. She sleeps poorly but not due to orthopnea or paroxysmal nocturnal dyspnea. Very rare symptoms of dizziness. No presyncope or syncope. Allergies Allergy/AdvReac Type Severity Reaction Status Date / Time lisinopril AdvReac Intermediate cough Verified 10/03/22 21:59 Home Medications Medication Instructions Recorded Confirmed Type losartan 50 mg tablet 50 mg PO HS 30 days #30 tabs 04/27/21 10/03/22 Rx gabapentin 100 mg capsule 300 mg PO TID 11/29/21 10/03/22 History glimepiride 4 mg tablet 4 mg PO QAM 11/29/21 10/03/22 History metformin 500 mg tablet,extended 1,000 mg PO BIDM 11/29/21 10/03/22 History release 24 hr hydrochlorothiazide 25 mg tablet 25 mg PO DAILY 01/23/22 10/03/22 History clopidogrel 75 mg tablet 75 mg PO DAILY #90 tabs 01/24/22 10/03/22 Rx rosuvastatin 20 mg tablet (Crestor) 20 mg PO QAM #90 tabs 01/24/22 10/03/22 Rx Patient History Medical History Diabetes mellitus, type II Diabetic peripheral neuropathy associated with type 2 diabetes mellitus History of DVT (deep vein thrombosis) 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 History of pulmonary embolus (PE) HTN (hypertension) Personal history of diabetic foot ulcer Surgical History H/O section History of incision and drainage Abscess on Head Hx of tonsillectomy Family History Mother Coronary heart disease Father Coronary heart disease Deep vein thrombosis Sister Colorectal cancer Social History Smoking Status: Never smoker Second Hand Exposure: No; Do You Dip or Chew Tobacco: No; Hx Alcohol Use: No Hx Substance Use: No Preferred Language: Somali Communication Ability: Effective Bicycle Subassembler Required: No Beliefs That Will Affect Care: None marital status: / Current Living Situation: Other Current Living Situation Comment: daughter lives with current occupational status: employed current occupation: [employer] Feels Safe at Home: Yes Diet: diabetic and low carbohydrate caffeine: No during the past year weight has: remained stable Assistive Devices: None Review of Systems Review of Systems: Per HPI Physical Exam Physical Exam: She is alert and oriented x3. Mood affect appear normal. She answered all questions appropriately. HEENT: Sclerae are anicteric. Pupils are equal and reactive to light and accommodation. Extraocular movements were intact. Neuro: Cranial nerves intact Lungs: She has some bronchial breath sounds in both mid lung moran. No expiratory wheezing. No rales. She has normal respiratory effort without use of accessory muscles. There is normal pulmonary excursion. Cardiac: The rhythm was regular. S1 and S2 were normal. There are no murmurs on examination. The PMI was not markedly displaced on palpation. Extremities: Patient has bilateral radial pulses that are equal in intensity. There is no evidence cyanosis or clubbing. There was no evidence of significant peripheral edema bilaterally. Left 3rd toe is gangrenous and mildly erythematous. Skin: There are no rashes noted on examination today. Results & Data Vital Signs (Past 12 Hours) Vital Signs Temp Pulse Resp BP Pulse Ox O2 Del Method 10/04/22 15:45 36.6 C 65 18 126/73 96 Room Air 10/04/22 08:06 36.8 C 68 18 146/71 H 96 Room Air Laboratory Results Abnormal Lab Results 10/03/22 10/03/22 10/03/22 19:30 19:45 19:45 WBC 7.40 RBC 4.50 Hgb 12.9 Hct 39.3 MCV 87.3 MCH 28.7 MCHC 32.8 RDW Std Deviation 42.3 RDW Coeff of Anitha 13.3 Plt Count 339 MPV 10.0 Immature Gran % (Auto) 0.1 Neut % (Auto) 68.0 Lymph % (Auto) 17.8 Dunn % (Auto) 10.0 Eos % (Auto) 3.4 Baso % (Auto) 0.7 Neut # (Auto) 5.03 Lymph # (Auto) 1.32 Dunn # (Auto) 0.74 H Eos # (Auto) 0.25 Baso # (Auto) 0.05 Immature Gran # (Auto) 0.01 Sodium 137 Potassium 5.5 H Chloride 111 H Carbon Dioxide 19 L Anion Gap 7 BUN 34 H Creatinine 1.06 Est Cr Clr Drug Dosing 59.9 Est GFR ( Amer) 63.4 Est GFR (Non-Af Amer) 54.7 BUN/Creatinine Ratio 32.1 H Glucose 212 H POC Glucose Lactate Calcium 9.2 Magnesium Total Bilirubin 0.4 AST 14 ALT 16 Alkaline Phosphatase 113 H Total Protein 7.4 Albumin 3.7 Globulin 3.7 Albumin/Globulin Ratio 1.0 SARS-CoV-2, RNA, NAAT NEGATIVE 10/03/22 10/03/2210/04/23 20:56 23:58 08:19 WBC 7.01 RBC 4.01 L Hgb 11.5 L Hct 35.4 L MCV 88.3 MCH 28.7 MCHC 32.5 RDW Std Deviation 43.0 RDW Coeff of Anitha 13.3 Plt Count 286 MPV 9.9 Immature Gran % (Auto) Neut % (Auto) Lymph % (Auto) Dunn % (Auto) Eos % (Auto) Baso % (Auto) Neut # (Auto) Lymph # (Auto) Dunn # (Auto) Eos # (Auto) Baso # (Auto) Immature Gran # (Auto) Sodium Potassium Chloride Carbon Dioxide Anion Gap BUN Creatinine Est Cr Clr Drug Dosing Est GFR ( Amer) Est GFR (Non-Af Amer) BUN/Creatinine Ratio Glucose POC Glucose 138 H Lactate 0.7 Calcium Magnesium Total Bilirubin AST ALT Alkaline Phosphatase Total Protein Albumin Globulin Albumin/Globulin Ratio SARS-CoV-2, RNA, NAAT 10/04/22 10/04/22 10/04/22 08:19 08:20 12:10 WBC RBC Hgb Hct MCV MCH MCHC RDW Std Deviation RDW Coeff of Anitha Plt Count MPV Immature Gran % (Auto) Neut % (Auto) Lymph % (Auto) Dunn % (Auto) Eos % (Auto) Baso % (Auto) Neut # (Auto) Lymph # (Auto) Dunn # (Auto) Eos # (Auto) Baso # (Auto) Immature Gran # (Auto) Sodium 139 Potassium 5.4 H Chloride 113 H Carbon Dioxide 21 Anion Gap 5 BUN 27 H Creatinine 0.93 Est Cr Clr Drug Dosing 68.1 Est GFR ( Amer) 74.2 Est GFR (Non-Af Amer) 64.0 BUN/Creatinine Ratio 29.0 H Glucose 150 H POC Glucose 155 H 202 H Lactate Calcium 8.8 Magnesium Total Bilirubin AST ALT Alkaline Phosphatase Total Protein Albumin Globulin Albumin/Globulin Ratio SARS-CoV-2, RNA, NAAT 10/04/22 10/04/22 14:35 17:19 WBC RBC Hgb Hct MCV MCH MCHC RDW Std Deviation RDW Coeff of Anitha Plt Count MPV Immature Gran % (Auto) Neut % (Auto) Lymph % (Auto) Dunn % (Auto) Eos % (Auto) Baso % (Auto) Neut # (Auto) Lymph # (Auto) Dunn # (Auto) Eos # (Auto) Baso # (Auto) Immature Gran # (Auto) Sodium 136 Potassium 5.5 H Chloride 111 H Carbon Dioxide 20 L Anion Gap 5 BUN 26 H Creatinine 1.02 Est Cr Clr Drug Dosing 62.1 Est GFR ( Amer) 66.4 Est GFR (Non-Af Amer) 57.3 BUN/Creatinine Ratio 25.5 H Glucose 160 H POC Glucose 140 H Lactate Calcium 8.8 Magnesium 1.4 L Total Bilirubin AST ALT Alkaline Phosphatase Total Protein Albumin Globulin Albumin/Globulin Ratio SARS-CoV-2, RNA, NAAT Diagnostic Findings EKG obtained the time admission revealed normal sinus rhythm with possible inferior myocardial infarction Echocardiogram performed today revealed overall preserved LV systolic function with basilar inferior hypokinesis. Moderate mitral regurgitation. PG Care Time/CCT Total # of Minutes Spent Total Time Spent with Patient: Total time spent is greater than 50% in coordination of care (as documented) at patient's floor/unit and/or counseling patient: Coding Level of Care Code 45395 INT INP/OBS CARE 3/75MIN Diagnoses CAD (coronary artery disease) I25.10
--- NOTE | 2022-10-04 19:01 | Electrocardiogram Report ---
Test Reason : Blood Pressure : / mmHG Vent. Rate : 082 BPM Atrial Rate : 082 BPM P-R Int : 130 ms QRS Dur : 086 ms QT Int : 346 ms P-R-T Axes : 059 013 070 degrees QTc Int : 404 ms Normal sinus rhythm When compared with ECG of 19-SEP-2022 14:07, Premature ventricular complexes are no longer Present Nonspecific T wave abnormality no longer evident in Inferior leads Confirmed by Samir Pardo ([id number]) on 10/04/2022 7:01:06 PM Referred By: Jenni Bolden Confirmed By:Tanvir Pardo
[2022-10-04] MEDS: VANCOMYCIN HCL 1,000 MG in SODIUM CHLORIDE 0.9% 250 ML IV SCH (19:35)
[2022-10-04] MEDS ORDERED: LOSARTAN POTASSIUM 50 MG TAB PO SCH (21:00)
[2022-10-05] MEDS: CEFEPIME 2,000 MG in SYRINGE 0 ML IV SCH ×3 (01:41→17:57)
[2022-10-05] MEDS ORDERED: VANCOMYCIN LEVEL ONE (07:30)
[2022-10-05] MEDS ORDERED: Nursing to Pharmacy Communication SCH ×2 (07:45→15:15)
[2022-10-05] MEDS: MoRPHine SULFATE 4 MG/ML 1 ML CARP\\VIAL IV PRN ×2 (07:49→21:16)
[2022-10-05] MEDS: INSULIN ASPART PER UNIT CHARGE SC SCH ×5 (07:50→21:10)
[2022-10-05] MEDS: LANTUS PER UNIT CHARGE SQ SCH ×2 (07:50→21:16)
[2022-10-05 08:00] LABS: Hematocrit (blood only) 35.9 % (37.0-47.0); Hemoglobin 11.6 g/dl (12.0-16.0); Mean Corpuscular Hemoglobin 28.6 pg (25.0-34.0); Mean Corpuscular Hgb Conc 32.3 g/dL (32.0-36.0); Mean Corpuscular Volume 88.6 fL (80.0-100.0); Mean Platelet Volume 9.4 fL (9.4-12.4); Platelet Count 275 K/uL (130-400); RDW Coefficient of Variation 13.1 % (11.5-14.5); RDW Standard Deviation 42.9 fL (36.4-46.3); Red Blood Count 4.05 M/uL (4.20-5.40); White Blood Count 6.06 K/ul (4.8-10.8)
[2022-10-05 08:13] LABS: Albumin Globulin Ratio 0.9 (0.9-2); Albumin Level 3.1 gm/dl (3.4-5.0); BUN Creatinine Ratio 29.4 (10-20); Bilirubin,Total 0.4 mg/dl (0.2-1.0); Calcium 9.1 mg/dl (8.6-10.3); Chol HDL Ratio 3.9 (0-5); Creatinine Clr Calc Pharmacy 62.1 ml/min; Est GFR (African American) 66.4 ml/min; Est GFR (Non-African American) 57.3 ml/min; Globulin 3.3 gm/dl (2.5-4.0); Total Protein 6.4 gm/dl (6.0-8.3)
--- NOTE | 2022-10-05 08:21 | Hospitalist Progress Note ---
Date of Service October 05, 2022 Assessment & Plan (1) Gangrene of toe of left foot: Plan: Diabetic ulceration, gangrene of left 3rd toe. Denied any trauma. Suspect poor DM control given non-compliance/no PCP follow up since her stenting/cath last January in our system Sent over at direction of podiatry after eval in office for gangrenous LEFT 3rd toe/amputation. Not enough drainage at office per discussion w/ Ms Dr Bolden who saw her in office. They did obtain xrays at office and per her report, no gas or evidence for osteomyelitis per my discussion with them yesterday Venous Doppler obtained given hx PE/DVT s/p DOAC x 6 months. NEGATIVE doppler IV Abx: Vancomycin, Cefepime Blood cultures NGTD Podiatry on consult ECHO pre-op (see CAD below, not on ASA/plavix TEST ENG for past 6 months) --> LV systolic function normal. Mild cLVH. Grade I diastolic dysfunction. Regional wall motion abnormalities as specified (Basal inferior hypokinesis). Moderate mitral regurgitation Cardiology consulted -- ok w/ surgery. Will arrange for f/u Remains on Plavix as ok w/ podiatry for surgery, resume ASA and other cardiac meds tomorrow following surgery (will need new rxs) Consideration for arterial studies in f/u cardiology Pain control/antiemetics prn IVF NSS while NPO for OR today, slightly dehydrated on exam K normalized on repeat w/ patiromer, low K diet. HOLDING Losartan at preent and monitor ability to resume. If resumed, would rec repeating labs outpatient this upcoming week to ensure no issues Monitor labs on repeat CM working on getting PCP f/u appt - patient reports switching insurance and to get in with Dr Jones. Will ensure close f/u (2) CAD (coronary artery disease): Plan: Patient with atypical stress test in 2021. She had a catheterization performed which revealed diffuse disease. She had PCI to RCA with 4 ARTI in overlapping fashion. Recommended to continue DAPT with ASA and Brilinta for 1 year. Of note, patient reported to [employer] that she has not taken her medications for at least 6 months with either aspirin/plavix (she was to be on Brilinta/aspirin but appears Brilinta was too $$$) ECHO as above, patient without CP/SOB reported A1c 11.3 -- NEEDS f/U, likely discussions on starting insulin at discharge with patient Lipids - elevated TRG, VLDL cholesterol -- will need crestor resumed Cards consulted as above, needing outpt f/u arranged. They are ok w/ proceeding w/ surgery EKG w/ CP (3) Dyslipidemia: Plan: Chronic Lipids acceptable, elevated trg needs crestor resumed post surgery, and new rx at dc (4) Diabetes mellitus, type II: Plan: Chronic. UNCONTROLLED Patient is to be on Glimepiride and Metformin outpatient but reports she has not been taking her medications at home for several months A1c prior 7.6 in January --> NOW >11 DM educator consulted Insulin 7u BID and SSI for now Pharmacy consutled for glycemic as well Likely will need insulin started at discharge. she had prior bsg to 11 last april and hesitant on medications. encouraged frequent bsg checks/possible daniella monitor from PCP (or at d/c) Monitor needs inpatient /w A1c >11 and continued discussions about starting insulin at discharge to be discussed with patient Continue gabapentin for neuropathy, check B12 w/ AM labs -- acceptable at 395 (5) HTN (hypertension): Plan: Blood pressure elevated on admission Continues on HCTZ, herminio given elevated K. Kidney function stable (encouraged limiting aleve use as taking twice daily) HOlding losartan given hyperkalemia, low K diet consideration to resume post-op/monitor repeat labs outpatient closely pending repeat levels Ideally should be on BB given hx CAD w/ diffuse disease/ARTI Cards consulted as above -- can f/u outpatient Plan NPO for OR today Admission and Anticipated Discharge Date Admission Date: October 03, 2022 Supervising Physician Co-Signing Physician Notes The patient was not seen by me. The chart was reviewed. Case discussed with JORDANA Viera. Agree with assessment and plan Subjective Patient evaluated this morning, doing well. Pain controlled. Passing gas. No abdominal pain. No BM but she only goes every 2-3 days at home and this is not unusual. No pain to her foot. NPO while awaiting OR. No fever/chills, chest pain, shortness of breath. She is hopeful for dc within a day or so after surgery depending how she does with OR/therapy evals tomorrow. Questions/concerns addressed. Physical Exam Physical Exam: General: WD/WN pleasant female sitting up in bed, resting prior to surgery, NAD HEENT: head normocephalic, atraumatic, mm slightly dry, trachea midline Resp: CTA, slightly diminished in the bases, no w/c, on room air, no tachypnea/cough CV: regular rhythm/rate, +systolic murmur, no rub/gallop, S1/S2, no pitting edema/calf tenderness, pulses palpable but slightly diminished, cap refill ~3sec GI: +BS, soft/NT no mora MSK/Neuro/Ext: no focal deficit/slurred speech, CN intact grossly LLE with arched appearance/deformity anterior bilateral dorsal feet (patient reports "spur"), sensation to pressure intact, diminished/absent to light touch, diminished but palpable pulses, decreased ROM at the ankle LEFT foot -- 3rd toe with gangrenous changes dorsally with some surrounding erythema, no drainage, dorsal ulcer dystrophic nails noted Psych: AOx3, cooperative and pleasant with examination Results & Data Results & Data Vital Signs (Past 12 Hours) Vital Signs Temp Pulse Resp BP Pulse Ox O2 Del Method 10/05/22 07:06 36.7 C 70 18 129/69 96 Room Air 10/04/22 20:58 36.4 C L 67 18 146/73 H 97 Room Air Laboratory Results 10/05/22 10/05/22 10/05/22 Range/Units 07:27 07:27 07:27 WBC 6.06 (4.8-10.8) K/ul RBC 4.05 L (4.20-5.40) M/uL Hgb 11.6 L (12.0-16.0) g/dl Hct 35.9 L (37.0-47.0) % MCV 88.6 (80.0-100.0) fL MCH 28.6 (25.0-34.0) pg MCHC 32.3 (32.0-36.0) g/dL RDW Std Deviation 42.9 (36.4-46.3) fL RDW Coeff of Anitha 13.1 (11.5-14.5) % Plt Count 275 (130-400) K/uL MPV 9.4 (9.4-12.4) fL Sodium (136-145) mmol/L Potassium (3.5-5.1) mmol/L Chloride (98-107) mmol/L Carbon Dioxide (21-32) mmol/L Anion Gap (3-11) BUN (6-23) mg/dl Creatinine (0.6-1.2) mg/dl Est Cr Clr Drug Dosing ml/min Est GFR ( Amer) ml/min Est GFR (Non-Af Amer) ml/min BUN/Creatinine Ratio (10-20) Glucose (70-99(Fasting)) mg/dl POC Glucose (70-99) mg/dl Estimat Average Glucose 278 mg/dl Hemoglobin A1c 11.3 H (4.5-5.6) % Calcium (8.6-10.3) mg/dl Magnesium (1.7-2.4) mg/dl Total Bilirubin (0.2-1.0) mg/dl AST (13-39) U/L ALT (7-52) U/L Alkaline Phosphatase (34-104) U/L B-Natriuretic Peptide (0-100) pg/ml Total Protein (6.0-8.3) gm/dl Albumin (3.4-5.0) gm/dl Globulin (2.5-4.0) gm/dl Albumin/Globulin Ratio (0.9-2) Triglycerides (0-150) mg/dl Cholesterol (0-200) mg/dl LDL Cholesterol, Calc mg/dl VLDL Cholesterol, Calc (0-30) mg/dl HDL Cholesterol mg/dl Cholesterol/HDL Ratio (0-5) Vitamin B12 395 (180-914) pg/ml Random Vancomycin (10-20) mcg/ml 10/05/22 10/05/22 10/05/22 Range/Units 07:27 07:27 07:27 WBC (4.8-10.8) K/ul RBC (4.20-5.40) M/uL Hgb (12.0-16.0) g/dl Hct (37.0-47.0) % MCV (80.0-100.0) fL MCH (25.0-34.0) pg MCHC (32.0-36.0) g/dL RDW Std Deviation (36.4-46.3) fL RDW Coeff of Anitha (11.5-14.5) % Plt Count (130-400) K/uL MPV (9.4-12.4) fL Sodium 134 L (136-145) mmol/L Potassium 5.0 (3.5-5.1) mmol/L Chloride 110 H (98-107) mmol/L Carbon Dioxide 19 L (21-32) mmol/L Anion Gap 5 (3-11) BUN 30 H (6-23) mg/dl Creatinine 1.02 (0.6-1.2) mg/dl Est Cr Clr Drug Dosing 62.1 ml/min Est GFR ( Amer) 66.4 ml/min Est GFR (Non-Af Amer) 57.3 ml/min BUN/Creatinine Ratio 29.4 H (10-20) Glucose 213 H (70-99(Fasting)) mg/dl POC Glucose (70-99) mg/dl Estimat Average Glucose mg/dl Hemoglobin A1c (4.5-5.6) % Calcium 9.1 (8.6-10.3) mg/dl Magnesium 2.0 (1.7-2.4) mg/dl Total Bilirubin 0.4 (0.2-1.0) mg/dl AST 10 L (13-39) U/L ALT 10 (7-52) U/L Alkaline Phosphatase 80 (34-104) U/L B-Natriuretic Peptide 78 (0-100) pg/ml Total Protein 6.4 (6.0-8.3) gm/dl Albumin 3.1 L (3.4-5.0) gm/dl Globulin 3.3 (2.5-4.0) gm/dl Albumin/Globulin Ratio 0.9 (0.9-2) Triglycerides 153 H (0-150) mg/dl Cholesterol 116 (0-200) mg/dl LDL Cholesterol, Calc 55 mg/dl VLDL Cholesterol, Calc 31 H (0-30) mg/dl HDL Cholesterol 30 mg/dl Cholesterol/HDL Ratio 3.9 (0-5) Vitamin B12 (180-914) pg/ml Random Vancomycin 16.3 (10-20) mcg/ml 10/05/22 10/04/22 10/04/22 Range/Units 06:57 20:35 17:19 WBC (4.8-10.8) K/ul RBC (4.20-5.40) M/uL Hgb (12.0-16.0) g/dl Hct (37.0-47.0) % MCV (80.0-100.0) fL MCH (25.0-34.0) pg MCHC (32.0-36.0) g/dL RDW Std Deviation (36.4-46.3) fL RDW Coeff of Anitha (11.5-14.5) % Plt Count (130-400) K/uL MPV (9.4-12.4) fL Sodium (136-145) mmol/L Potassium (3.5-5.1) mmol/L Chloride (98-107) mmol/L Carbon Dioxide (21-32) mmol/L Anion Gap (3-11) BUN (6-23) mg/dl Creatinine (0.6-1.2) mg/dl Est Cr Clr Drug Dosing ml/min Est GFR ( Amer) ml/min Est GFR (Non-Af Amer) ml/min BUN/Creatinine Ratio (10-20) Glucose (70-99(Fasting)) mg/dl POC Glucose 195 H 169 H 140 H (70-99) mg/dl Estimat Average Glucose mg/dl Hemoglobin A1c (4.5-5.6) % Calcium (8.6-10.3) mg/dl Magnesium (1.7-2.4) mg/dl Total Bilirubin (0.2-1.0) mg/dl AST (13-39) U/L ALT (7-52) U/L Alkaline Phosphatase (34-104) U/L B-Natriuretic Peptide (0-100) pg/ml Total Protein (6.0-8.3) gm/dl Albumin (3.4-5.0) gm/dl Globulin (2.5-4.0) gm/dl Albumin/Globulin Ratio (0.9-2) Triglycerides (0-150) mg/dl Cholesterol (0-200) mg/dl LDL Cholesterol, Calc mg/dl VLDL Cholesterol, Calc (0-30) mg/dl HDL Cholesterol mg/dl Cholesterol/HDL Ratio (0-5) Vitamin B12 (180-914) pg/ml Random Vancomycin (10-20) mcg/ml 10/04/22 10/04/22 Range/Units 14:35 12:10 WBC (4.8-10.8) K/ul RBC (4.20-5.40) M/uL Hgb (12.0-16.0) g/dl Hct (37.0-47.0) % MCV (80.0-100.0) fL MCH (25.0-34.0) pg MCHC (32.0-36.0) g/dL RDW Std Deviation (36.4-46.3) fL RDW Coeff of Anitha (11.5-14.5) % Plt Count (130-400) K/uL MPV (9.4-12.4) fL Sodium 136 (136-145) mmol/L Potassium 5.5 H (3.5-5.1) mmol/L Chloride 111 H (98-107) mmol/L Carbon Dioxide 20 L (21-32) mmol/L Anion Gap 5 (3-11) BUN 26 H (6-23) mg/dl Creatinine 1.02 (0.6-1.2) mg/dl Est Cr Clr Drug Dosing 62.1 ml/min Est GFR ( Amer) 66.4 ml/min Est GFR (Non-Af Amer) 57.3 ml/min BUN/Creatinine Ratio 25.5 H (10-20) Glucose 160 H (70-99(Fasting)) mg/dl POC Glucose 202 H (70-99) mg/dl Estimat Average Glucose mg/dl Hemoglobin A1c (4.5-5.6) % Calcium 8.8 (8.6-10.3) mg/dl Magnesium 1.4 L (1.7-2.4) mg/dl Total Bilirubin (0.2-1.0) mg/dl AST (13-39) U/L ALT (7-52) U/L Alkaline Phosphatase (34-104) U/L B-Natriuretic Peptide (0-100) pg/ml Total Protein (6.0-8.3) gm/dl Albumin (3.4-5.0) gm/dl Globulin (2.5-4.0) gm/dl Albumin/Globulin Ratio (0.9-2) Triglycerides (0-150) mg/dl Cholesterol (0-200) mg/dl LDL Cholesterol, Calc mg/dl VLDL Cholesterol, Calc (0-30) mg/dl HDL Cholesterol mg/dl Cholesterol/HDL Ratio (0-5) Vitamin B12 (180-914) pg/ml Random Vancomycin (10-20) mcg/ml Diagnostic Findings Chest X-Ray 06/15/23 14:28 XR chest 1V portable CLINICAL HISTORY: pre-op clearance TECHNIQUE: Single frontal radiograph of the chest was obtained. Comparison: Comparison is made to chest radiograph 11/29/2021 FINDINGS: No lines and tubes are seen. Calcified aortic knob is seen. Trace bilateral atelectasis is seen. No evidence of pleural effusion or pneumothorax. IMPRESSION: No acute chest disease. ACT 112: Negative or not required by law. Electronically signed by: Dave Velazquez M.D. 10/04/2022 5:41 PM Venous Doppler Study 10/04/22 16:09 BILATERAL LOWER EXTREMITY VENOUS DOPPLER HISTORY: Acute pain and swelling of the lower legs hx dvt/pe, nonhealing ulcer, decreased pulses COMPARISON STUDY: None. FINDINGS: Subcutaneous edema. There is normal compressibility, flow, and augmentation within the bilateral lower extremity deep venous systems. IMPRESSION: No DVT within the right or left lower extremity. ACT 112: Negative or not required by law. Electronically signed by: Rod Rogers M.D. 10/04/2022 5:13 PM ECHOCARDIOGRAM 10/04/22 LV systolic function normal. Mild cLVH. Grade I diastolic dysfunction. Regional wall motion abnormalities as specified (Basal inferior hypokinesis). Moderate mitral regurgitation PG Care Time/CCT Total # of Minutes Spent Total Time Spent with Patient: Total time spent is greater than 50% in coordination of care (as documented) at patient's floor/unit and/or counseling patient: Coding Level of Care Code 61447 SUB INP/OBS CARE 3/50MIN Diagnoses Gangrene of toe of left foot I96 CAD (coronary artery disease) I25.10 Dyslipidemia E78.5 Diabetes mellitus, type II E11.9 HTN (hypertension) I10
[2022-10-05 08:37] LABS: Estimated Average Glucose 278 mg/dl; Hemoglobin A1C 11.3 % (4.5-5.6)
[2022-10-05] MEDS: ROSUVASTATIN CALCIUM 20 MG TAB PO SCH (08:53)
[2022-10-05] MEDS: GABAPENTIN 300 MG CAP PO SCH ×3 (08:53→20:22)
[2022-10-05] MEDS: hydroCHLOROthiazide 25 MG TAB PO SCH (08:53)
[2022-10-05] MEDS: VANCOMYCIN HCL 1,000 MG in SODIUM CHLORIDE 0.9% 250 ML IV SCH ×2 (08:54→20:20)
[2022-10-05] MEDS: CLOPIDOGREL BISULFATE 75 MG TAB PO SCH (08:54)
--- NOTE | 2022-10-05 09:56 | Pharmacy Report ---
Pharmacy PK ABX Note - Date of Service October 05, 2022 - Assessment and Plan Assessment 66 year old F with history of DM, HTN, HLP, CAD and prior PE who presented with ongoing pain, swelling and drainage from left third toe. Referred to ER by Podiatry. She recently completed a 7 day course of Bactrim + cephalexin. Started on vancomycin + cefepime IV. Pertinent microbiologic data includes: NGTD Day # 2 of antimicrobial therapy. Plan Vancomycin * Loading dose: 1000 mg IV x 2 (given 10/03 @ 2213 and 10/04 @ 0053) * Maintenance dose: 1000 mg IV every 12 hours. * Regimen is predicted to achieve target AUC/ABIOLA of 400-600 mg/L.hr * Trough level ordered for: 10/07/22 AM Pharmacy will continue to follow and will adjust dose/frequency as necessary. Thank you. Pharmacy has transitioned to AUC monitoring for vancomycin. AUC/ABIOLA is the pre ferred PK/PD target and is associated with decreased risk of nephrotoxicity compared to traditional trough targets.
--- NOTE | 2022-10-05 11:35 | Electrocardiogram Report ---
Test Reason : Blood Pressure : / mmHG Vent. Rate : 065 BPM Atrial Rate : 065 BPM P-R Int : 152 ms QRS Dur : 086 ms QT Int : 384 ms P-R-T Axes : 054 024 051 degrees QTc Int : 399 ms Normal sinus rhythm Normal ECG When compared with ECG of 03-OCT-2022 19:33, No significant change was found Confirmed by Samir Pardo ([id number]) on 10/05/2022 11:35:06 AM Referred By: Jenni Bolden Confirmed By:Tanvir Pardo
--- NOTE | 2022-10-05 12:09 | History & Physical Bridge Note ---
Date of Service October 05, 2022 History & Physical Bridge Note I have examined the patient, reviewed the History & Physical and in the interval since the performance of the History & Physical I have noted the following changes of clinical significance: no changes noted
[2022-10-05] MEDS: LIDOCAINE 5% 1 PATCH TD SCH (12:13)
[2022-10-05] MEDS ORDERED: MIDAZOLAM HCL 1 MG/ML 2ML VIAL ONE (12:42)
[2022-10-05] MEDS ORDERED: fentaNYL citrate PF 100 MCG/2 ML VIAL ONE (12:42)
[2022-10-05] MEDS ORDERED: BUPIVACAINE 0.25% PF 30 ML VIAL ONE (13:06)
--- NOTE | 2022-10-05 13:15 | Anesthesiology Consultation ---
Date of Service October 05, 2022 Assessment & Plan Chart Review Chart Review: Acceptable Risk for Surgery Consults Requested none History Surgery Operation Date: 10/05/22 12:00 Proposed Procedures p Left Third Toe Amputation - Jenni Bolden DPM Height/Weight Height: 5 ft 5 in Weight: 95.8 kg Allergies Allergy/AdvReac Type Severity Reaction Status Date / Time lisinopril AdvReac Intermediate cough Verified 10/03/22 21:59 Medications Home Medications Medication Instructions Recorded Confirmed Last Taken losartan 50 mg tablet 50 mg PO HS 30 days #30 tabs 04/27/21 10/03/22 04/22/22 gabapentin 100 mg capsule 300 mg PO TID 11/29/21 10/03/22 04/22/22 glimepiride 4 mg tablet 4 mg PO QAM 11/29/21 10/03/22 04/22/22 metformin 500 mg tablet,extended 1,000 mg PO BIDM 11/29/21 10/03/22 04/22/22 release 24 hr hydrochlorothiazide 25 mg tablet 25 mg PO DAILY 01/23/22 10/03/22 04/22/22 clopidogrel 75 mg tablet 75 mg PO DAILY #90 tabs 01/24/22 10/03/22 04/22/22 rosuvastatin 20 mg tablet (Crestor) 20 mg PO QAM #90 tabs 01/24/22 10/03/22 04/22/22 Active Medications Generic Name Dose Route Start Last Admin Trade Name Rileyq PRN Reason Stop Dose Admin Clopidogrel Bisulfate 75 mg 10/04/22 09:00 10/05/22 08:54 Clopidogrel Bisulfate 75 Mg Tab PO 11/03/22 08:59 75 mg DAILY PAM Administration Gabapentin 300 mg 10/04/22 09:00 10/05/22 08:53 Gabapentin 300 Mg Cap PO 11/03/22 08:59 300 mg TID PAM Administration Hydrochlorothiazide 25 mg 10/04/22 09:00 10/05/22 08:53 Hydrochlorothiazide 25 Mg Tab PO 11/03/22 08:59 25 mg DAILY PAM Administration Cefepime HCl 2,000 mg/ Syringe 20 mls @ 5 mls/min 10/04/22 02:00 10/05/22 11:56 IV 11/15/22 01:59 5 mls/min Q8H PAM Administration Protocol Vancomycin HCl 1,000 mg/ 270 mls @ 200 mls/hr 10/04/22 20:00 10/05/22 12:14 Sodium Chloride IV 11/15/22 07:59 Infused Q12H PAM Infusion Protocol Insulin Aspart 0 units 10/05/22 08:00 10/05/22 11:56 Insulin Aspart Per Unit Charge SC 11/04/22 07:59 2 units Q6 PAM Administration Insulin Glargine 7 units 10/04/22 09:00 10/05/22 07:50 Lantus Per Unit Charge SQ 11/03/22 08:59 7 units BID PAM Administration Lidocaine 1 patch 10/04/22 11:30 10/05/22 12:13 Lidocaine 5% 1 Patch TD 11/03/22 11:29 Not Given QAM [facility] Miscellaneous 1 each 10/04/22 21:00 10/04/22 21:03 Remove Lidoderm Patch N/A 11/03/22 20:59 1 each DAILY@2100 PAM Administration Morphine Sulfate 4 mg 10/04/22 00:29 10/05/22 07:49 Morphine Sulfate 4 Mg/Ml 1 Ml Carp\Vial IV 10/18/22 00:28 4 mg Q3H PRN Administration Pain (6,7,8,9,10) Rosuvastatin Calcium 20 mg 10/04/22 09:00 10/05/22 08:53 Rosuvastatin Calcium 20 Mg Tab PO 11/03/22 08:59 20 mg QAM PAM Administration NPO Date Last Intake of Fluids: 10/05/22 Time Last Intake of Fluids: 06:00 Last Intake of Fluids Comment: sip of water for pills Date Last Intake of Solids: 10/04/22 Time Last Intake of Solids: 23:00 Past Medical History Medical History Diabetes mellitus, type II Diabetic peripheral neuropathy associated with type 2 diabetes mellitus History of DVT (deep vein thrombosis) 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 History of pulmonary embolus (PE) HTN (hypertension) Personal history of diabetic foot ulcer Past Family History Family History Mother Coronary heart disease Father Coronary heart disease Deep vein thrombosis Sister Colorectal cancer Past Surgical History Surgical History (Reviewed 10/04/22 @ 12:20 by MICHI Quevedo H/O section History of incision and drainage Abscess on Head Hx of tonsillectomy Social History Smoking Status: Never smoker Do You Dip or Chew Tobacco: No Hx Alcohol Use: No Alcohol type: wine alcohol intake frequency: other Hx Substance Use: No substance use type: does not use Physical Exam Vital Signs Last Vital Signs Temp 36.7 C 10/05/22 07:06 Pulse 70 10/05/22 07:06 Resp 18 10/05/22 07:06 BP 129/69 10/05/22 07:06 Pulse Ox 96 10/05/22 07:06 O2 Del Method Room Air 10/05/22 07:06 Testing Laboratory Results 10/05/22 07:27 10/05/22 07:27 Hemoglobin A1c 11.3 % (4.5-5.6) H 10/05/22 07:27 10/03/22 20:56 Aerobic Blood Culture - Preliminary Blood No growth in Aerobic bottle after 24 hours. Anaerobic Blood Culture - Preliminary No growth in Anaerobic bottle after 24 hours. 10/03/22 20:56 Aerobic Blood Culture - Preliminary Blood No growth in Aerobic bottle after 24 hours. Anaerobic Blood Culture - Preliminary No growth in Anaerobic bottle after 24 hours. 10/05/22 10/05/22 11:51 06:57 POC Glucose 164 H 195 H
[2022-10-05] MEDS ORDERED: PROMETHAZINE HCL 12.5 MG in SODIUM CHLORIDE 0.9% 50 ML IV PRN (13:16)
[2022-10-05] MEDS ORDERED: ATROPINE SULFATE 0.1 MG/ML 10ML SYR IV PRN (13:16)
[2022-10-05] MEDS ORDERED: ePHEDrine sulfate 50 MG/ML AMP IV PRN (13:16)
[2022-10-05] MEDS ORDERED: fentaNYL citrate PF 100 MCG/2 ML VIAL IV PRN (13:16)
[2022-10-05] MEDS ORDERED: ONDANSETRON INJ 2 MG/ML 2 ML VIAL IV PRN (13:16)
[2022-10-05] MEDS ORDERED: HYDROmorphone INJ 2 MG/ML SYR/VIAL IV PRN (13:16)
[2022-10-05] MEDS ORDERED: PROPOFOL IV EMULSION 10 MG/ML 20 ML VIAL IV ONE (13:25)
[2022-10-05] MEDS ORDERED: LIDOCAINE 2% 2 ML VIAL/AMP(20MG/ML) INFIL ONE (13:25)
[2022-10-05] MEDS ORDERED: ONDANSETRON INJ 2 MG/ML 2 ML VIAL ONE (13:25)
--- NOTE | 2022-10-05 14:07 | Post Operative Brief Note ---
Immediate Post Op Note v1 Date of Surgery October 05, 2022 Pre & Post Diagnosis Operation Date: 10/05/22 12:00 Pre-Op Diagnosis: Gangrene of toe of left foot Post-Op Diagnosis: Gangrene of toe of left foot I identified the patient and participated in the time-out.: Yes Procedure Operation Date: 10/05/22 12:00 Actual Procedures p Left Third Toe Amputation - Jenni Bolden DPM Surgeon Jenni Bolden DPM Immigration Officer none Estimated Blood Loss 2 Findings Consistent with Post-Op Diagnosis clinical clear margins at metatarsophalangeal joint, no evidence of proximal purulent drainage Specimens left 3rd toe bone path left 3rd toe bone culture left 3rd toe ulcer culture Anesthesia Type MAC Disposition Accompanied Patient To Recovery: Yes
--- NOTE | 2022-10-05 14:14 | Pharmacy Report ---
Pharmacy Glycemic Short Note 2 - Date of Service October 05, 2022 - Glycemic Short BSG Results (Last 24 hours): 10/04/22 10/04/22 10/04/22 14:35 17:19 20:35 Glucose 160 H POC Glucose 140 H 169 H 10/05/22 10/05/22 10/05/22 06:57 07:27 11:51 Glucose 213 H POC Glucose 195 H 164 H OUTPATIENT ANTIDIABETIC REGIMEN: * Amaryl 4 mg PO daily * Metformin 1000 mg PO BIDM * HbA1C = 11.3% (10/05/22) - patient not taking oral medications x several months. ASSESSMENT: * Ms Moses is a 66 y/o F with a PMH of T2DM who has been off medication for several months. Patient presents with osteomyelitis after a podiatry visit. * Patient's BSGs yesterday were [id number] mg/dL. Patient received 25 units of insulin (14 units of basal and 11 units of bolus). * Fasting today was 195 mg/dL. Patient is NPO for surgery. * Continued Lantus 7 units for AM due to NPO status then will have scale for this evening with weight-based doses. * Tightened Novolog this morning since Lantus was less aggressive. PLAN FOR INPATIENT GLYCEMIC CONTROL: * Hold outpatient oral diabetes medications * Basal insulin * Lantus 7 units SQ x 1 then 10 units SQ BID (15 units if BSG > 160 mg/dL) * Bolus insulin * NovoLog per scale ACHS or Q6hrs while NPO * Goal Range: Low 110 mg/dL - High 140 mg/dL * Correction Factor: 20 mg/dL/unit * Nutritional / Prandial insulin per carb ratio of 1 unit per 7 grams CHO consumed
--- NOTE | 2022-10-05 14:47 | Anesthesiology Progress Note ---
Date of Service October 05, 2022 Anesthesia Post Procedure Vital Signs Vital Signs: Temp Pulse Pulse Resp BP Pulse Ox O2 Del Method 10/05/22 14:35 36.1 C L 56 L 14 125/66 93 Room Air 10/05/22 14:25 56 L 14 126/72 95 Room Air 10/05/22 14:15 56 L 12 115/60 93 Room Air 10/05/22 14:06 36.2 C L 61 15 120/60 94 Room Air 10/05/22 07:06 36.7 C 70 18 129/69 96 Room Air 10/04/22 20:58 36.4 C L 67 18 146/73 H 97 Room Air 10/04/22 15:45 36.6 C 65 18 126/73 96 Room Air Pain Intensity Left Foot: Pain Intensity: 9 Transfer of Care Handoff Completed per policy Notes Mental Status: alert / awake / arousable and participated in evaluation Patient Amnestic to Procedure: Yes Nausea / Vomiting: adequately controlled Pain: adequately controlled Airway Patency, RR, SpO2: stable & adequate BP & HR: stable & adequate Hydration State: stable & adequate Anesthetic Complications: no major complications apparent
[2022-10-05] MEDS ORDERED: oxyCODONE HCL IR 5 MG TAB (IMMEDIATE RELEASE) PO PRN (17:59)
[2022-10-06] MEDS: CEFEPIME 2,000 MG in SYRINGE 0 ML IV SCH ×2 (01:48→11:17)
[2022-10-06 07:41] LABS: Hematocrit (blood only) 37.7 % (37.0-47.0); Hemoglobin 12.2 g/dl (12.0-16.0); Mean Corpuscular Hemoglobin 28.9 pg (25.0-34.0); Mean Corpuscular Hgb Conc 32.4 g/dL (32.0-36.0); Mean Corpuscular Volume 89.3 fL (80.0-100.0); Mean Platelet Volume 9.8 fL (9.4-12.4); Platelet Count 266 K/uL (130-400); RDW Standard Deviation 42.4 fL (36.4-46.3); Red Blood Count 4.22 M/uL (4.20-5.40); White Blood Count 6.31 K/ul (4.8-10.8)
[2022-10-06 08:07] LABS: Albumin Globulin Ratio 0.9 (0.9-2); Albumin Level 3.2 gm/dl (3.4-5.0); BUN Creatinine Ratio 31.1 (10-20); Bilirubin,Total 0.3 mg/dl (0.2-1.0); Calcium 9.3 mg/dl (8.6-10.3); Creatinine Clr Calc Pharmacy 61.5 ml/min; Est GFR (African American) 65.6 ml/min; Est GFR (Non-African American) 56.6 ml/min; Globulin 3.4 gm/dl (2.5-4.0); Magnesium 1.8 mg/dl (1.7-2.4); Total Protein 6.6 gm/dl (6.0-8.3)
[2022-10-06] MEDS: ROSUVASTATIN CALCIUM 20 MG TAB PO SCH (08:17)
[2022-10-06] MEDS: hydroCHLOROthiazide 25 MG TAB PO SCH (08:17)
[2022-10-06] MEDS: GABAPENTIN 300 MG CAP PO SCH ×2 (08:17→14:51)
[2022-10-06] MEDS: CLOPIDOGREL BISULFATE 75 MG TAB PO SCH (08:18)
[2022-10-06] MEDS: LIDOCAINE 5% 1 PATCH TD SCH (08:18)
[2022-10-06] MEDS: VANCOMYCIN HCL 1,000 MG in SODIUM CHLORIDE 0.9% 250 ML IV SCH (08:24)
--- NOTE | 2022-10-06 08:30 | Operative Report ---
Post Operative Report Pre & Post Diagnosis Operation Date: 10/05/22 12:00 Pre-Op Diagnosis: Gangrene of toe of left foot Post-Op Diagnosis: Gangrene of toe of left foot I identified the patient and participated in the time-out.: Yes Procedure Operation Date: 10/05/22 12:00 Actual Procedures p Left Third Toe Amputation - Jenni Bolden DPM Surgeon Jenni Bolden DPM Offset Press Operator Apprentice none Estimated Blood Loss 2 Findings Consistent with Post-Op Diagnosis Specimens Left 3rd toe bone sent to pathology. Left 3rd toe bone sent aerobic and anaerobic culture with gram stain. Left 3rd to ulcer sent aerobic and anaerobic culture with gram stain. Anesthesia Type MAC Complications none Disposition Accompanied Patient To Recovery: Yes Indications This patient is a 66 year old female with uncontrolled diabetes and peripheral neuropathy. She developed a left 3rd toe infection a few weeks ago and sought treatment from [facility]. Patient was discharged on oral antibiotics and advised to follow up with podiatry. Upon presentation at our office, she had cellulitis and gangrene of her left 3rd toe. Xrays were obtained at the office without clear evidence of soft tissue gas. Due to the extensive soft tissue necrosis and the unknown status of her diabetes, the patient was advised to go to [facility]. It was discussed the patient would require a left 3rd toe amputation. Risks of the procedure including, but not limited to continued infection, transfer lesions, chronic pain, nerve injury, wound dehiscence, need for more proximal amputation, loss of limb, loss of life were discussed in detail. Patient states she understands and wants to proceed. Description of Procedure The patient was brought back into the operating room and placed on the OR table in the supine position. A time was performed in order to correctly identify the patient, planned procedure, and correct side of limb. MAC was performed per the anesthesiologist. 20 cc of 0.25% marcaine plain was administered for a 3rd digital block under aseptic technique. A well padded calf tourniquet was applied to the left calf. The left lower extremity was prepped, scrubbed, draped in the usual aseptic manner. The left leg was elevated and the tourniquet was inflated to 250mmHg. Attention was then directed to the left 3rd to at the MTPJ where two semi elliptical incisions were made with the 15 blade. The incision was deepened down to the level the MTPJ, where the left 3rd toe was disarticulated at the MTPJ, and passed from the operative field to the back table. Copious amount of saline was utilized to irrigate the surgical wound. No proximal purulence was identified. The head of the 3rd metatarsal head appeared healthy with intact cartilage. All bleeders were cauterized as neccessary. Deep closure was performed with 3-0 monocryl. The tourniquet was deflated and immediate hyperemia returned to the left foot. The skin was coapted with 4-0 nylon in interrupted horizontal fashion. The incision was dressed with xeroform, 4x4 gauze, kerlix, and Smith bandage. The patient tolerated the procedure and anesthesia well with all vital signs stable and vascular status intact to the left foot. Attention was then directed to the sterile back table to obtain 3 specimens from the 3rd toe as follows: 1. left 3rd toe bone for path, 2. left 3rd toe bone for aerobic and anerobic cultures with gram stain, 3. left 3rd toe ulcer for aerobic and anerobic cultures with gram stain. The patient was transferred to recovery for brief post operative monitoring and will be transferred back to the floor for continued medical management. No clinical signs of infection were noted s/p left 3rd digits. Recommendations for the patient to be discharged on 2 weeks of oral antibiotics and to follow up with our office in 1 week. The patient patient should keep the bandage dry, clean, and intact until first post op visit in office. The patient may ambulate as tolerated in post op shoe. The patient is cleared for discharged per podiatry and be discharged when stable per medicine. I attest to the content of the Intraoperative Record and any orders documented therein. Any exceptions are noted below.
[2022-10-06] MEDS: LANTUS PER UNIT CHARGE SQ SCH (08:56)
[2022-10-06] MEDS: INSULIN ASPART PER UNIT CHARGE SC SCH ×3 (08:56→17:40)
[2022-10-06] MEDS ORDERED: metFORMIN HCL ER 500 MG TABCR PO SCH (09:00)
--- NOTE | 2022-10-06 15:34 | Hospitalist Progress Note ---
Date of Service October 06, 2022 Assessment & Plan (1) Gangrene of toe of left foot: Plan: Status post amputation of the left third foot yesterday, October 05. Postoperative day #1. Stable overall. Hopefully she can go home later today, October 06 (2) CAD (coronary artery disease): Plan: Stable. Continue current medications. She has been noncompliant with her medications recently. Cardiology consultation appreciated (3) Dyslipidemia: Plan: She has been noncompliant with statin therapy. Resume Crestor (4) Diabetes mellitus, type II: Plan: Poorly controlled. She will restart glimepiride and metformin at discharge. Current hemoglobin A1c is greater than 11. Continue gabapentin for neuropathy (5) HTN (hypertension): Plan: Losartan discontinued due to hyperkalemia. Antihypertensives can be adjusted further as an outpatient by her PCP. Cardiology consult appreciated. Plan Home today, October 06 Admission and Anticipated Discharge Date Admission Date: October 03, 2022 Subjective Alert and oriented. No acute distress. Hopefully she can go home today, October 06. She is now on Lantus. Glucose 130. Review of Systems Review of Systems: Constitutional-no fever or chills ENT-no blurred vision, no double vision, no epistaxis, no sore throat Respiratory-no cough, no wheezing, no shortness of breath Cardiac-no palpitations, no chest pain, no syncope GI-no nausea, vomiting, diarrhea, melena, hematochezia -no urinary retention, no urinary incontinence, no dysuria, no hematuria Musculoskeletal-left forefoot heavily bandaged Skin-no bruising, no rashes, no pruritus Neuro-no isolated weakness, no paresthesia, no weakness Psych-no depression, no anxiety Physical Exam Physical Exam: General-alert and oriented x3, no fevers, no chills HEENT-head atraumatic and normocephalic, pupils equal and reactive to light, extraocular muscles intact Neck-no lymphadenopathy or thyromegaly, trachea midline Chest-clear to auscultation percussion. No rales wheezing or rhonchi Cardiac-regular rate and rhythm, normal S1 and S2, no murmurs Abdomen-normal bowel sounds, nontender, no hepatosplenomegaly Extremities-left forefoot heavily bandaged postoperatively Neuro-cranial nerves II through XII intact, motor and sensory function within normal limits, strength symmetrical , no focal deficits Psych-normal affect, normal mood Results & Data Results & Data Vital Signs (Past 12 Hours) Vital Signs Temp Pulse Resp BP Pulse Ox O2 Del Method 10/06/22 08:00 36.6 C 65 18 137/72 98 Room Air Laboratory Results 10/06/22 06:58 10/06/22 06:58 PG Care Time/CCT Total # of Minutes Spent Total Time Spent with Patient: Total time spent is greater than 50% in coordination of care (as documented) at patient's floor/unit and/or counseling patient: Coding Level of Care Code 93891 SUB INP/OBS CARE 3/50MIN Diagnoses Gangrene of toe of left foot I96 CAD (coronary artery disease) I25.10 Dyslipidemia E78.5 Diabetes mellitus, type II E11.9 HTN (hypertension) I10
--- NOTE | 2022-10-06 15:35 | Discharge Summary ---
Date of Service October 06, 2022 Admission HPI Per Admitting Provider Selina Moses is a pleasant 66yo female with history of DM with neuropathy, HTN, HLP, CAD and prior PE presenting with infection of left 3rd toe. Patient was seen in the ER on 09/19/22 with complaint of left toe pain and ulcer. She had an x-ray of the toe which revealed soft tissue swelling without findings to suggest osteomyelitis. Patient was discharged home on Bactrim and Keflex x 7 day course. Patient completed her antibiotics without difficulty. She reports ongoing pain and swelling as well as darkening and drainage from her left 3rd toe. She has had some intermittent chills and nausea as well. She was seen by Dr. Bolden of Podiatry today and was subsequently sent to the ER to be admitted. Tentatively planning for surgery on 10/05/22. Patient also complaining of significant pain in the right leg that starts in the top of her foot and shoots into her leg and groin. Principal Diagnosis Dry gangrene left third toe, uncontrolled type 2 diabetes Discharge Exam General-alert and oriented x3, no fevers, no chills HEENT-head atraumatic and normocephalic, pupils equal and reactive to light, extraocular muscles intact Neck-no lymphadenopathy or thyromegaly, trachea midline Chest-clear to auscultation percussion. No rales wheezing or rhonchi Cardiac-regular rate and rhythm, normal S1 and S2, no murmurs Abdomen-normal bowel sounds, nontender, no hepatosplenomegaly Extremities-left forefoot heavily bandaged postoperatively Neuro-cranial nerves II through XII intact, motor and sensory function within normal limits, strength symmetrical , no focal deficits Psych-normal affect, normal mood Discharge Data Allergies Allergy/AdvReac Type Severity Reaction Status Date / Time lisinopril AdvReac Intermediate cough Verified 10/03/22 21:59 Consultations 10/03/22 21:41 ED Decision to Admit Stat 10/04/22 00:29 Consult Podiatry Routine 10/04/22 08:08 Consult Cardiology Routine 10/05/22 17:46 Consult DARYAG sand control worker Routine Procedures Performed Operation Date: 10/05/22 12:00 Actual Procedures p Left Third Toe Amputation - Jenni Bolden DPM Ordered Studies 10/04/22 16:09 US venous doppler LE Routine Diabetes Follow up Diabetes Follow-up Needed for HgbA1c >9% Hospital Course (1) Gangrene of toe of left foot: Status post amputation of the left third foot yesterday, October 05. Postoperative day #1. Stable overall. Hopefully she can go home later today, October 06 (2) CAD (coronary artery disease): Stable. Continue current medications. She has been noncompliant with her medications recently. Cardiology consultation appreciated (3) Dyslipidemia: She has been noncompliant with statin therapy. Resume Crestor (4) Diabetes mellitus, type II: Poorly controlled. She will restart glimepiride and metformin at discharge. Current hemoglobin A1c is greater than 11. Continue gabapentin for neuropathy (5) HTN (hypertension): Losartan discontinued due to hyperkalemia. Antihypertensives can be adjusted further as an outpatient by her PCP. Cardiology consult appreciated. Plan Home today, October 06 Total Time Total Time Spent Total Time Spent (In Minutes): 40 minutes Discharge Plan Discharge Items Patient Disposition: Home - Home Health Services Reason For Visit: LEFT OSTEOMYELITIS Discharge Diagnosis: Gangrenous Left third toe Activity: Resume your previous activity Non-emergency contact: Primary Care Provider Call non-emergency contact if: you have any medication questions Follow-up/Referrals: Carlita Jones DO [Primary Care Provider] - Diet: Carb Consistent or DM2 and Heart Healthy Addtl Attending Provider Instructions: You have been hospitalized for gangrenous black toe. Podiatry took you to the OR for amputation. Cultures are pending. You were treated with IV antibiotics while in the hospital and are continued on at discharge for another days to complete a day course. Your A1c (measure average blood sugar for diabetes) was SIGNIFIANTLY elevated to 11.3. This is likely from longstanding diabetes without recent treatment. animal researcher was consulted and you have a glucometer and strips at home to check your sugars (which we recommend checking at least 2-3x/daily) Case management will be working to get you follow up with endocrinology at discharge, but we are recommending you resume your metformin 1000mg twice daily and starting long acting insulin glargine 10units in the morning to start. You will likely need increases to this as well as possible additional medications. You are to resume aspirin and plavix daily. Cardiology saw you while in the hospital and are arranging outpatient follow up. You will need to continue your HCTZ, but losartan was placed on hold given elevated potassium level which has improved. They should consider adding metoprolol to your mediation regimen in follow up if blood pressures remain elevated as well, but we will be sending new pr escriptions for all of your medications at discharge. You should have follow up with primary care within 7-10 days after discharge and we are arranging an appointment with Dr Jones for your new primary care. You will also need follow up with podiatry. Please return to the ER with any increased pain/drainage/redness, for any fevers/chills, chest pain or shortness of breath or for any other symptoms concerning for you. It has been a pleasure being a part of the medical team providing for you while you have been in the hospital. Take care! Pending Studies at Discharge: No Stand-Alone Forms: My [facility], Smoking Cessation Medications and DC Order Prescriptions: New (DME) pen needle, diabetic 32 gauge x 5/32" needle See Rx Instructions .Route Qty: 100 0RF Rx Instructions: As directed aspirin 81 mg capsule 81 mg PO DAILY 90 Days Qty: 90 0RF Continued clopidogrel 75 mg tablet 75 mg PO DAILY Qty: 90 0RF hydrochlorothiazide 25 mg Tablet 25 mg PO DAILY Qty: 90 0RF gabapentin 100 mg capsule 300 mg PO TID Qty: 90 0RF metformin 500 mg tablet extended release 24 hr 1,000 mg PO BIDM 30 Days Qty: 120 0RF rosuvastatin [Crestor] 20 mg Tablet 20 mg PO QAM Qty: 90 0RF No Action losartan 50 mg Tablet 50 mg PO HS 30 Days Qty: 30 2RF glimepiride 4 mg tablet 4 mg PO QAM Rx Instructions: take with first meal of day Discharge Orders: Discharge Order (Routine); Ordered 10/06/22 Ordered By: Farhad Dubose Admission Data Admit Date/Time: 10/03/22 22:04 Attending Provider: Farhad Dubose Admit Provider: Bekah Roque Primary Care Provider: Carlita Jones Other Providers: Bekah Roque ; Jenni Bolden ; Samir Pardo Coding Level of Care Code 74954 INP/OBS DISCH >30 MIN Diagnoses Gangrene of toe of left foot I96 CAD (coronary artery disease) I25.10 Dyslipidemia E78.5 Diabetes mellitus, type II E11.9 HTN (hypertension) I10
--- NOTE | 2022-10-06 15:42 | Discharge Summary ---
Date of Service October 06, 2022 Admission HPI Per Admitting Provider Selina Moses is a pleasant 66yo female with history of DM with neuropathy, HTN, HLP, CAD and prior PE presenting with infection of left 3rd toe. Patient was seen in the ER on 09/19/22 with complaint of left toe pain and ulcer. She had an x-ray of the toe which revealed soft tissue swelling without findings to suggest osteomyelitis. Patient was discharged home on Bactrim and Keflex x 7 day course. Patient completed her antibiotics without difficulty. She reports ongoing pain and swelling as well as darkening and drainage from her left 3rd toe. She has had some intermittent chills and nausea as well. She was seen by Dr. Bolden of Podiatry today and was subsequently sent to the ER to be admitted. Tentatively planning for surgery on 10/05/22. Patient also complaining of significant pain in the right leg that starts in the top of her foot and shoots into her leg and groin. 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 Routine Procedures Performed Operation Date: 10/05/22 12:00 Actual Procedures p Left Third Toe Amputation - Jenni Bolden DPM Ordered Studies 10/04/22 16:09 US venous doppler LE Routine Diabetes Follow up Diabetes Follow-up Needed for HgbA1c >9% Total Time Total Time Spent Total Time Spent (In Minutes): 40 minutes Discharge Plan Discharge Items Patient Disposition: Home - Home Health Services Reason For Visit: LEFT OSTEOMYELITIS Discharge Diagnosis: Gangrenous Left third toe Activity: Resume your previous activity Non-emergency contact: Primary Care Provider Call non-emergency contact if: you have any medication questions Follow-up/Referrals: Carlita Jones DO [Primary Care Provider] - Diet: Carb Consistent or DM2 and Heart Healthy Addtl Attending Provider Instructions: You have been hospitalized for gangrenous black toe. Podiatry took you to the OR for amputation. Cultures are pending. You were treated with IV antibiotics while in the hospital and are continued on at discharge for another days to complete a day course. Your A1c (measure average blood sugar for diabetes) was SIGNIFIANTLY elevated to 11.3. This is likely from longstanding diabetes without recent treatment. staff educator was consulted and you have a glucometer and strips at home to check your sugars (which we recommend checking at least 2-3x/daily) Case management will be working to get you follow up with endocrinology at discharge, but we are recommending you resume your metformin 1000mg twice daily and starting long acting insulin glargine 10units in the morning to start. You will likely need increases to this as well as possible additional medications. You are to resume aspirin and plavix daily. Cardiology saw you while in the hospital and are arranging outpatient follow up. You will need to continue your HCTZ, but losartan was placed on hold given elevated potassium level which has improved. They should consider adding metoprolol to your mediation regimen in follow up if blood pressures remain elevated as well, but we will be sending new prescriptions for all of your medications at discharge. You should have follow up with primary care within 7-10 days after discharge and we are arranging an appointment with Dr Jones for your new primary care. You will also need follow up with podiatry. Please return to the ER with any increased pain/drainage/redness, for any fevers/chills, chest pain or shortness of breath or for any other symptoms concerning for you. It has been a pleasure being a part of the medical team providing for you while you have been in the hospital. Take care! Pending Studies at Discharge: No Stand-Alone Forms: [facility] [employer], Smoking Cessation Medications and DC Order Prescriptions: New (DME) pen needle, diabetic 32 gauge x " needle See Rx Instructions .Route Qty: 100 0RF Rx Instructions: As directed aspirin 81 mg capsule 81 mg PO DAILY 90 Days Qty: 90 0RF clopidogrel 75 mg Tablet 75 mg PO DAILY Qty: 30 0RF oxycodone 5 mg Tablet 5 mg PO Q4H PRN (Reason: pain) Qty: 20 0RF rosuvastatin [Crestor] 20 mg Tablet 20 mg PO QAM Qty: 30 0RF metformin 1,000 mg tablet 1,000 mg PO BID Qty: 60 0RF Continued glimepiride 4 mg tablet 4 mg PO QAM Rx Instructions: take with first meal of day clopidogrel 75 mg tablet 75 mg PO DAILY Qty: 90 0RF gabapentin 100 mg capsule 300 mg PO TID Qty: 90 0RF metformin 500 mg tablet extended release 24 hr 1,000 mg PO BIDM 30 Days Qty: 120 0RF rosuvastatin [Crestor] 20 mg Tablet 20 mg PO QAM Qty: 90 0RF Discontinued losartan 50 mg Tablet 50 mg PO HS 30 Days Qty: 30 2RF hydrochlorothiazide 25 mg Tablet 25 mg PO DAILY Discharge Orders: Discharge Order (Routine); Ordered 10/06/22 Ordered By: Farhad Dubose Admission Data Admit Date/Time: 10/03/22 22:04 Attending Provider: Farhad Dubose Admit Provider: Bekah Roque Primary Care Provider: Carlita Jones Other Providers: Bekah Roque ; Jenni Bolden ; Samir Pardo Coding Level of Care Code 09038 INP/OBS DISCH >30 MIN Diagnoses
[2022-10-07] MEDS ORDERED: VANCOMYCIN LEVEL ONE (07:30)
== END 2022-10-06 19:10 | disposition home health service (06) | DRG 256 ==
LOC: ED 19:15 → 3W 22:04 → SUATTDRO 22:04 → 3W 23:42

== ENCOUNTER 2023-07-04 18:01 | Inpatient (IN) ==
--- NOTE | 2023-07-04 18:05 | ED Triage Note ---
Date of Service July 04, 2023 Provider in Triage Author: Rosemary Barnes History of Present Illness This patient was briefly evaluated while in triage. An abbreviated physical exam was performed. This patient is a 67-year-old Female who presents to the ED for evaluation of feeling off balance, generalized weakness and pain, fatigue started yesterday evening reportedly found passed out in her vehicle in the driveway 2 hours ago then fell going into the house-no injury Physical Exam GENERAL: NAD CARDIOVASCULAR: RRR RESPIRATORY: CTA NEURO: Clear speech, unsteady gait, no focal deficits Initial orders for labs and / or imaging were placed and patient was placed in the waiting area until a bed is available. Please see further documentation for the full ED course.
[2023-07-04 19:00] LABS: Appearance Urine Cloudy (Clear); Bacteria Urine Automated Negative (Negative); Bilirubin Urine Negative (Negative); Blood Urine Negative (Negative); Color Urine Yellow; Epithelial Cell Urine Auto >30 /lpf (0-5); Glucose Urine UA Negative (Negative); Ketones Urine Negative (Negative); Leukocyte Esterase Urine 2+ (Negative); Nitrite Urine Negative (Negative); Protein Urine Negative (Negative); RBC Urine Automated 0-4 /hpf (0-4); Specific Gravity Urine 1.014 (1.000-1.030); Urobilinogen Urine Negative (Negative); pH Urine 5.5 (4.5-7.5)
[2023-07-04 19:18] LABS: Basophils # (auto) 0.03 K/uL (0.00-0.20); Basophils % (auto) 0.4 %; Eosinophils % (auto) 3.6 %; Hematocrit (blood only) 34.8 % (37.0-47.0); Hemoglobin 10.9 g/dl (12.0-16.0); Immature Granulocytes # (auto) 0.04 K/uL (0.01-0.20); Immature Granulocytes % (auto) 0.5 %; Lymphocytes # (auto) 0.92 K/uL (1.20-3.40); Lymphocytes % (auto) 11.1 %; Mean Corpuscular Hemoglobin 27.9 pg (25.0-34.0); Mean Corpuscular Hgb Conc 31.3 g/dL (32.0-36.0); Mean Platelet Volume 10.4 fL (9.4-12.4); Monocytes # (auto) 0.69 K/uL (0.11-0.59); Monocytes % (auto) 8.3 %; Neutrophils # (auto) 6.34 K/uL (1.40-6.50); Neutrophils % (auto) 76.1 %; Platelet Count 268 K/uL (130-400); RDW Standard Deviation 45.2 fL (36.4-46.3); Red Blood Count 3.91 M/uL (4.20-5.40); White Blood Count 8.32 K/ul (4.8-10.8)
[2023-07-04 19:44] LABS: Albumin Level 3.8 gm/dl (3.4-5.0); Bilirubin,Total 0.3 mg/dl (0.2-1.0); Calcium 8.8 mg/dl (8.6-10.3); Magnesium 1.6 mg/dl (1.7-2.4); Potassium 6.7 mmol/L (3.5-5.1)
[2023-07-04 19:51] LABS: Albumin Globulin Ratio 1.2 (0.9-2); BUN Creatinine Ratio 26.8 (10-20); Creatinine Clr Calc Pharmacy 37.1 ml/min; Est GFR (African American) 40.4 ml/min; Est GFR (Non-African American) 34.8 ml/min; Globulin 3.2 gm/dl (2.5-4.0)
[2023-07-04] MEDS ORDERED: INSULIN HUMAN REGULAR PER UNIT 5 UNITS in SYRINGE 9.9 ML IV STA (19:55)
[2023-07-04] MEDS: DEXTROSE 50% 50 ML SYRINGE IV STA (20:16)
[2023-07-04] MEDS: INSULIN HUMAN REGULAR IV STA (20:17)
[2023-07-04] MEDS: CALCIUM GLUCONATE 1,000 MG/60 ML BAG IV STA (20:17)
[2023-07-04] MEDS: NovoLIN-R INSULIN PER UNIT CHARGE ONE (20:18)
[2023-07-04] MEDS: STAT IV/IM STA (20:18)
[2023-07-04] MEDS: CALCIUM GLUCONATE 10% 1,000 MG in SODIUM CHLOR 0.9% MINI-B 50 ML IV ONE (20:26)
--- NOTE | 2023-07-04 21:23 | CT Scan Report ---
Exam(s): CT HEAD Without Contrast EXAM: CT Head Without Intravenous Contrast CLINICAL HISTORY: Reason for exam: neuro deficit, acute stroke suspected. TECHNIQUE: Axial computed tomography images of the head/brain without intravenous contrast. Automated exposure control was utilized for the study. A dose lowering technique was utilized adhering to the principles of ALARA. COMPARISON: No relevant prior studies available. FINDINGS: No acute intracranial hemorrhage. No midline shift or mass effect. The territorial noe-white matter differentiation is maintained throughout. Age-related cerebral volume loss. Periventricular and subcortical white matter hypoattenuation, consistent with chronic microangiopathy. The visualized orbits appear grossly unremarkable. The calvarium is intact. The visualized paranasal sinuses and mastoid air cells are grossly clear. IMPRESSION: No acute intracranial hemorrhage, midline shift, or mass effect. Electronically signed by: Иван Link MD 07/04/23 21:22 PM
[2023-07-04 21:29] LABS: Troponin I High Sensitivity 5.5 pg/ml (0-14)
[2023-07-04 21:36] LABS: Partial Thromboplastin Ratio 1.1; Partial Thromboplastin Time 32 Seconds (21-31); Prothrombin Time 10.9 Seconds (9.0-12.0)
--- NOTE | 2023-07-04 22:06 | History & Physical Report ---
Date of Service July 04, 2023 Assessment & Plan (1) Weakness: (2) CAD (coronary artery disease): (3) S/P coronary artery stent placement: (4) Personal history of diabetic foot ulcer: (5) History of DVT of lower extremity: (6) Diabetic peripheral neuropathy associated with type 2 diabetes mellitus: (7) History of pulmonary embolus (PE): (8) Diabetes mellitus, type II: (9) HTN (hypertension): (10) History of myocardial infarction: (11) Status post amputation of toe of left foot: Plan 67 yo female CAD s/p stent placement, DVT (06/2021), PE (06/2021) on ASA, T2DM, PAD s/p toe amputation, peripheral neuropathy, HTN. Of note, stopped taking Plavix and insulin per PCP note 05/30/23. #Weakness Unclear etiology, possibly related to recent abx (possible Bactrim) vs. CVA/TIA vs. CHF vs. adrenal insufficiency vs. liver dysfunction vs. infection CT head negative f/u CT angio head/neck ammonia level, BNP, CRP, repeat CMP, random cortisol, aldosterone, urine sodium, TSH #Hyperkalemia K+ on arrival 6.7 f/u repeat #JUANCHO Cr 1.53, baseline ~1 prerenal vs. ATN losartan held #Hypomagnesemia 1.6 on admission replete as indicated #Hx CAD s/p stent, DVT, PE ASA #T2DM metformin held ISS FENGI: heart healthy Code status: full code DVT prophylaxis: heparin Isolation: none Disposition: PCU History of Present Illness Primary Care Provider: Carlita Jones, 67 yo female CAD s/p stent placement, DVT (06/2021), PE (06/2021) on ASA, T2DM, PAD s/p toe amputation, peripheral neuropathy, HTN. Of note, stopped taking plavix and insulin per PCP note 05/30/23. Patient seen and evaluated at bedside. In the last week, pt has had increased SOB, intermittent chest pain, increased lower extremity swelling. Throughout the day today, pt has felt extreme fatigue compared to baseline, dizziness, transient L sided UE weakness/numbness and transient tongue numbness. States she had to sit at work much more often than usual. Daughter found patient with decreased responsiveness behind the wheel in the driveway. Pt attempted to ambulate to the doorway from the car and fell prior to getting to the house. Had to crawl into the house where she remained fatigued and mildly altered from baseline. Of note, patient with active ischemic disease of two left toes for which she is followed by podiatry. On 07/02/23, she was started on an oral antibiotic that she cannot recall and takes twice daily. Denies chest pain, SOB at rest, pain with deep inspiration, N/V/D, urinary frequency or dysuria. In the ED: Pt found to have K+ 6.7, received D50, calcium gluconate, insulin Other labs of note: Mild hyponatremia, mild hyperchloremia, bicarb 17, normal anion gap, BUN 41, Cr 1.53 (baseline ~1), Mg 1.6, AST 96, ALT 66, Alk phos 115, UA largely unremarkable CXR no acute process, XR hips and knee without fracture Allergies Allergy/AdvReac Type Severity Reaction Status Date / Time lisinopril AdvReac Intermediate cough Verified 07/04/23 23:56 Home Medications Medication Instructions Recorded Confirmed Type pen needle, diabetic 32 gauge x #100 ea 12/21/22 07/04/23 Rx 5/32" pen needle, diabetic 32 gauge x #100 ea 01/07/23 07/04/23 Rx 1/4" (CareFine Pen Needle) multivitamin 1 tab PO QAM 03/27/23 07/04/23 History gabapentin 100 mg capsule 300 mg (3 x 100 mg) PO TID #270 05/30/23 07/04/23 Rx caps losartan 50 mg tablet 50 mg PO HS #90 tabs 05/30/23 07/04/23 Rx metformin 1,000 mg tablet 1,000 mg PO BID #180 tabs 05/30/23 07/04/23 Rx aspirin 81 mg tablet,delayed 81 mg PO DAILY 07/04/23 07/04/23 History release mupirocin 2 % topical ointment 1 applic topical BID 07/04/23 07/04/23 History naproxen sodium 220 mg tablet 220 mg PO BID PRN Pain 07/04/23 07/04/23 History (Aleve) sulfamethoxazole 800 1 tab PO Q12 07/04/23 07/04/23 History mg-trimethoprim 160 mg tablet Past Med/Surg History Medical History Seasonal allergies Implantable loop recorder present placed after syncopal episode 12/2022 - follows w/ Dr Pardo Hx of diabetic foot ulcer Lumbar disc disease History of DVT of lower extremity (06/2021) LLE treated w/ warfarin x 6 mos Diabetic peripheral neuropathy associated with type 2 diabetes mellitus History of pulmonary embolus (PE) (06/2021) Treated with warfarin x 6 mos Diabetes mellitus, type II HTN (hypertension) History of myocardial infarction Surgical History 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) Hx of colonoscopy H/O heart artery stent (01/2022) ARTI x 3 to RCA History of incision and drainage (05/2019) Abscess on Head and abd Hx of tonsillectomy H/O section Family History Mother Coronary heart disease Father Coronary heart disease Deep vein thrombosis Sister Colorectal cancer Social History Smoking Status: Never smoker Second Hand Exposure: No; Do You Dip or Chew Tobacco: No; Hx Alcohol Use: No Hx Substance Use: No Preferred Language: Swiss Communication Ability: Effective Visual Impairment: No Limitations Hearing Ability: Normal High Density Finishing Operator Required: No Beliefs That Will Affect Care: None marital status: / Current Living Situation: Family Current Living Situation Comment: Daughter lives with patient and her one child current occupational status: employed current occupation: [employer] Feels Safe at Home: Yes Diet: diabetic and low carbohydrate caffeine: No during the past year weight has: remained stable Assistive Devices: None Review of Systems Review of Systems: reviewed, per HPI Physical Exam Physical Exam: Constitutional: well-appearing, no acute distress, resting in bed HEENT: NCAT, no conjunctival injection CV: regular rhythm, no murmur appreciated, extremities well-perfused, no LE edema Resp: CTABL, no wheezes/rales/rhonchi appreciated, no increased work of breathing GI: soft, nondistended, nontender, BS normoactive MSK: L toe amputation, two toes dusky and desquamated Skin: warm, dry, no rash appreciated Neuro: alert, oriented, no focal neurologic deficit appreciated, strength preserved throughout, intact sensation b/l Results & Data Results & Data Vital Signs (Past 12 Hours) Vital Signs Temp Pulse Resp BP Pulse Ox O2 Del Method 07/04/23 21:31 74 20 139/83 96 Room Air 07/04/23 21:00 65 16 144/66 H 98 Room Air 07/04/23 20:17 69 07/04/23 18:02 36.9 C 71 20 142/65 H 100 Room Air Laboratory Results Laboratory Results WBC 8.32 K/ul (4.8-10.8) 07/04/23 18:30 RBC 3.91 M/uL (4.20-5.40) L 07/04/23 18:30 Hgb 10.9 g/dl (12.0-16.0) L 07/04/23 18:30 Hct 34.8 % (37.0-47.0) L 07/04/23 18:30 MCV 89.0 fL (80.0-100.0) 07/04/23 18:30 MCH 27.9 pg (25.0-34.0) 07/04/23 18:30 MCHC 31.3 g/dL (32.0-36.0) L 07/04/23 18:30 RDW Std Deviation 45.2 fL (36.4-46.3) 07/04/23 18:30 RDW Coeff of Anitha 14.0 % (11.5-14.5) 07/04/23 18:30 Plt Count 268 K/uL (130-400) 07/04/23 18:30 MPV 10.4 fL (9.4-12.4) 07/04/23 18:30 Immature Gran % (Auto) 0.5 % 07/04/23 18:30 Neut % (Auto) 76.1 % 07/04/23 18:30 Lymph % (Auto) 11.1 % 07/04/23 18:30 [place] % (Auto) 8.3 % 07/04/23 18:30 Eos % (Auto) 3.6 % 07/04/23 18:30 Baso % (Auto) 0.4 % 07/04/23 18:30 Neut # (Auto) 6.34 K/uL (1.40-6.50) 07/04/23 18:30 Lymph # (Auto) 0.92 K/uL (1.20-3.40) L 07/04/23 18:30 [place] # (Auto) 0.69 K/uL (0.11-0.59) H 07/04/23 18:30 Eos # (Auto) 0.30 K/uL (0.00-0.50) 07/04/23 18:30 Baso # (Auto) 0.03 K/uL (0.00-0.20) 07/04/23 18:30 Immature Gran # (Auto) 0.04 K/uL (0.01-0.20) 07/04/23 18:30 PT 10.9 Seconds (9.0-12.0) 07/04/23 20:23 INR 1.0 (0.9-1.1) 07/04/23 20:23 APTT 32 Seconds (21-31) H 07/04/23 20:23 PTT Ratio 1.1 07/04/23 20:23 VBG pH 7.28 (7.36-7.41) L 07/05/23 00:10 VBG pCO2 40 mmHg (38-50) 07/05/23 00:10 VBG pO2 23 mmHg 07/05/23 00:10 VBG HCO3 19 mmol/L 07/05/23 00:10 VBG O2 Saturation < 60.0 % 07/05/23 00:10 VBG Base Excess -7.5 mEq/L 07/05/23 00:10 Sodium 133 mmol/L (136-145) L 07/05/23 00:11 Potassium 6.1 mmol/L (3.5-5.1) H* 07/05/23 00:11 Chloride 110 mmol/L (98-107) H 07/05/23 00:11 Carbon Dioxide 19 mmol/L (21-32) L 07/05/23 00:11 Anion Gap 4 (3-11) 07/05/23 00:11 BUN 39 mg/dl (6-23) H 07/05/23 00:11 Creatinine 1.44 mg/dl (0.6-1.2) H 07/05/23 00:11 Est Cr Clr Drug Dosing 39.4 ml/min 07/05/23 00:11 Est GFR ( Amer) 43.4 ml/min 07/05/23 00:11 Est GFR (Non-Af Amer) 37.5 ml/min 07/05/23 00:11 BUN/Creatinine Ratio 27.1 (10-20) H 07/05/23 00:11 Glucose 153 mg/dl (70-99(Fasting)) H 07/05/23 00:11 POC Glucose 101 mg/dl (70-99) H 07/05/23 02:31 Lactate 1.0 mmol/L (0.4-2.0) 07/05/23 00:10 Calcium 8.8 mg/dl (8.6-10.3) 07/05/23 00:11 Magnesium 1.6 mg/dl (1.7-2.4) L 07/04/23 18:30 Total Bilirubin 0.3 mg/dl (0.2-1.0) 07/05/23 00:11 AST 113 U/L (13-39) H 07/05/23 00:11 ALT 77 U/L (7-52) H 07/05/23 00:11 Alkaline Phosphatase 118 U/L (34-104) H 07/05/23 00:11 Ammonia 19.0 umol/L (18-72) 07/05/23 00:11 Total Creatine Kinase 101 U/L (26-192) 07/05/23 00:11 Troponin I High Sens 5.5 pg/ml (0-14) 07/04/23 18:30 C-Reactive Protein 2.86 mg/dl (0-0.5) H 07/05/23 00:11 B-Natriuretic Peptide 159 pg/ml (0-100) H 07/05/23 00:10 Total Protein 6.1 gm/dl (6.0-8.3) 07/05/23 00:11 Albumin 3.4 gm/dl (3.4-5.0) 07/05/23 00:11 Globulin 2.7 gm/dl (2.5-4.0) 07/05/23 00:11 Albumin/Globulin Ratio 1.3 (0.9-2) 07/05/23 00:11 TSH 1.717 uIu/ml (0.300-4.500) 07/05/23 00:11 Random Cortisol 6.45 mcg/dl 07/05/23 00:10 Urine Color Yellow 07/04/23 18:30 Urine Appearance Cloudy (Clear) A 07/04/23 18:30 Urine pH 5.5 (4.5-7.5) 07/04/23 18:30 Ur Specific [place] 1.014 (1.000-1.030) 07/04/23 18:30 Urine Protein Negative (Negative) 07/04/23 18:30 Urine Glucose (UA) Negative (Negative) 07/04/23 18:30 Urine Ketones Negative (Negative) 07/04/23 18:30 Urine Blood Negative (Negative) 07/04/23 18:30 Urine Nitrite Negative (Negative) 07/04/23 18:30 Urine Bilirubin Negative (Negative) 07/04/23 18:30 Urine Urobilinogen Negative (Negative) 07/04/23 18:30 Ur Leukocyte Esterase 2+ (Negative) H 07/04/23 18:30 Urine WBC (Auto) 10-30 /hpf (0-5) H 07/04/23 18:30 Urine RBC (Auto) 0-4 /hpf (0-4) 07/04/23 18:30 U Hyaline Cast (Auto) 1-5 /lpf (0-5) 07/04/23 18:30 U Epithel Cells (Auto) >30 /lpf (0-5) H 07/04/23 18:30 Urine Bacteria (Auto) Negative (Negative) 07/04/23 18:30 Ur Random Creatinine 61.5 mg/dl 07/04/23 18:30 Ur Random Sodium 74 mmol/L 07/04/23 18:[address] 07/04/23 18:05 Exam(s): CT HEAD Without Contrast EXAM: CT Head Without Intravenous Contrast CLINICAL HISTORY: Reason for exam: neuro deficit, acute stroke suspected. TECHNIQUE: Axial computed tomography images of the head/brain without intravenous contrast. Automated exposure control was utilized for the study. A dose lowering technique was utilized adhering to the principles of ALARA. COMPARISON: No relevant prior studies available. FINDINGS: No acute intracranial hemorrhage. No midline shift or mass effect. The territorial noe-white matter differentiation is maintained throughout. Age-related cerebral volume loss. Periventricular and subcortical white matter hypoattenuation, consistent with chronic microangiopathy. The visualized orbits appear grossly unremarkable. The calvarium is intact. The visualized paranasal sinuses and mastoid air cells are grossly clear. IMPRESSION: No acute intracranial hemorrhage, midline shift, or mass effect. Electronically signed by: Иван Link MD 07/04/23 21:22 PM Head CTA 07/04/23 23:21 Exam(s): CTA HEAD With Contrast IV Amt: 117 ML OPTIRAY 320 EXAM: CT Angiography Head With Intravenous Contrast CLINICAL HISTORY: Reason for exam: Focal numbness weakness. TECHNIQUE: Axial computed tomographic angiography images of the head with intravenous contrast. CTDI is 26.99 mGy and DLP is 13.49 mGy-cm. Automated exposure control was utilized for the study. A dose lowering technique was utilized adhering to the principles of ALARA. MIP reconstructed images were created and reviewed. CONTRAST: Patient received 117 ML OPTIRAY 320 of IV contrast COMPARISON: None. FINDINGS: Right internal carotid artery: Mild atherosclerotic disease throughout the cavernous portion of the right internal carotid artery with less than 50% diameter stenosis. No aneurysm. Right anterior cerebral artery: Unremarkable. No occlusion or significant stenosis. No aneurysm. Right middle cerebral artery: Unremarkable. No occlusion or significant stenosis. No aneurysm. Right posterior cerebral artery: Unremarkable. No occlusion or significant stenosis. No aneurysm. Right vertebral artery: Unremarkable as visualized. Left internal carotid artery: Mild atherosclerotic disease throughout the cavernous portion of the left internal carotid artery with less than 50% diameter stenosis. No aneurysm. Left anterior cerebral artery: Unremarkable. No occlusion or significant stenosis. No aneurysm. Left middle cerebral artery: Unremarkable. No occlusion or significant stenosis. No aneurysm. Left posterior cerebral artery: Unremarkable. No occlusion or significant stenosis. No aneurysm. Left vertebral artery: Unremarkable as visualized. Basilar artery: Unremarkable. No occlusion or significant stenosis. No aneurysm. IMPRESSION: No evidence of significant stenosis, occlusion or aneurysm involving the [place] of [place]. Electronically signed by: Karen Trammell MD 07/05/23 01:07 AM Neck CTA 07/04/23 23:21 Exam(s): CTA NECK With Contrast IV Amt: 117 ML OPTIRAY 320 EXAM: CT Angiography Neck With Intravenous Contrast CLINICAL HISTORY: Reason for exam: Focal weakness numbness. TECHNIQUE: Routine carotid CT angiography protocol was performed with intravenous contrast. NASCET criteria using the distal ICAs for comparison were used for evaluation of stenoses. CTDI is 12.25 mGy and DLP is 462.78 mGy-cm. Automated exposure control was utilized for the study. A dose lowering technique was utilized adhering to the principles of ALARA. MIP reconstructed images were created and reviewed. CONTRAST: Patient received 117 ML OPTIRAY 320 of IV contrast COMPARISON: None. FINDINGS: VASCULATURE: Right common carotid artery: Unremarkable. No occlusion or significant stenosis. No dissection. Right internal carotid artery: Mild calcified plaque at the level of the right carotid bulb. Mild calcified plaque at the origin and proximal right internal carotid artery with less than 50% diameter stenosis. No dissection. Right external carotid artery: Unremarkable. No occlusion. Right vertebral artery: Dominant right-sided vertebral artery, otherwise normal right vertebral artery. No occlusion or significant stenosis. No dissection. Left common carotid artery: Unremarkable. No occlusion or significant stenosis. No dissection. Left internal carotid artery: Mild calcified plaque at the left carotid bulb. Mild calcified plaque at the origin and proximal left internal carotid artery with no stenosis. No dissection. Left external carotid artery: Unremarkable. No occlusion. Left vertebral artery: Unremarkable. No occlusion or significant stenosis. No dissection. Aorta: Atherosclerotic disease of aorta with no aneurysm or dissection. Normal origin of great vessels with nonspecific atherosclerotic disease. NECK: Bones/joints: Unremarkable. No acute fracture. Soft tissues: Unremarkable. Lung apices: Clear. CAROTID STENOSIS REFERENCE USING NASCET CRITERIA: % ICA stenosis = (1 - narrowest ICA diameter/diameter of distal cervical ICA) x 100. Mild - <50% stenosis. Moderate - 50-69% stenosis. Severe - 70-94% stenosis. Near occlusion - 95-99% stenosis. Occluded - 100% stenosis. IMPRESSION: 1. Atherosclerotic disease, predominantly in the carotid bulb region with no significant stenosis, occlusion or dissection seen. 2. Normal bilateral vertebral arteries. Electronically signed by: Karen Trammell MD 07/05/23 00:57 AM ECG Additional Comments: EKG reviewed - study reveals NSR at 70bpm, normal axis, FB=514, QRS=88, XPo=753, suggestive of prior anterior infarct, no acute ischemic changes Supervising Physician Co-Signing Physician Notes Patient discussed with Dr. Gil and I agree with the assessment and plan as documented above. In brief, patient is a 64-year-old female presenting with progressive weakness, fatigue, gait instability and dizziness. Patient reports passing out today and needing to sit down frequently which is very atypical for her. Patient has a chronic infection of the toe. She was recently started on a twice daily antibiotic 2 days ago (she is unsure of medication name). She has been taking it as directed On physical exam patient is afebrile, hemodynamically stable, no acute distress Resting comfortably in bed, answers questions appropriately and follow commands Skin with chronic infection of left toes, bandages in place, minimal purulent drainage HEENTnormocephalic/atraumatic, pupils equal round reactive to light, moist mucous membranes Heart+ S1, S2, regular LungsCTA no rales/rhonchi/wheezes Abdomensoft, nontender nondistended with normoactive bowel sounds Extremitieswarm Neuro no focal deficits at this time. Strength 5 out of 5 in upper and lower extremities bilaterally, tongue is midline Labs and images reviewed and noted above. Patient with normochromic/normocytic anemia with hemoglobin = 10.9, hematocrit = 34.8. Differential with mild lymphopenia Initial chemistry with mild hyponatremia sodium = 134, hyperkalemia with K = 6.7, CO2 = 17, BUN = 41, creatinine = 1.53 also with mild elevation of LFTs. Check Assessment/planseveral days of progressive generalized weakness, fatigue, dizziness and gait instability. Etiology unclear at this time. Patient with multiple electrolyte abnormalities including hyponatremia, hyperkalemia, hypomagnesemia I just wanted dermatology yesterday #staying at [facility] trying to pass [place]UAN[place] as well was close BUN = 41 and creatinine = 1.53. Abnormal LFTs as well Uncertain which antibiotic patient was taking - possibly secondary to this medication in part? -IVF - LR at 125mL/hr x 2L -Repeat chemistry in AM -Ordered random cortisol, aldosterone given Na/K abnormalities -Repeat LFTs in AM - abdominal imaging if LFTs continue to increase -Continue ASA, insulin for DM management -Remainder of plan as above
[2023-07-04] MEDS: OPTIRAY 320 125ml IV ONE (23:38)
--- NOTE | 2023-07-05 00:15 | Emergency Department Note ---
History of Present Illness General Chief complaint: TIA Symptoms Stated complaint: LOSS OF BALANCE, WEAKNESS, NUMB FINGERS/TONGUE Time Seen by Provider: 07/04/23 19:46 History of Present Illness Provider complaint: Weakness 67-year-old female presents emergency department for weakness. Patient states she has been feeling increasingly weak today. Patient reports she fell on her knees today. She reports pain in her left knee. She denies any headache. She does report nausea vomiting. No abdominal pain. No blood thinners. Home Medications Medication Instructions Recorded Confirmed Type pen needle, diabetic 32 gauge x #100 ea 12/21/22 07/04/23 Rx 5/32" pen needle, diabetic 32 gauge x #100 ea 01/07/23 07/04/23 Rx 1/4" (CareFine Pen Needle) multivitamin 1 tab PO QAM 03/27/23 07/04/23 History gabapentin 100 mg capsule 300 mg (3 x 100 mg) PO TID #270 05/30/23 07/04/23 Rx caps losartan 50 mg tablet 50 mg PO HS #90 tabs 05/30/23 07/04/23 Rx metformin 1,000 mg tablet 1,000 mg PO BID #180 tabs 05/30/23 07/04/23 Rx aspirin 81 mg tablet,delayed 81 mg PO DAILY 07/04/23 07/04/23 History release mupirocin 2 % topical ointment 1 applic topical BID 07/04/23 07/04/23 History naproxen sodium 220 mg tablet 220 mg PO BID PRN Pain 07/04/23 07/04/23 History (Aleve) sulfamethoxazole 800 1 tab PO Q12 07/04/23 07/04/23 History mg-trimethoprim 160 mg tablet Allergies Allergy/AdvReac Type Severity Reaction Status Date / Time lisinopril AdvReac Intermediate cough Verified 07/04/23 23:56 Past Med/Surg History Medical History Seasonal allergies Implantable loop recorder present placed after syncopal episode 12/2022 - follows w/ Dr Pardo Hx of diabetic foot ulcer Lumbar disc disease History of DVT of lower extremity (06/2021) LLE treated w/ warfarin x 6 mos Diabetic peripheral neuropathy associated with type 2 diabetes mellitus History of pulmonary embolus (PE) (06/2021) Treated with warfarin x 6 mos Diabetes mellitus, type II HTN (hypertension) History of myocardial infarction Surgical History 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) Hx of colonoscopy H/O heart artery stent (01/2022) ARTI x 3 to RCA History of incision and drainage (05/2019) Abscess on Head and abd Hx of tonsillectomy H/O section Family History Mother Coronary heart disease Father Coronary heart disease Deep vein thrombosis Sister Colorectal cancer Social History Smoking Status: Never smoker Second Hand Exposure: No; Do You Dip or Chew Tobacco: No; Hx Alcohol Use: No Hx Substance Use: No Preferred Language: Malay Communication Ability: Effective Visual Impairment: No Limitations Hearing Ability: Normal Seed Collector Required: No Beliefs That Will Affect Care: None marital status: / Current Living Situation: Family Current Living Situation Comment: Daughter lives with patient and her one child current occupational status: employed current occupation: [employer] Feels Safe at Home: Yes Diet: diabetic and low carbohydrate caffeine: No during the past year weight has: remained stable Assistive Devices: None Physical Exam Vital Signs Vital Signs - 24 hr 07/04/23 18:02 07/04/23 20:17 07/04/23 21:00 Temperature 36.9 C Temperature Source Temporal Artery Scan Pulse Rate 71 69 65 Pulse Rhythm Regular Pulse Strength Normal Respiratory Rate 20 16 Respiratory Effort / Characteristics Non-Labored Spontaneous Respiratory Depth Normal Blood Pressure 142/65 H 144/66 H Blood Pressure Mean 90 92 Blood Pressure Position Sitting Pulse Oximetry 100 98 Oxygen Delivery Method Room Air Room Air Sepsis Recent Fever Within 48 Hours No Sepsis New/Unexplained Change in Mental Status N/A Sepsis Action Taken by Nursing No Action Required 07/04/23 21:31 07/04/23 22:00 07/04/23 23:00 Temperature Temperature Source Pulse Rate 74 65 67 Pulse Rhythm Pulse Strength Respiratory Rate 20 18 22 Respiratory Effort / Characteristics Respiratory Depth Blood Pressure 139/83 131/64 121/90 Blood Pressure Mean 101 86 100 Blood Pressure Position Pulse Oximetry 96 Oxygen Delivery Method Room Air Sepsis Recent Fever Within 48 Hours Sepsis New/Unexplained Change in Mental Status Sepsis Action Taken by Nursing Physical Exam GENERAL: She is oriented to person, place, and time. She appears well-developed and well-nourished. She does not appear distressed. HENT: Exam performed. -Head: Normocephalic and atraumatic. -Mouth/Throat: The oropharynx is clear and moist. No trismus in the jaw. No dental abscesses or uvula swelling. No oropharyngeal exudate or tonsillar abscesses. EYES: Conjunctivae and EOM are normal. Pupils are equal, round, and reactive to light. Right eye exhibits no discharge. Left eye exhibits no discharge. No scleral icterus. NECK: Normal range of motion. Neck supple. No JVD present. No spinous process tenderness present.No rigidity. No tracheal deviation and normal range of motion present. CV: Normal rate, regular rhythm, normal heart sounds and intact distal pulses. There is no peripheral edema. Palpable radial pulses bue. PULM/CHEST: Effort normal and breath sounds normal. No respiratory distress. No stridor. She has no wheezes. She has no rales. -Chest Wall: She exhibits no tenderness. ABD: The abdomen is soft. She has no distension. No mass is present. There is no tenderness. There is no rebound, no guarding, MUSC/SKEL: Pelvis stable. No C, T, or L-spine tenderness. Left knee: Pain on palpation of the left knee. Ecchymosis of the left knee. LYMPH: No cervical adenopathy. NEURO: Motor and sensation grossly intact Course Course 1945: The patient was evaluated in room B7. A complete history and physical exam was performed Cardiac monitoring: An order was placed for continuous cardiac monitoring. The monitor shows a rate of 70 with sinus rhythm interpreted by me Patient was seen during a time of extreme volume and extreme acuity in the emergency department. Nursing triage protocols were initiated and labs were drawn by protocol in the triage area. Patient's potassium 6.7. Patient will be treated with calcium gluconate IV. Patient will also be treated with 5 units of insulin and 1 amp of D50 given her hyperkalemia. 2038: Vital signs stable. Imaging shows no acute traumatic injury. Creatinine 1.53. AST 96 ALT 66 alkaline phosphatase 115. Patient will be admitted to the [facility] team Dr. Roque notified. Patient's blood sugar did go down after receiving the insulin but patient was awake and alert and oriented patient was given food to eat and she tolerated well. Administered Medications Discontinued Medications Dextrose (Dextrose 50% 50 Ml Syringe) 50 ml IV NOW STA Stop: 07/04/23 19:56 Last Admin: 07/04/23 20:16 Dose: 50 ml Documented By: ANDREZ Calcium Gluconate 1,000 mg/ (Sodium Chloride) 60 mls @ 240 mls/hr IV NOW ONE Stop: 07/04/23 20:09 Last Admin: 07/04/23 20:26 Dose: Not Given Documented By: ANDREZ Calcium Gluconate () 1,000 mg in 60 mls @ 240 mls/hr IV ONE STA Stop: 07/04/23 20:22 Last Infusion: 07/04/23 20:32 Dose: Infused Documented By: Admin: 07/04/23 20:17 Dose: 240 mls/hr Documented By: ANDREZ Insulin Human Regular (Insulin Human Regular) 5 units IV NOW STA Stop: 07/04/23 20:12 Last Admin: 07/04/23 20:17 Dose: 5 units Documented By: ANDREZ Co-signed By: LIA Insulin Human Regular (Novolin-R Insulin Per Unit Charge) Confirm Administered Dose 5 units .ROUTE .STK-MED ONE Stop: 07/04/23 20:12 Last Admin: 07/04/23 20:18 Dose: Not Given Documented By: ANDREZ Ioversol (Optiray 320 125ml) 125 ml IV ONCE ONE Stop: 07/04/23 23:39 Last Admin: 07/04/23 23:38 Dose: 117 ml Documented By: SHIN Miscellaneous (Stat Iv/Im) 1 each N/A NOW STA Stop: 07/04/23 19:56 Last Admin: 07/04/23 20:18 Dose: 1 each Documented By: ANDREZ Critical Care Time Critical Care Time: Yes Total Critical Care Time: 62 I have personally spent greater than 62 minutes of critical care time in the direct management of this patient. This includes bedside care, interpretation of diagnostic studies, and testing, discussion with consultants, patient, and family members, and other required patient management activities. This 62 minutes is in excess of all separately billable procedures. Medical Decision Making Laboratory Data Attestation: I reviewed the patient's lab results. 07/04/23 18:30 07/04/23 18:30 Lab Results 07/04/23 07/04/23 07/04/23 Range/Units 18:09 18:30 20:23 WBC 8.32 (4.8-10.8) K/ul RBC 3.91 L (4.20-5.40) M/uL Hgb 10.9 L (12.0-16.0) g/dl Hct 34.8 L (37.0-47.0) % MCV 89.0 (80.0-100.0) fL MCH 27.9 (25.0-34.0) pg MCHC 31.3 L (32.0-36.0) g/dL RDW Std Deviation 45.2 (36.4-46.3) fL RDW Coeff of Anitha 14.0 (11.5-14.5) % Plt Count 268 (130-400) K/uL MPV 10.4 (9.4-12.4) fL Immature Gran % (Auto) 0.5 % Neut % (Auto) 76.1 % Lymph % (Auto) 11.1 % [place] % (Auto) 8.3 % Eos % (Auto) 3.6 % Baso % (Auto) 0.4 % Neut # (Auto) 6.34 (1.40-6.50) K/uL Lymph # (Auto) 0.92 L (1.20-3.40) K/uL [place] # (Auto) 0.69 H (0.11-0.59) K/uL Eos # (Auto) 0.30 (0.00-0.50) K/uL Baso # (Auto) 0.03 (0.00-0.20) K/uL Immature Gran # (Auto) 0.04 (0.01-0.20) K/uL PT Cancelled 10.9 INR Cancelled 1.0 APTT Cancelled 32 H PTT Ratio Cancelled 1.1 Sodium 134 L (136-145) mmol/L Potassium 6.7 H* (3.5-5.1) mmol/L Chloride 110 H (98-107) mmol/L Carbon Dioxide 17 L (21-32) mmol/L Anion Gap 7 (3-11) BUN 41 H (6-23) mg/dl Creatinine 1.53 H (0.6-1.2) mg/dl Est Cr Clr Drug Dosing 37.1 ml/min Est GFR ( Amer) 40.4 ml/min Est GFR (Non-Af Amer) 34.8 ml/min BUN/Creatinine Ratio 26.8 H (10-20) Glucose 100 H (70-99(Fasting)) mg/dl POC Glucose 104 H (70-99) mg/dl Calcium 8.8 (8.6-10.3) mg/dl Magnesium 1.6 L (1.7-2.4) mg/dl Total Bilirubin 0.3 (0.2-1.0) mg/dl AST 96 H (13-39) U/L ALT 66 H (7-52) U/L Alkaline Phosphatase 115 H (34-104) U/L Troponin I High Sens 5.5 (0-14) pg/ml Total Protein 7.0 (6.0-8.3) gm/dl Albumin 3.8 (3.4-5.0) gm/dl Globulin 3.2 (2.5-4.0) gm/dl Albumin/Globulin Ratio 1.2 (0.9-2) Urine Color Yellow Urine Appearance Cloudy A (Clear) Urine pH 5.5 (4.5-7.5) Ur Specific [place] 1.014 (1.000-1.030) Urine Protein Negative (Negative) Urine Glucose (UA) Negative (Negative) Urine Ketones Negative (Negative) Urine Blood Negative (Negative) Urine Nitrite Negative (Negative) Urine Bilirubin Negative (Negative) Urine Urobilinogen Negative (Negative) Ur Leukocyte Esterase 2+ H (Negative) Urine WBC (Auto) 10-30 H (0-5) /hpf Urine RBC (Auto) 0-4 (0-4) /hpf U Hyaline Cast (Auto) 1-5 (0-5) /lpf U Epithel Cells (Auto) >30 H (0-5) /lpf Urine Bacteria (Auto) Negative (Negative) 07/04/23 07/04/23 Range/Units 21:13 23:00 WBC (4.8-10.8) K/ul RBC (4.20-5.40) M/uL Hgb (12.0-16.0) g/dl Hct (37.0-47.0) % MCV (80.0-100.0) fL MCH (25.0-34.0) pg MCHC (32.0-36.0) g/dL RDW Std Deviation (36.4-46.3) fL RDW Coeff of Anitha (11.5-14.5) % Plt Count (130-400) K/uL MPV (9.4-12.4) fL Immature Gran % (Auto) % Neut % (Auto) % Lymph % (Auto) % [place] % (Auto) % Eos % (Auto) % Baso % (Auto) % Neut # (Auto) (1.40-6.50) K/uL Lymph # (Auto) (1.20-3.40) K/uL [place] # (Auto) (0.11-0.59) K/uL Eos # (Auto) (0.00-0.50) K/uL Baso # (Auto) (0.00-0.20) K/uL Immature Gran # (Auto) (0.01-0.20) K/uL PT INR APTT PTT Ratio Sodium (136-145) mmol/L Potassium (3.5-5.1) mmol/L Chloride (98-107) mmol/L Carbon Dioxide (21-32) mmol/L Anion Gap (3-11) BUN (6-23) mg/dl Creatinine (0.6-1.2) mg/dl Est Cr Clr Drug Dosing ml/min Est GFR ( Amer) ml/min Est GFR (Non-Af Amer) ml/min BUN/Creatinine Ratio (10-20) Glucose (70-99(Fasting)) mg/dl POC Glucose 69 L* 148 H (70-99) mg/dl Calcium (8.6-10.3) mg/dl Magnesium (1.7-2.4) mg/dl Total Bilirubin (0.2-1.0) mg/dl AST (13-39) U/L ALT (7-52) U/L Alkaline Phosphatase (34-104) U/L Troponin I High Sens (0-14) pg/ml Total Protein (6.0-8.3) gm/dl Albumin (3.4-5.0) gm/dl Globulin (2.5-4.0) gm/dl Albumin/Globulin Ratio (0.9-2) Urine Color Urine Appearance (Clear) Urine pH (4.5-7.5) Ur Specific [place] (1.000-1.030) Urine Protein (Negative) Urine Glucose (UA) (Negative) Urine Ketones (Negative) Urine Blood (Negative) Urine Nitrite (Negative) Urine Bilirubin (Negative) Urine Urobilinogen (Negative) Ur Leukocyte Esterase (Negative) Urine WBC (Auto) (0-5) /hpf Urine RBC (Auto) (0-4) /hpf U Hyaline Cast (Auto) (0-5) /lpf U Epithel Cells (Auto) (0-5) /lpf Urine Bacteria (Auto) (Negative) Imaging Data Attestation: I personally reviewed and interpreted this imaging study as follows: My Impression: Chest x-ray: Chest x-ray negative. Airway clear. No pneumothorax. No consolidation. No cardiomegaly or cephalization.. No free air under the diaphragm. No fractures of the skeletal structures. Pelvis x-ray: No acute fracture or dislocation Left knee x-ray: No acute fracture or dislocation Radiologist's Impression: Head CT 07/04/23 18:05 Exam(s): CT HEAD Without Contrast EXAM: CT Head Without Intravenous Contrast CLINICAL HISTORY: Reason for exam: neuro deficit, acute stroke suspected. TECHNIQUE: Axial computed tomography images of the head/brain without intravenous contrast. Automated exposure control was utilized for the study. A dose lowering technique was utilized adhering to the principles of ALARA. COMPARISON: No relevant prior studies available. FINDINGS: No acute intracranial hemorrhage. No midline shift or mass effect. The territorial noe-white matter differentiation is maintained throughout. Age-related cerebral volume loss. Periventricular and subcortical white matter hypoattenuation, consistent with chronic microangiopathy. The visualized orbits appear grossly unremarkable. The calvarium is intact. The visualized paranasal sinuses and mastoid air cells are grossly clear. IMPRESSION: No acute intracranial hemorrhage, midline shift, or mass effect. Electronically signed by: Иван Link MD 07/04/23 21:22 PM ECG Data Attestation: I personally reviewed and interpreted this ECG as follows: Rate (beats per minute): 70 Rhythm: + normal sinus ECG Intervals/blocks: + Normal QRS, + Normal WA and + Normal QT-c ECG ST segments: + Normal ST segments [facility] Narrative 1946: The patient was evaluated in room B7. A complete history and physical exam was performed Cardiac monitoring: An order was placed for continuous cardiac monitoring. The monitor shows a rate of 70 with sinus rhythm interpreted by me Patient was seen during a time of extreme volume and extreme acuity in the emergency department. Nursing triage protocols were initiated and labs were drawn by protocol in the triage area. Patient's potassium 6.7. Patient will be treated with calcium gluconate IV. Patient will also be treated with 5 units of insulin and 1 amp of D50 given her hyperkalemia. 2038: Vital signs stable. Imaging shows no acute traumatic injury. Creatinine 1.53. AST 96 ALT 66 alkaline phosphatase 115. Patient will be admitted to the [facility] team Dr. Roque notified. Patient's blood sugar did go down after receiving the insulin but patient was awake and alert and oriented patient was given food to eat and she tolerated well. Impression & Plan Acute hyperkalemia, Transaminitis, Fall Discharge Plan Visit Data Chief Complaint: TIA Symptoms Stated Complaint: LOSS OF BALANCE, WEAKNESS, NUMB FINGERS/TONGUE ED Provider: Yasir Kline Discharge Problem: Acute hyperkalemia, Transaminitis, Fall Patient Disposition: Admitted As Inpatient Forms Stand Alone Forms: My [facility] Prescriptions Prescriptions: No Action (DME) pen needle, diabetic 32 gauge x 5/32" needle See Rx Instructions .Route Qty: 100 0RF Rx Instructions: As directed (DME) pen needle, diabetic [CareFine Pen Needle] 32 gauge x 1/4" needle See Rx Instructions .Route Qty: 100 1RF Rx Instructions: To be used with insulin pen. gabapentin 100 mg capsule 300 mg PO TID Qty: 270 3RF losartan 50 mg tablet 50 mg PO HS Qty: 90 1RF metformin 1,000 mg tablet 1,000 mg PO BID Qty: 180 1RF multivitamin Tablet 1 tab PO QAM sulfamethoxazole-trimethoprim 800-160 mg tablet 1 tab PO Q12 Rx Instructions: FILLED 07/01/23 aspirin [Aspir-Low] 81 mg Tablet,Delayed Release (Dr/Ec) 81 mg PO DAILY naproxen sodium [Aleve] 220 mg Tablet 220 mg PO BID PRN (Reason: Pain) mupirocin 2 % ointment 1 applic TOPICAL BID Referrals Referrals: Carlita Jones DO [Primary Care Provider] - Discharge Problem: Fall Qualifiers: Encounter type: initial encounter Qualified Code(s): W19.XXXA - Unspecified fall, initial encounter
[2023-07-05 00:25] LABS: Base Excess VBG -7.5 mEq/L; HCO3 VBG 19 mmol/L; Oxygen Saturation VBG < 60.0 %; PCO2 VBG 40 mmHg (38-50); PO2 VBG 23 mmHg; pH VBG 7.28 (7.36-7.41)
[2023-07-05 00:26] LABS: Creatinine Urine Random 61.5 mg/dl
--- NOTE | 2023-07-05 00:57 | CT Scan Report ---
Exam(s): CTA NECK With Contrast IV Amt: 117 ML OPTIRAY 320 EXAM: CT Angiography Neck With Intravenous Contrast CLINICAL HISTORY: Reason for exam: Focal weakness numbness. TECHNIQUE: Routine carotid CT angiography protocol was performed with intravenous contrast. NASCET criteria using the distal ICAs for comparison were used for evaluation of stenoses. CTDI is 12.25 mGy and DLP is 462.78 mGy-cm. Automated exposure control was utilized for the study. A dose lowering technique was utilized adhering to the principles of ALARA. MIP reconstructed images were created and reviewed. CONTRAST: Patient received 117 ML OPTIRAY 320 of IV contrast COMPARISON: None. FINDINGS: VASCULATURE: Right common carotid artery: Unremarkable. No occlusion or significant stenosis. No dissection. Right internal carotid artery: Mild calcified plaque at the level of the right carotid bulb. Mild calcified plaque at the origin and proximal right internal carotid artery with less than 50% diameter stenosis. No dissection. Right external carotid artery: Unremarkable. No occlusion. Right vertebral artery: Dominant right-sided vertebral artery, otherwise normal right vertebral artery. No occlusion or significant stenosis. No dissection. Left common carotid artery: Unremarkable. No occlusion or significant stenosis. No dissection. Left internal carotid artery: Mild calcified plaque at the left carotid bulb. Mild calcified plaque at the origin and proximal left internal carotid artery with no stenosis. No dissection. Left external carotid artery: Unremarkable. No occlusion. Left vertebral artery: Unremarkable. No occlusion or significant stenosis. No dissection. Aorta: Atherosclerotic disease of aorta with no aneurysm or dissection. Normal origin of great vessels with nonspecific atherosclerotic disease. NECK: Bones/joints: Unremarkable. No acute fracture. Soft tissues: Unremarkable. Lung apices: Clear. CAROTID STENOSIS REFERENCE USING NASCET CRITERIA: % ICA stenosis = (1 - narrowest ICA diameter/diameter of distal cervical ICA) x 100. Mild - <50% stenosis. Moderate - 50-69% stenosis. Severe - 70-94% stenosis. Near occlusion - 95-99% stenosis. Occluded - 100% stenosis. IMPRESSION: 1. Atherosclerotic disease, predominantly in the carotid bulb region with no significant stenosis, occlusion or dissection seen. 2. Normal bilateral vertebral arteries. Electronically signed by: Karen Trammell MD 07/05/23 00:57 AM
[2023-07-05 01:03] LABS: Albumin Globulin Ratio 1.3 (0.9-2); Albumin Level 3.4 gm/dl (3.4-5.0); BUN Creatinine Ratio 27.1 (10-20); Bilirubin,Total 0.3 mg/dl (0.2-1.0); C Reactive Protein 2.86 mg/dl (0-0.5); Calcium 8.8 mg/dl (8.6-10.3); Creatinine Clr Calc Pharmacy 39.4 ml/min; Est GFR (African American) 43.4 ml/min; Est GFR (Non-African American) 37.5 ml/min; Globulin 2.7 gm/dl (2.5-4.0); Potassium 6.1 mmol/L (3.5-5.1); Total Protein 6.1 gm/dl (6.0-8.3)
--- NOTE | 2023-07-05 01:08 | CT Scan Report ---
Exam(s): CTA HEAD With Contrast IV Amt: 117 ML OPTIRAY 320 EXAM: CT Angiography Head With Intravenous Contrast CLINICAL HISTORY: Reason for exam: Focal numbness weakness. TECHNIQUE: Axial computed tomographic angiography images of the head with intravenous contrast. CTDI is 26.99 mGy and DLP is 13.49 mGy-cm. Automated exposure control was utilized for the study. A dose lowering technique was utilized adhering to the principles of ALARA. MIP reconstructed images were created and reviewed. CONTRAST: Patient received 117 ML OPTIRAY 320 of IV contrast COMPARISON: None. FINDINGS: Right internal carotid artery: Mild atherosclerotic disease throughout the cavernous portion of the right internal carotid artery with less than 50% diameter stenosis. No aneurysm. Right anterior cerebral artery: Unremarkable. No occlusion or significant stenosis. No aneurysm. Right middle cerebral artery: Unremarkable. No occlusion or significant stenosis. No aneurysm. Right posterior cerebral artery: Unremarkable. No occlusion or significant stenosis. No aneurysm. Right vertebral artery: Unremarkable as visualized. Left internal carotid artery: Mild atherosclerotic disease throughout the cavernous portion of the left internal carotid artery with less than 50% diameter stenosis. No aneurysm. Left anterior cerebral artery: Unremarkable. No occlusion or significant stenosis. No aneurysm. Left middle cerebral artery: Unremarkable. No occlusion or significant stenosis. No aneurysm. Left posterior cerebral artery: Unremarkable. No occlusion or significant stenosis. No aneurysm. Left vertebral artery: Unremarkable as visualized. Basilar artery: Unremarkable. No occlusion or significant stenosis. No aneurysm. IMPRESSION: No evidence of significant stenosis, occlusion or aneurysm involving the eek of Jacobsen. Electronically signed by: Karen Trammell MD 07/05/23 01:07 AM
[2023-07-05 01:16] LABS: Thyroid Stimulating Hormone 1.717 uIu/ml (0.300-4.500)
[2023-07-05] MEDS ORDERED: GLUCAGON FOR INJ 1 MG VIAL SQ PRN (02:49)
[2023-07-05] MEDS ORDERED: ONDANSETRON INJ 2 MG/ML 2 ML VIAL IV PRN (02:49)
[2023-07-05] MEDS ORDERED: CARBOHYDRATES FOR HYPOGLYCEMIA PO PRN (02:49)
[2023-07-05] MEDS ORDERED: GLUCOSE 40% GEL 15 GM TUBE PO PRN (02:49)
[2023-07-05] MEDS ORDERED: DEXTROSE 50% 50 ML SYRINGE IV PRN (02:49)
[2023-07-05] MEDS ORDERED: GLUCOSE 10 TAB/TUBE PO PRN (02:49)
--- NOTE | 2023-07-05 03:27 | Billing Data ---
Date of Service July 04, 2023 Coding Level of Care Code 22457 INT INP/OBS CARE
[2023-07-05] MEDS: ACETAMINOPHEN 325 MG TAB PO PRN (03:30)
[2023-07-05] MEDS: LACTATED RINGER'S 1,000 ML IV SCH (04:12)
[2023-07-05] MEDS: oxyCODONE HCL IR 5 MG TAB (IMMEDIATE RELEASE) PO STA (05:33)
[2023-07-05 06:34] LABS: Basophils # (auto) 0.02 K/uL (0.00-0.20); Basophils % (auto) 0.3 %; Eosinophils # (auto) 0.25 K/uL (0.00-0.50); Eosinophils % (auto) 3.9 %; Hematocrit (blood only) 31.8 % (37.0-47.0); Hemoglobin 9.9 g/dl (12.0-16.0); Immature Granulocytes # (auto) 0.02 K/uL (0.01-0.20); Immature Granulocytes % (auto) 0.3 %; Lymphocytes # (auto) 0.73 K/uL (1.20-3.40); Lymphocytes % (auto) 11.2 %; Mean Corpuscular Hemoglobin 27.7 pg (25.0-34.0); Mean Corpuscular Hgb Conc 31.1 g/dL (32.0-36.0); Mean Corpuscular Volume 88.8 fL (80.0-100.0); Mean Platelet Volume 10.1 fL (9.4-12.4); Monocytes # (auto) 0.71 K/uL (0.11-0.59); Monocytes % (auto) 10.9 %; Neutrophils # (auto) 4.76 K/uL (1.40-6.50); Neutrophils % (auto) 73.4 %; Platelet Count 233 K/uL (130-400); RDW Standard Deviation 45.8 fL (36.4-46.3); Red Blood Count 3.58 M/uL (4.20-5.40); White Blood Count 6.49 K/ul (4.8-10.8)
--- NOTE | 2023-07-05 06:59 | XRay Report ---
XR knee LT 4V HISTORY: 67 years-old Female fall acute left knee pain status post fall COMPARISON: None TECHNIQUE: 4 views of the left knee FINDINGS: Tricompartmental osteoarthritis, mild within the lateral compartment and [id number] in the medi al and patellofemoral compartments. No acute fracture, dislocation or large joint effusion. Arterial calcifications. IMPRESSION: No acute fracture or dislocation. ACT 112: Negative or not required by law. The above report was generated using voice recognition software. It may contain grammatical, syntax o r spelling errors. Electronically signed by: Rod Rogers M.D. 07/05/2023 6:57 AM
--- NOTE | 2023-07-05 07:07 | XRay Report ---
XR chest 1V portable HISTORY: 67 years-old Female weakness acute chest trauma status post fall with acute weakness COMPARISON: 10/04/2022 TECHNIQUE: AP view of the chest FINDINGS: Cardiac silhouette is enlarged. A cardiac loop recorder device is noted. No pneumothorax, pleural eff usion or overt pulmonary edema. Mild chronic interstitial coarsening. Bones appear grossly intact. IMPRESSION: Cardiomegaly without acute process. ACT 112: Negative or not required by law. The above report was generated using voice recognition software. It may contain grammatical, syntax o r spelling errors. Electronically signed by: Rod Rogers M.D. 07/05/2023 7:06 AM
[2023-07-05 07:16] LABS: Albumin Globulin Ratio 1.3 (0.9-2); Albumin Level 3.2 gm/dl (3.4-5.0); BUN Creatinine Ratio 27.7 (10-20); Bilirubin,Total 0.3 mg/dl (0.2-1.0); Calcium 8.5 mg/dl (8.6-10.3); Creatinine Clr Calc Pharmacy 49.5 ml/min; Est GFR (African American) 49.2 ml/min; Est GFR (Non-African American) 42.4 ml/min; Globulin 2.5 gm/dl (2.5-4.0); Magnesium 1.5 mg/dl (1.7-2.4); Phosphorus 3.6 mg/dl (2.5-4.9); Potassium 6.9 mmol/L (3.5-5.1); Total Protein 5.7 gm/dl (6.0-8.3)
--- NOTE | 2023-07-05 07:19 | XRay Report ---
XR pelvis 1-2V routine CLINICAL HISTORY: fall COMPARISON: Right hip radiographs October 12, 2022. FINDINGS: Sacroiliac joints and symphysis pubis are intact. There is no acute fracture within the pe lvis or hips. Severe right hip joint space narrowing has progressed since prior radiographs. There is mild osteophytosis with subchondral sclerosis. IMPRESSION: 1. No fractures within the pelvis or hips. 2. Severe right hip osteoarthritis. ACT 112: Negative or not required by law. Electronically signed by: Chava Mcguire M.D. 07/05/2023 7:18 AM
[2023-07-05] MEDS ORDERED: STAT IV/IM STA (07:39)
[2023-07-05] MEDS: INSULIN ASPART PER UNIT CHARGE SC SCH (07:51)
[2023-07-05] MEDS: DEXTROSE 50% 50 ML SYRINGE IV ONE (08:24)
[2023-07-05] MEDS: INSULIN HUMAN REGULAR PER UNIT 10 UNITS in SYRINGE 9.9 ML IV ONE (08:37)
[2023-07-05] MEDS: MAGNESIUM SULFATE / D5W 1 GM/100 ML BAG IV SCH (08:37)
[2023-07-05] MEDS: SODIUM BICARBONATE 8.4% 150 MEQ in WATER, STERILE 1,000 ML IV SCH (08:37)
[2023-07-05] MEDS: CALCIUM GLUCONATE 10% 1,000 MG in SODIUM CHLOR 0.9% MINI-B 50 ML IV ONE (08:40)
[2023-07-05] MEDS: ALBUTEROL 0.083% NEBU SOLN 3 ML VIAL NEB STA (08:43)
[2023-07-05] MEDS: GABAPENTIN 300 MG CAP PO SCH (09:00)
[2023-07-05] MEDS: ASPIRIN 81 MG ECTAB PO SCH (09:01)
[2023-07-05] MEDS: HEPARIN SOD 5,000 UNIT/0.5 ML VIAL SQ SCH (09:02)
[2023-07-05] MEDS: FUROSEMIDE 40 MG/4 ML VIAL IV ONE ×2 (10:30→10:46)
[2023-07-05] MEDS: SODIUM ZIRCONIUM CYCLOSILICATE 10 GM PACKET PO SCH (10:47)
[2023-07-05 11:09] LABS: Folate (Folic Acid),Ser orPlas 10.85 ng/ml (>5.38)
[2023-07-05 11:16] LABS: Ferritin 62.8 ng/ml (8-388)
--- NOTE | 2023-07-05 12:10 | Nephrology Consultation ---
Date of Consultation July 05, 2023 Assessment & Plan (1) Acute hyperkalemia: * Hyperkalemia likely due to combination ARB, TMP/SMX * Stop Losartan and Bactrim * Primary service has provided Ca, insulin, dextrose. Telemetry shows NSR * Agree w/ starting Lokelma 10 g po TID and NaHCO3 150 mEq/L at 100 cc/hr IV * Will provide Furosemide 40 mg IV x1 to promote kaliuresis * Will order stat PRP for 12 noon * Continue low K diet (2) Acute kidney injury: * Clinically mild volume contraction. Continue hydration w/ NaHCO3 gtt * Monitor PRP (3) HTN (hypertension): * BP is currently acceptable * Hold Losartan due to hyperkalemia (4) Inflammation of toe: * Consider culture of wound and transition to alternative antibiotic. Avoid Bactrim due to hyperkalemia History of Present Illness Reason for Consultation: Hyperkalemia Attending Physician: Keysha Kwong MD History of Present Illness Ms. Moses is a 67 year old white female who is seen at the request of the [facility] Hospitalist Service for evaluation of hyperkalemia. Information for the HPI is obtained from direct patient interview and review of the EMR. HPI is summarized as follows: Ms. Moses has a known h/o HTN, ASCVD s/p stent placement, AODM, DVT, PE, peripheral neuropathy and PAD s/p L 3rd toe amputation. She had been taking Losartan for BP management. Recently Ms. Moses was found to have an inflammation of her L 2nd toe and was started on Bactrim therapy. Yesterday she developed weakness and fell. She was brought to the [facility] EMD where laboratory studies revealed Cr 1.5 (baseline 1.0), K 6.7, HCO3 18. Medical management was provided in the EMD and patient admitted to the hospitalist service for ongoing care. Losartan and Bactrim have been held. Lokelma 10 g po TID ordered and IV NaHCO3 gtt started. Ms. Moses denies any prior h/o JUANCHO or hyperkalemia. She takes no OTC medications or herbal supplements. She currently denies palpitations. Telemetry shows NSR. Allergies Allergy/AdvReac Type Severity Reaction Status Date / Time lisinopril AdvReac Intermediate cough Verified 07/04/23 23:56 Home Medications Medication Instructions Recorded Confirmed Type pen needle, diabetic 32 gauge x #100 ea 12/21/22 07/04/23 Rx 5/32" pen needle, diabetic 32 gauge x #100 ea 01/07/23 07/04/23 Rx 1/4" (CareFine Pen Needle) multivitamin 1 tab PO QAM 03/27/23 07/04/23 History gabapentin 100 mg capsule 300 mg (3 x 100 mg) PO TID #270 05/30/23 07/04/23 Rx caps losartan 50 mg tablet 50 mg PO HS #90 tabs 05/30/23 07/04/23 Rx metformin 1,000 mg tablet 1,000 mg PO BID #180 tabs 05/30/23 07/04/23 Rx aspirin 81 mg tablet,delayed 81 mg PO DAILY 07/04/23 07/04/23 History release mupirocin 2 % topical ointment 1 applic topical BID 07/04/23 07/04/23 History naproxen sodium 220 mg tablet 220 mg PO BID PRN Pain 07/04/23 07/04/23 History (Aleve) sulfamethoxazole 800 1 tab PO Q12 07/04/23 07/04/23 History mg-trimethoprim 160 mg tablet Patient History Medical History Seasonal allergies Implantable loop recorder present placed after syncopal episode 12/2022 - follows w/ Dr Pardo Hx of diabetic foot ulcer Lumbar disc disease History of DVT of lower extremity (06/2021) LLE treated w/ warfarin x 6 mos Diabetic peripheral neuropathy associated with type 2 diabetes mellitus History of pulmonary embolus (PE) (06/2021) Treated with warfarin x 6 mos Diabetes mellitus, type II HTN (hypertension) History of myocardial infarction Surgical History 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) Hx of colonoscopy H/O heart artery stent (01/2022) ARTI x 3 to RCA History of incision and drainage (05/2019) Abscess on Head and abd Hx of tonsillectomy H/O section Family History Mother Coronary heart disease Father Coronary heart disease Deep vein thrombosis Sister Colorectal cancer Social History Smoking Status: Never smoker Second Hand Exposure: No; Do You Dip or Chew Tobacco: No; Hx Alcohol Use: No Hx Substance Use: No Preferred Language: Sinhala Communication Ability: Effective Visual Impairment: No Limitations Hearing Ability: Normal Deaf Interpreter Required: No Beliefs That Will Affect Care: None marital status: / Current Living Situation: Family Current Living Situation Comment: Daughter and grandson current occupational status: employed current occupation: [employer] Feels Safe at Home: Yes Safety Concerns: Feels Safe At This Time Diet: diabetic and low carbohydrate caffeine: No during the past year weight has: remained stable Assistive Devices: None Assistive Devices Comment: reading glasses Review of Systems Constitutional: no fever Eyes: no problem reported Ear, Nose, Mouth, Throat: no problem reported Respiratory: no cough and no dyspnea Cardiovascular: no chest pain and no palpitations Gastrointestinal: no abdominal pain, no nausea, no vomiting and no diarrhea/loose stools Musculoskeletal: no back pain Integumentary: no rash Neurologic: no problem reported Physical Exam Constitutional: not in distress Eyes: PERRL, conjunctivae normal, anicteric sclerae ENMT: external ear and nose normal, oropharynx normal Neck: trachea midline, no thyromegaly Respiratory: normal respiratory effort, lungs clear to auscultation Cardiovascular: RRR, no murmur, no edema Gastrointestinal (Abdomen): normal bowel sounds, soft, nontender, no hepatosplenomegaly Musculoskeletal: Extremities: no cyanosis and no clubbing Skin: no rashes, warm and dry Neurologic: Speech / Cognition: normal speech and normal cognition Psychiatric: Affect: euthymic affect Results & Data Vital Signs (Past 12 Hours) Vital Signs Temp Pulse Pulse Resp BP BP Pulse Ox 07/05/23 10:54 36.6 C 61 18 122/56 L 96 07/05/23 08:43 86 14 97 07/05/23 08:15 36.9 C 62 18 109/60 96 07/05/23 05:57 64 07/05/23 02:30 36.5 C 62 18 124/89 98 07/05/23 01:20 64 18 138/70 97 07/05/23 00:30 64 O2 Del Method 07/05/23 10:54 Room Air 07/05/23 08:43 Room Air 07/05/23 08:15 Room Air 07/05/23 05:57 07/05/23 02:30 Room Air 07/05/23 01:20 Room Air 07/05/23 00:30 Laboratory Results Laboratory Results WBC 6.49 K/ul (4.8-10.8) 07/05/23 06:08 RBC 3.58 M/uL (4.20-5.40) L 07/05/23 06:08 Hgb 9.9 g/dl (12.0-16.0) L 07/05/23 06:08 Hct 31.8 % (37.0-47.0) L 07/05/23 06:08 MCV 88.8 fL (80.0-100.0) 07/05/23 06:08 MCH 27.7 pg (25.0-34.0) 07/05/23 06:08 MCHC 31.1 g/dL (32.0-36.0) L 07/05/23 06:08 RDW Std Deviation 45.8 fL (36.4-46.3) 07/05/23 06:08 RDW Coeff of Anitha 14.0 % (11.5-14.5) 07/05/23 06:08 Plt Count 233 K/uL (130-400) 07/05/23 06:08 MPV 10.1 fL (9.4-12.4) 07/05/23 06:08 Immature Gran % (Auto) 0.3 % 07/05/23 06:08 Neut % (Auto) 73.4 % 07/05/23 06:08 Lymph % (Auto) 11.2 % 07/05/23 06:08 Bee % (Auto) 10.9 % 07/05/23 06:08 Eos % (Auto) 3.9 % 07/05/23 06:08 Baso % (Auto) 0.3 % 07/05/23 06:08 Neut # (Auto) 4.76 K/uL (1.40-6.50) 07/05/23 06:08 Lymph # (Auto) 0.73 K/uL (1.20-3.40) L 07/05/23 06:08 Bee # (Auto) 0.71 K/uL (0.11-0.59) H 07/05/23 06:08 Eos # (Auto) 0.25 K/uL (0.00-0.50) 07/05/23 06:08 Baso # (Auto) 0.02 K/uL (0.00-0.20) 07/05/23 06:08 Immature Gran # (Auto) 0.02 K/uL (0.01-0.20) 07/05/23 06:08 PT 10.9 Seconds (9.0-12.0) 07/04/23 20:23 INR 1.0 (0.9-1.1) 07/04/23 20:23 APTT 32 Seconds (21-31) H 07/04/23 20:23 PTT Ratio 1.1 07/04/23 20:23 VBG pH 7.28 (7.36-7.41) L 07/05/23 00:10 VBG pCO2 40 mmHg (38-50) 07/05/23 00:10 VBG pO2 23 mmHg 07/05/23 00:10 VBG HCO3 19 mmol/L 07/05/23 00:10 VBG O2 Saturation < 60.0 % 07/05/23 00:10 VBG Base Excess -7.5 mEq/L 07/05/23 00:10 Sodium 134 mmol/L (136-145) L 07/05/23 06:08 Potassium 6.9 mmol/L (3.5-5.1) H* 07/05/23 06:08 Chloride 112 mmol/L (98-107) H 07/05/23 06:08 Carbon Dioxide 18 mmol/L (21-32) L 07/05/23 06:08 Anion Gap 4 (3-11) 07/05/23 06:08 BUN 36 mg/dl (6-23) H 07/05/23 06:08 Creatinine 1.30 mg/dl (0.6-1.2) H 07/05/23 06:08 Est Cr Clr Drug Dosing 49.5 ml/min 07/05/23 06:08 Est GFR ( Amer) 49.2 ml/min 07/05/23 06:08 Est GFR (Non-Af Amer) 42.4 ml/min 07/05/23 06:08 BUN/Creatinine Ratio 27.7 (10-20) H 07/05/23 06:08 Glucose 96 mg/dl (70-99(Fasting)) 07/05/23 06:08 POC Glucose 70 mg/dl (70-99) 07/05/23 10:56 Lactate 1.0 mmol/L (0.4-2.0) 07/05/23 00:10 Calcium 8.5 mg/dl (8.6-10.3) L 07/05/23 06:08 Phosphorus 3.6 mg/dl (2.5-4.9) 07/05/23 06:08 Magnesium 1.5 mg/dl (1.7-2.4) L 07/05/23 06:08 Iron 51 mcg/dl (35-150) 07/05/23 09:52 TIBC 240 mcg/dl (250-450) L 07/05/23 09:52 Unsaturated IBC 189 mcg/dl (155-355) 07/05/23 09:52 Transferrin % Sat 21 % (15-50) 07/05/23 09:52 Ferritin 62.8 ng/ml (8-388) 07/05/23 09:52 Total Bilirubin 0.3 mg/dl (0.2-1.0) 07/05/23 06:08 AST 100 U/L (13-39) H 07/05/23 06:08 ALT 78 U/L (7-52) H 07/05/23 06:08 Alkaline Phosphatase 100 U/L (34-104) 07/05/23 06:08 Ammonia 19.0 umol/L (18-72) 07/05/23 00:11 Total Creatine Kinase 101 U/L (26-192) 07/05/23 00:11 Troponin I High Sens 5.5 pg/ml (0-14) 07/04/23 18:30 C-Reactive Protein 2.86 mg/dl (0-0.5) H 07/05/23 00:11 B-Natriuretic Peptide 159 pg/ml (0-100) H 07/05/23 00:10 Total Protein 5.7 gm/dl (6.0-8.3) L 07/05/23 06:08 Albumin 3.2 gm/dl (3.4-5.0) L 07/05/23 06:08 Globulin 2.5 gm/dl (2.5-4.0) 07/05/23 06:08 Albumin/Globulin Ratio 1.3 (0.9-2) 07/05/23 06:08 Vitamin B12 202 pg/ml (180-914) 07/05/23 09:52 Folate 10.85 ng/ml (>5.38) 07/05/23 09:52 TSH 1.717 uIu/ml (0.300-4.500) 07/05/23 00:11 Random Cortisol 6.45 mcg/dl 07/05/23 00:10 Urine Color Yellow 07/04/23 18:30 Urine Appearance Cloudy (Clear) A 07/04/23 18:30 Urine pH 5.5 (4.5-7.5) 07/04/23 18:30 Ur Specific [place] 1.014 (1.000-1.030) 07/04/23 18:30 Urine Protein Negative (Negative) 07/04/23 18:30 Urine Glucose (UA) Negative (Negative) 07/04/23 18:30 Urine Ketones Negative (Negative) 07/04/23 18:30 Urine Blood Negative (Negative) 07/04/23 18:30 Urine Nitrite Negative (Negative) 07/04/23 18:30 Urine Bilirubin Negative (Negative) 07/04/23 18:30 Urine Urobilinogen Negative (Negative) 07/04/23 18:30 Ur Leukocyte Esterase 2+ (Negative) H 07/04/23 18:30 Urine WBC (Auto) 10-30 /hpf (0-5) H 07/04/23 18:30 Urine RBC (Auto) 0-4 /hpf (0-4) 07/04/23 18:30 U Hyaline Cast (Auto) 1-5 /lpf (0-5) 07/04/23 18:30 U Epithel Cells (Auto) >30 /lpf (0-5) H 07/04/23 18:30 Urine Bacteria (Auto) Negative (Negative) 07/04/23 18:30 Ur Random Creatinine 61.5 mg/dl 07/04/23 18:30 Ur Random Sodium 74 mmol/L 07/04/23 18:[address] 07/04/23 18:05 Exam(s): CT HEAD Without Contrast EXAM: CT Head Without Intravenous Contrast CLINICAL HISTORY: Reason for exam: neuro deficit, acute stroke suspected. TECHNIQUE: Axial computed tomography images of the head/brain without intravenous contrast. Automated exposure control was utilized for the study. A dose lowering technique was utilized adhering to the principles of ALARA. COMPARISON: No relevant prior studies available. FINDINGS: No acute intracranial hemorrhage. No midline shift or mass effect. The territorial noe-white matter differentiation is maintained throughout. Age-related cerebral volume loss. Periventricular and subcortical white matter hypoattenuation, consistent with chronic microangiopathy. The visualized orbits appear grossly unremarkable. The calvarium is intact. The visualized paranasal sinuses and mastoid air cells are grossly clear. IMPRESSION: No acute intracranial hemorrhage, midline shift, or mass effect. Electronically signed by: Иван Link MD 07/04/23 21:22 PM Knee X-Ray 07/04/23 19:56 XR knee LT 4V HISTORY: 67 years-old Female fall acute left knee pain status post fall COMPARISON: None TECHNIQUE: 4 views of the left knee FINDINGS: Tricompartmental osteoarthritis, mild within the lateral compartment and [id number] in the medial and patellofemoral compartments. No acute fracture, dislocation or large joint effusion. Arterial calcifications. IMPRESSION: No acute fracture or dislocation. ACT 112: Negative or not required by law. The above report was generated using voice recognition software. It may contain grammatical, syntax or spelling errors. Electronically signed by: Rod Rogers M.D. 07/05/2023 6:57 AM Pelvis X-Ray 07/04/23 19:56 XR pelvis 1-2V routine CLINICAL HISTORY: fall COMPARISON: Right hip radiographs October 12, 2022. FINDINGS: Sacroiliac joints and symphysis pubis are intact. There is no acute fracture within the pelvis or hips. Severe right hip joint space narrowing has progressed since prior radiographs. There is mild osteophytosis with subchondral sclerosis. IMPRESSION: 1. No fractures within the pelvis or hips. 2. Severe right hip osteoarthritis. ACT 112: Negative or not required by law. Electronically signed by: Chava Mcguire M.D. 07/05/2023 7:18 AM Chest X-Ray 07/04/23 19:57 XR chest 1V portable HISTORY: 67 years-old Female weakness acute chest trauma status post fall with acute weakness COMPARISON: 10/04/2022 TECHNIQUE: AP view of the chest FINDINGS: Cardiac silhouette is enlarged. A cardiac loop recorder device is noted. No pneumothorax, pleural effusion or overt pulmonary edema. Mild chronic interstitial coarsening. Bones appear grossly intact. IMPRESSION: Cardiomegaly without acute process. ACT 112: Negative or not required by law. The above report was generated using voice recognition software. It may contain grammatical, syntax or spelling errors. Electronically signed by: Rod Rogers M.D. 07/05/2023 7:06 AM Head CTA 07/04/23 23:21 Exam(s): CTA HEAD With Contrast IV Amt: 117 ML OPTIRAY 320 EXAM: CT Angiography Head With Intravenous Contrast CLINICAL HISTORY: Reason for exam: Focal numbness weakness. TECHNIQUE: Axial computed tomographic angiography images of the head with intravenous contrast. CTDI is 26.99 mGy and DLP is 13.49 mGy-cm. Automated exposure control was utilized for the study. A dose lowering technique was utilized adhering to the principles of ALARA. MIP reconstructed images were created and reviewed. CONTRAST: Patient received 117 ML OPTIRAY 320 of IV contrast COMPARISON: None. FINDINGS: Right internal carotid artery: Mild atherosclerotic disease throughout the cavernous portion of the right internal carotid artery with less than 50% diameter stenosis. No aneurysm. Right anterior cerebral artery: Unremarkable. No occlusion or significant stenosis. No aneurysm. Right middle cerebral artery: Unremarkable. No occlusion or significant stenosis. No aneurysm. Right posterior cerebral artery: Unremarkable. No occlusion or significant stenosis. No aneurysm. Right vertebral artery: Unremarkable as visualized. Left internal carotid artery: Mild atherosclerotic disease throughout the cavernous portion of the left internal carotid artery with less than 50% diameter stenosis. No aneurysm. Left anterior cerebral artery: Unremarkable. No occlusion or significant stenosis. No aneurysm. Left middle cerebral artery: Unremarkable. No occlusion or significant stenosis. No aneurysm. Left posterior cerebral artery: Unremarkable. No occlusion or significant stenosis. No aneurysm. Left vertebral artery: Unremarkable as visualized. Basilar artery: Unremarkable. No occlusion or significant stenosis. No aneurysm. IMPRESSION: No evidence of significant stenosis, occlusion or aneurysm involving the tanana of [place]. Electronically signed by: Karen Trammell MD 07/05/23 01:07 AM Neck CTA 07/04/23 23:21 Exam(s): CTA NECK With Contrast IV Amt: 117 ML OPTIRAY 320 EXAM: CT Angiography Neck With Intravenous Contrast CLINICAL HISTORY: Reason for exam: Focal weakness numbness. TECHNIQUE: Routine carotid CT angiography protocol was performed with intravenous contrast. NASCET criteria using the distal ICAs for comparison were used for evaluation of stenoses. CTDI is 12.25 mGy and DLP is 462.78 mGy-cm. Automated exposure control was utilized for the study. A dose lowering technique was utilized adhering to the principles of ALARA. MIP reconstructed images were created and reviewed. CONTRAST: Patient received 117 ML OPTIRAY 320 of IV contrast COMPARISON: None. FINDINGS: VASCULATURE: Right common carotid artery: Unremarkable. No occlusion or significant stenosis. No dissection. Right internal carotid artery: Mild calcified plaque at the level of the right carotid bulb. Mild calcified plaque at the origin and proximal right internal carotid artery with less than 50% diameter stenosis. No dissection. Right external carotid artery: Unremarkable. No occlusion. Right vertebral artery: Dominant right-sided vertebral artery, otherwise normal right vertebral artery. No occlusion or significant stenosis. No dissection. Left common carotid artery: Unremarkable. No occlusion or significant stenosis. No dissection. Left internal carotid artery: Mild calcified plaque at the left carotid bulb. Mild calcified plaque at the origin and proximal left internal carotid artery with no stenosis. No dissection. Left external carotid artery: Unremarkable. No occlusion. Left vertebral artery: Unremarkable. No occlusion or significant stenosis. No dissection. Aorta: Atherosclerotic disease of aorta with no aneurysm or dissection. Normal origin of great vessels with nonspecific atherosclerotic disease. NECK: Bones/joints: Unremarkable. No acute fracture. Soft tissues: Unremarkable. Lung apices: Clear. CAROTID STENOSIS REFERENCE USING NASCET CRITERIA: % ICA stenosis = (1 - narrowest ICA diameter/diameter of distal cervical ICA) x 100. Mild - <50% stenosis. Moderate - 50-69% stenosis. Severe - 70-94% stenosis. Near occlusion - 95-99% stenosis. Occluded - 100% stenosis. IMPRESSION: 1. Atherosclerotic disease, predominantly in the carotid bulb region with no significant stenosis, occlusion or dissection seen. 2. Normal bilateral vertebral arteries. Electronically signed by: Karen Trammell MD 07/05/23 00:57 AM PG Care Time/CCT Total # of Minutes Spent Total Time Spent with Patient: Total time spent is greater than 50% in coordination of care (as documented) at patient's floor/unit and/or counseling patient: Coding Level of Care Code 11222 OFFICE CONSULT LVL 5/55M Diagnoses Acute hyperkalemia E87.5 Acute kidney injury N17.9 HTN (hypertension) I10 Inflammation of toe L08.9
[2023-07-05 12:30] LABS: BUN Creatinine Ratio 25.2 (10-20); Calcium 9.3 mg/dl (8.6-10.3); Creatinine Clr Calc Pharmacy 47.6 ml/min; Est GFR (Non-African American) 40.5 ml/min; Potassium 5.7 mmol/L (3.5-5.1)
--- NOTE | 2023-07-05 13:30 | History & Physical Bridge Note ---
Date of Service July 05, 2023 History & Physical Bridge Note I have examined the patient, reviewed the History & Physical and in the interval since the performance of the History & Physical I have noted the following changes of clinical significance: Pt had significant hyperkalemia again on AM labs. Calcium gluconate, IV insulin and D50, albuterol neb, lokelma, and low potassium diet ordered. Started isotonic bicarb gtt and consulted Nephro who ordered IV lasix. ECG NSR, no peaked t waves. Repeat BMP at 1200 now down to K+ 5.7.Flight [employer] 1.3. Pt feeling better Vitals reviewed NAD, AAOx3 RRR no mgr CTAB no wcr Abd soft NT ND +BS Ext trace edema left 2nd distal toe with open 1 x 1 cm ulcer, no erythema, scant drainage, exquisitely ttp, 2+ DP pulses bilat; left great toe plantar surface with 0.5cm ulceration, no drainage Loop recorder interrogation added due to weakness and fall-no arrhythmias noted Stopped LR For anemia, ordered Fe studies, B12, folate and B12 found to be low normal-start po B12 Also ordered IV magnesium for low Mag follow BMP again at 1600 consult Wound care start IV Cefpeime and dapto to cover for toe infection and will call Podiatry for any culture results from recent I&D in office
[2023-07-05] MEDS ORDERED: CEFEPIME 2,000 MG in SYRINGE 0 ML IV SCH (14:00)
[2023-07-05] MEDS: CYANOCOBALAMIN (B-12) 500 MCG TABLET PO SCH (15:09)
[2023-07-05] MEDS: CEFEPIME 2,000 MG in SYRINGE 0 ML IV SCH (15:12)
[2023-07-05] MEDS: DAPTOmycin 300 MG in SYRINGE 0 ML IV SCH (15:58)
[2023-07-05 16:38] LABS: BUN Creatinine Ratio 25.5 (10-20); Calcium 9.4 mg/dl (8.6-10.3); Creatinine Clr Calc Pharmacy 45.6 ml/min; Est GFR (African American) 44.6 ml/min; Est GFR (Non-African American) 38.5 ml/min; Potassium 5.4 mmol/L (3.5-5.1)
[2023-07-06 06:29] LABS: Basophils # (auto) 0.03 K/uL (0.00-0.20); Basophils % (auto) 0.6 %; Eosinophils # (auto) 0.28 K/uL (0.00-0.50); Eosinophils % (auto) 5.9 %; Hematocrit (blood only) 30.9 % (37.0-47.0); Hemoglobin 10.2 g/dl (12.0-16.0); Immature Granulocytes # (auto) 0.01 K/uL (0.01-0.20); Immature Granulocytes % (auto) 0.2 %; Lymphocytes # (auto) 0.87 K/uL (1.20-3.40); Lymphocytes % (auto) 18.4 %; Mean Corpuscular Hemoglobin 28.3 pg (25.0-34.0); Mean Corpuscular Volume 85.6 fL (80.0-100.0); Mean Platelet Volume 9.7 fL (9.4-12.4); Monocytes # (auto) 0.61 K/uL (0.11-0.59); Monocytes % (auto) 12.9 %; Neutrophils # (auto) 2.92 K/uL (1.40-6.50); Platelet Count 231 K/uL (130-400); RDW Coefficient of Variation 13.9 % (11.5-14.5); RDW Standard Deviation 43.6 fL (36.4-46.3); Red Blood Count 3.61 M/uL (4.20-5.40); White Blood Count 4.72 K/ul (4.8-10.8)
[2023-07-06 06:49] LABS: Albumin Globulin Ratio 1.2 (0.9-2); Albumin Level 3.2 gm/dl (3.4-5.0); BUN Creatinine Ratio 24.8 (10-20); Bilirubin,Total 0.4 mg/dl (0.2-1.0); Calcium 8.4 mg/dl (8.6-10.3); Creatinine Clr Calc Pharmacy 49.8 ml/min; Est GFR (African American) 49.6 ml/min; Est GFR (Non-African American) 42.8 ml/min; Globulin 2.6 gm/dl (2.5-4.0); Magnesium 1.6 mg/dl (1.7-2.4); Potassium 5.2 mmol/L (3.5-5.1); Total Protein 5.8 gm/dl (6.0-8.3)
--- NOTE | 2023-07-06 07:19 | Electrocardiogram Report ---
Test Reason : Blood Pressure : / mmHG Vent. Rate : 070 BPM Atrial Rate : 070 BPM P-R Int : 132 ms QRS Dur : 088 ms QT Int : 370 ms P-R-T Axes : 031 006 084 degrees QTc Int : 399 ms Normal sinus rhythm Anterior infarct , age undetermined Abnormal ECG When compared with ECG of 14-NOV-2022 12:52, Inferior infarct is no longer Present Confirmed by Maynor Balbuena ([id number]) on 07/06/2023 7:18:55 AM Referred By: REFERRED SELF Confirmed By:Maynor Balbuena
--- NOTE | 2023-07-06 07:58 | Electrocardiogram Report ---
Test Reason : Blood Pressure : / mmHG Vent. Rate : 065 BPM Atrial Rate : 065 BPM P-R Int : 142 ms QRS Dur : 092 ms QT Int : 374 ms P-R-T Axes : 058 016 060 degrees QTc Int : 388 ms Normal sinus rhythm Possible Inferior infarct , age undetermined Poor R wave progression, consider anterior TN vs. lead placement vs. LVH Abnormal ECG When compared with ECG of 04-JUL-2023 18:34, No significant change was found Confirmed by Maynor Balbuena ([id number]) on 07/06/2023 7:57:28 AM Referred By: REFERRED SELF Confirmed By:Maynor Balbuena
[2023-07-06] MEDS: MAGNESIUM SULFATE / D5W 1 GM/100 ML BAG IV SCH (08:42)
[2023-07-06] MEDS: POLYETHYLENE (MIRALAX) 17 GM PACK PO PRN (08:42)
[2023-07-06] MEDS: DOXYCYCLINE HYCLATE 100 MG CAP PO SCH (09:57)
[2023-07-06 10:04] LABS: RBC Morphology Unremarkable
--- NOTE | 2023-07-06 11:42 | Nephrology Progress Note ---
Date of Service July 06, 2023 Assessment & Plan (1) Acute hyperkalemia: Plan: * Hyperkalemia attributed to combination ARB, TMP/SMX * Losartan and Bactrim have been stopped * NaHCO3 gtt discontinued * Lokelma 10 g po TID x 2 days ordered * Furosemide 40 mg IV x1 provided yesterday * Repeat metabolic profile tomorrow AM * Continue low K diet (2) Acute kidney injury: Plan: * Clinically mild volume contraction * IVF discontinued * Volume status acceptable * Encourage oral hydration * Monitor PRP (3) HTN (hypertension): Plan: * BP is currently acceptable * Hold Losartan due to hyperkalemia (4) Inflammation of toe: Plan: * Avoid Bactrim due to hyperkalemia Admission and Anticipated Discharge Date Admission Date: July 05, 2023 Subjective No acute events overnight. No complaints this AM. No fevers or chills. Selina denies pain. No fluid retention or edema. Remains non-oliguric. Review of Systems Review of Systems: All systems reviewed & are unremarkable except as noted in HPI & below Physical Exam Constitutional: well developed; no acute distress Eyes: no scleral abnormality and no corneal abnormality ENMT: Mouth: no oral mucosal abnormality and oral mucous membranes not dry Neck: normal visual inspection and trachea midline Respiratory: normal respiratory effort Auscultation: lungs clear to auscultation bilaterally Cardiovascular: Rate/Rhythm: regular rate Heart Sounds: normal S1 and normal S2 Extremities: no edema Musculoskeletal: Extremities: no cyanosis and no clubbing Skin: normal turgor; no jaundice Neurologic: Motor/Sensory: no tremor and no asterixis Psychiatric: Orientation: alert and oriented x 3 Results & Data Vital Signs (Past 12 Hours) Vital Signs Temp Pulse Pulse Resp BP Pulse Ox O2 Del Method 07/06/23 11:35 37.0 C 69 18 139/64 96 Room Air 07/06/23 09:00 Room Air 07/06/23 07:15 61 07/06/23 07:09 36.5 C 68 18 150/72 H 97 Room Air 07/06/23 04:05 36.6 C 68 17 122/68 95 Room Air 07/06/23 00:44 36.9 C 63 18 118/60 94 Room Air Laboratory Results Laboratory Results - last 24 hr 07/05/23 07/05/23 07/05/23 11:40 16:01 16:02 WBC RBC Hgb Hct MCV MCH MCHC RDW Std Deviation RDW Coeff of Anitha Plt Count MPV Immature Gran % (Auto) Neut % (Auto) Lymph % (Auto) Person % (Auto) Eos % (Auto) Baso % (Auto) Neut # (Auto) Lymph # (Auto) Person # (Auto) Eos # (Auto) Baso # (Auto) Immature Gran # (Auto) RBC Morphology Sodium 136 136 Potassium 5.7 H 5.4 H Chloride 110 H 105 Carbon Dioxide 21 26 Anion Gap 5 5 BUN 34 H 36 H Creatinine 1.35 H 1.41 H Est Cr Clr Drug Dosing 47.6 45.6 Est GFR ( Amer) 47.0 44.6 Est GFR (Non-Af Amer) 40.5 38.5 BUN/Creatinine Ratio 25.2 H 25.5 H Glucose 79 105 H POC Glucose 110 H Calcium 9.3 9.4 Magnesium Total Bilirubin AST ALT Alkaline Phosphatase Total Protein Albumin Globulin Albumin/Globulin Ratio Anaplasma Smear A. phagocytophilum DNA Hepatitis C Ab (EIA) 07/05/23 07/06/23 07/06/23 20:34 06:12 07:11 WBC 4.72 L RBC 3.61 L Hgb 10.2 L Hct 30.9 L MCV 85.6 MCH 28.3 MCHC 33.0 RDW Std Deviation 43.6 RDW Coeff of Anitha 13.9 Plt Count 231 MPV 9.7 Immature Gran % (Auto) 0.2 Neut % (Auto) 62.0 Lymph % (Auto) 18.4 Person % (Auto) 12.9 Eos % (Auto) 5.9 Baso % (Auto) 0.6 Neut # (Auto) 2.92 Lymph # (Auto) 0.87 L Person # (Auto) 0.61 H Eos # (Auto) 0.28 Baso # (Auto) 0.03 Immature Gran # (Auto) 0.01 RBC Morphology Unremarkable Sodium 138 Potassium 5.2 H Chloride 106 Carbon Dioxide 27 Anion Gap 5 BUN 32 H Creatinine 1.29 H Est Cr Clr Drug Dosing 49.8 Est GFR ( Amer) 49.6 Est GFR (Non-Af Amer) 42.8 BUN/Creatinine Ratio 24.8 H Glucose 98 POC Glucose 85 92 Calcium 8.4 L Magnesium 1.6 L Total Bilirubin 0.4 AST 149 H ALT 118 H Alkaline Phosphatase 125 H Total Protein 5.8 L Albumin 3.2 L Globulin 2.6 Albumin/Globulin Ratio 1.2 Anaplasma Smear See Comment A. phagocytophilum DNA Pending Hepatitis C Ab (EIA) Pending 07/06/23 11:20 WBC RBC Hgb Hct MCV MCH MCHC RDW Std Deviation RDW Coeff of Anitha Plt Count MPV Immature Gran % (Auto) Neut % (Auto) Lymph % (Auto) Person % (Auto) Eos % (Auto) Baso % (Auto) Neut # (Auto) Lymph # (Auto) Person # (Auto) Eos # (Auto) Baso # (Auto) Immature Gran # (Auto) RBC Morphology Sodium Potassium Chloride Carbon Dioxide Anion Gap BUN Creatinine Est Cr Clr Drug Dosing Est GFR ( Amer) Est GFR (Non-Af Amer) BUN/Creatinine Ratio Glucose POC Glucose 115 H Calcium Magnesium Total Bilirubin AST ALT Alkaline Phosphatase Total Protein Albumin Globulin Albumin/Globulin Ratio Anaplasma Smear A. phagocytophilum DNA Hepatitis C Ab (EIA) PG Care Time/CCT Total # of Minutes Spent Total Time Spent with Patient: Total time spent is greater than 50% in coordination of care (as documented) at patient's floor/unit and/or counseling patient: Coding Level of Care Code 77079 SUB INP/OBS CARE 3/50MIN Diagnoses Acute hyperkalemia E87.5 Acute kidney injury N17.9 HTN (hypertension) I10 Inflammation of toe L08.9
--- NOTE | 2023-07-06 15:02 | Ultrasound Report ---
US liver CLINICAL HISTORY: elevated LFTs COMPARISON STUDY: No previous studies for comparison. FINDINGS: Hepatic echogenicity is mildly increased. No hepatic lesions are identified. No biliary marsha jatin dilatation. The common bile duct measures 4 mm in caliber. Pancreatic body is normal. Head and ta il are slightly obscured. The gallbladder is normal. There are no gallstones. IMPRESSION: 1. No gallstones or biliary ductal dilatation. 2. Suspected mild hepatic steatosis. ACT 112: Negative or not required by law. Electronically signed by: Chava Mcguire M.D. 07/06/2023 3:01 PM
--- NOTE | 2023-07-06 17:53 | Hospitalist Progress Note ---
Date of Service July 06, 2023 Assessment & Plan (1) Hyperkalemia: Plan: 67 yo female CAD s/p stent placement, DVT (06/2021), PE (06/2021) on ASA, T2DM, PAD s/p toe amputation, peripheral neuropathy, HTN. Of note, stopped taking Plavix and insulin per PCP note 05/30/23. 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, holding Bactrim and losartan follow BMP (3) Elevated LFTs: Plan: AST ALT and alk phos all mildly elevated in 100s, slightly up from previous checked liver US--> fatty liver likely drug effect from Bactrim as no hypotension or signs of shock liver CK normal follow LFTs, check hepatitis panel (4) Hypomagnesemia: Plan: low again, replace follow Mag level (5) Weakness: Plan: possibly 2/2 drug effect, JUANCHO, hyperkalemia check Anaplasmosis-negative smear, PCR pending CT head negative, CT angio head/neck negative ammonia level normal, BNP normal, normal CRP, random cortisol normal, TSH normal interrogated loop recorder-no arrhythmias associated with her fall on day of admission (6) CAD (coronary artery disease): Plan: s/p PCI no acute issues continue ASA, but is not on a statin or beta ruth ann-unclear reason (7) Personal history of diabetic foot ulcer: Plan: left 2nd toe and great toe with ulcers, 2nd toe debrided recently by Podiatry- d/w Dr. Jenni Bolden-no pus so no cx sent change broad spectrum abx to po doxy 100mg po bid x 7 day course through 07/11 (8) Diabetic peripheral neuropathy associated with type 2 diabetes mellitus: Plan: continue gabapentin (9) History of pulmonary embolus (PE): Plan: treated with 6 mo of AC, now off continue heparin SQ for prevention (10) Diabetes mellitus, type II: Plan: Novolog sliding scale HgbA1C 7.9% in 05/2023 holding home metformin (11) HTN (hypertension): Plan: BPs mildly elevated holding home losartan Plan DVT prophylaxis: heparin Disposition: continued stay on PCU, improving, possible dc to home tomorrow Admission and Anticipated Discharge Date Admission Date: July 05, 2023 Results & Data Results & Data Vital Signs (Past 12 Hours) Vital Signs Temp Pulse Pulse Resp BP Pulse Ox O2 Del Method 07/06/23 15:40 36.7 C 66 18 149/71 H 99 Room Air 07/06/23 15:15 63 07/06/23 11:35 37.0 C 69 18 139/64 96 Room Air 07/06/23 09:00 Room Air 07/06/23 07:15 61 07/06/23 07:09 36.5 C 68 18 150/72 H 97 Room Air PG Care Time/CCT Total # of Minutes Spent Total Time Spent with Patient: Total time spent is greater than 50% in coordination of care (as documented) at patient's floor/unit and/or counseling patient: Coding Level of Care Code 79078 SUB INP/OBS CARE 3/50MIN Diagnoses Hyperkalemia E87.5 Acute kidney injury N17.9 Elevated LFTs R79.89 Hypomagnesemia E83.42 Weakness R53.1 CAD (coronary artery disease) I25.10 Personal history of diabetic foot ulcer Z86.31 Diabetic peripheral neuropathy associated with type 2 diabetes mellitus E11.42 History of pulmonary embolus (PE) Z86.711 Diabetes mellitus, type II E11.9 HTN (hypertension) I10
[2023-07-07 06:54] LABS: Basophils # (auto) 0.03 K/uL (0.00-0.20); Basophils % (auto) 0.7 %; Eosinophils # (auto) 0.27 K/uL (0.00-0.50); Eosinophils % (auto) 6.2 %; Hematocrit (blood only) 35.3 % (37.0-47.0); Immature Granulocytes # (auto) 0.01 K/uL (0.01-0.20); Immature Granulocytes % (auto) 0.2 %; Lymphocytes # (auto) 0.85 K/uL (1.20-3.40); Lymphocytes % (auto) 19.4 %; Mean Corpuscular Hemoglobin 27.6 pg (25.0-34.0); Mean Corpuscular Hgb Conc 31.2 g/dL (32.0-36.0); Mean Corpuscular Volume 88.5 fL (80.0-100.0); Mean Platelet Volume 9.8 fL (9.4-12.4); Monocytes # (auto) 0.52 K/uL (0.11-0.59); Monocytes % (auto) 11.8 %; Neutrophils # (auto) 2.71 K/uL (1.40-6.50); Neutrophils % (auto) 61.7 %; Platelet Count 253 K/uL (130-400); RDW Coefficient of Variation 13.9 % (11.5-14.5); RDW Standard Deviation 44.8 fL (36.4-46.3); Red Blood Count 3.99 M/uL (4.20-5.40); White Blood Count 4.39 K/ul (4.8-10.8)
[2023-07-07 07:22] LABS: Albumin Level 3.3 gm/dl (3.4-5.0); BUN Creatinine Ratio 24.3 (10-20); Calcium 8.7 mg/dl (8.6-10.3); Creatinine Clr Calc Pharmacy 62.4 ml/min; Est GFR (African American) 65.1 ml/min; Est GFR (Non-African American) 56.2 ml/min; Phosphorus 3.5 mg/dl (2.5-4.9); Potassium 4.9 mmol/L (3.5-5.1)
[2023-07-07 09:46] LABS: Bilirubin Direct 0.1 mg/dl (0-0.2); Bilirubin,Total 0.4 mg/dl (0.2-1.0); Total Protein 6.2 gm/dl (6.0-8.3)
--- NOTE | 2023-07-07 11:30 | Nephrology Progress Note ---
Date of Service July 07, 2023 Assessment & Plan (1) Acute hyperkalemia: Plan: * Hyperkalemia attributed to combination ARB, TMP/SMX * Lokelma 10 g po TID x 2 days completed with improvement in serum potassium * Losartan and Bactrim have been held * Losartan will be restarted today * Continue low K diet * Follow up with repeat labs tomorrow if inpatient or early next week if discharged home * No additional recommendations from nephrology at this time. Outpatient follow up can be arranged as needed. Please call with questions or concerns. Nephrology will sign-off. (2) Acute kidney injury: Plan: * Clinically attributed to volume depletion, Bactrim, and losartan * Volume status acceptable * Kidney function returned to baseline (3) HTN (hypertension): Plan: * Volume status acceptable * Restart losartan (4) Inflammation of toe: Plan: * Avoid Bactrim due to hyperkalemia * Selina was advised to be cautious if this medication is prescribed in the future. However, she never demonstrated true allergy or concerning features of AIN. It would not be unreasonable to use Bactrim in the future with careful monitoring. Admission and Anticipated Discharge Date Admission Date: July 05, 2023 Subjective No acute events overnight. No complaints this AM. Review of Systems Review of Systems: All systems reviewed & are unremarkable except as noted in HPI & below Physical Exam Constitutional: well developed; no acute distress Eyes: no scleral abnormality and no corneal abnormality ENMT: Mouth: no oral mucosal abnormality and oral mucous membranes not dry Neck: normal visual inspection and trachea midline Respiratory: normal respiratory effort Auscultation: lungs clear to auscultation bilaterally Cardiovascular: Rate/Rhythm: regular rate Heart Sounds: normal S1 and normal S2 Extremities: no edema Musculoskeletal: Extremities: no cyanosis and no clubbing Skin: normal turgor; no jaundice Neurologic: Motor/Sensory: no tremor and no asterixis Psychiatric: Orientation: alert and oriented x 3 Results & Data Vital Signs (Past 12 Hours) Vital Signs Temp Pulse Pulse Resp BP Pulse Ox O2 Del Method 07/07/23 10:47 37.1 C 67 18 142/72 H 95 Room Air 07/07/23 07:58 36.9 C 64 18 143/78 H 93 Room Air 07/07/23 06:00 61 07/07/23 04:30 36.6 C 60 17 148/73 H 97 Room Air 07/07/23 04:06 36.5 C 62 18 118/84 97 Room Air 07/07/23 00:40 36.4 C L 73 17 155/84 H 96 Room Air Laboratory Results Laboratory Results - last 24 hr 07/06/23 07/06/23 07/06/23 06:12 16:04 20:17 WBC RBC Hgb Hct MCV MCH MCHC RDW Std Deviation RDW Coeff of Anitha Plt Count MPV Immature Gran % (Auto) Neut % (Auto) Lymph % (Auto) Lyman % (Auto) Eos % (Auto) Baso % (Auto) Neut # (Auto) Lymph # (Auto) Lyman # (Auto) Eos # (Auto) Baso # (Auto) Immature Gran # (Auto) Sodium Potassium Chloride Carbon Dioxide Anion Gap BUN Creatinine Est Cr Clr Drug Dosing Est GFR ( Amer) Est GFR (Non-Af Amer) BUN/Creatinine Ratio Glucose POC Glucose 126 H 123 H Calcium Phosphorus Total Bilirubin Direct Bilirubin AST ALT Alkaline Phosphatase Total Protein Albumin Hepatitis A IgM Ab Hep Bs Antigen Hep Bs Ag Confirmation Hep B Core IgM Ab Hepatitis C Ab (EIA) NON-REACTIVE 07/07/23 07/07/23 07/07/23 06:30 07:28 11:05 WBC 4.39 L RBC 3.99 L Hgb 11.0 L Hct 35.3 L MCV 88.5 MCH 27.6 MCHC 31.2 L RDW Std Deviation 44.8 RDW Coeff of Anitha 13.9 Plt Count 253 MPV 9.8 Immature Gran % (Auto) 0.2 Neut % (Auto) 61.7 Lymph % (Auto) 19.4 Lyman % (Auto) 11.8 Eos % (Auto) 6.2 Baso % (Auto) 0.7 Neut # (Auto) 2.71 Lymph # (Auto) 0.85 L Lyman # (Auto) 0.52 Eos # (Auto) 0.27 Baso # (Auto) 0.03 Immature Gran # (Auto) 0.01 Sodium 140 Potassium 4.9 Chloride 107 Carbon Dioxide 29 Anion Gap 4 BUN 25 H Creatinine 1.03 Est Cr Clr Drug Dosing 62.4 Est GFR ( Amer) 65.1 Est GFR (Non-Af Amer) 56.2 BUN/Creatinine Ratio 24.3 H Glucose 112 H POC Glucose 111 H 169 H Calcium 8.7 Phosphorus 3.5 Total Bilirubin 0.4 Direct Bilirubin 0.1 AST 165 H ALT 160 H Alkaline Phosphatase 155 H Total Protein 6.2 Albumin 3.3 L Hepatitis A IgM Ab Pending Hep Bs Antigen Pending Hep Bs Ag Confirmation Pending Hep B Core IgM Ab Pending Hepatitis C Ab (EIA) Pending PG Care Time/CCT Total # of Minutes Spent Total Time Spent with Patient: Total time spent is greater than 50% in coordination of care (as documented) at patient's floor/unit and/or counseling patient: Coding Level of Care Code 58554 SUB INP/OBS CARE 3/50MIN Diagnoses Acute hyperkalemia E87.5 Acute kidney injury N17.9 HTN (hypertension) I10 Inflammation of toe L08.9
--- NOTE | 2023-07-07 12:26 | Discharge Summary ---
Discharge Summary Date of Service July 07, 2023 Notes For Next Care Provider Check CMP in 3 days Needs Podiatry and/or Wound Care Clinic follow up for left toe wound Admission HPI Per Admitting Provider 67 yo female CAD s/p stent placement, DVT (06/2021), PE (06/2021) on ASA, T2DM, PAD s/p toe amputation, peripheral neuropathy, HTN. Of note, stopped taking plavix and insulin per PCP note 05/30/23. Patient seen and evaluated at bedside. In the last week, pt has had increased SOB, intermittent chest pain, increased lower extremity swelling. Throughout the day today, pt has felt extreme fatigue compared to baseline, dizziness, transient L sided UE weakness/numbness and transient tongue numbness. States she had to sit at work much more often than usual. Daughter found patient with decreased responsiveness behind the wheel in the driveway. Pt attempted to ambulate to the doorway from the car and fell prior to getting to the house. Had to crawl into the house where she remained fatigued and mildly altered from baseline. Of note, patient with active ischemic disease of two left toes for which she is followed by podiatry. On 07/02/23, she was started on an oral antibiotic that she cannot recall and takes twice daily. Denies chest pain, SOB at rest, pain with deep inspiration, N/V/D, urinary frequency or dysuria. In the ED: Pt found to have K+ 6.7, received D50, calcium gluconate, insulin Other labs of note: Mild hyponatremia, mild hyperchloremia, bicarb 17, normal anion gap, BUN 41, Cr 1.53 (baseline ~1), Mg 1.6, AST 96, ALT 66, Alk phos 115, UA largely unremarkable CXR no acute process, XR hips and knee without fracture Principal Dx & Hospital Course #1 = Principal Diagnosis (1) Hyperkalemia: 67 yo female CAD s/p stent placement, DVT (06/2021), PE (06/2021) on ASA, T2DM, PAD s/p toe amputation, peripheral neuropathy, HTN. Of note, stopped taking Plavix and insulin per PCP note 05/30/23. K 6.9 on admission, treated with 2 rounds of IV calcium gluconate, IV insulin and D50, then given albuterol neb, Lokelma x 6 doses, IV lasix x 1, low potassium diet, and Bicarb gtt Holding home losartan and stopped Bactrim Likely 2/2 Bactrim Finally now down to 4.9, JUANCHO reoslved Appreciate Nephro consult Follow BMP as outpt in 3 days-Rx given stopped bicarb gtt, continue low potassium diet after discharge no arrhythmias on tele (2) Acute kidney injury: related to Bactrim use resolved, parker down to 1.03 after IVF hydration, holding Bactrim and losartan follow BMP as outpt can resume losartan as per Nephro and has been on this dose for many years without previous issue (3) Elevated LFTs: AST ALT and alk phos all mildly elevated in 100s, slightly up from previous checked liver US--> fatty liver likely drug effect from Bactrim as no hypotension or signs of shock liver on arrival However, Bactrim was discontinued and changed to po doxycycline and continued to have rising LFTs-could be effect of doxy as well--> dc doxy CK normal follow LFTs in 3 days as outpt checked hepatitis panel-pending at time of discharge except Hep C negative (4) Hypomagnesemia: replaced and resolved (5) Weakness: possibly 2/2 drug effect, JUANCHO, hyperkalemia--> improving checked Anaplasmosis-negative smear, PCR pending CT head negative, CT angio head/neck negative ammonia level normal, BNP normal, normal CRP, random cortisol normal, TSH normal interrogated loop recorder-no arrhythmias associated with her fall on day of admission (6) CAD (coronary artery disease): s/p PCI no acute issues continue ASA, but is not on a statin or beta ruth ann-unclear reason f/u outpt PCP and/or Cardiology (7) Personal history of diabetic foot ulcer: left 2nd toe and great toe with ulcers, 2nd toe debrided recently by Podiatry- d/w Dr. Jenni Bolden-no pus so no cx sent toe remains with some erythema of distal phalanx,wound with exudate stopped Bactrim as above changed to doxy but with rising LFTs, will convert to Levaquin which covers most Staph and Strep. SHe has a h/o MSSA on previous cxs. Give Levaquin for 5 more days after discharge she is allergic to PCN, and also says she gets cruz ill with cephalosporins as well although not listed as an allergy, so limits options f/u with Podiatry in 1 week as scheduled likely will end up with amputation but she is trying to avoid this has good pedal pulses (8) Diabetic peripheral neuropathy associated with type 2 diabetes mellitus: continue gabapentin (9) History of pulmonary embolus (PE): treated with 6 mo of AC, now off received heparin SQ for prevention (10) Diabetes mellitus, type II: Novolog sliding scale HgbA1C 7.9% in 05/2023 holding home metformin but can resume on discharge (11) HTN (hypertension): BPs mildly elevated holding home losartan for JUANCHO but can resume on discharge Plan DVT prophylaxis: heparin Disposition:dc to home Discharge Exam Constitutional WD/WN, vitals as above Respiratory normal respiratory effort, lungs clear to auscultation Cardiovascular RRR, no murmur, no edema Vessels: dorsalis pedis pulses present Skin left 2nd toe with 1 cm ulcer with exudate, mild surrounding erythema of distal phalanx, +TTP Left great toe plantar surface with small callus with small ulceration, no erythema or drainage Psychiatric A+Ox3, euthymic affect Updated Medication List Medication Instructions Recorded Confirmed Type pen needle, diabetic 32 gauge x #100 ea 12/21/22 07/04/23 Rx 5/32" pen needle, diabetic 32 gauge x #100 ea 01/07/23 07/04/23 Rx 1/4" (CareFine Pen Needle) multivitamin 1 tab PO QAM 03/27/23 07/04/23 History gabapentin 100 mg capsule 300 mg (3 x 100 mg) PO TID #270 05/30/23 07/04/23 Rx caps losartan 50 mg tablet 50 mg PO HS #90 tabs 05/30/23 07/04/23 Rx metformin 1,000 mg tablet 1,000 mg PO BID #180 tabs 05/30/23 07/04/23 Rx aspirin 81 mg tablet,delayed 81 mg PO DAILY 07/04/23 07/04/23 History release mupirocin 2 % topical ointment 1 applic topical BID 07/04/23 07/04/23 History naproxen sodium 220 mg tablet 220 mg PO BID PRN Pain 07/04/23 07/04/23 History (Aleve) sulfamethoxazole 800 1 tab PO Q12 07/04/23 07/04/23 History mg-trimethoprim 160 mg tablet cyanocobalamin (vitamin B-12) 1,000 mcg PO DAILY #30 tabs 07/07/23 Rx 1,000 mcg tablet levofloxacin 750 mg tablet 750 mg PO DAILY 5 days #5 tabs 07/07/23 Rx Hospital Stay Data Consultations 07/04/23 21:39 ED Decision to Admit Stat 07/05/23 07:41 Consult Nephrology Routine Diagnostic Imagining Performed 07/04/23 18:05 CT head/brain wo con Stat 07/04/23 23:21 CTA head w con [CT angio head w con] Stat CTA neck with con [CT angio neck with con] Stat 07/06/23 08:16 US liver Routine Pending Results Patient Have Any Pending Studies at Discharge: Yes (Hepatitis panel,Anaplasmosis PCR) Discharge Instructions Given to Patient (Per Discharging Provider) You were admitted with weakness from kidney failure and high potassium from Bactrim use. This improved with treatment and IV fluid hydration. Please have your PCP check your basic metabolic panel to check kidney function and potassium within the next 2-3 days. Your liver blood tests are also elevated which indicates some inflammation of the liver possibly from medication side effect. Please have your PCP check your liver blood tests in about 1 week to follow up on this. Your liver ultrasound showed a fatty liver which can contribute to this as well. You should take an antibiotic called levofloxacin for 5 more days for your toe infection and follow up with either your [facility] or the Wound Care Clinic as we discussed. Total Time Total Time Spent Total Time Spent (In Minutes): 35 min Total Time Includes: Examination of the Patient, Discharge Planning and Medication Reconciliation Coding Level of Care Code 33060 INP/OBS DISCH >30 MIN Diagnoses Hyperkalemia E87.5 Acute kidney injury N17.9 Elevated LFTs R79.89 Hypomagnesemia E83.42 Weakness R53.1 CAD (coronary artery disease) I25.10 Personal history of diabetic foot ulcer Z86.31 Diabetic peripheral neuropathy associated with type 2 diabetes mellitus E11.42 History of pulmonary embolus (PE) Z86.711 Diabetes mellitus, type II E11.9 HTN (hypertension) I10
[2023-07-07] MEDS: LOSARTAN POTASSIUM 50 MG TAB PO SCH (12:40)
[2023-07-07] MEDS: levoFLOXacin 750 MG TAB PO ONE (12:40)
[2023-07-09 10:27] LABS: HBSAG NON-REACTIVE (NON-REACTIVE); Hepatitis A Antibody IgM NON-REACTIVE (NON-REACTIVE); Hepatitis B Core Antibody IgM NON-REACTIVE (NON-REACTIVE)
== END 2023-07-07 15:42 | disposition home or self-care (01) | DRG 641 ==
LOC: ED 18:01 → SUATTDRO 07-05 → 2E 07-05

== ENCOUNTER 2023-07-24 10:43 | Inpatient (IN) ==
--- NOTE | 2023-07-22 14:03 | Anesthesiology Consultation ---
Date of Service July 22, 2023 Assessment & Plan (1) Encounter for pre-operative examination: Plan - Dr. Bolden contacted PAT and is aware of both cardiology response and hyperkalemia. She is considering doing procedure under local and plans to contact patient and make final determation DOS. OR notified. - hyperkalemia at 5.7: [place] PCP made aware. Case discussed with Dr. Nixon who advised patient can proceed as planned pending repeat BMP DOS. - check BSG and BMP STAT am DOS. Fluid orders to anesthesiologist discretion am DOS. cardiology response via [place] which Dr. Finley advised could be used as his formal response: "I believe she has vagal syncope, such as you might see with starting an IV, etc. We dont normally treat that, but in her case, if it is a problem we might. It shouldnt be an issue with surgery, if she develops a vagal episode, which is fairly common around surgery, it should be easily treated with time or atropine." - Case discussed in detail with Dr. Grewal who advised contacting Dr. Bolden regarding contacting cardiology for clearance unless Dr. Bolden feels case needs to proceed independent of this. Dr. Bolden states she agreed with contacting cardiology. Patient made aware, she verbalized understanding and denied questions or concerns. Workload note sent to [place] [facility]. - PCP 07/16/23 [place]: "...admitted to [facility] 07/05/23-07/07/23 JUANCHO, hyperkalemia...was then seen in ED on 07/09/23 for syncope, w/u negative. [place] possibly related to vertigo, was rxd meclizine...her labs in ED at that time noting improving LFTs, Cr up to 1.59...continues w/ pain in toe, wound in toe...Still w/ intermittent room spinning dizziness, meclizine does help. no recurrent syncope events...Transaminitis: Slowly improving, ? related to abx use, in setting of fatty liver disease will continue to monitor...osteomyelitis, she will f/u w/ wound care/podiatry...Continue meclizine..." - ER 07/09/23 [place]: "...dizziness and a syncopal event this morning...was getting ready for work she was sitting on her vanity and then remembers waking up on the ground on her side. Patient states she was just admitted to the hospital and she was having similar symptoms and was noted to have acute renal failure and high potassium. On arrival here to the ED the patient appears to be in no acute distress, she is conversational, she does not display any ataxia on exam, she does not have any focal deficits on arrival. Patient is otherwise hemodynamically stable on arrival... cafeteria monitor. Lab work shows no leukocytosis, hemoglobin is normal, platelet count is normal, CMP does not show any critical findings, BUN is mildly elevated at 31, creatinine is normal, potassium is within normal limits, there is a nonspecific transaminitis that is down trended from previous with AST at 77 and ALT at 117. Patient does have hepatitis panel pending from previous workup. Troponin is negative x 1. Lipase is normal. CT imaging of the head does not show any evidence of any acute intracranial process. Chest x-ray does not show any evidence of acute disease. On my reassessment the patient is sleeping comfortably in bed. She was given IV fluids and meclizine here in the ED and states she does feel improved on my reassessment. Unclear source for the patient's dizziness and syncope earlier today, her previous issues with acute renal failure and hyperkalemia appear to be resolved. I feel at this point the patient is stable for outpatient management which the patient is in agreement..." - discharge summary 07/07/23 [facility]: "...stopped taking Plavix and insulin per PCP note 05/30/23...hyperkalemia...K 6.9 on admission, treated with 2 rounds of IV calcium gluconate, IV insulin and D50, then given albuterol neb, Lokelma x 6 doses, IV lasix x 1, low potassium diet, and Bicarb gtt...Likely 2/2 Bactrim...Finally now down to 4.9, JUACNHO reoslved [sic] no arrhythmias on tele...Elevated LFTs: AST ALT and alk phos all mildly elevated in 100s, slightly up from previous checked liver US--> fatty liver. likely drug effect from Bactrim as no hypotension or signs of shock liver on arrival...Weakness: possibly 2/2 drug effect, JUANCHO, hyperkalemia--> improving checked Anaplasmosis- negative smear, PCR pending...ammonia level normal, BNP normal, normal CRP, random cortisol normal, TSH normal...interrogated loop recorder-no arrhythmias associated with her fall on day of admission...left 2nd toe and great toe with ulcers, 2nd toe debrided recently by Podiatry-d/w Dr. Jenni Bolden-no pus so no cx sent..." - cardiology office visit 06/03/23 [place]: "...Syncope: She has had an episode of syncope with the loop recorder in place. She did not activate the recorder however there is an automatically detected episode of bradycardia on May 19, 2023 which is consistent with a vagal episode. She had a gradual drop in her heart rate with development of 2-1 AV block initially followed by loss of atrial activity and a junctional escape rhythm, the heart rate was 37 bpm. The episode lasted about 14 seconds. This is consistent with a vagal episode. Vasovagal syncope: The episode that we have recorded is very consistent with vasovagal syncope. The heart rate was slow and she did develop AV block, with this I think a pacemaker is a consideration although perhaps not essential. If this continues to be a problem I think we should consider dual-chamber pacemaker implantation, the Biotronik pacemaker with the CLS algorithm can often either eliminate episodes or convert syncopal episodes into lightheaded or presyncopal episodes. We have elected to continue to follow for the moment however...Coronary disease: She has well-documented coronary disease which has been relatively asymptomatic in the past. She is appropriately treated with aspirin and was on rosuvastatin but does not seem to be on that at this time. With no anginal symptoms I would not pursue evaluation at this time..." - JORDAN Brink aware of patient not having transportation after surgery and advised she is working on this with patient/surgeon's office. Patient told myself that she now has a ride. Keena notified who states she also verified this with patient. - Per supervisor furnace room on 07/22/23: No known infectious disease contacts, current infectious disease symptoms in past 10 days or COVID positive test result in the past 30 days. Chart Review Chart Review: Acceptable Risk for Surgery Consults Requested none History Surgery Operation Date: 07/24/23 12:30 Proposed Procedures p Left Second Toe Amputation - Jenni Bolden DPM Operation Date: 07/25/23 14:00 Proposed Procedures p Left Second Toe Amputation - Jenni oBlden DPM Height/Weight Height: 5 ft 5 in Weight: 89.358 kg Allergies Allergy/AdvReac Type Severity Reaction Status Date / Time sulfamethoxazole AdvReac Severe hyperkalemi Verified 07/24/23 11:20 [From Bactrim] a trimethoprim [From Bactrim] AdvReac Severe hyperkalemi Verified 07/24/23 11:20 a lisinopril AdvReac Intermediate cough Verified 07/24/23 11:20 Medications Home Medications Medication Instructions Recorded Confirmed Last Taken pen needle, diabetic 32 gauge x #100 ea 12/21/22 07/17/23 Unknown " pen needle, diabetic 32 gauge x #100 ea 01/07/23 07/17/23 Unknown 04/25" (CareFine Pen Needle) multivitamin 1 tab PO QAM 03/27/23 07/24/23 07/23/23 09:00 gabapentin 100 mg capsule 300 mg (3 x 100 mg) PO TID #270 05/30/23 07/24/23 07/23/23 22:00 caps losartan 50 mg tablet 50 mg PO HS #90 tabs 05/30/23 07/24/23 07/23/23 22:00 metformin 1,000 mg tablet 1,000 mg PO BID #180 tabs 05/30/23 07/24/23 07/23/23 22:00 aspirin 81 mg tablet,delayed 81 mg PO DAILY 07/04/23 07/24/23 07/23/23 09:00 release mupirocin 2 % topical ointment 1 applic topical BID PRN Rash 07/04/23 07/24/23 07/23/23 09:00 naproxen sodium 220 mg tablet 220 mg PO BID PRN Pain 07/04/23 07/24/23 Unknown (Aleve) cyanocobalamin (vitamin B-12) 1,000 mcg PO DAILY #30 tabs 07/07/23 07/24/23 07/23/23 09:00 1,000 mcg tablet rosuvastatin 20 mg tablet 20 mg PO DAILY #90 tabs 07/17/23 07/24/23 07/23/23 09:00 triamcinolone acetonide 0.5 % 1 applic topical BID PRN skin 07/17/23 07/24/23 Unknown topical cream irritation #60 grams meclizine 25 mg tablet 25 mg PO TID PRN dizziness #30 tabs 07/18/23 07/24/23 07/23/23 09:00 cephalexin 500 mg capsule 500 mg PO TID 10 days #30 caps 07/19/23 07/24/23 07/23/23 22:00 Active Medications Generic Name Dose Route Start Last Admin Trade Name Freq PRN Reason Stop Dose Admin Acetaminophen 650 mg 07/24/23 13:25 07/24/23 22:16 Acetaminophen 325 Mg Tab PO 08/23/23 13:24 650 mg Q4H PRN Administration pain(1-4),headache,fever Aspirin 81 mg 07/25/23 09:00 07/25/23 08:26 Aspirin 81 Mg Ectab PO 08/24/23 08:59 81 mg DAILY PAM Administration Cephalexin HCl 500 mg 07/24/23 16:00 07/25/23 08:26 Cephalexin 500 Mg Cap PO 08/23/23 15:59 500 mg TID PAM Administration Protocol Gabapentin 300 mg 07/24/23 16:00 07/25/23 08:44 Gabapentin 300 Mg Cap PO 08/23/23 15:59 300 mg TID PAM Administration Cefazolin Sodium 2,000 mg in 15 mls @ 3.75 mls/min 07/25/23 06:00 07/25/23 06:16 Ancef 2000mg IV 07/26/23 05:59 3.75 mls/min PREOP PAM Administration Protocol Magnesium Sulfate/Dextrose 1 gm in 100 mls @ 50 mls/hr 07/25/23 09:00 07/25/23 12:00 Magnesium Sulfate / D5w IV 07/25/23 12:59 50 mls/hr Q2H PAM Administration Lactated Ringer's 1,000 mls @ 15 mls/hr 07/25/23 11:45 07/25/23 11:47 Lr IV 08/24/23 11:44 15 mls/hr .Q24H PAM Administration Insulin Aspart 0 units 07/25/23 06:00 07/25/23 11:29 Insulin Aspart Per Unit Charge SC 08/24/23 05:59 Not Given Q6 PAM Insulin Glargine 5 units 07/24/23 21:00 07/25/23 09:05 Lantus Per Unit Charge SQ 08/23/23 20:59 5 units BID PAM Administration Rosuvastatin Calcium 20 mg 07/25/23 09:00 07/25/23 08:26 Rosuvastatin Calcium 20 Mg Tab PO 08/24/23 08:59 20 mg DAILY PAM Administration Sodium Zirconium Cyclosilicate 10 gm 07/24/23 19:00 07/25/23 06:32 Sodium Zirconium Cyclosilicate 10 Gm Packet PO 07/26/23 07:01 10 gm TID@0700,1200,1900 PAM Administration Past Medical History Medical History CAD (coronary artery disease) s/p stent to RCA 01/23/22 Diabetes mellitus, type II Diabetic peripheral neuropathy associated with type 2 diabetes mellitus Dyslipidemia History of DVT of lower extremity (06/2021) LLE treated w/ warfarin x 6 mos History of myocardial infarction unsure when occurred, did not know she had one History of pulmonary embolus (PE) (06/2021) Treated with warfarin x 6 mos HTN (hypertension) Hx of diabetic foot ulcer Implantable loop recorder present placed after syncopal episode 12/2022 - follows w/ Dr Pardo Lumbar disc disease Seasonal allergies Past Family History Family History Mother Coronary heart disease Father Coronary heart disease Deep vein thrombosis Sister Colorectal cancer Past Surgical History Surgical History H/O section H/O heart artery stent (01/2022) ARTI x 3 to RCA History of incision and drainage (05/2019) Abscess on Head and abd Hx of colonoscopy Hx of tonsillectomy 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) Social History Smoking Status: Never smoker Do You Dip or Chew Tobacco: No Hx Alcohol Use: No Alcohol type: wine alcohol intake frequency: holidays/special occasions only Hx Substance Use: No substance use type: does not use Physical Exam Vital Signs Last Vital Signs Temp 36.8 C 07/25/23 11:20 Pulse 64 07/25/23 11:20 Resp 20 07/25/23 11:20 BP 148/89 H 07/25/23 11:20 Pulse Ox 100 07/25/23 11:20 O2 Del Method Room Air 07/25/23 11:20 Lab Results Anesthesia Preop Results Results Anesthesia Widget: 2 WBC 5.98 K/ul (4.8-10.8) 07/25/23 Hgb 11.4 g/dl (12.0-16.0) L 07/25/23 Hct 35.9 % (37.0-47.0) L 07/25/23 Plt 321 K/uL (130-400) 07/25/23 Na 140 mmol/L (136-145) 07/25/23 K 5.0 mmol/L (3.5-5.1) 07/25/23 Cl 110 mmol/L (98-107) H 07/25/23 CO2 24 mmol/L (21-32) 07/25/23 BUN 26 mg/dl (6-23) H 07/25/23 Creat 0.90 mg/dl (0.6-1.2) 07/25/23 Glucose Level 103 mg/dl (70-99(Fasting)) H 07/25/23 POC Glucose 106 mg/dl (70-99) H 07/25/23 PT 11.0 Seconds (9.0-12.0) 07/25/23 PTT 32 Seconds (21-31) H 07/04/23 INR 1.0 (0.9-1.1) 07/25/23 TSH 1.717 uIu/ml (0.300-4.500) 07/05/23 HA1c 7.9 % (4.5-5.6) H 05/30/23 Urine Color Yellow 07/04/23 Urine Appearance Cloudy (Clear) A 07/04/23 Urine pH 5.5 (4.5-7.5) 07/04/23 Urine Specific [place] 1.014 (1.000-1.030) 07/04/23 Urine Protein Negative (Negative) 07/04/23 Urine Glucose (UA) Negative (Negative) 07/04/23 Urine Ketones Negative (Negative) 07/04/23 Urine Blood Negative (Negative) 07/04/23 Urine Nitrite Negative (Negative) 07/04/23 Urine Bilirubin Negative (Negative) 07/04/23 Urine Urobilinogen Negative (Negative) 07/04/23 Urine Leukocyte Esterase 2+ (Negative) H 07/04/23 Urine WBC (Auto) 10-30 /hpf (0-5) H 07/04/23 Urine RBC (Auto) 0-4 /hpf (0-4) 07/04/23 Urine Hyaline Casts (Auto) 1-5 /lpf (0-5) 07/04/23 Urine Epithelial Cells (Auto) >30 /lpf (0-5) H 07/04/23 Urine Bacteria (Auto) Negative (Negative) 07/04/23 Testing Laboratory Results 07/25/23 06:49 07/25/23 06:49 PT 11.0 Seconds (9.0-12.0) 07/25/23 06:49 INR 1.0 (0.9-1.1) 07/25/23 06:49 07/25/23 07/25/23 07/25/23 11:21 08:38 06:07 POC Glucose 106 H 104 H 104 H Electrocardiogram Date: 07/09/23 NSR, rate 63 bpm Minimal voltage criteria for LVH, may be normal variant, possible inferior infarct cited on or before 11/14/2022 Chest X-Ray Date: 07/09/23 *1view* No acute chest disease. Echocardiogram Date: 10/04/22 EF 55-60% Basal inferior hypokinesis Mild cLVH Grade I diastolic dysfunction Moderate mitral regurgitation Cardiac Catheterization Date: 01/23/22 left main trunk to be widely patent. left circumflex artery consist of a single large marginal branch which bifurcates and supplies most of the lateral myocardium. The left circumflex system reveals luminal regularities consistent with diffuse coronary artery disease which reaches a maximum in the midportion of the artery of 50 to 60%. LAD is diffusely diseased. There is a 50 to 60% narrowing just after the takeoff of the first septal phlebotomist associate. Distally the artery becomes atretic after bifurcating into 2 equal portions. There is a 90% distal stenosis of 1 of these branches. right coronary artery reveal it to be diffusely diseased throughout its proximal and mid portion. Several areas of the right coronary artery reach an area of stenosis of 80 to 90%. The right coronary artery is dominant. Diffuse severe RCA stenosis of up to 80 to 90% is reduced to 0% residual stenosis post PCI with a long stent train tapering from 2.7 mm proximally to 2.25 mm distally. No evidence of dissection or perforation post PCI Other Testing Head CT 07/04/23 No acute intracranial abnormality. Head and neck CTA 07/04/23 No evidence of significant stenosis, occlusion or aneurysm involving the elem of [place]. Atherosclerotic disease, predominantly in the carotid bulb region with no significant stenosis, occlusion or dissection seen. Normal bilateral vertebral arteries. Loop recorder report 06/05/23 Symptomatic PACs and asymptomatic 2:1 AV block Cardiac event monitor 12/13/22 Sinus throughout with a min HR 50, average of 69 and max of 120 bpm PVC burden 1% 26 auto triggered events-sinus tachycardia and sinus bradycardia without arrhythmias 7 patient triggered events-sinus rhythm
[~2023-07-24 10:43] MED LIST: ceFAZolin 2000MG 2,000 MG/15 ML SYR IV SCH
[2023-07-24 11:36] LABS: BUN Creatinine Ratio 30.2 (10-20); Calcium 9.2 mg/dl (8.6-10.3); Creatinine Clr Calc Pharmacy 63.2 ml/min; Est GFR (African American) 70.9 ml/min; Est GFR (Non-African American) 61.2 ml/min
[2023-07-24] MEDS: SODIUM CHLORIDE 0.9% 1,000 ML IV SCH (11:44)
[2023-07-24] MEDS ORDERED: STAT IV/IM STA (12:30)
[2023-07-24] MEDS ORDERED: MoRPHine SULFATE 2 MG/ML CARP IV PRN (12:55)
[2023-07-24] MEDS ORDERED: MECLIZINE HCL 25 MG TAB PO PRN (12:57)
--- NOTE | 2023-07-24 13:01 | History & Physical Report ---
Date of Service July 24, 2023 Assessment & Plan (1) Hyperkalemia: Plan: -Admit to med/tele -Currently stable and non-toxic appearing -Presented to the [facility] this am for scheduled left second toe amputation due to OM with Dr. Jenni Maria -Potassium this am elevated at 6.0 -Mag is 1.3 -CBC and LFT's obtained on admission are unremarkable -ECG without concerning findings -Was admitted from 07/03-07/06 for the same issue, was thought to be caused by Bactrim use, JUANCHO, and losartan use >Losartan and bactrim were held >Patient was treated medically with stable potassium at discharge >Was restarted on Losartan at the time of admission as JUANCHO had resolved -At this time it appears that ongoing losartan use is still causing her hyperkalemia as she was switched to Keflex on last admission -Will start medical therapy with 1gm IV calcium gluconate, 10 units IV Insulin, and IV dextrose -Will also start scheduled Lokelma now -Will repeat potassium level in 3 hours -BL SCD's for DVT PPX -HH/DMII/low potassium diet -AM CBC,CMP, mag, PT/INR (2) Osteomyelitis of second toe of left foot: Plan: -Continue Keflex for now -Spoke with Dr. Bolden, will plan on taking patient to the OR tomorrow am if she is stable -Will make patient NPO at midnight in preparation -Tylenol and morphine for pain (3) Hypomagnesemia: Plan: -Noted to be 1.3 today -Has been a chronic issue -Will wait to replete until potassium level is stable -Continue to monitor on tele (4) Diabetes mellitus, type II: Plan: -Hold metformin -Monitor BSG ACHS, goal is 110-160 -Start 5 units lantus BID and CF 50 ACHS for now -Adjust regimen as needed (5) HTN (hypertension): Plan: -Was noted to be Hypertensive on arrival this am at 178/88 -Continue to hold losartan -Will wait for repeat vitals prior to treating -If needed will initiate new antihypertensive which is not potassium sparing (6) S/P coronary artery stent placement: Plan: -Continue aspirin and statin (7) Dyslipidemia: Plan: -Conitnue statin Plan The patient was discussed with Dr. Pereira at the time of the admission History of Present Illness Chief Complaint: Hyperkalemia Primary Care Provider: Carlita JonesDO Marks is a 67 yo female with a PMH significant for current OM of the left 2nd toe, CAD s/p stent placement, DVT (06/2021), PE (06/2021) on ASA, T2DM, PAD s/p toe amputation, peripheral neuropathy, HTN who initially presented to the [facility] on 07/24/23 for scheduled left second toe amputation with Dr. Jenni Bolden. Pre-operative labs this am showed a potassium of 6.0, therefore her operation for today was canceled. We were asked to admit the patient for medical management. At the time of the exam the patient was sitting in bed in no acute distress. She understands she will not have her operation today. She confirms she has not been taking the Bactrim she was on prior to her admission from 07/03/33-07/07/23 for hyperkalemia. She did not take any of her home medications prior to arrival today and has not been eating large amounts of foods high in potassium such as bananas. Denies recent fever, chills, chest pain, SOB, cough, abd pain, nausea, vomiting, diarrhea, dysuria, hematuria, melena, and recent trauma. The pain in her left second toe is under control at rest best significantly increased with movement or palpation. She is a full code. Please refer to Dr. Pereira's attestation for any changes to the treatment plan Allergies Allergy/AdvReac Type Severity Reaction Status Date / Time sulfamethoxazole AdvReac Severe hyperkalemi Verified 07/24/23 11:20 [From Bactrim] a trimethoprim [From Bactrim] AdvReac Severe hyperkalemi Verified 07/24/23 11:20 a lisinopril AdvReac Intermediate cough Verified 07/24/23 11:20 Home Medications Medication Instructions Recorded Confirmed Type pen needle, diabetic 32 gauge x #100 ea 12/21/22 07/17/23 Rx 5/32" pen needle, diabetic 32 gauge x #100 ea 01/07/23 07/17/23 Rx 1/4" (CareFine Pen Needle) multivitamin 1 tab PO QAM 03/27/23 07/24/23 History gabapentin 100 mg capsule 300 mg (3 x 100 mg) PO TID #270 05/30/23 07/24/23 Rx caps losartan 50 mg tablet 50 mg PO HS #90 tabs 05/30/23 07/24/23 Rx metformin 1,000 mg tablet 1,000 mg PO BID #180 tabs 05/30/23 07/24/23 Rx aspirin 81 mg tablet,delayed 81 mg PO DAILY 07/04/23 07/24/23 History release mupirocin 2 % topical ointment 1 applic topical BID PRN Rash 07/04/23 07/24/23 History naproxen sodium 220 mg tablet 220 mg PO BID PRN Pain 07/04/23 07/24/23 History (Aleve) cyanocobalamin (vitamin B-12) 1,000 mcg PO DAILY #30 tabs 07/07/23 07/24/23 Rx 1,000 mcg tablet rosuvastatin 20 mg tablet 20 mg PO DAILY #90 tabs 07/17/23 07/24/23 Rx triamcinolone acetonide 0.5 % 1 applic topical BID PRN skin 07/17/23 07/24/23 Rx topical cream irritation #60 grams meclizine 25 mg tablet 25 mg PO TID PRN dizziness #30 tabs 07/18/23 07/24/23 Rx cephalexin 500 mg capsule 500 mg PO TID 10 days #30 caps 07/19/23 07/24/23 Rx Past Med/Surg History Medical History CAD (coronary artery disease) s/p stent to RCA 01/23/22 Diabetes mellitus, type II Diabetic peripheral neuropathy associated with type 2 diabetes mellitus Dyslipidemia History of DVT of lower extremity (06/2021) LLE treated w/ warfarin x 6 mos History of myocardial infarction unsure when occurred, did not know she had one History of pulmonary embolus (PE) (06/2021) Treated with warfarin x 6 mos HTN (hypertension) Hx of diabetic foot ulcer Implantable loop recorder present placed after syncopal episode 12/2022 - follows w/ Dr Pardo Lumbar disc disease Seasonal allergies Surgical History H/O section H/O heart artery stent (01/2022) ARTI x 3 to RCA History of incision and drainage (05/2019) Abscess on Head and abd Hx of colonoscopy Hx of tonsillectomy 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) Family History Mother Coronary heart disease Father Coronary heart disease Deep vein thrombosis Sister Colorectal cancer Social History Smoking Status: Never smoker Second Hand Exposure: No; Do You Dip or Chew Tobacco: No; Tobacco Cessation Education Requested by Patient: No Hx Alcohol Use: No Hx Substance Use: No Preferred Language: Danish Communication Ability: Effective Visual Impairment: No Limitations Hearing Ability: Normal Procurement Intern Required: No Beliefs That Will Affect Care: None marital status: / Current Living Situation: Other Current Living Situation Comment: states has people "that live w/ her" current occupational status: employed current occupation: [employer] Other Information That Helps Us Care for You: No Feels Safe at Home: Yes Safety Concerns: Feels Safe At This Time Diet: diabetic and low carbohydrate caffeine: No during the past year weight has: remained stable Assistive Devices: None Physical Exam Physical Exam: Physical Exam: General: In no acute distress, stated age, well-nourished, good hygiene HEENT: Normocephalic, atraumatic, no scleral icterus, pupils around round, symmetrical, and reactive to light, moist mucus membranes, trachea midline, no thyromegaly Chest/Pulm: No respiratory distress, symmetrical chest expansion, clear breath sounds throughout Cardiac: RRR, no murmurs noted Abdomen: Negative for ascites and bruising, normoactive bowel sounds, soft, non-tender to palpation throughout Musculoskeletal: Left second toe is currently wrapped but without signs of drainage, no other signs of infection in the left 1st, 4th, and 5th toes, S/P amputation of previous left 3rd toe Extremities: Radial, dorsalis pedis, and posterior tibial pulses are intact and symmetrical, no edema noted in the BL LE's Skin: As described above Neuro: Alert and oriented to person, place, month, year, and president, no focal defects, no tremors noted Psych: No acute distress, calm and cooperative during the exam Results & Data Results & Data Vital Signs (Past 12 Hours) Vital Signs Temp Pulse Resp BP Pulse Ox O2 Del Method 07/24/23 11:26 36.7 C 67 20 178/88 H 100 Room Air Laboratory Results Abnormal lab results 07/24/23 07/24/23 07/24/23 Range/Units 11:06 11:20 12:40 RBC 3.86 L (4.20-5.40) M/uL Hgb 10.9 L (12.0-16.0) g/dl Hct 33.8 L (37.0-47.0) % [place] # (Auto) 0.62 H (0.11-0.59) K/uL Potassium 6.0 H (3.5-5.1) mmol/L Chloride 110 H (98-107) mmol/L BUN 29 H (6-23) mg/dl BUN/Creatinine Ratio 30.2 H (10-20) Glucose 113 H (70-99(Fasting)) mg/dl POC Glucose 101 H (70-99) mg/dl Magnesium 1.3 L (1.7-2.4) mg/dl ECG Additional Comments: Normal sinus rhythm Inferior infarct (cited on or before 14-NOV-2022) Abnormal ECG When compared with ECG of 09-JUL-2023 09:31, No significant change was found Code Status & VTE Plan Code Status full code VTE Prophylaxis Plan VTE Prophylaxis will be ordered: Yes Supervising Physician Co-Signing Physician Notes I personally saw and examined the patient. I verified all sykes points and agree with Klever Aviles PA-C with the following exceptions and/or additions: 67 year old female present for toe amputation with pre-operative labs showing potassium 6.0. Recent hospitalization for hyperkalemia in setting of JUANCHO with Bactrim use. Losartan restarted on discharge. Potassium increased to 5.7 two days previously. Asymptomatic from this. O/E HS RRR, no murmurs, Chest CTAB, Abdo SNT, left 2nd toe wrapped (not removed) no cellulitis beyond dressing. A/P Hyperkalemia - main reversible cause at this stage is her losartan therefore this was discontinued. Managed acutely with insulin/dextrose, calcium gluconate and Lokelma. Continue Lokelma. Osteomyelitis - as long as potassium is corrected tomorrow I see no medical reason her surgery can not go ahead tomorrow Agree with holding off magnesium replacement until potassium corrected PG Care Time/CCT Total # of Minutes Spent Total Time Spent with Patient: Total time spent is greater than 50% in coordination of care (as documented) at patient's floor/unit and/or counseling patient: C[place] [address] INT INP/OBS CARE 3/75MIN Patient Type Established Medical Decision Making High Complexity Diagnoses Hyperkalemia E87.5 Osteomyelitis of second toe of left foot M86.9 Hypomagnesemia E83.42 Diabetes mellitus, type II E11.9 HTN (hypertension) I10 S/P coronary artery stent placement Z95.5 Dyslipidemia E78.5
[2023-07-24 13:06] LABS: Basophils # (auto) 0.04 K/uL (0.00-0.20); Basophils % (auto) 0.5 %; Eosinophils # (auto) 0.18 K/uL (0.00-0.50); Eosinophils % (auto) 2.4 %; Hematocrit (blood only) 33.8 % (37.0-47.0); Hemoglobin 10.9 g/dl (12.0-16.0); Immature Granulocytes # (auto) 0.02 K/uL (0.01-0.20); Immature Granulocytes % (auto) 0.3 %; Lymphocytes # (auto) 1.81 K/uL (1.20-3.40); Lymphocytes % (auto) 23.9 %; Mean Corpuscular Hemoglobin 28.2 pg (25.0-34.0); Mean Corpuscular Hgb Conc 32.2 g/dL (32.0-36.0); Mean Corpuscular Volume 87.6 fL (80.0-100.0); Mean Platelet Volume 9.7 fL (9.4-12.4); Monocytes # (auto) 0.62 K/uL (0.11-0.59); Monocytes % (auto) 8.2 %; Neutrophils # (auto) 4.91 K/uL (1.40-6.50); Neutrophils % (auto) 64.7 %; Platelet Count 327 K/uL (130-400); RDW Coefficient of Variation 14.3 % (11.5-14.5); RDW Standard Deviation 45.3 fL (36.4-46.3); Red Blood Count 3.86 M/uL (4.20-5.40); White Blood Count 7.58 K/ul (4.8-10.8)
[2023-07-24] MEDS ORDERED: DEXTROSE 50% 50 ML SYRINGE IV PRN (13:14)
[2023-07-24] MEDS ORDERED: GLUCAGON FOR INJ 1 MG VIAL SQ PRN (13:14)
[2023-07-24] MEDS ORDERED: GLUCOSE 10 TAB/TUBE PO PRN (13:14)
[2023-07-24] MEDS ORDERED: CARBOHYDRATES FOR HYPOGLYCEMIA PO PRN (13:14)
[2023-07-24] MEDS ORDERED: GLUCOSE 40% GEL 15 GM TUBE PO PRN (13:14)
[2023-07-24 13:18] LABS: Albumin Level 3.7 gm/dl (3.4-5.0); Bilirubin Direct 0.1 mg/dl (0-0.2); Bilirubin,Total 0.3 mg/dl (0.2-1.0); Magnesium 1.3 mg/dl (1.7-2.4); Total Protein 6.7 gm/dl (6.0-8.3)
[2023-07-24] MEDS: SODIUM ZIRCONIUM CYCLOSILICATE 10 GM PACKET PO STA (13:37)
[2023-07-24] MEDS: DEXTROSE 50% 50 ML SYRINGE IV STA (13:40)
[2023-07-24] MEDS: INSULIN HUMAN REGULAR PER UNIT 10 UNITS in SYRINGE 9.9 ML IV STA (13:41)
[2023-07-24] MEDS: CALCIUM GLUCONATE 10% 1,000 MG in SODIUM CHLOR 0.9% MINI-B 50 ML IV ONE (13:50)
[2023-07-24] MEDS: INSULIN ASPART PER UNIT CHARGE SC SCH (17:16)
[2023-07-24] MEDS: GABAPENTIN 300 MG CAP PO SCH (17:17)
[2023-07-24] MEDS: cephALEXin 500 MG CAP PO SCH (17:17)
[2023-07-24] MEDS: SODIUM ZIRCONIUM CYCLOSILICATE 10 GM PACKET PO SCH (20:10)
[2023-07-24] MEDS: LANTUS PER UNIT CHARGE SQ SCH (21:08)
[2023-07-24] MEDS: ACETAMINOPHEN 325 MG TAB PO PRN (22:16)
[2023-07-25] MEDS ORDERED: Nursing to Pharmacy Communication SCH (00:45)
[2023-07-25] MEDS: INSULIN ASPART PER UNIT CHARGE SC SCH (06:10)
[2023-07-25] MEDS: ceFAZolin 2000MG 2,000 MG/15 ML SYR IV SCH (06:16)
[2023-07-25 08:08] LABS: Hematocrit (blood only) 35.9 % (37.0-47.0); Hemoglobin 11.4 g/dl (12.0-16.0); Mean Corpuscular Hgb Conc 31.8 g/dL (32.0-36.0); Mean Corpuscular Volume 88.2 fL (80.0-100.0); Mean Platelet Volume 10.1 fL (9.4-12.4); Platelet Count 321 K/uL (130-400); RDW Coefficient of Variation 14.1 % (11.5-14.5); RDW Standard Deviation 45.5 fL (36.4-46.3); Red Blood Count 4.07 M/uL (4.20-5.40); White Blood Count 5.98 K/ul (4.8-10.8)
[2023-07-25 08:26] LABS: Albumin Globulin Ratio 1.2 (0.9-2); Albumin Level 3.5 gm/dl (3.4-5.0); BUN Creatinine Ratio 28.9 (10-20); Bilirubin,Total 0.3 mg/dl (0.2-1.0); Calcium 9.2 mg/dl (8.6-10.3); Creatinine Clr Calc Pharmacy 67.4 ml/min; Est GFR (African American) 76.7 ml/min; Est GFR (Non-African American) 66.2 ml/min; Magnesium 1.4 mg/dl (1.7-2.4); Total Protein 6.5 gm/dl (6.0-8.3)
[2023-07-25] MEDS: ASPIRIN 81 MG ECTAB PO SCH (08:26)
[2023-07-25] MEDS: ROSUVASTATIN CALCIUM 20 MG TAB PO SCH (08:26)
--- NOTE | 2023-07-25 09:03 | Podiatry Consultation ---
Date of Consultation July 25, 2023 Assessment & Plan (1) Osteomyelitis of second toe of left foot: Patient's potassium levels are 5.0 within normal limits today. I spoke with Dr. Morrow, [facility] hospitalist, this morning and she reports that the patient is medically stable to proceed with surgery. Plan for left 2nd toe amputation today at noon. I applied a dry dressing over the left 2nd toe ulcer. Patient is weight bearing as tolerated in a surgical shoe. Present on Admission?: Yes (2) Diabetic foot ulcer: Diabetes mellitus type: due to underlying condition Diabetic foot ulcer location: toe Laterality: unspecified laterality Non-pressure ulcer stage: unspecified non-pressure ulcer stage Qualified Code(s): E08.621 - Diabetes mellitus due to underlying condition with foot ulcer; L97.509 - Non- pressure chronic ulcer of other part of unspecified foot with unspecified severity Present on Admission?: Yes (3) Diabetic peripheral neuropathy associated with type 2 diabetes mellitus: Present on Admission?: Yes History of Present Illness Reason for Consultation: Left 2nd toe osteomyelitis Attending Physician: Jenni Bolden DPM History of Present Illness Patient is a 67 year old female with diabetic toe ulcer. Patient presented to our clinic about one month ago with left hallux and second toe ulcer. The left hallux ulcer has healed with conservative care, but the second toe ulcer has not improved. Now, the second toe ulcer demonstrates clinical and radiographic findings of osteomyelitis of the left 2nd distal phalanx bone. The patient was scheduled for surgery yesterday, but this was canceled due to her elevated potassium at 6.0. Patient was admitted per [facility] hospitalist and her hyperkalemia has improved over the past 24 hours. Patient wants to proceed with surgery to address her left second diabetic toe wound. Denies any recent nausea, vomiting, fever, or chills. Allergies Allergy/AdvReac Type Severity Reaction Status Date / Time sulfamethoxazole AdvReac Severe hyperkalemi Verified 07/24/23 11:20 [From Bactrim] a trimethoprim [From Bactrim] AdvReac Severe hyperkalemi Verified 07/24/23 11:20 a lisinopril AdvReac Intermediate cough Verified 07/24/23 11:20 Home Medications Medication Instructions Recorded Confirmed Type pen needle, diabetic 32 gauge x #100 ea 12/21/22 07/17/23 Rx 5/32" pen needle, diabetic 32 gauge x #100 ea 01/07/23 07/17/23 Rx 1/4" (CareFine Pen Needle) multivitamin 1 tab PO QAM 03/27/23 07/24/23 History gabapentin 100 mg capsule 300 mg (3 x 100 mg) PO TID #270 05/30/23 07/24/23 Rx caps losartan 50 mg tablet 50 mg PO HS #90 tabs 05/30/23 07/24/23 Rx metformin 1,000 mg tablet 1,000 mg PO BID #180 tabs 05/30/23 07/24/23 Rx aspirin 81 mg tablet,delayed 81 mg PO DAILY 07/04/23 07/24/23 History release mupirocin 2 % topical ointment 1 applic topical BID PRN Rash 07/04/23 07/24/23 History naproxen sodium 220 mg tablet 220 mg PO BID PRN Pain 07/04/23 07/24/23 History (Aleve) cyanocobalamin (vitamin B-12) 1,000 mcg PO DAILY #30 tabs 07/07/23 07/24/23 Rx 1,000 mcg tablet rosuvastatin 20 mg tablet 20 mg PO DAILY #90 tabs 07/17/23 07/24/23 Rx triamcinolone acetonide 0.5 % 1 applic topical BID PRN skin 07/17/23 07/24/23 Rx topical cream irritation #60 grams meclizine 25 mg tablet 25 mg PO TID PRN dizziness #30 tabs 07/18/23 07/24/23 Rx cephalexin 500 mg capsule 500 mg PO TID 10 days #30 caps 07/19/23 07/24/23 Rx Patient History Medical History CAD (coronary artery disease) s/p stent to RCA 01/23/22 Diabetes mellitus, type II Diabetic peripheral neuropathy associated with type 2 diabetes mellitus Dyslipidemia History of DVT of lower extremity (06/2021) LLE treated w/ warfarin x 6 mos History of myocardial infarction unsure when occurred, did not know she had one History of pulmonary embolus (PE) (06/2021) Treated with warfarin x 6 mos HTN (hypertension) Hx of diabetic foot ulcer Implantable loop recorder present placed after syncopal episode 12/2022 - follows w/ Dr Pardo Lumbar disc disease Seasonal allergies Surgical History H/O section H/O heart artery stent (01/2022) ARTI x 3 to RCA History of incision and drainage (05/2019) Abscess on Head and abd Hx of colonoscopy Hx of tonsillectomy 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) Family History Mother Coronary heart disease Father Coronary heart disease Deep vein thrombosis Sister Colorectal cancer Social History Smoking Status: Never smoker Second Hand Exposure: No; Do You Dip or Chew Tobacco: No; Tobacco Cessation Education Requested by Patient: No Hx Alcohol Use: No Hx Substance Use: No Preferred Language: Upper Sorbian Communication Ability: Effective Visual Impairment: No Limitations Hearing Ability: Normal Drier Transfer Car Operator Required: No Beliefs That Will Affect Care: None marital status: / Current Living Situation: Other Current Living Situation Comment: states has people "that live w/ her" current occupational status: employed current occupation: [employer] Other Information That Helps Us Care for You: No Feels Safe at Home: Yes Safety Concerns: Feels Safe At This Time Diet: diabetic and low carbohydrate caffeine: No during the past year weight has: remained stable Assistive Devices: None Review of Systems Review of Systems: All systems reviewed & are unremarkable except as noted in HPI & below Physical Exam Constitutional: WD/WN, vitals as above well developed, well nourished and comfortable Eyes: PERRL, conjunctivae normal, anicteric sclerae ENMT: external ear and nose normal, oropharynx normal Neck: trachea midline, no thyromegaly Respiratory: normal respiratory effort, lungs clear to auscultation Cardiovascular: Vessels: posterior tibial pulses present and dorsalis pedis pulses present Gastrointestinal (Abdomen): normal bowel sounds, soft, nontender, no hepa tosplenomegaly Musculoskeletal: no cyanosis or clubbing, extremities motor strength 5/5 Skin: + wound Necrotic ulcer noted to distal tuft of left 2nd toe. Purulent exudate noted from wound. No ascending cellulitis noted. Neurologic: PERRL, EOMI, accommodation nl, no face palsy, no dysarthria Motor/Sensory: + sensory deficit (loss of protective sensation to the toes.) Psychiatric: A+Ox3, euthymic affect Lymphatic: no cervical or axillary lymphadenopathy Results & Data Vital Signs (Past 12 Hours) Vital Signs Temp Pulse Pulse Resp BP Pulse Ox O2 Del Method 07/25/23 07:49 36.4 C L 66 18 143/73 H 98 Room Air 07/25/23 03:07 36.4 C L 66 18 131/75 96 Room Air 07/24/23 23:46 36.5 C 62 18 146/78 H 97 Room Air 07/24/23 22:58 69 07/24/23 21:15 67 Diagnostic Findings Radiographs reviewed in 3 Views of the left foot from 07-01-23. Radiographs reveal no clear evidence of cortical lysis or osteomyelitis. No gas within the soft tissue. Xrays reviewed from outside facility 07-16-23 demonstrate soft tissue swelling with erosion of the distal phalanx 2nd toe. This is a new since prior xrays.
[2023-07-25] MEDS: MAGNESIUM SULFATE / D5W 1 GM/100 ML BAG IV SCH (09:51)
[2023-07-25] MEDS: LACTATED RINGER'S 1,000 ML IV SCH (11:47)
[2023-07-25] MEDS ORDERED: fentaNYL citrate PF 100 MCG/2 ML VIAL IV PRN (12:57)
[2023-07-25] MEDS ORDERED: ONDANSETRON INJ 2 MG/ML 2 ML VIAL IV PRN (12:57)
[2023-07-25] MEDS ORDERED: ePHEDrine sulfate 50 MG/ML AMP IV PRN (12:57)
[2023-07-25] MEDS ORDERED: ATROPINE SULFATE 0.1 MG/ML 10ML SYR IV PRN (12:57)
[2023-07-25] MEDS ORDERED: PROMETHAZINE HCL 6.25 MG in SODIUM CHLORIDE 0.9% 50 ML IV PRN (12:57)
[2023-07-25] MEDS ORDERED: MIDAZOLAM HCL 1 MG/ML 2ML VIAL ONE (13:02)
[2023-07-25] MEDS ORDERED: fentaNYL citrate PF 100 MCG/2 ML VIAL ONE (13:03)
[2023-07-25] MEDS: ceFAZolin 2000MG 2,000 MG/15 ML SYR IV ONE (13:25)
[2023-07-25] MEDS ORDERED: LIDOCAINE 2% 2 ML VIAL/AMP(20MG/ML) INFIL ONE (13:34)
[2023-07-25] MEDS: BUPIVACAINE 0.25% PF 30 ML VIAL ONE (13:34)
[2023-07-25] MEDS ORDERED: PROPOFOL IV EMULSION 10 MG/ML 20 ML VIAL IV ONE (13:34)
--- NOTE | 2023-07-25 14:04 | Post Operative Brief Note ---
Immediate Post Op Note v1 Date of Surgery July 25, 2023 Pre & Post Diagnosis Operation Date: 07/25/23 14:00 Pre-Op Diagnosis: Osteomyelitis of second toe of left foot Post-Op Diagnosis: Osteomyelitis of second toe of left foot I identified the patient and participated in the time-out.: Yes Procedure Operation Date: 07/25/23 14:00 Actual Procedures p Left Second Toe Amputation(Left) - Jenni Bolden DPM Surgeon Jenni Bolden DPM [employer] none Estimated Blood Loss 10 Findings Consistent with Post-Op Diagnosis Specimens left second toe sent to pathology left second toe specimen sent for aerobic and anerobic cultures Anesthesia Type MAC Complications none Disposition Accompanied Patient To Recovery: Yes
--- NOTE | 2023-07-25 14:21 | Anesthesiology Progress Note ---
Date of Service July 25, 2023 Anesthesia Post Procedure Vital Signs Vital Signs: Temp Pulse Pulse Pulse Resp BP Pulse Ox 07/25/23 14:15 67 18 129/58 L 97 07/25/23 14:05 62 13 125/61 100 07/25/23 13:59 36.2 C L 64 18 132/65 98 07/25/23 11:20 36.8 C 64 20 148/89 H 100 07/25/23 07:49 36.4 C L 66 18 143/73 H 98 07/25/23 06:00 61 07/25/23 03:07 36.4 C L 66 18 131/75 96 07/24/23 23:46 36.5 C 62 18 146/78 H 97 07/24/23 22:58 69 07/24/23 21:15 67 07/24/23 19:56 36.7 C 68 20 145/75 H 97 07/24/23 15:52 36.3 C L 65 16 151/75 H 97 07/24/23 15:07 36.8 C 71 16 154/85 H 96 O2 Del Method O2 Flow Rate 07/25/23 14:15 Room Air 07/25/23 14:05 Room Air 07/25/23 13:59 Oxymask 4 07/25/23 11:20 Room Air 07/25/23 07:49 Room Air 07/25/23 06:00 07/25/23 03:07 Room Air 07/24/23 23:46 Room Air 07/24/23 22:58 07/24/23 21:15 07/24/23 19:56 Room Air 07/24/23 15:52 Room Air 07/24/23 15:07 Room Air Pain Intensity Bilateral Hip: Pain Intensity: 5 Transfer of Care Handoff Completed per policy Notes Mental Status: alert / awake / arousable and participated in evaluation Patient Amnestic to Procedure: Yes Nausea / Vomiting: adequately controlled Pain: adequately controlled Airway Patency, RR, SpO2: stable & adequate BP & HR: stable & adequate Hydration State: stable & adequate Anesthetic Complications: no major complications apparent
--- NOTE | 2023-07-25 15:53 | Hospitalist Progress Note ---
Date of Service July 25, 2023 Assessment & Plan (1) Hyperkalemia: Plan: Hyperkalemic recently while on bactrim + losartan Hyperkalemic again at 6.0 on admission (no longer on bactrim, still on losartan) -treated with insulin/D50 and several doses lokelma improved to 5.0 -STOP losartan -reduce or stop NSAID, replace with acetaminophen -follow up in primary care - made appt for 1-2 wk from now, with repeat BMP (2) Osteomyelitis of second toe of left foot: Plan: 2nd toe amp 07/[address] Bolden, discussed with her -resume oral keflex -follow up in office with scientific software developer (3) Hypomagnesemia: Plan: 1.4 this AM, replaced with 2g IV mag prior to surgery has been a chronic issue recommended daily magnesium oxide or "slow mag" supplement. is not on PPI (which causes magnesium wasting) or diuretic (4) Diabetes mellitus, type II: Plan: resume home regimen (5) HTN (hypertension): Plan: STOPPED losartan and replaced with amlodipine 5 mg daily (6) S/P coronary artery stent placement: Plan: -Continue aspirin and statin (7) Dyslipidemia: Plan: -Conitnue statin Admission and Anticipated Discharge Date Admission Date: July 24, 2023 Subjective toe not painful does have sensation in feet K once again elevated despite not being on bactrim. Has been on losartan a long time. Also had lisinopril in past but caused cough Physical Exam 2 Physical Exam: PHYSICAL EXAMINATION Last 24h vital signs reviewed, see documentation in flowsheet General: comfortable appearing, no distress HEENT: Normocephalic, atraumatic, pupils round and equal, sclerae anicteric, no conjunctival injection, moist mucus membranes Lungs: Normal respiratory effort. Clear to auscultation bilaterally. No RRW Heart: Regular rate and rhythm, no murmurs. No JVD Abdomen: Soft, nontender, nondistended. Bowel sounds present. Extremities: Warm, dry, well-perfused. No extremity edema. Neuro: Alert and oriented x 4, face symmetric, moves 4 extremities well Psych: Normal affect and behavior Results & Data Results & Data Vital Signs (Past 12 Hours) Vital Signs Temp Pulse Pulse Pulse Resp BP Pulse Ox 07/25/23 15:43 36.7 C 65 16 154/79 H 99 07/25/23 15:26 36.7 C 65 16 154/79 H 99 07/25/23 14:40 36.6 C 59 L 16 153/75 H 99 07/25/23 14:25 36.3 C L 60 17 135/59 L 100 07/25/23 14:15 67 18 129/58 L 97 07/25/23 14:05 62 13 125/61 100 07/25/23 13:59 36.2 C L 64 18 132/65 98 07/25/23 11:20 36.8 C 64 20 148/89 H 100 07/25/23 07:49 36.4 C L 66 18 143/73 H 98 07/25/23 06:00 61 O2 Del Method O2 Flow Rate 07/25/23 15:43 07/25/23 15:26 Room Air 07/25/23 14:40 Room Air 07/25/23 14:25 Room Air 07/25/23 14:15 Room Air 07/25/23 14:05 Room Air 07/25/23 13:59 Oxymask 4 07/25/23 11:20 Room Air 07/25/23 07:49 Room Air 07/25/23 06:00 Laboratory Results 07/25/23 06:49 07/25/23 06:49 PG Care Time/CCT Total # of Minutes Spent Total Time Spent with Patient: Total time spent is greater than 50% in coordination of care (as documented) at patient's floor/unit and/or counseling patient: Coding Level of Care Code 76928 SUB INP/OBS CARE 2/35MIN Diagnoses Hyperkalemia E87.5 Osteomyelitis of second toe of left foot M86.9 Hypomagnesemia E83.42 Diabetes mellitus, type II E11.9 HTN (hypertension) I10 S/P coronary artery stent placement Z95.5 Dyslipidemia E78.5
--- NOTE | 2023-07-26 12:53 | Operative Report ---
Post Operative Report Pre & Post Diagnosis Operation Date: 07/25/23 14:00 Pre-Op Diagnosis: Osteomyelitis of second toe of left foot Post-Op Diagnosis: Osteomyelitis of second toe of left foot I identified the patient and participated in the time-out.: Yes Procedure Operation Date: 07/25/23 14:00 Actual Procedures p Left Second Toe Amputation(Left) - Jenni Bolden DPM Surgeon Jenni Bolden DPM Compliance Investigator none Estimated Blood Loss 10 Findings Consistent with Post-Op Diagnosis Specimens 1. left second toe bone for pathology 2. left second toe soft tissue/bone for aerobic and anaerobic cultures Anesthesia Type MAC Complications none Disposition Accompanied Patient To Recovery: Yes Indications Patient is a 67 year old female with left 2nd diabetic toe ulcer. Patient presented to our clinic about one month ago with left hallux and second toe ulcer. The left hallux ulcer has healed with conservative care, but the second toe ulcer has not improved. Now, the second toe ulcer demonstrates clinical and radiographic findings of osteomyelitis of the left 2nd distal phalanx bone. The patient was scheduled for surgery yesterday, but this was canceled due to her elevated potassium at 6.0. Patient was admitted per [facility] hospitalist and her hyperkalemia has improved over the past 24 hours. Patient wants to proceed with surgery consisting of a left second toe amputation to address her left second diabetic toe wound. Discussed the possible risks including but not limited to infection, swelling, transfer lesions, hallux valgus deformity, wound dehiscence, blood clots, deep venous thrombosis, pulmonary embolism, chronic pain, nerve injury, numbness, loss of limb, loss of life, failure of procedure and need for additional procedures. Discussed risks, benefits, and alternatives to surgery. Patient states she understands and wants to proceed. Denies any recent nausea, vomiting, fever, or chills. Description of Procedure The patient was brought back into the operating room and placed on the OR table in the supine position. A time was performed in order to correctly identify the patient, planned procedure, and correct side of limb. MAC was performed per the anesthesiologist. 20 cc of 0.25% marcaine plain was administered for a second digital block under aseptic technique. A well padded calf tourniquet was applied to the left calf. The left lower extremity was prepped, scrubbed, draped in the usual aseptic manner. The left leg was elevated and the tourniquet was inflated to 250mmHg. Attention was then directed to the left second toe at the MTPJ where two semi elliptical incisions were made with the 15 blade. The incision was deepened down to the level the MTPJ, where the left second toe was disarticulated at the MTPJ, and passed from the operative field to the back table. Copious amount of saline was utilized to irrigate the surgical wound. No proximal purulence was identified. The head of the second metatarsal head appeared healthy with intact cartilage. All bleeders were cauterized as necessary. Deep closure was performed with 4-0 monocryl. The tourniquet was deflated and immediate hyperemia returned to the left foot. The skin was coapted with 4-0 nylon in interrupted horizontal fashion. The incision was dressed with xeroform, 4x4 gauze, kerlix, and Smith bandage. The patient tolerated the procedure and anesthesia well with all vital signs stable and vascular status intact to the left foot. Attention was then directed to the sterile back table to obtain 2 specimens from the second toe as follows: 1. left second toe bone for path, 2. left second toe soft tissue/bone for aerobic and anaerobic cultures with gram stain. The patient was transferred to recovery for brief post operative monitoring and will be transferred back to the floor for continued medical management. Recommendations for the patient to be discharged on her current oral antibiotics and to follow up with our office in 1 week. The patient should keep the bandage dry, clean, and intact until first post op visit in office. The patient may ambulate as tolerated in post op shoe. The patient is cleared for discharged per podiatry and to be discharged when stable per medicine. I attest to the content of the Intraoperative Record and any orders documented therein. Any exceptions are noted below.
--- NOTE | 2023-07-27 00:51 | Electrocardiogram Report ---
Test Reason : Blood Pressure : / mmHG Vent. Rate : 063 BPM Atrial Rate : 063 BPM P-R Int : 136 ms QRS Dur : 084 ms QT Int : 402 ms P-R-T Axes : 041 011 054 degrees QTc Int : 411 ms Normal sinus rhythm Inferior infarct (cited on or before 14-NOV-2022) Abnormal ECG When compared with ECG of 09-JUL-2023 09:31, No significant change was found Confirmed by Mike Finley ([id number]) on 07/27/2023 12:51:00 AM Referred By: Jenni Bolden Confirmed By:Mike Finley
== END 2023-07-25 19:07 | disposition home or self-care (01) | DRG 617 ==
LOC: ASU 10:43 → 2N 12:38

== ENCOUNTER 2023-08-09 17:36 | Observation (INO) ==
--- NOTE | 2023-08-09 18:06 | ED Triage Note ---
Date of Service August 09, 2023 Provider in Triage Author: Kate Berry History of Present Illness This patient was briefly evaluated while in triage. An abbreviated physical exam was performed. This patient is a 67-year-old Female who presents to the ED for evaluation of "my potassium. My doctor told me to come to the ER because my potassium is so high. They have no idea how high it is, but I've been in the hospital twice for this before." Reports intermittent dizziness. No chest pain or trouble breathing. Called in Rx to the pharmacy, but has to be ordered in. Physical Exam VITALS: Vitals are noted on the nurse's note and reviewed by myself. GENERAL: This is a 67 year old female, in no acute distress, nondiaphoretic, well-developed well-nourished. SKIN: No obvious rashes, edema, erythema HEAD: Normocephalic atraumatic. EYES: Conjunctivae without injection, sclerae without icterus. NECK: No JVD. LUNGS: No retractions or accessory muscle use. MUSCULOSKELETAL: Normal gait. NEURO: Patient was alert and oriented to person place and time. No focal neurological deficits. Initial orders for labs and / or imaging were placed and patient was placed in the waiting area until a bed is available. Please see further documentation for the full ED course.
--- NOTE | 2023-08-09 18:35 | XRay Report ---
XR chest 1V not portable HISTORY: 67 years-old Female hyperkalemia COMPARISON: 07/09/2023 TECHNIQUE: PA view of the chest FINDINGS: Electronic device is again noted projected over the left heart border. The cardiac silhouette is norm al. No pneumothorax, pleural effusion or airspace consolidation. Chronic appearing rib fractures. Bon es appear grossly intact. Lumbar levoscoliosis. IMPRESSION: No acute process. ACT 112: Negative or not required by law. The above report was generated using voice recognition software. It may contain grammatical, syntax o r spelling errors. Electronically signed by: Rod Rogers M.D. 08/09/2023 6:34 PM
[2023-08-09] MEDS: SODIUM CHLORIDE 0.9% 1,000 ML IV ONE (19:25)
--- NOTE | 2023-08-09 19:41 | Emergency Department Note ---
Impression & Plan Hyperkalemia ED Provider Note Provider: Nasim Padilla MD DATE OF SERVICE: 08/09/2023 CHIEF COMPLAINT: Elevated potassium HISTORY OF PRESENT ILLNESS: Patient is a 67-year-old female history of diabetes, hypertension, diabetic foot infection limits healing well currently on antibiotics presenting here stating on Saturday she had some outpatient blood work showing some elevated potassium levels. Has had issues with this over the last several months. Previously prescribed her use of antibiotics as well as hypertension medicine. These have been stopped or changed. Denies significant muscle cramps or palpitations. Maybe occasionally dizziness. Went did go back to work this week and has been quite active. States she feels well denies any fever and states her feet are looking well. States she was contacted by her doctor and with the elevated potassium and they sent her here for evaluation. Evidently they tried to arrange outpatient potassium binder but pharmacy could not obtain until Saturday and would be more than $300. As such came here for evaluation. Has been eating and drinking well by report. Denies significant GI symptoms. 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 NECK: Trachea midline ENT: Mucous membranes pink and moist. LUNGS: Airway patent. No retractions or tachypnea HEART: Regular rate and rhythm. ABDOMEN: Soft and non-tender, without guarding or rebound. SKIN: Acyanotic, warm, dry, without rashes EXTREMITIES: Without swelling, tenderness or deformity NEUROLOGICAL: No focal deficits. No aphasia. No facial droop or slurred speech. Ambulatory. EK bpm. Normal sinus rhythm. No PVC or PAC. No acute ST segment elevation with a QTc of 390. Some mildly peaked anterior T waves noted CONTINUOUS CARDIAC MONITORING: was ordered and showed a heart rate of 70s bpm in normal sinus Patient's laboratory studies and imaging reviewed. Differential includes cardiac arrhythmia, CVA, infections, kidney injury, electrolyte abnormality, infection/sepsis, biliary pathology, volvulus, as well as other pathologies. IMPRESSION/MEDICAL DECISION MAKING: Patient well-appearing. In good spirits. Denies significant infectious symptoms states her feet are feeling well. No longer on LAY/ARB or Bactrim. Not on antibiotics. States she has been hydrating. Given some additional IV fluids for delusional effect. Potassium 2 days ago was elevated at 6.0. Unsure why she continues to have episodes of hyperkalemia. Outpatient potassium binder on backorder till Saturday and quite expensive. Did double check potassium level today with full electrolyte panel. No leukocytosis with stable mild anemia. No significant evidence of UTI or blood in the urine. Reconfirm potassium of 6.0 today. Did order some calcium, bicarb, insulin and dextrose. Did receive a liter of IV fluid here. While not significantly increasing not decreasing either. Patient having difficulty with obtaining the potassium binder. Will bring in for further treatment at this time. Given a dose of potassium binder. Hospitalist contacted. Patient agreeable. DIAGNOSIS: Hyperkalemia DISPOSITION: Hospitalist will evaluate Patient was agreeable with this plan. 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) Hx of colonoscopy H/O heart artery stent (01/2022) History of incision and drainage (05/2019) Hx of tonsillectomy H/O section Family History Mother Coronary heart disease Father Coronary heart disease Deep vein thrombosis Sister Colorectal cancer Social History Smoking Status: Never smoker Second Hand Exposure: No; Do You Dip or Chew Tobacco: No; Hx Alcohol Use: No Hx Substance Use: No Preferred Language: Angolan Communication Ability: Effective Visual Impairment: No Limitations Hearing Ability: Normal Summer Babysitter Required: No Beliefs That Will Affect Care: None marital status: / Current Living Situation: Family Current Living Situation Comment: daughter lives with pt. current occupational status: employed current occupation: [employer] Feels Safe at Home: Yes Safety Concerns: Feels Safe At This Time Diet: diabetic and low carbohydrate caffeine: No during the past year weight has: remained stable Assistive Devices: None Allergies Allergies Allergy/AdvReac Type Severity Reaction Status Date / Time sulfamethoxazole AdvReac Severe hyperkalemi Verified 08/09/23 20:00 [From Bactrim] a trimethoprim [From Bactrim] AdvReac Severe hyperkalemi Verified 08/09/23 20:00 a lisinopril AdvReac Intermediate cough Verified 08/09/23 20:00 losartan AdvReac Intermediate Hyperkalemi Verified 08/09/23 20:00 a Home Meds Home Medications Medication Instructions Recorded Confirmed multivitamin 1 tab PO QAM 03/27/23 08/09/23 aspirin 81 mg tablet,delayed 81 mg PO DAILY 07/04/23 08/09/23 release Previous Rx's Medication Instructions Recorded pen needle, diabetic 32 gauge x #100 ea 12/21/22 532" pen needle, diabetic 32 gauge x #100 ea 01/07/23 1/4" (CareFine Pen Needle) gabapentin 100 mg capsule 300 mg (3 x 100 mg) PO TID #270 05/30/23 caps metformin 1,000 mg tablet 1,000 mg PO BID #180 tabs 05/30/23 cyanocobalamin (vitamin B-12) 1,000 mcg PO DAILY #30 tabs 07/07/23 1,000 mcg tablet rosuvastatin 20 mg tablet 20 mg PO DAILY #90 tabs 07/17/23 meclizine 25 mg tablet 25 mg PO TID PRN dizziness #30 tabs 07/18/23 amlodipine 5 mg tablet 5 mg PO DAILY #90 tabs 08/02/23 triamcinolone acetonide 0.5 % 1 applic topical BID PRN skin 08/05/23 topical cream irritation #60 grams magnesium oxide 400 mg (241.3 mg 400 mg PO DAILY #30 tabs 08/06/23 magnesium) tablet patiromer calcium sorbitex 8.4 8.4 g PO DAILY #4 ea 08/09/23 gram oral powder packet Results & Data (ED) Vital Signs Vital Signs - 24 hr 08/09/23 18:05 08/09/23 19:34 08/09/23 19:36 Temperature 36.7 C Temperature Source Temporal Artery Scan Pulse Rate 84 75 Pulse Rate [Apical] 73 Pulse Rhythm Pulse Rhythm [Apical] Regular Pulse Strength [Apical] Normal Respiratory Rate 20 16 Respiratory Effort / Characteristics Non-Labored Spontaneous Non-Labored Respiratory Depth Normal Normal Respiratory Pattern Regular Blood Pressure 151/70 H Blood Pressure [Right Arm] Blood Pressure Mean 97 Blood Pressure Mean [Right Arm] Pulse Oximetry 100 99 Oxygen Delivery Method Room Air Room Air Sepsis Recent Fever Within 48 Hours No Sepsis New/Unexplained Change in Mental Status N/A Sepsis Action Taken by Nursing No Action Required 08/09/23 19:36 08/09/23 21:00 Temperature Temperature Source Pulse Rate 71 Pulse Rate [Apical] 69 Pulse Rhythm Regular Pulse Rhythm [Apical] Pulse Strength [Apical] Respiratory Rate 18 16 Respiratory Effort / Characteristics Respiratory Depth Respiratory Pattern Blood Pressure Blood Pressure [Right Arm] 137/67 Blood Pressure Mean Blood Pressure Mean [Right Arm] 90 Pulse Oximetry 99 97 Oxygen Delivery Method Room Air Room Air Sepsis Recent Fever Within 48 Hours Sepsis New/Unexplained Change in Mental Status Sepsis Action Taken by Nursing Laboratory Data 08/09/23 19:20 08/09/23 19:20 Lab Results 08/09/23 Range/Units 19:20 WBC 6.53 (4.8-10.8) K/ul RBC 3.99 L (4.20-5.40) M/uL Hgb 11.2 L (12.0-16.0) g/dl Hct 36.0 L (37.0-47.0) % MCV 90.2 (80.0-100.0) fL MCH 28.1 (25.0-34.0) pg MCHC 31.1 L (32.0-36.0) g/dL RDW Std Deviation 47.4 H (36.4-46.3) fL RDW Coeff of Anitha 14.3 (11.5-14.5) % Plt Count 243 (130-400) K/uL MPV 9.9 (9.4-12.4) fL Immature Gran % (Auto) 0.2 % Neut % (Auto) 55.5 % Lymph % (Auto) 29.1 % [place] % (Auto) 10.6 % Eos % (Auto) 4.3 % Baso % (Auto) 0.3 % Neut # (Auto) 3.63 (1.40-6.50) K/uL Lymph # (Auto) 1.90 (1.20-3.40) K/uL [place] # (Auto) 0.69 H (0.11-0.59) K/uL Eos # (Auto) 0.28 (0.00-0.50) K/uL Baso # (Auto) 0.02 (0.00-0.20) K/uL Immature Gran # (Auto) 0.01 (0.01-0.20) K/uL PT 10.4 (9.0-12.0) Seconds INR 0.9 (0.9-1.1) APTT 28 (21-31) Seconds PTT Ratio 1.0 Sodium 139 (136-145) mmol/L Potassium 6.0 H (3.5-5.1) mmol/L Chloride 109 H (98-107) mmol/L Carbon Dioxide 25 (21-32) mmol/L Anion Gap 5 (3-11) BUN 28 H (6-23) mg/dl Creatinine 1.09 (0.6-1.2) mg/dl Est Cr Clr Drug Dosing 53.5 ml/min Est GFR ( Amer) 60.8 ml/min Est GFR (Non-Af Amer) 52.5 ml/min BUN/Creatinine Ratio 25.7 H (10-20) Glucose 148 H (70-99(Fasting)) mg/dl Calcium 9.3 (8.6-10.3) mg/dl Phosphorus 3.5 (2.5-4.9) mg/dl Magnesium 1.4 L (1.7-2.4) mg/dl Total Bilirubin 0.3 (0.2-1.0) mg/dl AST 18 (13-39) U/L ALT 14 (7-52) U/L Alkaline Phosphatase 105 H (34-104) U/L Troponin I High Sens 5.3 (0-14) pg/ml Total Protein 6.9 (6.0-8.3) gm/dl Albumin 3.9 (3.4-5.0) gm/dl Globulin 3.0 (2.5-4.0) gm/dl Albumin/Globulin Ratio 1.3 (0.9-2) Urine Color Yellow Urine Appearance Clear (Clear) Urine pH 5.5 (4.5-7.5) Ur Specific [place] 1.014 (1.000-1.030) Urine Protein Trace H (Negative) Urine Glucose (UA) Negative (Negative) Urine Ketones Negative (Negative) Urine Blood Negative (Negative) Urine Nitrite Negative (Negative) Urine Bilirubin Negative (Negative) Urine Urobilinogen Negative (Negative) Ur Leukocyte Esterase Negative (Negative) Urine WBC (Auto) 0-5 (0-5) /hpf Urine RBC (Auto) 0-2 (0-2) /hpf U Hyaline Cast (Auto) 3-5 H (0-2) /lpf U Epithel Cells (Auto) 3-5 H (0-2) /hpf Urine Bacteria (Auto) None Seen (None Seen) Administered Medications Magnesium Sulfate/Dextrose (Magnesium Sulfate / D5w) 1 gm in 100 mls @ 50 mls/hr IV Q2H PAM Stop: 08/10/23 02:14 Last Admin: 08/10/23 00:28 Dose: 50 mls/hr Documented By: Admin: 08/09/23 22:50 Dose: Not Given Documented By: ADVID Sodium Chloride (Nss) 1,000 mls @ 60 mls/hr IV .[id number] PAM Stop: 08/10/23 16:02 Last Admin: 08/10/23 00:28 Dose: 60 mls/hr Documented By: SONNY Magnesium Oxide (Magnesium Oxide 400 Mg Tab) 400 mg PO BID PAM Stop: 09/08/23 23:22 Last Admin: 08/09/23 23:51 Dose: 400 mg Documented By: SONNY Discontinued Medications Dextrose (Dextrose 50% 50 Ml Syringe) 50 ml IV NOW ONE Stop: 08/09/23 20:50 Last Admin: 08/09/23 21:14 Dose: 50 ml Documented By: DAVID Sodium Chloride (Nss) 1,000 mls @ 999 mls/hr IV .[id number] ONE Stop: 08/09/23 19:07 Last Infusion: 08/09/23 20:32 Dose: Infused Documented By: Admin: 08/09/23 19:25 Dose: 999 mls/hr Documented By: NATE Calcium Gluconate () 1,000 mg in 60 mls @ 240 mls/hr IV NOW STA Stop: 08/09/23 21:03 Last Infusion: 08/09/23 22:09 Dose: Infused Documented By: Admin: 08/09/23 21:14 Dose: 240 mls/hr Documented By: DAVID Insulin Human Regular (Novolin-R Insulin Per Unit Charge) 10 units IV NOW STA Stop: 08/09/23 20:50 Last Admin: 08/09/23 21:15 Dose: 10 units Documented By: DAVID Co-signed By: HB Magnesium Sulfate/Dextrose (Magnesium Sulfate 1gm / D5w Bag) Confirm Administered Dose 1 gm IV .STK-MED ONE Stop: 08/09/23 22:20 Last Admin: 08/09/23 22:20 Dose: 1 gm Documented By: DAVID Sodium Bicarbonate (Sodium Bicarb 8.4% Inj 50 Meq/50 Ml Syr) 50 meq IV NOW STA Stop: 08/09/23 20:49 Last Admin: 08/09/23 21:14 Dose: 50 meq Documented By: DAVID Sodium Zirconium Cyclosilicate (Sodium Zirconium Cyclosilicate 10 Gm Packet) 10 gm PO ONCE ONE Stop: 08/09/23 20:49 Last Admin: 08/09/23 21:14 Dose: 10 gm Documented By: DAVID Imaging Data Radiologist's Impression: Chest X-Ray 08/09/23 18:07 XR chest 1V not portable HISTORY: 67 years-old Female hyperkalemia COMPARISON: 07/09/2023 TECHNIQUE: PA view of the chest FINDINGS: Electronic device is again noted projected over the left heart border. The cardiac silhouette is normal. No pneumothorax, pleural effusion or airspace consolidation. Chronic appearing rib fractures. Bones appear grossly intact. Lumbar levoscoliosis. IMPRESSION: No acute process. ACT 112: Negative or not required by law. The above report was generated using voice recognition software. It may contain grammatical, syntax or spelling errors. Electronically signed by: Rod Rogers M.D. 08/09/2023 6:34 PM Discharge Plan Visit Data Chief Complaint: Abnormal Labs/Diagnostic Testing Stated Complaint: EXTREME HIGH POTASSIUM ED Provider: Nasim Padilla Discharge Problem: Hyperkalemia Patient Disposition: Being Evaluated by Hospitalist Discharge Instructions Interventions: ED Discharge Assessment Last Done: 08/09/23 23:00
[2023-08-09 19:48] LABS: Basophils # (auto) 0.02 K/uL (0.00-0.20); Basophils % (auto) 0.3 %; Eosinophils # (auto) 0.28 K/uL (0.00-0.50); Eosinophils % (auto) 4.3 %; Hemoglobin 11.2 g/dl (12.0-16.0); Immature Granulocytes # (auto) 0.01 K/uL (0.01-0.20); Immature Granulocytes % (auto) 0.2 %; Lymphocytes % (auto) 29.1 %; Mean Corpuscular Hemoglobin 28.1 pg (25.0-34.0); Mean Corpuscular Hgb Conc 31.1 g/dL (32.0-36.0); Mean Corpuscular Volume 90.2 fL (80.0-100.0); Mean Platelet Volume 9.9 fL (9.4-12.4); Monocytes # (auto) 0.69 K/uL (0.11-0.59); Monocytes % (auto) 10.6 %; Neutrophils # (auto) 3.63 K/uL (1.40-6.50); Neutrophils % (auto) 55.5 %; Platelet Count 243 K/uL (130-400); RDW Coefficient of Variation 14.3 % (11.5-14.5); RDW Standard Deviation 47.4 fL (36.4-46.3); Red Blood Count 3.99 M/uL (4.20-5.40); White Blood Count 6.53 K/ul (4.8-10.8)
[2023-08-09 19:51] LABS: Appearance Urine Clear (Clear); Bacteria Urine Automated None Seen (None Seen); Bilirubin Urine Negative (Negative); Blood Urine Negative (Negative); Color Urine Yellow; Glucose Urine UA Negative (Negative); Ketones Urine Negative (Negative); Leukocyte Esterase Urine Negative (Negative); Nitrite Urine Negative (Negative); Protein Urine Trace (Negative); RBC Urine Automated 0-2 /hpf (0-2); Specific Gravity Urine 1.014 (1.000-1.030); Urobilinogen Urine Negative (Negative); WBC Urine Automated 0-5 /hpf (0-5); pH Urine 5.5 (4.5-7.5)
[2023-08-09 20:06] LABS: Albumin Globulin Ratio 1.3 (0.9-2); Albumin Level 3.9 gm/dl (3.4-5.0); BUN Creatinine Ratio 25.7 (10-20); Bilirubin,Total 0.3 mg/dl (0.2-1.0); Calcium 9.3 mg/dl (8.6-10.3); Creatinine Clr Calc Pharmacy 53.5 ml/min; Est GFR (African American) 60.8 ml/min; Est GFR (Non-African American) 52.5 ml/min; Magnesium 1.4 mg/dl (1.7-2.4); Total Protein 6.9 gm/dl (6.0-8.3)
[2023-08-09 20:12] LABS: Troponin I High Sensitivity 5.3 pg/ml (0-14)
[2023-08-09 20:25] LABS: INR 0.9 (0.9-1.1); Partial Thromboplastin Time 28 Seconds (21-31); Prothrombin Time 10.4 Seconds (9.0-12.0)
[2023-08-09] MEDS: CALCIUM GLUCONATE 1,000 MG/60 ML BAG IV STA (21:14)
[2023-08-09] MEDS: SODIUM ZIRCONIUM CYCLOSILICATE 10 GM PACKET PO ONE (21:14)
[2023-08-09] MEDS: DEXTROSE 50% 50 ML SYRINGE IV ONE (21:14)
[2023-08-09] MEDS: SODIUM BICARB 8.4% INJ 50 MEQ/50 ML SYR IV STA (21:14)
[2023-08-09] MEDS: NovoLIN-R INSULIN PER UNIT CHARGE IV STA (21:15)
--- NOTE | 2023-08-09 22:18 | History & Physical Report ---
Date of Service August 09, 2023 Assessment & Plan (1) Hyperkalemia: (2) CAD (coronary artery disease): (3) Dyslipidemia: (4) History of DVT of lower extremity: (5) Diabetic peripheral neuropathy associated with type 2 diabetes mellitus: (6) Diabetes mellitus, type II: (7) HTN (hypertension): (8) History of pulmonary embolus (PE): (9) Hypomagnesemia: Plan Hyperkalemia/hypomagnesemia- Potassium 6.0 earlier in the day and repeated on in the emergency department at 7:20 PM Received normal saline 1 L, sodium bicarbonate 50 mEq IV, Lokelma 10 mg p.o., 50 mL of D50 followed by 50 units of regular insulin IV, and calcium gluconate 1 g IV. Patient is to get repeat BMP at 10:30 PM, 1 after administration of above Give magnesium sulfate 2 g IV and increase oral magnesium oxide from 400 mg daily to twice daily Follow serial laboratories in the a.m. Patient reports that she had a prescription for medication to cost $300 for 2 days, and was unable to get the prescription filled. Her physician has filled out an exception form, and she reports that the prescription has been authorized now by insurance. Continue Veltassa 8.4 mg p.o. daily starting in the a.m. NSS at 60 mL/h x 1 L Diabetes mellitus- Hold metformin Place on Accu-Cheks with NovoLog SSI Hypertension- Continue amlodipine, aspirin Status post left second toe amputation secondary to osteomyelitis- Appears to have normal healing from surgery on 07/25/2023 History of Present Illness Chief Complaint: The patient was referred to the emergency department, due to a recurrence of elevated potassium, as has occurred at 2 previous admissions from 07/03- 07/07/2023, and then 07/23-07/25/23. Primary Care Provider: Carlita Jones DO The patient is a 67-year-old female with a past medical history including coronary artery stent placement, abnormal JOHN, left toe gangrene, diabetic foot ulcer, dyslipidemia, morbid obesity, CAD, history of lower extremity DVT, diabet ic peripheral neuropathy, history of PE, hypertension and history of MO. The patient has had recent admissions from 07/03- for potassium 6.7, and then 07/23-07/25/23 for potassium 6.0. Surveillance laboratories in outpatient setting today revealed a potassium 6.0, and patient was notified to come into the emergency department for assessment. It was initially thought to be an issue with medications causing her potassium to be elevated, however, she is on no medications that were thought to have caused elevated potassium at this time. She is status post left second toe amputation on 07/25/23, due to osteomyelitis. From the ED the patient received the following: Normal saline 1 L, sodium bicarbonate 50 mEq x 1, Lokelma 10 mg p.o. x 1, 50 mL of D50 followed by 10 units of regular insulin IV, and calcium gluconate 1 g IV. Of note, patient had no abnormal symptomatology related to elevated potassium. Allergies Allergy/AdvReac Type Severity Reaction Status Date / Time sulfamethoxazole AdvReac Severe hyperkalemi Verified 08/09/23 20:00 [From Bactrim] a trimethoprim [From Bactrim] AdvReac Severe hyperkalemi Verified 08/09/23 20:00 a lisinopril AdvReac Intermediate cough Verified 08/09/23 20:00 losartan AdvReac Intermediate Hyperkalemi Verified 08/09/23 20:00 a Home Medications Medication Instructions Recorded Confirmed Type pen needle, diabetic 32 gauge x #100 ea 12/21/22 08/02/23 Rx 5/32" pen needle, diabetic 32 gauge x #100 ea 01/07/23 08/02/23 Rx 1/4" (CareFine Pen Needle) multivitamin 1 tab PO QAM 03/27/23 08/09/23 History gabapentin 100 mg capsule 300 mg (3 x 100 mg) PO TID #270 05/30/23 08/09/23 Rx caps metformin 1,000 mg tablet 1,000 mg PO BID #180 tabs 05/30/23 08/09/23 Rx aspirin 81 mg tablet,delayed 81 mg PO DAILY 07/04/23 08/09/23 History release cyanocobalamin (vitamin B-12) 1,000 mcg PO DAILY #30 tabs 07/07/23 08/09/23 Rx 1,000 mcg tablet rosuvastatin 20 mg tablet 20 mg PO DAILY #90 tabs 07/17/23 08/09/23 Rx meclizine 25 mg tablet 25 mg PO TID PRN dizziness #30 tabs 07/18/23 08/09/23 Rx amlodipine 5 mg tablet 5 mg PO DAILY #90 tabs 08/02/23 08/09/23 Rx triamcinolone acetonide 0.5 % 1 applic topical BID PRN skin 08/05/23 08/09/23 Rx topical cream irritation #60 grams magnesium oxide 400 mg (241.3 mg 400 mg PO DAILY #30 tabs 08/06/23 08/09/23 Rx magnesium) tablet patiromer calcium sorbitex 8.4 8.4 g PO DAILY #4 ea 08/09/23 08/09/23 Rx gram oral powder packet 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) Hx of colonoscopy H/O heart artery stent (01/2022) History of incision and drainage (05/2019) Hx of tonsillectomy H/O section Family History Mother Coronary heart disease Father Coronary heart disease Deep vein thrombosis Sister Colorectal cancer Social History Smoking Status: Never smoker Second Hand Exposure: No; Do You Dip or Chew Tobacco: No; Hx Alcohol Use: No Hx Substance Use: No Preferred Language: Polish Communication Ability: Effective Visual Impairment: No Limitations Hearing Ability: Normal Fondant Cooker Required: No Beliefs That Will Affect Care: None marital status: / Current Living Situation: Family Current Living Situation Comment: daughter lives with pt. current occupational status: employed current occupation: [employer] Feels Safe at Home: Yes Safety Concerns: Feels Safe At This Time Diet: diabetic and low carbohydrate caffeine: No during the past year weight has: remained stable Assistive Devices: None Review of Systems Review of Systems: The patient denies chest pain, palpitations, shortness of breath, dyspnea on exertion, cough, lower extremity swelling, sore throat, fevers, chills, sweats, weight change, fatigue, nausea, vomiting, diarrhea , constipation, abdominal pain, pelvic pain, blood in urine or stool, dysuria, urinary frequency or urgency, lightheadedness, dizziness, headache, memory loss, loss of consciousness, rash, abnormal bruising or bleeding, imbalance, focal or generalized weakness, numbness or tingling in arms or legs, generalized arthralgias or myalgias, back or neck pain, or night sweats. The review of systems is otherwise negative other than for that already noted above, and at least 10 systems have been reviewed. Physical Exam Physical Exam: The patient is awake, alert and oriented 3, well developed and well nourished, normocephalic and atraumatic, lying in bed and in no acute distress. HEENT--PERRL, EOMI, mucous membranes and oropharynx normal Neck--supple. No JVD. No bruits. Thyroid normal, trachea midline, no adenopat hy. Heart--normal S1 and S2. No murmurs, rubs or gallops. Lungs--clear bilaterally, no respiratory distress, no accessory muscle use. Abdomen--normal bowel sounds and soft. Nontender. Nondistended Extremities--no cyanosis or clubbing. No edema. Left second toe amputation dressing Dermatologic--normal skin turgor, normal color, no abnormal lymph nodes, no rash. Neurologic--cranial nerves II through XII grossly intact. Rheumatologic--normal range of motion. Psychiatric--normal affect. Results & Data Results & Data Vital Signs (Past 12 Hours) Vital Signs Temp Pulse Pulse Resp BP BP Pulse Ox 08/09/23 21:00 69 16 137/67 97 08/09/23 19:36 71 18 99 08/09/23 19:36 73 16 99 08/09/23 19:34 75 08/09/23 18:05 36.7 C 84 20 151/70 H 100 O2 Del Method 08/09/23 21:00 Room Air 08/09/23 19:36 Room Air 08/09/23 19:36 Room Air 08/09/23 19:34 08/09/23 18:05 Room Air Laboratory Results Laboratory Results WBC 6.53 K/ul (4.8-10.8) 08/09/23 19:20 RBC 3.99 M/uL (4.20-5.40) L 08/09/23 19:20 Hgb 11.2 g/dl (12.0-16.0) L 08/09/23 19:20 Hct 36.0 % (37.0-47.0) L 08/09/23 19:20 MCV 90.2 fL (80.0-100.0) 08/09/23 19:20 MCH 28.1 pg (25.0-34.0) 08/09/23 19:20 MCHC 31.1 g/dL (32.0-36.0) L 08/09/23 19:20 RDW Std Deviation 47.4 fL (36.4-46.3) H 08/09/23 19:20 RDW Coeff of Anitha 14.3 % (11.5-14.5) 08/09/23 19:20 Plt Count 243 K/uL (130-400) 08/09/23 19:20 MPV 9.9 fL (9.4-12.4) 08/09/23 19:20 Immature Gran % (Auto) 0.2 % 08/09/23 19:20 Neut % (Auto) 55.5 % 08/09/23 19:20 Lymph % (Auto) 29.1 % 08/09/23 19:20 [place] % (Auto) 10.6 % 08/09/23 19:20 Eos % (Auto) 4.3 % 08/09/23 19:20 Baso % (Auto) 0.3 % 08/09/23 19:20 Neut # (Auto) 3.63 K/uL (1.40-6.50) 08/09/23 19:20 Lymph # (Auto) 1.90 K/uL (1.20-3.40) 08/09/23 19:20 [place]rie # (Auto) 0.69 K/uL (0.11-0.59) H 08/09/23 19:20 Eos # (Auto) 0.28 K/uL (0.00-0.50) 08/09/23 19:20 Baso # (Auto) 0.02 K/uL (0.00-0.20) 08/09/23 19:20 Immature Gran # (Auto) 0.01 K/uL (0.01-0.20) 08/09/23 19:20 PT 10.4 Seconds (9.0-12.0) 08/09/23 19:20 INR 0.9 (0.9-1.1) 08/09/23 19:20 APTT 28 Seconds (21-31) 08/09/23 19:20 PTT Ratio 1.0 08/09/23 19:20 Sodium 139 mmol/L (136-145) 08/09/23 19:20 Potassium 6.0 mmol/L (3.5-5.1) H 08/09/23 19:20 Chloride 109 mmol/L (98-107) H 08/09/23 19:20 Carbon Dioxide 25 mmol/L (21-32) 08/09/23 19:20 Anion Gap 5 (3-11) 08/09/23 19:20 BUN 28 mg/dl (6-23) H 08/09/23 19:20 Creatinine 1.09 mg/dl (0.6-1.2) 08/09/23 19:20 Est Cr Clr Drug Dosing 53.5 ml/min 08/09/23 19:20 Est GFR ( Amer) 60.8 ml/min 08/09/23 19:20 Est GFR (Non-Af Amer) 52.5 ml/min 08/09/23 19:20 BUN/Creatinine Ratio 25.7 (10-20) H 08/09/23 19:20 Glucose 148 mg/dl (70-99(Fasting)) H 08/09/23 19:20 POC Glucose 110 mg/dl (70-99) H 08/09/23 23:16 Calcium 9.3 mg/dl (8.6-10.3) 08/09/23 19:20 Phosphorus 3.5 mg/dl (2.5-4.9) 08/09/23 19:20 Magnesium 1.4 mg/dl (1.7-2.4) L 08/09/23 19:20 Total Bilirubin 0.3 mg/dl (0.2-1.0) 08/09/23 19:20 AST 18 U/L (13-39) 08/09/23 19:20 ALT 14 U/L (7-52) 08/09/23 19:20 Alkaline Phosphatase 105 U/L (34-104) H 08/09/23 19:20 Troponin I High Sens 5.3 pg/ml (0-14) 08/09/23 19:20 Total Protein 6.9 gm/dl (6.0-8.3) 08/09/23 19:20 Albumin 3.9 gm/dl (3.4-5.0) 08/09/23 19:20 Globulin 3.0 gm/dl (2.5-4.0) 08/09/23 19:20 Albumin/Globulin Ratio 1.3 (0.9-2) 08/09/23 19:20 Urine Color Yellow 08/09/23 19:20 Urine Appearance Clear (Clear) 08/09/23 19:20 Urine pH 5.5 (4.5-7.5) 08/09/23 19:20 Ur Specific [place] 1.014 (1.000-1.030) 08/09/23 19:20 Urine Protein Trace (Negative) H 08/09/23 19:20 Urine Glucose (UA) Negative (Negative) 08/09/23 19:20 Urine Ketones Negative (Negative) 08/09/23 19:20 Urine Blood Negative (Negative) 08/09/23 19:20 Urine Nitrite Negative (Negative) 08/09/23 19:20 Urine Bilirubin Negative (Negative) 08/09/23 19:20 Urine Urobilinogen Negative (Negative) 08/09/23 19:20 Ur Leukocyte Esterase Negative (Negative) 08/09/23 19:20 Urine WBC (Auto) 0-5 /hpf (0-5) 08/09/23 19:20 Urine RBC (Auto) 0-2 /hpf (0-2) 08/09/23 19:20 U Hyaline Cast (Auto) 3-5 /lpf (0-2) H 08/09/23 19:20 U Epithel Cells (Auto) 3-5 /hpf (0-2) H 08/09/23 19:20 Urine Bacteria (Auto) None Seen (None Seen) 08/09/23 19:20 Impressions Chest X-Ray 08/09/23 18:07 XR chest 1V not portable HISTORY: 67 years-old Female hyperkalemia COMPARISON: 07/09/2023 TECHNIQUE: PA view of the chest FINDINGS: Electronic device is again noted projected over the left heart border. The cardiac silhouette is normal. No pneumothorax, pleural effusion or airspace consolidation. Chronic appearing rib fractures. Bones appear grossly intact. Lumbar levoscoliosis. IMPRESSION: No acute process. ACT 112: Negative or not required by law. The above report was generated using voice recognition software. It may contain grammatical, syntax or spelling errors. Electronically signed by: Rod Rogers M.D. 08/09/2023 6:34 PM Code Status & VTE Plan Code Status Full code VTE Prophylaxis Plan VTE Prophylaxis will be ordered: Yes PG Care Time/CCT Total # of Minutes Spent Total Time Spent with Patient: Total time spent is greater than 50% in coordination of care (as documented) at patient's floor/unit and/or counseling patient: Coding Level of Care Code 73444 INT INP/OBS CARE 3/75MIN Diagnoses Hyperkalemia E87.5 Coronary artery disease involving [place] coronary artery of [place] heart without angina pectoris I25.10 Coronary Disease-Associated Artery/Lesion type: [place] artery [place] vs. transplanted heart: [place] heart Associated angina: without angina Dyslipidemia E78.5 History of DVT of lower extremity Z86.718 Diabetic peripheral neuropathy associated with type 2 diabetes mellitus E11.42 Diabetes mellitus, type II E11.9 HTN (hypertension) I10 History of pulmonary embolus (PE) Z86.711 Hypomagnesemia E83.42 (2) CAD (coronary artery disease) Coronary Disease-Associated Artery/Lesion type: [place] artery [place] vs. transplanted heart: [place] heart Associated angina: without angina Qualified Code(s): I25.10 - Atherosclerotic heart disease of [place] coronary artery without angina pectoris
[2023-08-09] MEDS: MAGNESIUM SULFATE 1GM / D5W BAG IV ONE (22:20)
[2023-08-09 22:46] LABS: Phosphorus 3.5 mg/dl (2.5-4.9)
[2023-08-09] MEDS: MAGNESIUM SULFATE / D5W 1 GM/100 ML BAG IV SCH (22:50)
[2023-08-09] MEDS ORDERED: GLUCOSE 10 TAB/TUBE PO PRN (23:23)
[2023-08-09] MEDS ORDERED: CARBOHYDRATES FOR HYPOGLYCEMIA PO PRN (23:23)
[2023-08-09] MEDS ORDERED: GLUCOSE 40% GEL 15 GM TUBE PO PRN (23:23)
[2023-08-09] MEDS ORDERED: DEXTROSE 50% 50 ML SYRINGE IV PRN (23:23)
[2023-08-09] MEDS ORDERED: ONDANSETRON INJ 2 MG/ML 2 ML VIAL IV PRN (23:23)
[2023-08-09] MEDS ORDERED: ACETAMINOPHEN 325 MG TAB PO PRN (23:23)
[2023-08-09] MEDS ORDERED: GLUCAGON FOR INJ 1 MG VIAL SQ PRN (23:23)
[2023-08-09] MEDS: MAGNESIUM OXIDE 400 MG TAB PO SCH (23:51)
[2023-08-10] MEDS: SODIUM CHLORIDE 0.9% 1,000 ML IV SCH (00:28)
--- NOTE | 2023-08-10 04:33 | Billing Data ---
Date of Service August 10, 2023 Coding Level of Care Code 14196 INT INP/OBS CARE
--- NOTE | 2023-08-10 06:10 | Electrocardiogram Report ---
Test Reason : Blood Pressure : / mmHG Vent. Rate : 070 BPM Atrial Rate : 070 BPM P-R Int : 120 ms QRS Dur : 086 ms QT Int : 362 ms P-R-T Axes : 042 016 074 degrees QTc Int : 390 ms Normal sinus rhythm When compared with ECG of 24-JUL-2023 13:00, No significant change was found Confirmed by Samir Pardo ([id number]) on 08/10/2023 6:09:46 AM Referred By: Genie Abernathy Confirmed By:Tanvir Pardo
[2023-08-10 06:17] LABS: Albumin Level 3.4 gm/dl (3.4-5.0); BUN Creatinine Ratio 24.7 (10-20); Creatinine Clr Calc Pharmacy 62.7 ml/min; Est GFR (Non-African American) 60.4 ml/min; Magnesium 1.8 mg/dl (1.7-2.4); Phosphorus 3.5 mg/dl (2.5-4.9); Potassium 5.4 mmol/L (3.5-5.1)
[2023-08-10 06:35] LABS: Basophils # (auto) 0.03 K/uL (0.00-0.20); Basophils % (auto) 0.5 %; Eosinophils # (auto) 0.27 K/uL (0.00-0.50); Eosinophils % (auto) 4.4 %; Hematocrit (blood only) 31.9 % (37.0-47.0); Hemoglobin 10.2 g/dl (12.0-16.0); Immature Granulocytes # (auto) 0.01 K/uL (0.01-0.20); Immature Granulocytes % (auto) 0.2 %; Lymphocytes # (auto) 2.07 K/uL (1.20-3.40); Lymphocytes % (auto) 33.8 %; Mean Corpuscular Volume 87.6 fL (80.0-100.0); Mean Platelet Volume 10.1 fL (9.4-12.4); Monocytes # (auto) 0.69 K/uL (0.11-0.59); Monocytes % (auto) 11.3 %; Neutrophils # (auto) 3.05 K/uL (1.40-6.50); Neutrophils % (auto) 49.8 %; Platelet Count 223 K/uL (130-400); RDW Coefficient of Variation 14.3 % (11.5-14.5); RDW Standard Deviation 46.1 fL (36.4-46.3); Red Blood Count 3.64 M/uL (4.20-5.40); White Blood Count 6.12 K/ul (4.8-10.8)
[2023-08-10 07:47] LABS: Estimated Average Glucose 166 mg/dl; Hemoglobin A1C 7.4 % (4.5-5.6)
[2023-08-10] MEDS: INSULIN ASPART PER UNIT CHARGE SC SCH (07:58)
[2023-08-10] MEDS: amLODIPine BESYLATE 5 MG TAB PO SCH (07:59)
[2023-08-10] MEDS: ASPIRIN 81 MG ECTAB PO SCH (08:00)
[2023-08-10] MEDS: MULTIVITAMIN TAB PO SCH (08:00)
[2023-08-10] MEDS: CYANOCOBALAMIN (B-12) 500 MCG TABLET PO SCH (08:00)
[2023-08-10] MEDS: GABAPENTIN 300 MG CAP PO SCH (08:00)
[2023-08-10] MEDS: ROSUVASTATIN CALCIUM 20 MG TAB PO SCH (08:01)
[2023-08-10] MEDS: PATIROMER CALCIUM SORBITEX 8.4 GM PACK PO SCH (12:16)
--- NOTE | 2023-08-10 17:17 | Hospitalist Progress Note ---
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 had renin and cortisol checked in June but it was drawn at midnight so hard to interpret will formally test in AM per protocol in Uptodate lasix 20 mg IV at 6 am draw renin activity, aldosterone, cortisol at 8AM also check BMP and mag in AM K improved today, high 5's continue lokelma -discharge on thiazide - this might be enough to manage her hyperkalemia -her pharmacy has veltassa for her on Saturday -outpatient nephrology referral Per up to date type 4 RTA "associated with a low plasma renin activity in most but not all cases, low serum aldosterone concentration, and normal serum cortisol concentration" (2) CAD (coronary artery disease): (3) Dyslipidemia: (4) History of DVT of lower extremity: (5) Diabetic peripheral neuropathy associated with type 2 diabetes mellitus: (6) Diabetes mellitus, type II: (7) HTN (hypertension): (8) History of pulmonary embolus (PE): (9) Hypomagnesemia: Plan hypomagnesemia- replaced overnight IV Diabetes mellitus- Hold metformin Place on Accu-Cheks with NovoLog SSI BG at goal Hypertension- Continue amlodipine, aspirin Status post left second toe amputation secondary to osteomyelitis- Appears to have normal healing from surgery on 07/25/2023 Admission and Anticipated Discharge Date Admission Date: August 09, 2023 Subjective feels fine. Has struggled with fatigue - just went back to work since last week, didn't make it through full day yet, very tired end of day L 2nd toe healing very well, sutures removed recently Physical Exam 2 Physical Exam: PHYSICAL EXAMINATION Last 24h vital signs reviewed, see documentation in flowsheet General: comfortable appearing, no distress HEENT: Normocephalic, atraumatic, pupils round and equal, sclerae anicteric, no conjunctival injection, moist mucus membranes Lungs: Normal respiratory effort. Clear to auscultation bilaterally. No RRW Heart: Regular rate and rhythm, no murmurs. No JVD Abdomen: Soft, nontender, nondistended. Bowel sounds present. Extremities: Warm, dry, well-perfused. No extremity edema. L 2nd toe amputated, healing well no erythema or drainage Neuro: Alert and oriented x 4, face symmetric, moves 4 extremities well Psych: Normal affect and behavior Results & Data Results & Data Vital Signs (Past 12 Hours) Vital Signs Temp Pulse Pulse Resp BP Pulse Ox O2 Del Method 08/10/23 15:33 36.8 C 70 16 135/75 97 Room Air 08/10/23 11:03 36.4 C L 65 17 144/79 H 97 Room Air 08/10/23 08:00 Room Air 08/10/23 07:21 36.8 C 68 16 160/76 H 98 Room Air 08/10/23 06:00 61 Laboratory Results 08/10/23 05:39 08/10/23 05:39 PG Care Time/CCT Total # of Minutes Spent Total Time Spent with Patient: Total time spent is greater than 50% in coordination of care (as documented) at patient's floor/unit and/or counseling patient: Coding Level of Care Code 29896 SUB INP/OBS CARE 2/35MIN Diagnoses Hyperkalemia E87.5 Coronary artery disease involving [place] coronary artery of [place] heart without angina pectoris I25.10 Coronary Disease-Associated Artery/Lesion type: [place] artery [place] vs. transplanted heart: [place] heart Associated angina: without angina Dyslipidemia E78.5 History of DVT of lower extremity Z86.718 Diabetic peripheral neuropathy associated with type 2 diabetes mellitus E11.42 Diabetes mellitus, type II E11.9 HTN (hypertension) I10 History of pulmonary embolus (PE) Z86.711 Hypomagnesemia E83.42 (2) CAD (coronary artery disease) Coronary Disease-Associated Artery/Lesion type: [place] artery [place] vs. transplanted heart: [place] heart Associated angina: without angina Qualified Code(s): I25.10 - Atherosclerotic heart disease of [place] coronary artery without angina pectoris
[2023-08-11] MEDS: FUROSEMIDE INJ 20 MG/2 ML VIAL IV ONE (06:00)
[2023-08-11 08:02] LABS: Basophils # (auto) 0.03 K/uL (0.00-0.20); Basophils % (auto) 0.6 %; Eosinophils # (auto) 0.23 K/uL (0.00-0.50); Eosinophils % (auto) 4.6 %; Immature Granulocytes # (auto) 0.01 K/uL (0.01-0.20); Immature Granulocytes % (auto) 0.2 %; Lymphocytes # (auto) 1.83 K/uL (1.20-3.40); Lymphocytes % (auto) 36.5 %; Mean Corpuscular Hemoglobin 27.7 pg (25.0-34.0); Mean Corpuscular Hgb Conc 31.4 g/dL (32.0-36.0); Mean Corpuscular Volume 88.2 fL (80.0-100.0); Mean Platelet Volume 9.6 fL (9.4-12.4); Monocytes # (auto) 0.64 K/uL (0.11-0.59); Monocytes % (auto) 12.8 %; Neutrophils # (auto) 2.27 K/uL (1.40-6.50); Neutrophils % (auto) 45.3 %; Platelet Count 232 K/uL (130-400); RDW Coefficient of Variation 14.5 % (11.5-14.5); RDW Standard Deviation 46.7 fL (36.4-46.3); Red Blood Count 3.97 M/uL (4.20-5.40); White Blood Count 5.01 K/ul (4.8-10.8)
[2023-08-11 08:21] LABS: Albumin Level 3.6 gm/dl (3.4-5.0); BUN Creatinine Ratio 26.3 (10-20); Calcium 9.4 mg/dl (8.6-10.3); Est GFR (African American) 71.8 ml/min; Magnesium 1.5 mg/dl (1.7-2.4)
[2023-08-11 08:22] LABS: Calcium 9.4 mg/dl (8.6-10.3); Creatinine Clr Calc Pharmacy 63.3 ml/min; Est GFR (African American) 70.9 ml/min; Est GFR (Non-African American) 61.2 ml/min; Magnesium 1.5 mg/dl (1.7-2.4); Potassium 4.9 mmol/L (3.5-5.1)
[2023-08-11] MEDS: MAGNESIUM SULFATE / D5W 1 GM/100 ML BAG IV SCH (10:11)
--- NOTE | 2023-08-11 17:38 | Discharge Summary ---
Date of Service August 11, 2023 Admission HPI Per Admitting Provider The patient is a 67-year-old female with a past medical history including coronary artery stent placement, abnormal JOHN, left toe gangrene, diabetic foot ulcer, dyslipidemia, morbid obesity, CAD, history of lower extremity DVT, diabetic peripheral neuropathy, history of PE, hypertension and history of ME. The patient has had recent admissions from 07/03- for potassium 6.7, and then 07/23-07/25/23 for potassium 6.0. Surveillance laboratories in outpatient setting today revealed a potassium 6.0, and patient was notified to come into the emergency department for assessment. It was initially thought to be an issue with medications causing her potassium to be elevated, however, she is on no medications that were thought to have caused elevated potassium at this time. She is status post left second toe amputation on 07/25/23, due to osteomyelitis. From the ED the patient received the following: Normal saline 1 L, sodium bicarbonate 50 mEq x 1, Lokelma 10 mg p.o. x 1, 50 mL of D50 followed by 10 units of regular insulin IV, and calcium gluconate 1 g IV. Of note, patient had no abnormal symptomatology related to elevated potassium. Principal Diagnosis Recurrent hyperkalemia setting diabetic kidney disease Discharge Exam PHYSICAL EXAMINATION Last 24h vital signs reviewed, see documentation in flowsheet General: comfortable appearing, no distress, sitting EOB HEENT: Normocephalic, atraumatic, pupils round and equal, sclerae anicteric, no conjunctival injection, moist mucus membranes Lungs: Normal respiratory effort. Heart: Abdomen: nondistended. Extremities: Warm, dry, well-perfused. No extremity edema. Neuro: Alert and oriented x 4, face symmetric, moves 4 extremities well Psych: Normal affect and behavior Discharge Data Allergies Allergy/AdvReac Type Severity Reaction Status Date / Time sulfamethoxazole AdvReac Severe hyperkalemi Verified 08/09/23 20:00 [From Bactrim] a trimethoprim [From Bactrim] AdvReac Severe hyperkalemi Verified 08/09/23 20:00 a lisinopril AdvReac Intermediate cough Verified 08/09/23 20:00 losartan AdvReac Intermediate Hyperkalemi Verified 08/09/23 20:00 a Consultations 08/09/23 21:27 ED Decision to Admit Stat Ordered Studies 08/11/23 07:38 08/11/23 07:38 Chest X-Ray 08/09/23 18:07 XR chest 1V not portable HISTORY: 67 years-old Female hyperkalemia COMPARISON: 07/09/2023 TECHNIQUE: PA view of the chest FINDINGS: Electronic device is again noted projected over the left heart border. The cardiac silhouette is normal. No pneumothorax, pleural effusion or airspace consolidation. Chronic appearing rib fractures. Bones appear grossly intact. Lumbar levoscoliosis. IMPRESSION: No acute process. ACT 112: Negative or not required by law. The above report was generated using voice recognition software. It may contain grammatical, syntax or spelling errors. Electronically signed by: Rod Rogers M.D. 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 diabetic kidney disease had aldosterone and cortisol checked in June - trinity was low but it was drawn at midnight and probably supine so hard to interpret formally tested in AM per protocol in Uptodate: lasix 20 mg IV at 6 am jarret renin activity, aldosterone, cortisol at 8AM -AM cortisol was 10 Per up to date type 4 RTA "associated with a low plasma renin activity in most but not all cases, low serum aldosterone concentration, and normal serum cortisol concentration" If not fitting this pattern evaluate for other causes, consider cosyntropin stim test -discharge on HCTZ 25 mg - this might be enough to manage her hyperkalemia -her pharmacy has patiromer rx for her pickup tomorrow - continue for now -follow up with PCP - has BMP scheduled for this week, follow up renin/trinity pending -outpatient nephrology referral for CKD-3 (2) CAD (coronary artery disease): (3) Dyslipidemia: (4) History of DVT of lower extremity: (5) Diabetic peripheral neuropathy associated with type 2 diabetes mellitus: (6) Diabetes mellitus, type II: (7) HTN (hypertension): (8) History of pulmonary embolus (PE): (9) Hypomagnesemia: Plan hypomagnesemia- replaced IV, continue oral supplement increase to bid if tolerated Diabetes mellitus- metformin BG at goal Hypertension- Continue amlodipine but reduce dose to 2.5 because of addition of HCTZ, aspirin Status post left second toe amputation secondary to osteomyelitis- Appears to have normal healing from surgery on 07/25/2023 Total Time Total Time Spent Total Time Spent (In Minutes): <30 min Discharge Plan Discharge Items Patient Disposition: Home - Self-Care Reason For Visit: HYPERKALEMIA, HYPOMAGNESEMIA Discharge Diagnosis: hyperkalemia Activity: Resume your previous activity Non-emergency contact: Primary Care Provider Call non-emergency contact if: you have any medication questions and your symptoms worsen Follow-up/Referrals: Carlita Jones DO [Primary Care Provider] - 08/20/23 8:20 am Addtl Attending Provider Instructions: Potassium was high again -improved to 5.0 today Morning cortisol was normal I did testing for a condition called hypoaldosteronism - a fairly common problem associated with diabetic kidney disease that can cause high potassium The results of this test won't be available for about 2 weeks I decreased your amlodipine and added hydrochlorothiazine - a mild diuretic that will help you pee out extra potassium If this is effective you may be able to discontinue the veltassa in the future You will need to take a magnesium supplement - you can try to take magnesium oxide 400 mg twice a day if tolerated - this can cause diarrhea. If you have diarrhea from this you can try "Slow-Mag" these medications are available over the counter Follow up in primary care - it would be more useful to get your blood draw later this week (Saturday through Saturday) instead of tomorrow I made a referral to nephrology It was a pleasure taking care of you in the hospital Lolis Morrow MD Pending Studies at Discharge: Yes Stand-Alone Forms: [facility] Smoking Cessation Medications and DC Order Prescriptions: New hydrochlorothiazide 25 mg tablet 25 mg PO DAILY Qty: 30 0RF Continued (DME) pen needle, diabetic 32 gauge x 5/32" needle See Rx Instructions .Route Qty: 100 0RF Rx Instructions: As directed triamcinolone acetonide 0.5 % cream 1 applic topical BID PRN (Reason: skin irritation) Qty: 60 1RF magnesium oxide 400 mg (241.3 mg magnesium) tablet 400 mg PO DAILY Qty: 30 2RF patiromer calcium sorbitex 8.4 gram powder in packet 8.4 g PO DAILY Qty: 4 0RF (DME) pen needle, diabetic [CareFine Pen Needle] 32 gauge x 1/4" needle See Rx Instructions .Route Qty: 100 1RF Rx Instructions: To be used with insulin pen. rosuvastatin 20 mg tablet 20 mg PO DAILY Qty: 90 3RF meclizine 25 mg tablet 25 mg PO TID PRN (Reason: dizziness) Qty: 30 0RF gabapentin 100 mg capsule 300 mg PO TID Qty: 270 3RF metformin 1,000 mg tablet 1,000 mg PO BID Qty: 180 1RF multivitamin Tablet 1 tab PO QAM aspirin 81 mg Tablet,Delayed Release (Dr/Ec) 81 mg PO DAILY cyanocobalamin (vitamin B-12) 1,000 mcg tablet 1,000 mcg PO DAILY Qty: 30 0RF Rx Instructions: OTC Changed amlodipine 5 mg tablet 2.5 mg PO DAILY Qty: 90 2RF Discharge Orders: Discharge Order (Routine); Ordered 08/11/23 Ordered By: Lolis Ramos/Other Patient Handouts: Managing Type 2 Diabetes Admission Data Admit Date/Time: 08/09/23 22:17 Attending Provider: Lolis Morrow Admit Provider: Orlin Castellanos Primary Care Provider: Carlita Jones Other Providers: Orlin Castellanos Other Interventions: Discharge Summary Assessment (RN) Last Done: 08/11/23 14:48 Coding Level of Care Code 18846 IN/OBS DISCH 30 MIN/LESS Diagnoses Hyperkalemia E87.5 Coronary artery disease involving [place] coronary artery of [place] heart without angina pectoris I25.10 Coronary Disease-Associated Artery/Lesion type: [place] artery [place] vs. transplanted heart: [place] heart Associated angina: without angina Dyslipidemia E78.5 History of DVT of lower extremity Z86.718 Diabetic peripheral neuropathy associated with type 2 diabetes mellitus E11.42 Diabetes mellitus, type II E11.9 HTN (hypertension) I10 History of pulmonary embolus (PE) Z86.711 Hypomagnesemia E83.42
== END 2023-08-11 15:22 | disposition home or self-care (01) ==
LOC: ED 17:36 → 2S 17:36 → SUATTDRO 22:17 → 2S 23:00 → 2N 08-10 20:18